=== PATIENT | female | born 1935 | race Caucasian/White ===

== ENCOUNTER 2016-09-30 12:51 | Inpatient (IN) | payer MEDICARE, MEDICAID ==
[2016-09-30] MEDS ORDERED: ASPIRIN (CHEWABLE) 81 MG TAB PO ONE (13:05)
[2016-09-30] MEDS ORDERED: IPRATROPIUM/ALBUTEROL 3 ML VIAL NEB ONE ×2 (13:05)
--- NOTE | 2016-09-30 13:19 | RAD ---
EXAM DESCRIPTION: XR CHEST 1 VIEW CLINICAL HISTORY: dyspnea COMPARISON: August 2015 TECHNIQUE: Single view chest FINDINGS: Cardiomegaly noted peer prior sternotomy. The lungs are clear. No pleural effusion or pneumothorax. IMPRESSION: Unchanged study when compared to 2014. No evidence of infiltrates at this time. Electronically signed by: Jasson Lozada MD 09/30/2016 13:18
--- NOTE | 2016-09-30 13:59 | ED.PDOC ---
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 Intermittent. Worse with activity , better with rest. Uses nebulizers at home. Her home health nurse told her to come to the ER. She denies any chest pain. Has chronic bipedal edema. No other complaints. Timing/Duration: other - 3 weeks Severity: mild Improving Factors: movement Worsening Factors: rest Associated Symptoms: denies symptoms Allergies/Adverse Reactions: Allergies Morphine Adverse Reaction (Severe, Verified 01/02/16 04:52) Other Makes her "crazy" Home Medications: Ambulatory Orders ALPRAZolam [Xanax] 0.5 mg PO TID PRN 04/12/15 Acetaminophen W/ Codeine [Tylenol W/ CODEINE #3] 1 ea PO TID PRN 04/12/15 Esomeprazole Magnesium [Nexium] 40 mg PO DAILY 04/12/15 Furosemide 80 mg PO DAILY 04/12/15 Linagliptin [Tradjenta] 5 mg PO DAILY 04/12/15 Nitroglycerin [Nitrostat] 0.4 mg SL PRN PRN 04/12/15 Prasugrel [Effient] 10 mg PO DAILY 04/12/15 Promethazine Tab [Phenergan Tablet] 25 mg PO QID PRN 04/12/15 Simvastatin 80 mg PO BEDTIME 04/12/15 diltiaZEM HCL CD [Cardizem Cd] 120 mg PO QD #30 cap 04/14/15 Aspirin [Aspirin Adult Low Dose] 81 mg PO DAILY 05/03/15 Insulin Detemir [Levemir Pen] 36 unit SUBCU DAILY 05/03/15 Metoclopramide HCl [Reglan] 10 mg PO TID PRN 05/03/15 Spironolactone [Aldactone] 50 mg PO DAILY 05/03/15 Lisinopril 5 mg PO DAILY 08/07/15 Mwnfahgeec-Hpypssnuazmaa-Vvcjn [Fioricet] 1 cap PO PRN PRN 09/30/16 Carbidopa-Levodopa [Carbidopa/Levodopa 25-100 mg] 1 tab PO BEDTIME 09/30/16 Insulin Regular (Human) [Novolin R U-100] 6 unit IJ TID 09/30/16 Metoprolol Succinate [Metoprolol Succinate ER] 25 mg PO DAILY 09/30/16 Review of Systems - Review of Systems Constitutional: States: no symptoms reported EENTM: States: no symptoms reported Respiratory: States: see HPI Cardiology: States: no symptoms reported Gastrointestinal/Abdominal: States: no symptoms reported Genitourinary: States: no symptoms reported Musculoskeletal: States: no symptoms reported Skin: States: no symptoms reported Neurological: States: no symptoms reported Endocrine: States: no symptoms reported Hematologic/Lymphatic: States: no symptoms reported Past Medical History (General) - Patient Medical History Hx Seizures: No Hx Stroke: No Hx Dementia: Yes - beginning Hx Asthma: No Hx of COPD: No Hx Cardiac Disorders: Yes - Stent Hx Congestive Heart Failure: Yes Hx Pacemaker: No Hx Hypertension: Yes Hx Thyroid Disease: No Hx Diabetes: Yes Hx Gastroesophageal Reflux: Yes Hx Renal Disease: Yes Hx Cancer: No Hx of HIV: No Hx Hepatitis C: No Hx MRSA: No Surgical History: appendectomy, cholecystectomy - Vaccination History Hx Tetanus, Diphtheria Vaccination: No Hx Influenza Vaccination: Yes Hx Pneumococcal Vaccination: Yes Immunizations Up to Date: Yes - Social History Hx Tobacco Use: No Hx Chewing Tobacco Use: No Hx Alcohol Use: No Hx Substance Use: No Hx Substance Use Treatment: No Hx Depression: No Feels Threatened In Home Enviroment: No Feels Threatened In a Relationship: No Hx Physical Abuse: No Hx Emotional Abuse: No Hx Suspected Abuse: No - Activities of Daily Living Hospice Agency (if applicable):: None - Female History Patient is a Female of Child Bearing Age (10 -59 yrs old): No Patient : No Family Medical History - Family History Mother Family History: Unknown Living Status: Age at (years of age): 89 Cause of : old age Hx Family Diabetes: Yes Father Hx Cardiac Disease: Yes Physical Exam - Physical Exam General Appearance: Alert Ears, Nose, Throat: normal ENT inspection Neck: non-tender, full range of motion, supple Respiratory: lungs clear Cardiovascular/Chest: regular rate, rhythm Gastrointestinal/Abdominal: normal bowel sounds, non tender, soft Extremity: normal range of motion, non-tender, normal inspection, no pedal edema Neurologic: no motor/sensory deficits Skin Exam: normal color Lymphatic: no adenopathy Progress - Progress Progress: 10/01/16 05:28 Duonebs x one. Patient remained asymptomatic in the E.D. Laboratory Tests 09/30/16 09/30/16 09/30/16 13:03 13:04 13:15 WBC 11.3 H RBC 3.84 L Hgb 12.2 Hct 36.6 MCV 95.4 MCH 31.7 H MCHC 33.2 RDW 13.1 Plt Count 260 MPV 7.9 Absolute Neuts (auto) 6.70 Absolute Lymphs (auto) 3.00 Absolute Monos (auto) 1.00 H Absolute Eos (auto) 0.60 H Absolute Basos (auto) 0.10 Neutrophils % 58.9 Lymphocytes % 26.2 Monocytes % 8.6 Eosinophils % 5.5 H Basophils % 0.8 PT 11.6 INR 1.030 PTT (SP) 31.7 Sodium 132 L Potassium 4.6 Chloride 96 L Carbon Dioxide 27 Anion Gap 13.6 BUN 43 H Creatinine 2.52 H BUN/Creatinine Ratio 17.1 POC Glucose Random Glucose 197 H Serum Osmolality 280.8 Calcium 8.8 Total Bilirubin 0.6 AST 20 ALT 9 L Alkaline Phosphatase 90 Creatine Kinase 63 CK-MB (CK-2) 1.9 CK-MB (CK-2) % Not Reportable Troponin I < 0.02 B-Natriuretic Peptide 76.9 Serum Total Protein 7.2 Albumin 3.5 Globulin 3.7 H Albumin/Globulin Ratio 0.9 L Urine Color Urine Appearance Urine pH Ur Specific Bern Urine Protein Urine Glucose (UA) Urine Ketones Urine Blood Urine Nitrite Urine Bilirubin Urine Urobilinogen Ur Leukocyte Esterase Urine RBC Urine WBC Ur Epithelial Cells Urine Bacteria 09/30/16 09/30/16 19:30 20:55 WBC RBC Hgb Hct MCV MCH MCHC RDW Plt Count MPV Absolute Neuts (auto) Absolute Lymphs (auto) Absolute Monos (auto) Absolute Eos (auto) Absolute Basos (auto) Neutrophils % Lymphocytes % Monocytes % Eosinophils % Basophils % PT INR PTT (SP) Sodium Potassium Chloride Carbon Dioxide Anion Gap BUN Creatinine BUN/Creatinine Ratio POC Glucose 184 H Random Glucose Serum Osmolality Calcium Total Bilirubin AST ALT Alkaline Phosphatase Creatine Kinase CK-MB (CK-2) CK-MB (CK-2) % Troponin I B-Natriuretic Peptide Serum Total Protein Albumin Globulin Albumin/Globulin Ratio Urine Color Yellow Urine Appearance Cloudy Urine pH 6.0 Ur Specific Bern 1.015 Urine Protein Negative Urine Glucose (UA) Negative Urine Ketones Negative Urine Blood Negative Urine Nitrite Positive H Urine Bilirubin Negative Urine Urobilinogen 0.2 Ur Leukocyte Esterase Small H Urine RBC 3-5 H Urine WBC 5-10 H Ur Epithelial Cells 3-5 Urine Bacteria 2+ H Discharged with orders to follow up with pcp. Departure - Departure Clinical Impression: Dyspnea Disposition: Discharge to Home or Self Care Condition: Good Diet: resume usual diet Activity: increase activity as tolerated Home Medications: Ambulatory Orders ALPRAZolam [Xanax] 0.5 mg PO TID PRN 04/12/15 Acetaminophen W/ Codeine [Tylenol W/ CODEINE #3] 1 ea PO TID PRN 04/12/15 Esomeprazole Magnesium [Nexium] 40 mg PO DAILY 04/12/15 Furosemide 80 mg PO DAILY 04/12/15 Linagliptin [Tradjenta] 5 mg PO DAILY 04/12/15 Nitroglycerin [Nitrostat] 0.4 mg SL PRN PRN 04/12/15 Prasugrel [Effient] 10 mg PO DAILY 04/12/15 Promethazine Tab [Phenergan Tablet] 25 mg PO QID PRN 04/12/15 Simvastatin 80 mg PO BEDTIME 04/12/15 diltiaZEM HCL CD [Cardizem Cd] 120 mg PO QD #30 cap 04/14/15 Aspirin [Aspirin Adult Low Dose] 81 mg PO DAILY 05/03/15 Insulin Detemir [Levemir Pen] 36 unit SUBCU DAILY 05/03/15 Metoclopramide HCl [Reglan] 10 mg PO TID PRN 05/03/15 Spironolactone [Aldactone] 50 mg PO DAILY 05/03/15 Lisinopril 5 mg PO DAILY 08/07/15 Nmgwmitnvc-Mvsejuqfvmmei-Guqir [Fioricet] 1 cap PO PRN PRN 09/30/16 Carbidopa-Levodopa [Carbidopa/Levodopa 25-100 mg] 1 tab PO BEDTIME 09/30/16 Insulin Regular (Human) [Novolin R U-100] 6 unit IJ TID 09/30/16 Metoprolol Succinate [Metoprolol Succinate ER] 25 mg PO DAILY 09/30/16 Comments: Follow up with your regular doctor this week. Return to the E.R. if symptoms return.
--- NOTE | 2016-09-30 17:21 | HP ---
SUPERVISING PHYSICIAN: Abhilash Siddiqi MD CHIEF COMPLAINT: Coughing and shortness of breath. HISTORY OF PRESENT ILLNESS: This is an 80-year-old female patient who presented to the Emergency Room today. She stated about two weeks ago, she had a lot of shortness of breath and coughing. Several times she even got sort of dizzy. She talked to her [facility] home health nurse several times and she seemed to get over it occasionally, but it just progressively got worse. She was so congested and had such a stuffy nose, it was very difficult to breathe on Wednesday and she often became dizzy and could not focus. She called her home health nurse today and they advised her to go the Emergency Room. In the Emergency Room, her oxygen saturation was 88% on room air and she was tachypneic and very short of breath. She was given nebulizers as well as oxygen and her O2 sats came up to 92%. She felt somewhat better. She has a history of congestive heart failure and her BNP was 76.9. Cardiac enzymes were negative. She had leukocytosis with WBC 11.3, low sodium at 132 as well as low chloride at 96. BUN was 43, creatinine 2.5. Her baseline creatinine is usually about 2 to 2.3. Blood sugars were high at 184. Chest x-ray was negative for any acute abnormalities, but she was very dyspneic with low oxygen saturation and I was called for admission. She was admitted and then I also did a urinalysis and she was positive for nitrites and leukocyte esterase. PAST MEDICAL HISTORY: 1. Carotid artery stenosis. 2. Coronary artery disease. 3. Hyperlipidemia. 4. Hypertension. 5. Gastroesophageal reflux disease. 6. Duodenal ulcers. 7. Chronic renal insufficiency. 8. Type 2 diabetes mellitus. 9. Gastroparesis. PAST SURGICAL HISTORY: 1. Biopsy of breast. 2. Cholecystectomy. 3. Coronary artery bypass graft in 1998. 4. Cardiac stent in February of 2012. OUTPATIENT MEDICATIONS: Per the electronic medical record and awaiting verification. ALLERGIES: LYRICA, MORPHINE. 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 She smoked many years ago, but quit about 20 years ago. She denies any ETOH or illicit drug use. REVIEW OF SYSTEMS: GENERAL: Denies fever, fatigue or chills. HEENT: Complains of nasal congestion and post nasal drip, but denies ear pain, or sore throat. Positive for difficulty focusing with shortness of breath. RESPIRATORY : As per history of present illness. CARDIAC: Denies chest pain, palpitations or tachycardia. GASTROINTESTINAL: Denies nausea, vomiting, diarrhea, constipation or abdominal pain. NEUROLOGIC: Complains of sporadic dizziness, although she has not had any dizziness since she came to the hospital. Denies headache or seizures. SKIN: Denies lesions or rashes. GENITOURINARY: Denies hematuria, nocturia, dysuria, or polyuria. PHYSICAL EXAMINATION: VITAL SIGNS: Afebrile. Heart rate 52. Blood pressure 122/75. Respiratory rate 22. Oxygen saturation 88% on room air. GENERAL: This is an 80-year-old, obese female who is laying in her hospital bed. She is in no acute distress. HEENT: Normocephalic, atraumatic. Pupils are equal and reactive. She does have some clear nasal drainage. Oropharynx clear. NECK: Supple without mass. No jugular venous distention. RESPIRATORY: Diminished breath sounds throughout. She does have a few expiratory wheezes and some rhonchi, especially in the apices. CARDIAC: Regular rate and rhythm. She does get bradycardic at times. ABDOMEN: Rounded, obese, nontender. Bowel sounds are positive. EXTREMITIES: No cyanosis or clubbing. +1 edema to bilateral lower extremities. Pedal pulses are +1 bilaterally. NEUROLOGIC: Awake, alert and oriented times three. LABORATORY: As per history of present illness. Her urine RBCs 3 to 5, urine WBCs 5 to 10, urine bacteria 2+. Cardiac enzymes are negative. All other labs and films have been reviewed via the EMR. ASSESSMENT: 1. Acute exacerbation of chronic obstructive pulmonary disease. 2. Hypoxia with dyspnea. 3. Urinary tract infection. 4. Mild leukocytosis. 5. Chronic renal insufficiency with baseline creatinine of 2 to 2.3 and now 2.5. 6. History of congestive heart failure with diastolic etiology. Ejection fraction 60% in August of 2015. 7. Hypertension. 8. Coronary artery disease. 9. Diabetes mellitus, type 2. 10. Gastroesophageal reflux disease. PLAN: We will admit the patient to the hospital. I have given her one dose of Solu-Medrol. I have also started her on IV Rocephin and azithromycin. She will also have breathing treatments. Encourage good pulmonary toilet. I have started Protonix for ulcer prophylaxis and Lovenox for DVT prophylaxis. Her breathing treatments will be DuoNeb. I have also given her some guaifenesin. I have done a urine culture as well as blood cultures and ordered a sputum culture. I will repeat her labs and x-ray in the morning. I also put her on telemetry. We will continue to monitor the patient closely and followup as needed. Dr. Siddiqi is the collaborating physician and available for consultation. #[id number] [facility]
[2016-09-30] MEDS ORDERED: ALBUTEROL SULFATE 2.5 MG/3 ML VIAL NEB PRN (17:38)
[2016-09-30] MEDS ORDERED: DEXTROSE 50% 25 GM/50 ML SYG IV PRN (17:46)
[2016-09-30] MEDS ORDERED: GLUCAGON INJ 1 MG VIAL SUBCU PRN (17:46)
[2016-09-30] MEDS: IV SET AND CAP CHANGE INJ INJ SCH (18:13)
[2016-09-30] MEDS ORDERED: cefTRIAXone SODIUM 1 GM VIAL ONE (20:54)
[2016-09-30] MEDS ORDERED: SODIUM CHL 0.9% 50ML MIN-BAG+ 50 ML IVPB ONE (20:54)
[2016-09-30] MEDS ORDERED: SODIUM CHLORIDE 0.9% 250ML 250 ML ONE (20:54)
[2016-09-30] MEDS ORDERED: AZITHROMYCIN IV 500 MG VIAL IVPB ONE (20:55)
[2016-09-30] MEDS: cefTRIAXone SODIUM 1 GM in SODIUM CHL 0.9% 50ML MIN-BAG+ 50 ML IVPB SCH (20:57)
[2016-09-30] MEDS: INSULIN LISPRO 100 UNITS/ML PEN SUBCU SCH (20:58)
[2016-09-30] MEDS: guaiFENesin ER TAB 600 MG TAB PO SCH (20:58)
[2016-09-30] MEDS: IPRATROPIUM/ALBUTEROL 3 ML VIAL INH SCH (21:00)
[2016-09-30] MEDS: SODIUM CHLORIDE 0.9% (FLUSH) 10 ML SYG IV PRN (21:36)
[2016-09-30] MEDS ORDERED: AZITHROMYCIN IV 500 MG in SODIUM CHLORIDE 0.9% 250ML 250 ML IVPB SCH (22:00)
[2016-09-30] MEDS ORDERED: methylPREDNISolone SODIUM SUC 125 MG/2 ML VIAL IV ONE (22:15)
[2016-10-01] MEDS: ACETAMINOPHEN W/COD #3 TAB 1 EA TAB PO PRN (01:27)
[2016-10-01] MEDS ORDERED: ENOXAPARIN SODIUM 40 MG/0.4 ML SYG SUBCU ONE (03:39)
[2016-10-01] MEDS: PANTOPRAZOLE SODIUM IV 40 MG VIAL IV SCH ×2 (03:47→22:40)
[2016-10-01] MEDS: ENOXAPARIN SODIUM 30 MG/0.3 ML SYG SUBCU SCH ×2 (04:16→22:40)
--- NOTE | 2016-10-01 07:26 | RAD ---
EXAM: Two view chest. INDICATION: Chest pain. COMPARISON: Chest x-ray: 09/30/2016. FINDINGS: There is a retrocardiac airspace opacity. The heart is normal in size. There is no pneumothorax or pleural effusion. Median sternotomy wires are noted. IMPRESSION: Retrocardiac airspace opacity concerning for pneumonia. Electronically signed by: Sundeep Neumann MD 10/01/2016 7:26 AM [employer]
[2016-10-01] MEDS: INSULIN LISPRO 100 UNITS/ML PEN SUBCU SCH ×4 (08:10→21:19)
[2016-10-01] MEDS: IPRATROPIUM/ALBUTEROL 3 ML VIAL INH SCH ×3 (08:35→16:40)
[2016-10-01] MEDS ORDERED: SODIUM CHL 0.9% 50ML MIN-BAG+ 50 ML IVPB ONE ×2 (08:58→20:16)
[2016-10-01] MEDS ORDERED: cefTRIAXone SODIUM 1 GM VIAL ONE ×2 (08:58→20:16)
[2016-10-01] MEDS: guaiFENesin ER TAB 600 MG TAB PO SCH ×2 (09:21→21:20)
[2016-10-01] MEDS: AZITHROMYCIN 250 MG TAB PO SCH (09:21)
[2016-10-01] MEDS: cefTRIAXone SODIUM 1 GM in SODIUM CHL 0.9% 50ML MIN-BAG+ 50 ML IVPB SCH ×2 (09:22→21:20)
[2016-10-01] MEDS: SODIUM CHLORIDE 0.9% (FLUSH) 10 ML SYG IV SCH ×2 (10:02→21:21)
[2016-10-01] MEDS ORDERED: METOCLOPRAMIDE HCL 5 MG TAB PO PRN (11:58)
[2016-10-01] MEDS ORDERED: LINAGLIPTIN 5 MG PO SCH (12:00)
[2016-10-01] MEDS ORDERED: FUROSEMIDE 80 MG PO SCH (12:00)
[2016-10-01] MEDS: PRASUGREL 10 MG TAB PO SCH (13:55)
[2016-10-01] MEDS: METOPROLOL SUCCINATE XL 25 MG TAB PO SCH (13:56)
[2016-10-01] MEDS: FUROSEMIDE 40 MG TAB PO SCH (13:56)
[2016-10-01] MEDS: LISINOPRIL 5 MG TAB PO SCH (13:56)
[2016-10-01] MEDS: NYSTATIN POWDER 15GM BTTL TOP SCH ×4 (14:03→23:04)
[2016-10-01] MEDS ORDERED: FORMOTEROL FUMARATE INH SCH ×2 (14:30→20:00)
[2016-10-01] MEDS: ACETAMINOPHEN 325 MG TAB PO PRN (15:00)
[2016-10-01] MEDS: INSULIN DETEMIR 100 UNITS/ML PEN SUBCU SCH (17:09)
[2016-10-01] MEDS: ALPRAZolam 0.5 MG TAB PO PRN (18:16)
[2016-10-01] MEDS: NON-FORMULARY RESPIRATORY MEDICATION INH SCH (20:45)
[2016-10-01] MEDS: CARBIDOPA/LEVODOPA 25/100 1 TAB PO SCH (21:21)
[2016-10-01] MEDS: methylPREDNISolone SODIUM SUC 40 MG/ML VIAL IV SCH (23:40)
[2016-10-02] MEDS: methylPREDNISolone SODIUM SUC 40 MG/ML VIAL IV SCH ×3 (05:09→17:11)
[2016-10-02] MEDS: INSULIN LISPRO 100 UNITS/ML PEN SUBCU SCH ×6 (07:34→21:19)
[2016-10-02] MEDS: INSULIN DETEMIR 100 UNITS/ML PEN SUBCU SCH ×2 (07:39→16:51)
[2016-10-02] MEDS: AZITHROMYCIN 250 MG TAB PO SCH (07:47)
[2016-10-02] MEDS ORDERED: SODIUM CHL 0.9% 50ML MIN-BAG+ 50 ML IVPB ONE ×2 (08:20→20:19)
[2016-10-02] MEDS ORDERED: cefTRIAXone SODIUM 1 GM VIAL ONE ×2 (08:21→20:19)
[2016-10-02] MEDS: cefTRIAXone SODIUM 1 GM in SODIUM CHL 0.9% 50ML MIN-BAG+ 50 ML IVPB SCH ×2 (09:11→20:47)
[2016-10-02] MEDS: LINAGLIPTIN 5 MG TAB PO SCH (09:15)
[2016-10-02] MEDS: FUROSEMIDE 40 MG TAB PO SCH (09:15)
[2016-10-02] MEDS: PRASUGREL 10 MG TAB PO SCH (09:15)
[2016-10-02] MEDS: LISINOPRIL 5 MG TAB PO SCH (09:15)
[2016-10-02] MEDS: SPIRONOLACTONE 25 MG TAB PO SCH (09:15)
[2016-10-02] MEDS: SODIUM CHLORIDE 0.9% (FLUSH) 10 ML SYG IV SCH ×2 (09:16→20:47)
[2016-10-02] MEDS: guaiFENesin ER TAB 600 MG TAB PO SCH ×2 (09:16→20:48)
[2016-10-02] MEDS: NYSTATIN POWDER 15GM BTTL TOP SCH ×4 (09:16→20:48)
[2016-10-02] MEDS: METOPROLOL SUCCINATE XL 25 MG TAB PO SCH (09:20)
--- NOTE | 2016-10-02 09:24 | PN ---
SUPERVISING PHYSICIAN: Abhilash Siddiqi MD DATE: 10/01/16 SUBJECTIVE: This is an 80-year-old female patient who is lying in her hospital bed. She is in mild respiratory distress. She continues complaints of coughing and shortness of breath with any exertion, but she does feel slightly better than she did yesterday. She also complains of some indigestion and she asked if she had Reglan ordered and I explained to her that she does have it as a p.r.n. I also discussed with her that Perforomist was listed as a home medication and she did admit that she was taking her 's Perforomist and that she was going to ask Dr. Alex about prescribing the formoterol for her breathing issues. OBJECTIVE: VITAL SIGNS: Afebrile. Heart rate 57. Blood pressure 132/75. Respiratory rate 18. O2 saturation 93%.LUNGS: Diminished breath sounds throughout. There is an occasional wheeze to the right upper lobe, but it somewhat clears with coughing. CARDIAC: Regular rate and rhythm. ABDOMEN: Obese, rounded, nondistended. Bowel sounds are positive. EXTREMITIES: Trace pedal edema. Pedal pulses are palpable at +1. NEUROLOGIC: Awake, alert and oriented times three. SKIN: She has a red yeasty rash under the bulge of her abdomen and in her groin. LABORATORY: WBC down from 11.3 to 10. Hemoglobin 11.8, hematocrit 35.8. Sodium 134, potassium 4.8, chloride 99, creatinine down from 2.52 to 2.41. Chest x-ray shows a retrocardiac airspace opacity concerning for pneumonia. Preliminary urine culture shows gram negative rods. Preliminary blood cultures show no growth. All other labs and films have been reviewed via the EMR. ASSESSMENT: 1. Acute exacerbation of chronic obstructive pulmonary disease. 2. Hypoxia with dyspnea. 3. Pneumonia. 4. Urinary tract infection with preliminary urine culture positive for gram negative rods. 5. Chronic renal insufficiency with baseline creatinine of 2 to 2.3. 6. Candidiasis infection. 7. History of congestive heart failure with diastolic etiology, ejection fraction of 60% in August of 2015. 8. Hypertension. 9. Coronary artery disease. 10. Diabetes mellitus, type 2. 11. Gastroesophageal reflux disease. PLAN: We will slowly taper the patient's steroids. I have also added Nystatin for her yeast infection. I will order routine labs and chest x-ray in the morning. We will continue on azithromycin and Rocephin until her cultures are finalized. She does not ambulate much at home except with a walker. I will order physical therapy. Hopefully she will be able to be discharged home in the next few days with [facility]. Dr. Siddiqi is the collaborating physician and available for consultation. #[id number] [facility]
[2016-10-02] MEDS: NON-FORMULARY RESPIRATORY MEDICATION INH SCH ×2 (09:37→20:47)
[2016-10-02] MEDS: ALPRAZolam 0.5 MG TAB PO PRN (18:47)
[2016-10-02] MEDS ORDERED: MAGNESIUM HYDROXIDE 30 ML UD ONE (20:28)
[2016-10-02] MEDS ORDERED: MAGNESIUM HYDROXIDE 30 ML UD PO PRN (20:30)
[2016-10-02] MEDS: CARBIDOPA/LEVODOPA 25/100 1 TAB PO SCH (20:48)
[2016-10-02] MEDS: PANTOPRAZOLE SODIUM IV 40 MG VIAL IV SCH (22:13)
[2016-10-02] MEDS: SODIUM CHLORIDE 0.9% (FLUSH) 10 ML SYG IV PRN (22:13)
[2016-10-02] MEDS: ENOXAPARIN SODIUM 30 MG/0.3 ML SYG SUBCU SCH (22:13)
--- NOTE | 2016-10-02 23:04 | PCM.CORE ---
Physician DVT/VTE - Nurse DVT Assessment & Total Each Risk Factor Represents 3 Points: Age over 75 years, Medical PT with Hx of DC, CHF, Severe infection/sepsis Each Risk Factor is 1 Point: Obesity (BMI >25) DVT Assessment Score: 7 - 5 or more Very High Risk Treatments: Early Ambulation *, Sequential Compression Device Pharmacological: Enoxaparin 40mg SQ Daily
[2016-10-03] MEDS: INSULIN LISPRO 100 UNITS/ML PEN SUBCU SCH ×7 (07:31→21:07)
[2016-10-03] MEDS: INSULIN DETEMIR 100 UNITS/ML PEN SUBCU SCH ×2 (07:32→16:38)
[2016-10-03] MEDS: AZITHROMYCIN 250 MG TAB PO SCH (07:32)
[2016-10-03] MEDS ORDERED: SODIUM CHL 0.9% 50ML MIN-BAG+ 50 ML IVPB ONE ×2 (08:40→19:22)
[2016-10-03] MEDS ORDERED: cefTRIAXone SODIUM 1 GM VIAL ONE ×2 (08:42→19:23)
[2016-10-03] MEDS: NON-FORMULARY RESPIRATORY MEDICATION INH SCH ×2 (08:50→20:35)
[2016-10-03] MEDS: METOPROLOL SUCCINATE XL 25 MG TAB PO SCH (09:47)
[2016-10-03] MEDS: guaiFENesin ER TAB 600 MG TAB PO SCH ×2 (09:47→20:33)
[2016-10-03] MEDS: LISINOPRIL 5 MG TAB PO SCH (09:47)
[2016-10-03] MEDS: SPIRONOLACTONE 25 MG TAB PO SCH (09:47)
[2016-10-03] MEDS: FUROSEMIDE 40 MG TAB PO SCH (09:47)
[2016-10-03] MEDS: cefTRIAXone SODIUM 1 GM in SODIUM CHL 0.9% 50ML MIN-BAG+ 50 ML IVPB SCH ×2 (09:48→20:33)
[2016-10-03] MEDS: predniSONE 20 MG TAB PO SCH (09:48)
[2016-10-03] MEDS: PRASUGREL 10 MG TAB PO SCH (09:48)
[2016-10-03] MEDS: SODIUM CHLORIDE 0.9% (FLUSH) 10 ML SYG IV SCH ×2 (09:49→20:33)
[2016-10-03] MEDS: LINAGLIPTIN 5 MG TAB PO SCH (09:49)
[2016-10-03] MEDS: NYSTATIN POWDER 15GM BTTL TOP SCH ×4 (09:59→20:34)
--- NOTE | 2016-10-03 10:55 | PN ---
SUPERVISING PHYSICIAN: Andrea Mccullough MD DATE: 10/02/16 SUBJECTIVE: The patient is resting in bed today. She appears to be in no acute disease. She says she is coughing but says her shortness of breath is much better. She remains afebrile. OBJECTIVE: VITAL SIGNS: T-max 98.0. Pulse 55. Blood pressure 129/66. Respiratory rate 20. O2 saturation 93% on room air. I&O: negative balance of 760 with 440 in and 2200 out. Weight 128.7 kg. CHEST: Lung sounds remain diminished towards the basis. No obvious wheezing today. CARDIAC: Regular rate and rhythm. ABDOMEN: Obese, soft, non-tender. Positive bowel sound. EXTREMITIES: No notable edema today. NEUROLOGIC: Awake, alert and oriented times three. SKIN: There continues to be a red rash under the bulge of her abdomen and in her groin which has been treated with Nystatin. LABORATORY: White count 13.9, hemoglobin 11.3, hematocrit 34.2. [place] 242,000, differential does show a left shift today. Chemistries show a slightly elevated potassium at 5.7, sodium 131, BUN 50, creatinine 2.3 with a glucose greater than 400 with a minimum of 285 with a corrected sodium calculated from 131 to 135. Liver functions show to be within normal limits. MICROBIOLOGY: Blood cultures do remain negative at 24 hours. Final culture result on the urine showed a Klebsiella pneumonia with a sensitivity pattern showing sensitive to all except ampicillin. RADIOLOGY: There is no chest repeated today. ASSESSMENT: 1. Acute exacerbation of chronic obstructive pulmonary disease with radiographic evidence of pneumonia in the left lower lobe with the patient showing some improvement clinically after being started on Rocephin and azithromycin parenterally. 2. Hypoxia with dyspnea secondary to #1. 3. Urinary tract infection with final culture results showing a Klebsiella pneumonia sensitive to all antibiotics except ampicillin.. 4. Chronic renal insufficiency with baseline creatinine of 2.3 showing some slight improvement today from admission of 2.52 to 2.1. 5. Candidiasis infection to abdomen panniculus secondary to hypoglycemia. 6. History of congestive heart failure with diastolic etiology, last ejection fraction noted to be 60% in August of 2015. 7. Hypertension. 8. Coronary artery disease. 9. Diabetes mellitus, type 2 showing poor control secondary to corticosteroid administration. 10. Electrolyte imbalance with a hyperkalemia secondary to elevated blood sugars and corticosteroid administration as well as diuretics to include Spironolactone. 11. Gastroesophageal reflux disease. PLAN: We will continue to taper patient off her IV Solu-Medrol to 40 mg every 12 hours. Will continue with Nystatin for treatment of yeast infection and add additional insulin coverage at a.c. to assist with better control of her blood sugars. Physical therapy has done an evaluation on her today. We will await their evaluation and recommendations. Will anticipate hopefully discharge in the next couple of days to continue with [facility]. Until the, we will continue to monitor patient closely and treat appropriately. #[id number] [facility]
[2016-10-03] MEDS: ACETAMINOPHEN 325 MG TAB PO PRN (15:07)
[2016-10-03] MEDS: IV SET AND CAP CHANGE INJ INJ SCH (17:57)
[2016-10-03] MEDS: ALPRAZolam 0.5 MG TAB PO PRN (18:40)
[2016-10-03] MEDS: CARBIDOPA/LEVODOPA 25/100 1 TAB PO SCH (20:33)
--- NOTE | 2016-10-03 20:59 | PN ---
DATE: 10/03/16 SUPERVISING PHYSICIAN: Andrea Mccullough M.D. SUBJECTIVE: The patient feels like she is doing better. She remains afebrile. She is not able to produce much sputum. OBJECTIVE: VITAL SIGNS: Temperature 97.4, pulse 69, blood pressure 138/77, respirations 20, O2 sat showing 94% on room air. I's and O's show a negative balance of 10 with 1190 in, 1200 out. She did have 1 bowel movement. CHEST: Lung sounds continue to be diminished towards the bases. There is no wheezing or rhonchi. HEART: Regular rate and rhythm. ABDOMEN: Obese but soft, non- tender. Positive bowel sounds. EXTREMITIES: Without any edema, clubbing or cyanosis. NEUROLOGIC: She is alert and oriented times three. INTEGUMENT: Continued rash underneath the panniculus of the abdomen/groin showing good improvement with the starting of Nystatin. LABORATORY: White count is normalizing, continues to show normalization now at 11.5, hemoglobin and hematocrit are stable at 11.1 and 34.0, platelet count 246, 000. Differential shows a continued left shift. Electrolytes continue to show an elevated potassium although improved from previous days to 5.6 with sodium 136, BUN and creatinine are elevated with BUN 63, creatinine 2.3, although improved from admission of 2.52 with the patient having a history of chronic renal insufficiency with her having an osmolality of 304 likely from some dehydration from diuretics and hyperglycemia. Glucoses still remain elevated in the 300s with 311 up to 356 requiring additional increase in insulin regimen. RADIOLOGY: Plan to repeat her chest x-ray in the morning. ASSESSMENT: 1. Acute exacerbation of chronic obstructive pulmonary disease with radiographic evidence of pneumonia in the left lower lobe with the patient being on Rocephin and Azithromycin parenterally and continues to show good clinical improvement. 2. Hypoxemia with dyspnea secondary to number 1 showing improvement after starting on treatment. 3. Urinary tract infection with final culture growth showing Klebsiella pneumoniae showing to be sensitive to all antibiotics except for Ampicillin with the patient being continued on Rocephin. 4. Chronic renal insufficiency with a baseline creatinine of 2.3 showing some continuation in elevation felt to be secondary to some mild prerenal azotemia secondary to diuresis and continued hyperglycemia. 5. Diabetes mellitus type 2 poorly controlled showing continued elevation secondary to continued corticosteroid administration requiring adjustment of insulin regimen. 6. Candidiasis infection of the abdomen panniculus secondary to hyperglycemia. 7. History of congestive heart failure with diastolic etiology with last ejection fraction noted to be 60% in August 2015. 8. Hypertension, stable. 9. Coronary artery disease. 10. Continued hyperkalemia secondary to elevated glucoses as well as corticosteroid administration and exacerbated by diuretics to include spironolactone. 11. Gastroesophageal reflux disease. PLAN: She will continue with Solu-Medrol today. Plan to transition to p.o. prednisone in the morning. I have adjusted her Levemir as well as her a.c. coverage increasing Levemir to 40 units b.i.d. and a.c. coverage to 10 units 3 times a day. Will need to continue to monitor her sugars and I feel like as we are able to better control her blood sugars, will see some improvement in her potassium again which is exacerbated to some degree from the Spironolactone. She is showing to be dry at this point. We may need to consider either encouraging increased p.o. fluids or some interim decrease in her diuresis as she does get 80 of potassium daily and 50 of Spironolactone. Anticipate possible discharge tomorrow after repeating an x-ray and laboratory studies with anticipation of transitioning to p.o. medications to include second, third or fourth generation cephalosporin and continue Azithromycin to completion. Until discharge, will continue to monitor the patient closely and treat appropriately. #[id number] [facility]
[2016-10-03] MEDS: SODIUM CHLORIDE 0.9% (FLUSH) 10 ML SYG IV PRN (22:22)
[2016-10-03] MEDS: PANTOPRAZOLE SODIUM IV 40 MG VIAL IV SCH (22:22)
[2016-10-03] MEDS: ENOXAPARIN SODIUM 30 MG/0.3 ML SYG SUBCU SCH (22:23)
--- NOTE | 2016-10-04 06:58 | RAD ---
EXAM: Two view chest. INDICATION: Chest pain. COMPARISON: Chest x-ray: 08/02/2017. FINDINGS: Cardiac silhouette: Unremarkable. Tracy: There is mild peribronchial thickening Lobar consolidation: None.Pleural effusion: None.Pneumothorax: None.Other: Median sternotomy wires are noted. Bones: Unremarkable. Other: None. IMPRESSION: Mild peribronchial thickening Electronically signed by: Sundeep Neumann MD 10/04/2016 6:58 AM GAMMA OPERATOR
[2016-10-04] MEDS: INSULIN LISPRO 100 UNITS/ML PEN SUBCU SCH ×7 (07:16→21:30)
[2016-10-04] MEDS: INSULIN DETEMIR 100 UNITS/ML PEN SUBCU SCH ×2 (07:18→16:00)
[2016-10-04] MEDS: AZITHROMYCIN 250 MG TAB PO SCH (07:27)
[2016-10-04] MEDS ORDERED: SODIUM CHL 0.9% 50ML MIN-BAG+ 50 ML IVPB ONE ×2 (08:21→19:50)
[2016-10-04] MEDS ORDERED: cefTRIAXone SODIUM 1 GM VIAL ONE ×2 (08:22→19:51)
[2016-10-04] MEDS: guaiFENesin ER TAB 600 MG TAB PO SCH ×2 (09:02→20:44)
[2016-10-04] MEDS: PRASUGREL 10 MG TAB PO SCH (09:02)
[2016-10-04] MEDS: predniSONE 20 MG TAB PO SCH (09:03)
[2016-10-04] MEDS: SODIUM CHLORIDE 0.9% (FLUSH) 10 ML SYG IV SCH ×2 (09:03→20:47)
[2016-10-04] MEDS: METOPROLOL SUCCINATE XL 25 MG TAB PO SCH (09:03)
[2016-10-04] MEDS: LINAGLIPTIN 5 MG TAB PO SCH (09:03)
[2016-10-04] MEDS: LISINOPRIL 5 MG TAB PO SCH (09:03)
[2016-10-04] MEDS: cefTRIAXone SODIUM 1 GM in SODIUM CHL 0.9% 50ML MIN-BAG+ 50 ML IVPB SCH ×2 (09:06→20:45)
[2016-10-04] MEDS: SODIUM CHLORIDE 0.45% 1000ML 1,000 ML IVS PRN (09:11)
[2016-10-04] MEDS: NYSTATIN POWDER 15GM BTTL TOP SCH ×4 (09:21→20:49)
[2016-10-04] MEDS: NON-FORMULARY RESPIRATORY MEDICATION INH SCH ×2 (09:34→19:33)
--- NOTE | 2016-10-04 15:46 | PN ---
DATE: 10/04/16 SUPERVISING PHYSICIAN: Abhilash Siddiqi M.D. SUBJECTIVE: The patient reports she feels like she is doing better. She is still not very active. I have encouraged her to get up to a chair and ambulate if possible. She does remain afebrile. OBJECTIVE: VITAL SIGNS: 97.4, pulse 70, blood pressure 130/62, respirations 18 , O2 sat showing 94% on room air. I's and O's continue to show significant deficit with a negative 1200 with 1800 in, 3000 out with weight being 128.7 kg. CHEST: Has equal breath sounds but diminished towards the bases. There is some mild expiratory wheezing heard in both apices. HEART: Regular rate and rhythm. ABDOMEN: Obese but soft, non-tender. Positive bowel sounds. EXTREMITIES: No clubbing, cyanosis or edema noted. NEUROLOGIC: She is alert and oriented times three. LABORATORY: White count today is 12.1, hemoglobin 11.5, hematocrit 35.3, platelet count 235,000. Differential shows to be normalized. Chemistries show continued potassium elevation of 5.3 and elevated blood sugars with sodium 131 with correction for hyperglycemia showing to be 134, BUN 77 which is elevating and creatinine is 2.51 which is fairly stable. Glucoses have been 239 to 333, calcium 9.0. MICROBIOLOGY: Blood cultures remain negative after 3 days. There were no additional new cultures. The final culture on the sputum did show normal murali at 24 hours. Urine culture again final showed Klebsiella pneumoniae. RADIOLOGY: Chest x-ray today per radiology interpretation two view shows no lobar consolidations. No pleural effusions. Just some mild peribronchial thickening. ASSESSMENT: 1. Acute exacerbation of chronic obstructive pulmonary disease with radiographic evidence on admission of pneumonia in the left lower lobe with the patient being on Rocephin and Azithromycin parenterally showing good clinical improvement and resolving on radiographic studies. 2. Hypoxemia with dyspnea secondary to number 1 showing to be stable and improved after starting initial treatment. 3. Urinary tract infection with final culture showing Klebsiella pneumoniae being sensitive to all antibiotics except Ampicillin with the patient being continued on Rocephin. 4. Chronic renal insufficiency with a baseline of 2.3 showing some elevation in her BUN felt to be secondary to prerenal azotemia from aggressive diuresis from Spironolactone and Lasix, and continued hyperglycemia. 5. Diabetes mellitus type 2 poorly controlled showing continued elevation secondary to continued corticosteroid administration requiring further adjustments in her insulin regimen. 6. Candidiasis infection of the abdominal panniculus secondary to hyperglycemia, improving with Nystatin. 7. History of congestive heart failure with a diastolic etiology with last ejection fraction noted to be 60% in August 2015 with the patient being on both Spironolactone and Lasix. 8. Hypertension, stable. 9. Coronary artery disease. 10. Continued hyperkalemia secondary to elevated glucoses as well as continued corticosteroid administration showing some exacerbation secondary to diuresis with Spironolactone and some mild dehydration. 11. Gastroesophageal reflux disease. PLAN: Today, will plan to hold her Spironolactone and Lasix, and start her on just some slow IV fluid with half normal saline at 60 an hour, and closely monitor. I did increase her a.c. coverage insulin to 12 units and increased her Levemir by an additional 2 units twice a day for a total of 84 units of Levemir. I feel like once her blood sugars are better controlled and she reestablishes a true volume status, her potassium will show some improvement as well as her BUN will return to baseline. Of course, we will closely monitor this. Anticipate possible discharge tomorrow after clinical reevaluation and repeat laboratory studies to include CBC and BNP. In regards to antibiotic therapy, the patient should be completed for a 5 day course of Azithromycin today. Will plan to stop this tomorrow and continue with Ceftriaxone as she is continuing to show good clinical improvement. She is encouraged to get up to a chair and ambulate if possible, and continue with aggressive pulmonary hygiene, including incentive spirometry and pulmonary exercises. Until discharge, will continue to monitor the patient closely and treat appropriately. #[id number] [facility]
[2016-10-04] MEDS: ACETAMINOPHEN W/COD #3 TAB 1 EA TAB PO PRN (18:18)
[2016-10-04] MEDS: CARBIDOPA/LEVODOPA 25/100 1 TAB PO SCH (20:44)
[2016-10-04] MEDS: ALPRAZolam 0.5 MG TAB PO PRN (20:44)
[2016-10-04] MEDS: ENOXAPARIN SODIUM 30 MG/0.3 ML SYG SUBCU SCH (22:00)
[2016-10-05] MEDS: SODIUM CHLORIDE 0.45% 1000ML 1,000 ML IVS PRN (02:40)
[2016-10-05] MEDS ORDERED: PANTOPRAZOLE SODIUM TAB 40 MG PO SCH (06:30)
[2016-10-05 06:34] VITALS: TEMP 96.7; O2SAT 97
[2016-10-05] MEDS: AZITHROMYCIN 250 MG TAB PO SCH (07:25)
[2016-10-05] MEDS: INSULIN LISPRO 100 UNITS/ML PEN SUBCU SCH ×4 (07:26→11:56)
[2016-10-05] MEDS: INSULIN DETEMIR 100 UNITS/ML PEN SUBCU SCH (07:29)
[2016-10-05] MEDS: NON-FORMULARY RESPIRATORY MEDICATION INH SCH (08:50)
[2016-10-05] MEDS ORDERED: SODIUM CHL 0.9% 50ML MIN-BAG+ 50 ML IVPB ONE (08:57)
[2016-10-05] MEDS ORDERED: cefTRIAXone SODIUM 1 GM VIAL ONE (08:59)
[2016-10-05] MEDS: cefTRIAXone SODIUM 1 GM in SODIUM CHL 0.9% 50ML MIN-BAG+ 50 ML IVPB SCH (10:12)
[2016-10-05] MEDS: METOPROLOL SUCCINATE XL 25 MG TAB PO SCH (10:23)
[2016-10-05] MEDS: PRASUGREL 10 MG TAB PO SCH (10:23)
[2016-10-05] MEDS: predniSONE 20 MG TAB PO SCH (10:24)
[2016-10-05] MEDS: LISINOPRIL 5 MG TAB PO SCH (10:24)
[2016-10-05] MEDS: LINAGLIPTIN 5 MG TAB PO SCH (10:24)
[2016-10-05] MEDS: guaiFENesin ER TAB 600 MG TAB PO SCH (10:24)
[2016-10-05] MEDS: NYSTATIN POWDER 15GM BTTL TOP SCH (10:25)
[2016-10-05] MEDS ORDERED: FUROSEMIDE 40 MG TAB ONE ×2 (10:45→10:48)
[2016-10-05] MEDS ORDERED: SPIRONOLACTONE 25 MG TAB ONE (10:49)
[2016-10-05] MEDS: SPIRONOLACTONE 25 MG TAB PO SCH (10:56)
[2016-10-05] MEDS: FUROSEMIDE 40 MG TAB PO SCH (10:56)
[2016-10-05] MEDS: SODIUM CHLORIDE 0.9% (FLUSH) 10 ML SYG IV SCH (10:57)
[2016-10-05 11:00] VITALS: BP 117/61
--- NOTE | 2016-10-06 10:03 | DS ---
SUPERVISING PHYSICIAN: Abhilash Siddiqi MD DISCHARGE DIAGNOSIS: 1. Acute exacerbation of chronic obstructive pulmonary disease with radiographic evidence on admission of left lower lobe pneumonia with the patient being on Rocephin and azithromycin parenterally through the entire hospitalization, showing good clinical improvement and resolving radiographic studies and discharged in stable condition to continue antibiotic therapy with second generation cephalosporin. 2. Hypoxia with dyspnea, secondary to #1, improved and remaining stable after initiation of treatment. 3. Urinary tract infection with final culture results showing Klebsiella pneumoniae being sensitive to all antibiotics except ampicillin with the patient being on continued Rocephin through admission and discharged on a second generation cephalosporin. 4. Chronic renal insufficiency with baseline creatinine of 2.3, initially showing elevation of BUN, but returning to normal, felt to be secondary to prerenal azotemia after management of fluids and holding some of diuresis initially. 6. Diabetes mellitus, type 2, poorly controlled secondary to corticosteroid administration, requiring further adjustment of insulin regimen, both long acting and short acting. 7. Candidiasis of the abdomen, secondary to hypoglycemia and extended antibiotic therapy, improving after starting Nystatin. 8. History of congestive heart failure with diastolic etiology with last ejection fraction documented to be 60% in August of 2015 with the patient being on both Spironolactone and Lasix as well as lisinopril. 9. Hypertension, stable. 10. Coronary artery disease. 11. Persistent hyperkalemia secondary to Spironolactone and continued hyperglycemia complicated by corticosteroids, stable. 12. Gastroesophageal reflux disease. HISTORY OF PRESENT ILLNESS: Ms. Lares is an 80-year-old female patient who presented to the Emergency Room on day of admission. She stated about two weeks prior to admission, she had a lot of shortness of breath and coughing. Several times she even got sort of dizzy. She talked to her [facility] home health nurse several times and she seemed to get over it occasionally, but it just progressively got worse. She was so congested and had such a stuffy nose, it was very difficult to breathe on Wednesday before admission and she often became dizzy and could not focus. She called her home health nurse on the day of admission and they advised her to go the Emergency Room. In the Emergency Room, her oxygen saturation was 88% on room air and she was tachypneic and very short of breath. She was given nebulizers as well as oxygen and her O2 sats came up to 92%. She felt somewhat better. She has a history of congestive heart failure and her BNP was 76.9. Cardiac enzymes were negative. She had leukocytosis with WBC 11.3, low sodium at 132 as well as low chloride at 96. BUN was 43, creatinine 2.5. Her baseline creatinine is usually about 2 to 2.3. Blood sugars were high at 184. Chest x-ray was negative for any acute abnormalities, but she was very dyspneic with low oxygen saturation. She was admitted and a urinalysis was done that was positive for nitrites and leukocyte esterase. LABORATORY: White count on admission was 11.3, discharge did show an increase to 13.2, however, she had been on corticosteroids for the entire hospitalization. Hemoglobin and hematocrit were stable at 11.6 and 34.7. Platelet count within normal limits at 208,000. Differential without any left shift. Coagulation studies showed normal PT, PT-T. Chemistries initially on admission showed low sodium of 132 with potassium 4.6, BUN 43, creatinine 2.5, glucose 197, calcium 8.6. All other liver functions were within normal limits as well as troponin less than 0.02. Her blood sugars after starting on corticosteroids did show elevation with a maximum up to 400 requiring extensive management of her insulin therapy. Sodium persistently was low, however, taking into consideration the hyperglycemia, actually corrected to be within normal limits. Her potassium did remain elevated to a maximum of 5.7. After aggressive insulin management and better control of glucoses, the patient had shown decrease and was 5.2 at time of discharge. She was discharged having found to be clinically stable to finish up with outpatient antibiotic therapy. HOSPITAL COURSE: Ms. Lares was admitted as noted in history of present illness for exacerbation of chronic obstructive pulmonary disease with left lower lobe pneumonia. She was started on Rocephin and azithromycin and steroids. She did clinically well. She did show elevation of her blood sugars. This was managed by additional Levemir and insulin coverage on a.c.. In regards to the underlying urinary tract infection, the patient was actually asymptomatic on admission and showed no complications secondary to treatment with antibiotics. She did show slight elevation in her creatinine and was felt to be secondary to fluid restriction that she had been on through admission as well as complicated by Spironolactone and Lasix. Her Lasix and Spironolactone were held 24 hours. She was started on slow IV therapy to rehydrate and she did show improvement. There were no complications from IV fluids. On date of discharge, again, she was felt to be clinically well enough to be followed up with primary care provider. PLAN: The patient was discharged on 10/05/16 to have close clinical followup with Dr. Alex scheduled on 10/12/16 at 2:15 in the afternoon. She was to have continued home health through [facility] and instructed to resume all her medications as directed with noted changes to her Levemir and Humalog insulin dosings. She was to take new prescriptions as directed. She was to continue to pulmonary exercises with incentive spirometry and increase activity to help improve her lung function. She was to use her breathing treatments as instructed and limit her daily fluids to less than 800 mL per 24 hour period. She was also instructed to monitor her weight daily and notify Dr. Alex of acute weight changes of 3 pounds or greater or any worsening of her shortness of breath in a single day. She was to return to the hospital should she have failure to improve symptoms. New prescriptions at time of discharge included: 1. Diflucan 150 mg, #1. 2. Insulin Lispro 12 units before each meal 1 pen administered. 3. Insulin Levemir Pen 42 units twice daily. 4. Nystatin topical powder, apply twice to area of concern as needed, #1. 5. Nystatin suspension swish and swallow 5 mL oral 5 times a day, #170. 6. Cefdinir 300 mg twice daily, #20. 7. Prednisone taper regimen 40 mg daily x4 days, 20 mg daily x3 days, and 10 mg daily x2 days. All other medications were to be resumed. She was instructed to return to a diabetic diet and to watch her calorie intake closely. She was discharged in stable condition on 10/05/16. #[id number] [facility]
--- NOTE | 2016-10-08 14:09 | RAD ---
EXAM: Two view chest. INDICATION: Chest pain. COMPARISON: Chest x-ray: 10/01/2016. FINDINGS: Cardiac silhouette: Unremarkable. Tracy: Unremarkable. Lobar consolidation: None.Pleural effusion: None.Pneumothorax: None.Other: Median sternotomy wires are noted Bones: Unremarkable. Other: None. IMPRESSION: 1. No acute cardiopulmonary process. Electronically signed by: Sundeep Neumann MD 10/02/2016 6:57 AM PRINT FINISHER
--- NOTE | 2016-11-01 23:46 | RAD ---
EXAM: Two view chest. INDICATION: Chest pain. COMPARISON: Chest x-ray: 10/01/2016. FINDINGS: Cardiac silhouette: Unremarkable. Tracy: Unremarkable. Lobar consolidation: None.Pleural effusion: None.Pneumothorax: None.Other: Median sternotomy wires are noted Bones: Unremarkable. Other: None. IMPRESSION: 1. No acute cardiopulmonary process. Electronically signed by: Sundeep Neumann MD 10/02/2016 6:57 AM BREAKFAST BAR ATTENDANT
--- NOTE | 2016-11-01 23:48 | RAD ---
EXAM: Two view chest. INDICATION: Chest pain. COMPARISON: Chest x-ray: 08/02/2017. FINDINGS: Cardiac silhouette: Unremarkable. Tracy: There is mild peribronchial thickening Lobar consolidation: None.Pleural effusion: None.Pneumothorax: None.Other: Median sternotomy wires are noted. Bones: Unremarkable. Other: None. IMPRESSION: Mild peribronchial thickening Electronically signed by: Sundeep Neumann MD 10/04/2016 6:58 AM ROLL COATING MACHINE OPERATOR
--- NOTE | 2016-11-02 00:05 | RAD ---
EXAM: Two view chest. INDICATION: Chest pain. COMPARISON: Chest x-ray: 10/01/2016. FINDINGS: Cardiac silhouette: Unremarkable. Tracy: Unremarkable. Lobar consolidation: None.Pleural effusion: None.Pneumothorax: None.Other: Median sternotomy wires are noted Bones: Unremarkable. Other: None. IMPRESSION: 1. No acute cardiopulmonary process. Electronically signed by: Sundeep Neumann MD 10/02/2016 6:57 AM INSIDE SALES TERRITORY MANAGER
--- NOTE | 2016-11-02 00:17 | RAD ---
EXAM: Two view chest. INDICATION: Chest pain. COMPARISON: Chest x-ray: 10/01/2016. FINDINGS: Cardiac silhouette: Unremarkable. Tracy: Unremarkable. Lobar consolidation: None.Pleural effusion: None.Pneumothorax: None.Other: Median sternotomy wires are noted Bones: Unremarkable. Other: None. IMPRESSION: 1. No acute cardiopulmonary process. Electronically signed by: Sundeep Neumann MD 10/02/2016 6:57 AM UNLEAVENED DOUGH MIXER
--- NOTE | 2016-11-02 00:34 | RAD ---
EXAM: Two view chest. INDICATION: Chest pain. COMPARISON: Chest x-ray: 10/01/2016. FINDINGS: Cardiac silhouette: Unremarkable. Tracy: Unremarkable. Lobar consolidation: None.Pleural effusion: None.Pneumothorax: None.Other: Median sternotomy wires are noted Bones: Unremarkable. Other: None. IMPRESSION: 1. No acute cardiopulmonary process. Electronically signed by: Sundeep Neumann MD 10/02/2016 6:57 AM SHADE CLOTH FINISHER
--- NOTE | 2016-11-02 02:13 | RAD ---
EXAM: Two view chest. INDICATION: Chest pain. COMPARISON: Chest x-ray: 08/02/2017. FINDINGS: Cardiac silhouette: Unremarkable. Tracy: There is mild peribronchial thickening Lobar consolidation: None.Pleural effusion: None.Pneumothorax: None.Other: Median sternotomy wires are noted. Bones: Unremarkable. Other: None. IMPRESSION: Mild peribronchial thickening Electronically signed by: Sundeep Neumann MD 10/04/2016 6:58 AM TURN OUT
--- NOTE | 2016-11-02 03:18 | RAD ---
EXAM: Two view chest. INDICATION: Chest pain. COMPARISON: Chest x-ray: 08/02/2017. FINDINGS: Cardiac silhouette: Unremarkable. Tracy: There is mild peribronchial thickening Lobar consolidation: None.Pleural effusion: None.Pneumothorax: None.Other: Median sternotomy wires are noted. Bones: Unremarkable. Other: None. IMPRESSION: Mild peribronchial thickening Electronically signed by: Sundeep Neumann MD 10/04/2016 6:58 AM NURSE ANESTHESIA PROGRAM DIRECTOR
--- NOTE | 2016-11-02 06:02 | RAD ---
EXAM: Two view chest. INDICATION: Chest pain. COMPARISON: Chest x-ray: 08/02/2017. FINDINGS: Cardiac silhouette: Unremarkable. Tracy: There is mild peribronchial thickening Lobar consolidation: None.Pleural effusion: None.Pneumothorax: None.Other: Median sternotomy wires are noted. Bones: Unremarkable. Other: None. IMPRESSION: Mild peribronchial thickening Electronically signed by: Sundeep Neumann MD 10/04/2016 6:58 AM PRODUCT SPECIALIST
--- NOTE | 2016-11-02 07:45 | RAD ---
EXAM: Two view chest. INDICATION: Chest pain. COMPARISON: Chest x-ray: 08/02/2017. FINDINGS: Cardiac silhouette: Unremarkable. Tracy: There is mild peribronchial thickening Lobar consolidation: None.Pleural effusion: None.Pneumothorax: None.Other: Median sternotomy wires are noted. Bones: Unremarkable. Other: None. IMPRESSION: Mild peribronchial thickening Electronically signed by: Sundeep Neumann MD 10/04/2016 6:58 AM [employer]PER[employer]
== END 2016-10-05 12:35 | disposition home health service (06) | DRG 190 ==
LOC: ER 12:51 → MS 17:20 → OBSVTOIN 17:20
PROVIDERS: ADMIT Nurse Practitioner Acute Care; ATTEND Nurse Practitioner Family
DX: J44.0 Chronic obstructive pulmonary disease with (acute) lower respiratory infection (principal); J18.9 Pneumonia, unspecified organism; N39.0 Urinary tract infection, site not specified; I50.32 Chronic diastolic (congestive) heart failure; I13.0 Hypertensive heart and chronic kidney disease with heart failure and stage 1 through stage 4 chronic kidney disease, or unspecified chronic kidney disease; J44.1 Chronic obstructive pulmonary disease with (acute) exacerbation; R09.02 Hypoxemia; B96.1 Klebsiella pneumoniae [K. pneumoniae] as the cause of diseases classified elsewhere; E11.65 Type 2 diabetes mellitus with hyperglycemia; N18.9 Chronic kidney disease, unspecified; B37.2 Candidiasis of skin and nail; I25.10 Atherosclerotic heart disease of native coronary artery without angina pectoris; E87.5 Hyperkalemia; T50.0X5A Adverse effect of mineralocorticoids and their antagonists, initial encounter; K21.9 Gastro-esophageal reflux disease without esophagitis; E11.22 Type 2 diabetes mellitus with diabetic chronic kidney disease; E11.43 Type 2 diabetes mellitus with diabetic autonomic (poly)neuropathy; K31.84 Gastroparesis; I25.2 Old myocardial infarction; E66.9 Obesity, unspecified; Z95.1 Presence of aortocoronary bypass graft; Y92.230 Patient room in hospital as the place of occurrence of the external cause; Z95.5 Presence of coronary angioplasty implant and graft; Z88.5 Allergy status to narcotic agent; Z88.8 Allergy status to other drugs, medicaments and biological substances; Z87.891 Personal history of nicotine dependence

== ENCOUNTER 2016-10-12 14:10 | Inpatient (IN) | payer MEDICARE, MEDICAID ==
[2016-10-12] MEDS ORDERED: IPRATROPIUM/ALBUTEROL 3 ML VIAL NEB ONE (15:41)
--- NOTE | 2016-10-12 16:47 | RAD ---
EXAM DESCRIPTION: XR CHEST 2 VIEWS CLINICAL HISTORY: shortness of breath COMPARISON: October 04, 2016 TECHNIQUE: PA/lateral FINDINGS: Prior sternotomy. Heart size is stable. Lungs are clear. No pleural effusion or pneumothorax. IMPRESSION: Stable findings when compared to October 04, 2016. Electronically signed by: Jasson Lozada MD 10/12/2016 16:45
[2016-10-12] MEDS ORDERED: methylPREDNISolone SODIUM SUC 125 MG/2 ML VIAL IV ONE (19:12)
--- NOTE | 2016-10-12 19:38 | ED.PDOC ---
History of Present Illness - General Chief Complaint: Respiratory Problem Stated Complaint: shortness of breath, cough Time Seen by Provider: 10/12/16 15:31 Source: patient, RN notes reviewed, Vital Signs reviewed Exam Limitations: no limitations - History of Present Illness Initial Comments: Patient is an 80 y/o female who was admitted for pneumonia and discharged on . She felt fine until early this morning when she started having shortness of breath. She reports a temperature of 99.0. Worried that the pneumonia had returned, she came into the ED. Timing/Duration: 4-6 hours, getting worse Severity: moderate Improving Factors: nothing Worsening Factors: nothing Associated Symptoms: fever/chills, shortness of breath Allergies/Adverse Reactions: Allergies Morphine Adverse Reaction (Severe, Verified 10/12/16 14:57) Other Makes her "crazy" Home Medications: Ambulatory Orders ALPRAZolam [Xanax] 0.5 mg PO TID PRN 04/12/15 Acetaminophen W/ Codeine [Tylenol W/ CODEINE #3] 1 ea PO TID PRN 04/12/15 Esomeprazole Magnesium [Nexium] 40 mg PO DAILY 04/12/15 Furosemide 80 mg PO DAILY 04/12/15 Linagliptin [Tradjenta] 5 mg PO DAILY 04/12/15 Nitroglycerin [Nitrostat] 0.4 mg SL PRN PRN 04/12/15 Prasugrel [Effient] 10 mg PO DAILY 04/12/15 Promethazine Tab [Phenergan Tablet] 25 mg PO QID PRN 04/12/15 Simvastatin 80 mg PO BEDTIME 04/12/15 diltiaZEM HCL CD [Cardizem Cd] 120 mg PO QD #30 cap 04/14/15 Aspirin [Aspirin Adult Low Dose] 81 mg PO DAILY 05/03/15 Metoclopramide HCl [Reglan] 10 mg PO TID PRN 05/03/15 Spironolactone [Aldactone] 50 mg PO DAILY 05/03/15 Lisinopril 5 mg PO DAILY 08/07/15 [id number]-Istojnuufhutn-Rqriw [Fioricet 50-300-40 mg] 1 cap PO PRN PRN Carbidopa-Levodopa [Carbidopa/Levodopa 25-100 mg] 1 tab PO BEDTIME 09/30/16 Insulin Regular (Human) [Novolin R] 6 unit IJ TID 09/30/16 Metoprolol Succinate [Metoprolol Succinate ER] 25 mg PO DAILY 09/30/16 Cefdinir [Omnicef] 300 mg PO BID #20 cap 10/05/16 Fluconazole [Diflucan Tab] 150 mg PO DAILY #1 tab 10/05/16 Insulin Detemir [Levemir Pen] 42 units SUBCU 0800,1600 #1 pen 10/05/16 Insulin Lispro [Humalog] 12 u SUBCU AC #1 pen 10/05/16 Nystatin (Topical) [Nystatin] 100,000 unit EX BID PRN #1 bottle 10/05/16 Nystatin Suspension 5 ml PO QID #170 ml 10/05/16 predniSONE [Prednisone] See Taper PO DAILY #14 tab 10/05/16 Review of Systems - Review of Systems Constitutional: States: fever EENTM: States: no symptoms reported Respiratory: States: short of breath Cardiology: States: no symptoms reported Gastrointestinal/Abdominal: States: no symptoms reported Genitourinary: States: no symptoms reported Musculoskeletal: States: back pain Skin: States: no symptoms reported Neurological: States: no symptoms reported Endocrine: States: no symptoms reported Hematologic/Lymphatic: States: no symptoms reported All other Systems: Reviewed and Negative Past Medical History (General) - Patient Medical History Hx Seizures: No Hx Stroke: No Hx Dementia: Yes - beginning Hx Asthma: No Hx of COPD: No Hx Cardiac Disorders: Yes - Stent Hx Congestive Heart Failure: Yes Hx Pacemaker: No Hx Hypertension: Yes Hx Thyroid Disease: No Hx Diabetes: Yes Hx Gastroesophageal Reflux: Yes Hx Renal Disease: Yes Hx Cancer: No Hx of HIV: No Hx Hepatitis C: No Hx MRSA: No - Vaccination History Hx Tetanus, Diphtheria Vaccination: No Hx Influenza Vaccination: Yes Hx Pneumococcal Vaccination: Yes - Social History Hx Tobacco Use: No Hx Chewing Tobacco Use: No Hx Alcohol Use: No Hx Substance Use: No Hx Substance Use Treatment: No Hx Depression: No Hx Physical Abuse: No Hx Emotional Abuse: No Hx Suspected Abuse: No - Activities of Daily Living Hospice Agency (if applicable):: None - Female History Patient is a Female of Child Bearing Age (10 -59 yrs old): No Patient : No Family Medical History - Family History Father Hx Cardiac Disease: Yes Mother Family History: Unknown Living Status: Age at (years of age): 99 Cause of : old age Hx Family Diabetes: Yes Physical Exam - Physical Exam General Appearance: Alert, No apparent distress, Obese Ears, Nose, Throat: hearing grossly normal Respiratory: no respiratory distress, no accessory muscle use, decreased breath sounds, rhonchi, wheezing Cardiovascular/Chest: regular rate, rhythm, no edema, no gallop, no murmur Gastrointestinal/Abdominal: normal bowel sounds, non tender, soft, no organomegaly Neurologic: alert, normal mood/affect, oriented x 3 Skin Exam: normal color, warm/dry Progress - Results/Orders Results/Orders: 10/12/16 10/12/16 10/12/16 14:20 14:58 16:13 Temperature 97.7 F Pulse Rate 54 L Pulse Rate [ 55 L pulse ox] Respiratory 20 20 20 Rate Blood Pressure 130/63 [Right Arm] O2 Sat by Pulse 95 97 Oximetry 10/12/16 10/12/16 19:47 19:50 Temperature 97.9 F Pulse Rate 55 L Pulse Rate [ 53 L pulse ox] Respiratory 20 20 Rate Blood Pressure 167/79 [Right Arm] O2 Sat by Pulse 95 98 Oximetry 10/12/16 15:00 EKG STAT 10/12/16 17:27 URINALYSIS Stat Laboratory Results WBC 17.1 K/mm3 (4.8-10.8) H 10/12/16 19:38 RBC 4.20 M/mm3 (4.20-5.40) 10/12/16 19:38 Hgb 13.1 gm/dL (12.0-16.0) 10/12/16 19:38 Hct 40.1 % (36.0-47.0) 10/12/16 19:38 MCV 95.5 fl (81.0-99.0) 10/12/16 19:38 MCH 31.2 pg (27.0-31.0) H 10/12/16 19:38 MCHC 32.7 g/dL (33.0-37.0) L 10/12/16 19:38 RDW 13.4 % (11.5-14.5) 10/12/16 19:38 Plt Count 227 K/mm3 (130-400) 10/12/16 19:38 MPV 8.4 fl (7.40-10.4) 10/12/16 19:38 Absolute Neuts (auto) 15.60 K/uL (1.8-6.8) H 10/12/16 19:38 Absolute Lymphs (auto) 0.90 K/uL (1.0-3.4) L 10/12/16 19:38 Absolute Monos (auto) 0.50 K/uL (0.2-0.8) 10/12/16 19:38 Absolute Eos (auto) 0.00 K/uL (0.0-0.4) 10/12/16 19:38 Absolute Basos (auto) 0.00 K/uL (0.0-0.1) 10/12/16 19:38 Neutrophils % 91.7 % (42.0-78.0) H 10/12/16 19:38 Lymphocytes % 5.1 % (20.0-50.0) L 10/12/16 19:38 Monocytes % 3.0 % (2.0-9.0) 10/12/16 19:38 Eosinophils % 0.0 % (1.0-5.0) L 10/12/16 19:38 Basophils % 0.2 % (0.0-2.0) 10/12/16 19:38 Differential Comment Cancelled 10/12/16 17:05 RBC Morphology Cancelled 10/12/16 17:05 Sodium 134 mmol/L (135-145) L 10/12/16 19:38 Potassium 6.3 mmol/L (3.6-5.0) H 10/12/16 19:38 Chloride 100 mmol/L (101-111) L 10/12/16 19:38 Carbon Dioxide 26 mmol/L (21-31) 10/12/16 19:38 Anion Gap 14.3 (12-18) 10/12/16 19:38 BUN 62 mg/dL (7-18) H 10/12/16 19:38 Creatinine 2.05 mg/dL (0.6-1.3) H 10/12/16 19:38 BUN/Creatinine Ratio 30.2 (10-20) H 10/12/16 19:38 Random Glucose 284 mg/dL (70-105) H 10/12/16 19:38 Serum Osmolality 296.2 mOsm/L (275-295) H 10/12/16 19:38 Calcium 8.7 mg/dL (8.4-10.2) 10/12/16 19:38 Phosphorus 3.4 mg/dL (2.5-4.6) 10/12/16 19:38 Magnesium 1.9 mg/dL (1.8-2.5) 10/12/16 19:38 Total Bilirubin 0.8 mg/dL (0.2-1.0) 10/12/16 19:38 AST 19 IU/L (10-42) 10/12/16 19:38 ALT 22 IU/L (10-60) 10/12/16 19:38 Alkaline Phosphatase 80 IU/L (42-121) 10/12/16 19:38 B-Natriuretic Peptide 58.4 pg/ml (0-100) 10/12/16 19:38 Serum Total Protein 7.2 gm/dL (6.4-8.2) 10/12/16 19:38 Albumin 3.7 g/dl (3.2-5.5) 10/12/16 19:38 Globulin 3.5 gm/dL (2.3-3.5) 10/12/16 19:38 Albumin/Globulin Ratio 1.1 (1.1-1.9) 10/12/16 19:38 - EKG/XRAY/CT EKG: [place] - 57 bpm, no ST T wave changes, Unchanged from - 08/08/2015 Comments: NML axis, NML intervals, sinus bradycardia XRAY: chest Xray Comments: No acute process Departure - Departure Clinical Impression: Hyperkalemia, Dehydration, COPD exacerbation Time of Disposition: 21:00 Disposition: Admit Patient Departure Forms: ED Discharge - Pt. Copy, Patient Portal Self Enrollment Home Medications: Ambulatory Orders ALPRAZolam [Xanax] 0.5 mg PO TID PRN 04/12/15 Acetaminophen W/ Codeine [Tylenol W/ CODEINE #3] 1 ea PO TID PRN 04/12/15 Esomeprazole Magnesium [Nexium] 40 mg PO DAILY 04/12/15 Furosemide 80 mg PO DAILY 04/12/15 Linagliptin [Tradjenta] 5 mg PO DAILY 04/12/15 Nitroglycerin [Nitrostat] 0.4 mg SL PRN PRN 04/12/15 Prasugrel [Effient] 10 mg PO DAILY 04/12/15 Promethazine Tab [Phenergan Tablet] 25 mg PO QID PRN 04/12/15 Simvastatin 80 mg PO BEDTIME 04/12/15 diltiaZEM HCL CD [Cardizem Cd] 120 mg PO QD #30 cap 04/14/15 Aspirin [Aspirin Adult Low Dose] 81 mg PO DAILY 05/03/15 Metoclopramide HCl [Reglan] 10 mg PO TID PRN 05/03/15 Spironolactone [Aldactone] 50 mg PO DAILY 05/03/15 Lisinopril 5 mg PO DAILY 08/07/15 Jmtyecdzng-Rojtvefaatfze-Jstsx [Fioricet 50-300-40 mg] 1 cap PO PRN PRN Carbidopa-Levodopa [Carbidopa/Levodopa 25-100 mg] 1 tab PO BEDTIME 09/30/16 Insulin Regular (Human) [Novolin R] 6 unit IJ TID 09/30/16 Metoprolol Succinate [Metoprolol Succinate ER] 25 mg PO DAILY 09/30/16 Cefdinir [Omnicef] 300 mg PO BID #20 cap 10/05/16 Fluconazole [Diflucan Tab] 150 mg PO DAILY #1 tab 10/05/16 Insulin Detemir [Levemir Pen] 42 units SUBCU 0800,1600 #1 pen 10/05/16 Insulin Lispro [Humalog] 12 u SUBCU AC #1 pen 10/05/16 Nystatin (Topical) [Nystatin] 100,000 unit EX BID PRN #1 bottle 10/05/16 Nystatin Suspension 5 ml PO QID #170 ml 10/05/16 predniSONE [Prednisone] See Taper PO DAILY #14 tab 10/05/16 Decision To Admit - Decistion To Admit Decision to Admit Reason: Admit from ER Decision to Admit Date: 10/12/16 Decision to Admit Time: 20:50
[2016-10-12] MEDS ORDERED: LEVALBUTEROL NEBS 1.25 MG/3 ML VIAL NEB ONE (19:41)
--- NOTE | 2016-10-12 21:31 | HP ---
SUPERVISING PHYSICIAN: Cara Mccullough MD CHIEF COMPLAINT: Weakness and shortness of breath. HISTORY OF PRESENT ILLNESS: Ms. Lares is an 80-year-old, female patient who presented to the Emergency Department complaining of some weakness and shortness of breath. She just recently had been in the hospital for exacerbation of chronic obstructive pulmonary disease and pneumonia and discharged on 10/05/16. She noted she had been doing great until this morning when she started having a little shortness of breath and noted she was getting quite weak. She also notes she felt like she might have been running a temperature. She was worried that her pneumonia may be returning and she came to the Emergency Room for further treatment and evaluation. Laboratory studies on admission to the Emergency Department showed white count 17.1, however, the patient has continued on steroid taping dose since discharge. She did have a left shift as well, but she was afebrile on admission to the Emergency Department with a temperature of 97.7. Chemistries showed she had a moderate hyperkalemia with potassium of 6.3. Sodium 134, BUN was elevated at 62 and creatinine was 2 which near the patient's baseline status. Glucose was elevated at 284 as well as she had an serum osmolality of 296. Liver functions all were within normal limits. Calcium 8.7, phosphorous 3.4, magnesium 1.9, BNP 58.4. Chest x-ray was obtained and per radiology interpretation showed lungs to be clear and stable compared to 10/04/16. The patient does have a history of taking Spironolactone as well as Lasix. Given her degree of hyperkalemia, an EKG was performed. No noted T-wave changes were apparent. The patient was still finishing up the last portion of her antibiotic therapy since discharge and was on the end of her tapering dose of prednisone. Given the fact that she had some weakness and presented with a moderate hyperkalemia and some obvious dehydration, the patient will be placed in observation for initiation of IV fluids to help in reestablishing her volume status and help to normalize blood sugar as well as help correct the hyperkalemia. She was admitted in stable condition. Prior to admission, she was given a dose of Solu- Medrol as it was felt the patient was having some wheezing upon presentation to the Emergency Department, however, vital signs showed her to be saturating 98% on room air. PAST MEDICAL HISTORY: 1. Recent exacerbation of chronic obstructive pulmonary disease with left lower lobe pneumonia having been discharged on 10/05/16 with continued treatment with antibiotics and tapering steroid dose with current radiographic studies indicating lungs to be clear without any evidence of infiltration or pneumonia. 2. Carotid artery stenosis. 3. Coronary artery disease. 4. Hyperlipidemia. 5. Hypertension. 6. Gastroesophageal reflux disease. 7. Duodenal ulcers. 9. Chronic renal insufficiency with baseline creatinine between 2 and 2.3. 10. Type 2 diabetes mellitus on insulin therapy. 11. Gastroparesis, complication of diabetes. 12. Morbid obesity. PAST SURGICAL HISTORY: 1. Biopsy of breast. 2. Cholecystectomy. 3. Coronary artery bypass graft in 1998. 4. Carotid artery stent in February of 2012. HOME MEDICATIONS: Please refer to electronic medical record for updated and verified list of home medications. ALLERGIES: LYRICA, MORPHINE. 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 She has a history of smoking for many years, but quit about 20 years previous to this admission. She denies any alcohol or illicit drug use. REVIEW OF SYSTEMS: CONSTITUTIONAL: She reports subjective fever, fatigue and generalized weakness. HEENT: Denies nasal congestion, ear pain or sore throat. RESPIRATORY: As noted in history of present illness, recent treatment for exacerbation of chronic obstructive pulmonary disease with continued shortness of breath at times. CARDIOVASCULAR: Denies chest pain or palpitations or tachycardia. GASTROINTESTINAL: Denies nausea or vomiting. Denies diarrhea, continue, or abdominal pain. NEUROLOGIC: She does have some complaints of sporadic dizziness and weakness, but denies headaches or seizures. GENITOURINARY: Denies dysuria, hematuria, polyuria or nocturia. PHYSICAL EXAMINATION: VITAL SIGNS: Temperature 98.3. Pulse 56. Blood pressure 136/68. Respirations 20. O2 saturation 98% on room air at rest. Admission weight 125.5 kg, which is decreased from previous admission 09/30/16 when she weighed 128.3 kg. GENERAL: The patient is seen in the Emergency Department and appears to be in no acute distress. She is alert. HEENT: Tympanic membranes clear bilaterally. Oropharynx is pink, moist without any lesions. NECK: No jugular venous distention noted. CHEST: Come faint expiratory wheezes heard, but no rhonchi or rales. Breath sounds bilateral and equal. CARDIOVASCULAR: Regular rate and rhythm without any appreciable murmurs, gallops, or rubs. ABDOMEN: Obese, but soft, nontender. Positive bowel sounds. EXTREMITIES: There is no cyanosis, clubbing or edema. NEUROLOGIC: The patient is alert and oriented times three. Cranial nerves II- XII are grossly intact. Facial features are symmetrical. Extraocular movements are within normal limits. There is no nystagmus. There are no notable localizing or focalizing neuromotor deficits. LABORATORY: White count 17.1 with the patient being on snf tapering dose steroids since previous admission on 09/30/16. Hemoglobin 13.1, hematocrit 40.1 with her baseline hemoglobin noted to be around 11.6 as well as hematocrit 34.7. Platelet count 227,000. Differential does show a left shift. Chemistries show sodium 134 corrected for glucose of 284 to 136. Potassium 6.3 , carbon dioxide 26, BUN 62, creatinine 2.0 with baseline BUN 40 to 43. Calcium 8.7, serum osmolality 296, phosphorous 3.4, magnesium 1.9. Liver functions within normal limits. BNP 58.4. Urinalysis pending. MICROBIOLOGY: No specimens pending. RADIOLOGY: Chest x-ray single view per radiology interpretation in the Emergency Department showed lungs clear, heart size stable, no pleural effusions or pneumothorax. Findings compared to 10/04/16 are stable. ASSESSMENT: 1. Electrolyte imbalance with moderate hyperkalemia, likely secondary to dehydration and side effect of medications that include Spironolactone with the patient showing no changes in cardiac rhythm no monitor, 12 lead, without any indication of T-wave changes. 2. Moderate dehydration, likely secondary to home medications to include Spironolactone and furosemide. 3. Leukocytosis with the patient being recently discharged for an exacerbation of chronic obstructive pulmonary disease with some left lower lobe pneumonia and on steroids at time of discharge with continuation to current admission with the patient being afebrile. 4. Recent exacerbation of chronic obstructive pulmonary disease hospitalization for left lower lobe pneumonia showing improvement with radiographic studies indicating no presence of an infiltrate and the patient showing 98% saturation on room air at rest. 5. Chronic renal insufficiency with baseline creatinine of 2, showing to be stable, however, BUN is elevated, likely secondary to dehydration. 6. History of congestive heart failure with diastolic etiology. Ejection fraction 60% in August of 2015 with the patient showing no overt signs of exacerbation with a normal BNP at time of admission. 7. Hypertension. 8. Coronary artery disease. 9. Diabetes mellitus, type 2 with unstable blood sugars secondary to corticosteroid administration. 10. Gastroesophageal reflux disease. PLAN: The patient will be placed in observation tonight and placed on telemetry for cardiac monitoring. She will be started on IV fluids to assist in reestablishing normal volume status. Initial fluids will be normal saline to run at 100 mL per hour. In regards to continued treatment to her post hospitalization for exacerbation of COPD and pneumonia, she will continue her cefdinir dosing as well as she will remain on prednisone 20 mg daily as she was showing some continued wheezing upon admission to the Emergency Department. We will continue with some aggressive pulmonary hygiene and incentive spirometry to prevent any atelectasis or complications from rehospitalization. At this point, no additional antibiotics will be added to her regimen as radiographic studies are clear and the patient is clinically showing improvement. Anticipated length of stay of 1 to 2 days with possible discharge tomorrow once potassium has stabilized and she has been adequately rehydrated. Until then, we will continue to monitor the patient closely and treat appropriately. #[id number] [facility]
[2016-10-12] MEDS ORDERED: GLUCAGON INJ 1 MG VIAL SUBCU PRN (21:34)
[2016-10-12] MEDS ORDERED: ACETAMINOPHEN 325 MG TAB PO PRN (21:34)
[2016-10-12] MEDS ORDERED: DEXTROSE 50% 25 GM/50 ML SYG IV PRN (21:34)
[2016-10-12] MEDS ORDERED: INSULIN DETEMIR 100 UNITS/ML PEN SUBCU ONE (21:51)
[2016-10-12] MEDS ORDERED: INSULIN LISPRO 100 UNITS/ML PEN SUBCU ONE (21:52)
[2016-10-12] MEDS ORDERED: CEFDINIR 300 MG CAP PO ONE (21:53)
[2016-10-12] MEDS ORDERED: ALPRAZolam 0.25 MG TAB PO ONE (21:56)
[2016-10-12] MEDS ORDERED: CARBIDOPA/LEVODOPA 25/100 1 TAB PO SCH (22:00)
[2016-10-12] MEDS: INSULIN LISPRO 100 UNITS/ML PEN SUBCU SCH (22:06)
[2016-10-12] MEDS: IPRATROPIUM/ALBUTEROL 3 ML VIAL INH SCH (22:10)
[2016-10-12] MEDS ORDERED: ACETAMINOPHEN W/COD #3 TAB (ER Disp) PO PRN (22:11)
[2016-10-12] MEDS ORDERED: NYSTATIN CREAM 15 GM TUBE TOP PRN (22:11)
[2016-10-12] MEDS ORDERED: ALPRAZolam 0.5 MG TAB PO PRN (22:11)
[2016-10-12] MEDS: SODIUM CHLORIDE 0.9% (FLUSH) 10 ML SYG IV PRN (22:11)
[2016-10-12] MEDS: IV SET AND CAP CHANGE INJ INJ SCH (22:12)
[2016-10-12] MEDS: SODIUM CHLORIDE 0.9% 1000ML 1,000 ML IVS PRN (22:12)
--- NOTE | 2016-10-12 23:42 | PCM.CORE ---
Physician DVT/VTE - Nurse DVT Assessment & Total Each Risk Factor Represents 3 Points: Age over 75 years, Medical PT with Hx of [place], CHF, Severe infection/sepsis Each Risk Factor is 1 Point: Obesity (BMI >25), Serious Lung disease (pnemonia < 1month, COPD, emphysema,etc) DVT Assessment Score: 8 - 5 or more Very High Risk Treatments: Early Ambulation *, Sequential Compression Device Pharmacological: Enoxaparin 40mg SQ Daily
[2016-10-13] MEDS: ENOXAPARIN SODIUM 30 MG/0.3 ML SYG SUBCU SCH ×2 (00:10→23:40)
[2016-10-13] MEDS: INSULIN DETEMIR 100 UNITS/ML PEN SUBCU SCH ×3 (06:40→17:36)
[2016-10-13] MEDS: INSULIN LISPRO 100 UNITS/ML PEN SUBCU SCH ×7 (06:41→20:51)
[2016-10-13] MEDS: SODIUM CHLORIDE 0.9% 1000ML 1,000 ML IVS PRN ×2 (08:42→19:18)
[2016-10-13] MEDS: METOPROLOL SUCCINATE XL 25 MG TAB PO SCH (08:43)
[2016-10-13] MEDS: LINAGLIPTIN 5 MG TAB PO SCH (08:43)
[2016-10-13] MEDS: LISINOPRIL 5 MG TAB PO SCH (08:43)
[2016-10-13] MEDS: NYSTATIN SUSPENSION 5 ML UD PO SCH ×4 (08:43→20:33)
[2016-10-13] MEDS: ASPIRIN EC 81 MG TAB PO SCH (08:43)
[2016-10-13] MEDS: PRASUGREL 10 MG TAB PO SCH (08:43)
[2016-10-13] MEDS: CARBIDOPA/LEVODOPA 25/100 1 TAB PO SCH ×4 (08:44→20:33)
[2016-10-13] MEDS ORDERED: predniSONE 20 MG TAB PO SCH (09:00)
[2016-10-13] MEDS: IPRATROPIUM/ALBUTEROL 3 ML VIAL INH SCH ×4 (09:12→21:05)
[2016-10-13] MEDS ORDERED: PANTOPRAZOLE SODIUM TAB 40 MG PO ONE (11:35)
--- NOTE | 2016-10-13 15:17 | PN ---
SUPERVISING PHYSICIAN: Cara Mccullough MD DATE: 10/13/16 SUBJECTIVE: The patient feels like she is doing better today. She is not having any significant wheezing. She did sleep through the night. She does remain afebrile. The patient was admitted last night and unfortunately was in the Emergency Room a lengthy time where she was without any of her insulin medications and this morning, her blood sugars are still elevated, but she is continuing to be on tapering dose of prednisone. OBJECTIVE: VITAL SIGNS: T-max 98.4. Pulse 53. Blood pressure 136/68. Respirations 20. O2 saturation 97% on room air. I&Os show positive balance of 521 with 1345 in, 825 out. Weight 127.3 kg. GENERAL: The patient is resting in bed, appears to be in no acute distress. She is very pleasant and alert. HEENT: Oropharynx is pink. Mucous membranes continue to be dry in appearance. NECK: No jugular venous distention. CHEST: Lungs are much more clear today. There is just faint expiratory wheezing heard from the upper apices. No rhonchi or rales. HEART: Regular rate and rhythm. ABDOMEN: Obese, but soft and nontender. Positive bowel sounds. EXTREMITIES: No cyanosis, clubbing or edema. NEUROLOGIC: Alert and oriented times three. LABORATORY: White count has decreased to 14.9, hemoglobin 12.4, hematocrit 39.1 , platelet count 218,000. Differential continues to show a left shift. Chemistries show sodium 131 corrected for glucose of 492 to 137. Potassium improved somewhat down to 5.7 from 6.3. Carbon dioxide 21, BUN 65, creatinine 2.2. Glucoses have been 284 to 492. Calcium 8.4. Liver functions within normal limits. Urine showed greater than 1,000 glucose and just a trace of lysed blood. Otherwise, no other significant findings. Microscopic was within normal limits. MICROBIOLOGY: No specimens to review. RADIOLOGY: No repeat chest x-ray today. We will repeat chest x-ray in the morning. ASSESSMENT: 1. Electrolyte imbalance with moderate hyperkalemia, exacerbated by dehydration and medications that include Spironolactone with the patient showing no significant changes in cardiac rhythm on monitor, 12-lead, and no T-wave changes noted, showing improvement today after holding Spironolactone and providing IV fluids. 2. Moderate dehydration, secondary to home medications to include Spironolactone and furosemide, showing slight improvement after IV therapy. 3. Leukocytosis in a patient with history of recent exacerbation of chronic obstructive pulmonary disease with left lower lobe pneumonia, having been discharged on corticosteroids to include prednisone, showing improvement, likely some exacerbation due to the underlying dehydration. 4. Recent exacerbation of chronic obstructive pulmonary disease with hospitalization for left lower lobe pneumonia with radiographic studies on current admission showing improvement with no presence of infiltrates and the patient showing 98% saturation on room air at rest. 5. Chronic renal insufficiency with baseline creatinine of 2, showing to be stable, with elevated BUN secondary to dehydration. 6. History of congestive heart failure with diastolic etiology. Ejection fraction 60% in August of 2015 with the patient showing no overt signs of exacerbation with a normal BNP at time of admission. 7. Hypertension. 8. Coronary artery disease. 9. Diabetes mellitus, type 2, with unstable blood sugars secondary to corticosteroid administration requiring extensive readjustment of insulin regimen. 10. Gastroesophageal reflux disease. PLAN: The patient will continue in observation today as she is showing some improvement. We will plan to hold her Spironolactone and continue with IV therapy. She is still dehydrated to some degree, but showing improvement. We ill continue with current plan of treatment with therapy and slowly taper the patient off final prednisone dosing as noted prior to admission from previous hospitalization and discharge. We will anticipate possible discharge tomorrow with the patient to have close clinical followup this coming Wednesday with Dr. Alex. Until then, we will continue to monitor the patient closely and treat appropriately. #[id number] [facility]
[2016-10-13] MEDS ORDERED: SIMVASTATIN 20 MG TAB ONE (19:42)
[2016-10-13] MEDS: ALPRAZolam 0.5 MG TAB PO PRN (20:01)
[2016-10-13] MEDS: SIMVASTATIN 20 MG TAB PO SCH (20:32)
[2016-10-13] MEDS ORDERED: NYSTATIN POWDER 15GM BTTL TOP PRN (22:36)
[2016-10-14] MEDS: SODIUM CHLORIDE 0.9% 1000ML 1,000 ML IVS PRN (05:00)
[2016-10-14] MEDS ORDERED: NYSTATIN POWDER 15GM BTTL TOP PRN (06:46)
[2016-10-14] MEDS: INSULIN LISPRO 100 UNITS/ML PEN SUBCU SCH ×7 (07:20→20:54)
[2016-10-14] MEDS: INSULIN DETEMIR 100 UNITS/ML PEN SUBCU SCH ×2 (07:22→16:31)
[2016-10-14] MEDS: IPRATROPIUM/ALBUTEROL 3 ML VIAL INH SCH ×4 (08:12→20:43)
[2016-10-14] MEDS ORDERED: SODIUM CHLORIDE 0.9% 250ML 250 ML ONE (08:33)
[2016-10-14] MEDS ORDERED: SODIUM CHL 0.9% 50ML MIN-BAG+ 50 ML IVPB ONE (08:33)
[2016-10-14] MEDS ORDERED: cefTRIAXone SODIUM 1 GM VIAL ONE (08:34)
[2016-10-14] MEDS ORDERED: AZITHROMYCIN IV 500 MG VIAL IVPB ONE (08:34)
[2016-10-14] MEDS: cefTRIAXone SODIUM 1 GM in SODIUM CHL 0.9% 50ML MIN-BAG+ 50 ML IVPB SCH (08:57)
[2016-10-14] MEDS: ASPIRIN EC 81 MG TAB PO SCH (08:59)
[2016-10-14] MEDS: PRASUGREL 10 MG TAB PO SCH (08:59)
[2016-10-14] MEDS: LISINOPRIL 5 MG TAB PO SCH (08:59)
[2016-10-14] MEDS: METOPROLOL SUCCINATE XL 25 MG TAB PO SCH (08:59)
[2016-10-14] MEDS: NYSTATIN SUSPENSION 5 ML UD PO SCH ×5 (08:59→20:56)
[2016-10-14] MEDS: CARBIDOPA/LEVODOPA 25/100 1 TAB PO SCH ×4 (09:00→20:48)
[2016-10-14] MEDS: LINAGLIPTIN 5 MG TAB PO SCH (09:01)
[2016-10-14] MEDS ORDERED: BIFIDOBACTERIUM INFANTIS 4 MG CAP ONE (09:35)
[2016-10-14] MEDS: BIFIDOBACTERIUM INFANTIS 4 MG CAP PO SCH (09:48)
[2016-10-14] MEDS: SODIUM CHLORIDE 0.9% 10 ML VIAL IV PRN (10:22)
[2016-10-14] MEDS: AZITHROMYCIN IV 500 MG in SODIUM CHLORIDE 0.9% 250ML 250 ML IVPB SCH (10:22)
--- NOTE | 2016-10-14 11:10 | RAD ---
EXAM DESCRIPTION: XR CHEST 2 VIEWS CLINICAL HISTORY: COPD with leukocytosis COMPARISON: October 12, 2016 FINDINGS: Again seen are postoperative changes in the mediastinum period the heart is at the upper limits of normal size, stable period subsegmental atelectasis or scarring is noted in the lung bases, but there is no airspace consolidation or pleural effusion period there is subtle bilateral interstitial prominence. There is no pneumothorax or acute fracture. IMPRESSION: Postoperative changes in the mediastinum with subtle bilateral interstitial prominence, stable period findings may be related to subsegmental atelectasis or scarring period mild chronic interstitial edema should also be considered. No pneumonia or other new abnormality to explain patient's symptoms. Electronically signed by: Mckay Austin DO 10/14/2016 11:07
[2016-10-14] MEDS: guaiFENesin W/CODEINE LIQ 10 ML UD PO PRN ×2 (14:04→21:32)
--- NOTE | 2016-10-14 14:27 | PN ---
SUPERVISING PHYSICIAN: Abhilash Siddiqi MD DATE: 10/14/16 SUBJECTIVE: The patient is resting in bed. She is now having a productive cough , but has no increase in shortness of breath, but remains weak. She remains afebrile. OBJECTIVE: VITAL SIGNS: T-max 98.4. Pulse 68. Blood pressure 134/60. Respirations 20. O2 saturation showing 98% on room air. I&Os show positive balance of 721 with 3471 in, 2750 out. Weight 129.4 kg. CHEST: Lungs are diminished towards the bases with no notable rhonchi or rales. There are some faint inspiratory and expiratory wheezes heard towards the upper apices bilaterally. HEART: Regular rate and rhythm. ABDOMEN: Obese, but soft and nontender. Positive bowel sounds. EXTREMITIES: No cyanosis, clubbing or edema. NEUROLOGIC: Alert and oriented times three. LABORATORY: White count has increased despite stopping steroids, now up to 21.7 with hemoglobin 11.3, hematocrit 35.7, platelet count 200,000. Differential shows a left shift. Chemistries show an improvement in potassium down to 5.8, sodium 133, BUN 59, which is improved from admission with creatinine 2.22. Glucoses still remain high, but are starting to come down below 300. Glucose today was 296. Glucose ranging from 298 to 397. MICROBIOLOGY: Blood cultures pending. Sputum cultures pending. RADIOLOGY: Chest x-ray today per radiology interpretation showed no obvious infiltrates or consolidations. Mediastinum shows postoperative changes with the heart upper limits of normal in size. ASSESSMENT: 1. Increase in leukocytosis, which is new, despite the patient having been tapered off corticosteroids, now with concerns for developing pneumonia, community acquired versus health care acquired with the patient being started on parenteral antibiotic to include Rocephin and azithromycin. 2. Electrolyte imbalance with continued hyperkalemia, secondary to hyperglycemia which is complicated by previous steroid regimen as well as home medications to include Spironolactone. The patient remains stable and is showing improvement after holding the Spironolactone and Lasix now for 24 hours. 3. Moderate dehydration, secondary to home medications as noted with Spironolactone and Lasix, showing improvement after IV therapy and a temporarily holding all Lasix and Spironolactone. 4. Recent exacerbation of chronic obstructive pulmonary disease with hospitalization for left lower lobe pneumonia with radiographic studies on current admission initially showing no presence of infiltrative process, but with the patient now showing a worsening leukocytosis. 5. Chronic renal insufficiency with baseline creatinine around 2.0, stable, with continued elevated BUN secondary to dehydration, although showing improvement after therapy. 6. History of congestive heart failure with diastolic etiology. Ejection fraction 60% in August of 2015 with the patient showing no overt signs of exacerbation with a normal BNP at time of admission. 7. Hypertension. 8. Coronary artery disease. 9. Diabetes mellitus, type 2, with unstable blood sugars secondary to corticosteroid administration requiring continued extensive readjustment of insulin regimen. 10. Gastroesophageal reflux disease. PLAN: The patient is now going to be changed from observation to inpatient as there is an increase in leukocytosis and concerns for possible developing pneumonia. She was started on antibiotics to include Rocephin and azithromycin after blood culture were completed. Sputum culture pending. We will continue with aggressive pulmonary hygiene and encourage ambulation. She will be on nebulizer treatments q.i.d. and as needed. She was given Robitussin AC for cough. Anticipate length of stay to be 2 to 3 days pending clinical reevaluation of laboratory studies in the morning. Until then, we will continue to monitor the patient closely and treat appropriately. #[id number] [facility]
[2016-10-14] MEDS: ALPRAZolam 0.5 MG TAB PO PRN (20:49)
[2016-10-14] MEDS: SIMVASTATIN 20 MG TAB PO SCH (20:49)
[2016-10-14] MEDS ORDERED: SODIUM CHLORIDE 0.9% (FLUSH) 10 ML SYG IV SCH (21:00)
[2016-10-14] MEDS: ENOXAPARIN SODIUM 30 MG/0.3 ML SYG SUBCU SCH (23:47)
[2016-10-15] MEDS: ALBUTEROL SULFATE 2.5 MG/3 ML VIAL NEB PRN (00:15)
[2016-10-15] MEDS: ONDANSETRON INJ 4 MG/2 ML VIAL IV PRN (02:04)
[2016-10-15] MEDS: SODIUM CHLORIDE 0.9% (FLUSH) 10 ML SYG IV PRN (02:05)
[2016-10-15] MEDS: guaiFENesin W/CODEINE LIQ 10 ML UD PO PRN ×3 (04:10→21:23)
[2016-10-15] MEDS: INSULIN LISPRO 100 UNITS/ML PEN SUBCU SCH ×4 (07:43→21:26)
[2016-10-15] MEDS ORDERED: SODIUM CHLORIDE 0.9% 250ML 250 ML ONE (08:13)
[2016-10-15] MEDS ORDERED: cefTRIAXone SODIUM 1 GM VIAL ONE (08:14)
[2016-10-15] MEDS ORDERED: SODIUM CHL 0.9% 50ML MIN-BAG+ 50 ML IVPB ONE (08:14)
[2016-10-15] MEDS ORDERED: AZITHROMYCIN IV 500 MG VIAL IVPB ONE (08:14)
[2016-10-15] MEDS: IPRATROPIUM/ALBUTEROL 3 ML VIAL INH SCH ×4 (08:25→21:59)
[2016-10-15] MEDS: INSULIN DETEMIR 100 UNITS/ML PEN SUBCU SCH ×2 (08:26→16:19)
[2016-10-15] MEDS: cefTRIAXone SODIUM 1 GM in SODIUM CHL 0.9% 50ML MIN-BAG+ 50 ML IVPB SCH (08:28)
[2016-10-15] MEDS: PRASUGREL 10 MG TAB PO SCH (08:33)
[2016-10-15] MEDS: BIFIDOBACTERIUM INFANTIS 4 MG CAP PO SCH (08:34)
[2016-10-15] MEDS: SPIRONOLACTONE 25 MG TAB PO SCH (08:34)
[2016-10-15] MEDS: ASPIRIN EC 81 MG TAB PO SCH (08:34)
[2016-10-15] MEDS: METOPROLOL SUCCINATE XL 25 MG TAB PO SCH (08:34)
[2016-10-15] MEDS: CARBIDOPA/LEVODOPA 25/100 1 TAB PO SCH ×4 (08:34→21:24)
[2016-10-15] MEDS: LISINOPRIL 5 MG TAB PO SCH (08:34)
[2016-10-15] MEDS: FUROSEMIDE 40 MG TAB PO SCH (08:34)
[2016-10-15] MEDS: LINAGLIPTIN 5 MG TAB PO SCH (08:38)
[2016-10-15] MEDS: SODIUM CHLORIDE 0.9% (FLUSH) 10 ML SYG IV SCH ×2 (08:38→21:24)
[2016-10-15] MEDS: NYSTATIN SUSPENSION 5 ML UD PO SCH ×6 (08:38→22:18)
[2016-10-15] MEDS: AZITHROMYCIN IV 500 MG in SODIUM CHLORIDE 0.9% 250ML 250 ML IVPB SCH (08:58)
[2016-10-15] MEDS: SODIUM CHLORIDE 0.9% 10 ML VIAL IV PRN (08:59)
[2016-10-15] MEDS ORDERED: PHENOL THROAT SPRAY 180 ML BTTL MT PRN (11:28)
--- NOTE | 2016-10-15 11:55 | PN ---
SUPERVISING PHYSICIAN: Abhilash Siddiqi MD DATE: 10/15/16 SUBJECTIVE: The patient is lying in her hospital bed. She complains of coughing all night long as well as some shortness of breath. She states she had been taking her 's Perforomist at home and she questioned if she could take it again as she did not think she had started it here in the hospital. She also complained of that her lips were chapped. She also does not want to take the Nystatin because it makes her sick to her stomach and she actually threw up due to taking the Nystatin. OBJECTIVE: VITAL SIGNS: Afebrile. Heart rate 61. Blood pressure 143/75. Respiratory rate 20. O2 saturation 95%. GENERAL: This is an 80-year-old, obese female who is lying in her hospital bed. She is in minimal respiratory distress. LUNGS: Bilateral rhonchi at the apices, somewhat diminished at the bases with an occasional scattered crackle throughout. CARDIAC: Regular rate and rhythm. ABDOMEN: Rounded, soft, nondistended. Bowel sounds are positive. EXTREMITIES: No cyanosis or clubbing with a trace of pedal edema. NEUROLOGIC: Awake, alert and oriented times three. LABORATORY: Sodium 130, potassium 5.5, BUN 50, creatinine 1.85. WBC 19.4, hemoglobin 12.2, hematocrit 38.6. Preliminary blood cultures show no growth after 24 hours and her preliminary sputum culture shows normal flow at 24 hours. All other labs and films have been reviewed via the EMR. ASSESSMENT: 1. Increase in leukocytosis, which is new, despite the patient having been tapered off corticosteroids, now with concerns for developing pneumonia, community acquired versus health care acquired with the patient being started on parenteral antibiotics to include Rocephin and azithromycin. 2. Electrolyte imbalance with continued hyperkalemia, secondary to hyperglycemia which is complicated by previous steroid regimen as well as home medications to include Spironolactone. Thus Spironolactone and Lasix have continued to be held. 3. Moderate dehydration. 4. Recent exacerbation of chronic obstructive pulmonary disease with hospitalization for left lower lobe pneumonia with radiographic studies on current admission initially showing no presence of infiltrative process, but with the patient now showing a worsening leukocytosis. 5. Chronic renal insufficiency with baseline creatinine of 2.0, now stable. 6. History of congestive heart failure with diastolic etiology. Ejection fraction 60% in August of 2015. 7. Hypertension. 8. Coronary artery disease. 9. Diabetes mellitus, type 2. 10. Gastroesophageal reflux disease. PLAN: We will continue the present antibiotic therapy. I will hold off on her steroids for now. She has no wheezing and we do not want to complicate her lab values at this point as long as she is progressing. We will continue to encourage good pulmonary hygiene. I have also started her on some Mucinex and discontinued the Nystatin. I will add Brodiaz and I have called Dr. Alex' office and they have initiated her prescription for Brovana through her Medicare part be through [facility] in [place]. I have also ordered routine lab and chest x-ray in the morning. Dr. Siddiqi is the collaborating physician and available for consultation. #[id number] [facility]ITAL[facility]ig[facility]
[2016-10-15] MEDS: SIMVASTATIN 20 MG TAB PO SCH (21:23)
[2016-10-15] MEDS: guaiFENesin ER TAB 600 MG TAB PO SCH (21:24)
[2016-10-15] MEDS: IV SET AND CAP CHANGE INJ INJ SCH (21:27)
[2016-10-15] MEDS: NON-FORMULARY RESPIRATORY MEDICATION INH SCH (22:00)
[2016-10-15] MEDS: ALPRAZolam 0.5 MG TAB PO PRN (22:16)
[2016-10-15] MEDS: ENOXAPARIN SODIUM 30 MG/0.3 ML SYG SUBCU SCH (23:33)
[2016-10-16] MEDS: INSULIN LISPRO 100 UNITS/ML PEN SUBCU SCH ×4 (07:31→21:22)
[2016-10-16] MEDS: INSULIN DETEMIR 100 UNITS/ML PEN SUBCU SCH ×2 (07:45→16:58)
[2016-10-16] MEDS ORDERED: SODIUM CHLORIDE 0.9% 250ML 250 ML ONE (08:06)
[2016-10-16] MEDS ORDERED: SODIUM CHL 0.9% 50ML MIN-BAG+ 50 ML IVPB ONE (08:07)
[2016-10-16] MEDS ORDERED: AZITHROMYCIN IV 500 MG VIAL IVPB ONE (08:08)
[2016-10-16] MEDS ORDERED: cefTRIAXone SODIUM 1 GM VIAL ONE (08:08)
[2016-10-16] MEDS: cefTRIAXone SODIUM 1 GM in SODIUM CHL 0.9% 50ML MIN-BAG+ 50 ML IVPB SCH (08:26)
[2016-10-16] MEDS: LISINOPRIL 5 MG TAB PO SCH (08:33)
[2016-10-16] MEDS: SPIRONOLACTONE 25 MG TAB PO SCH (08:33)
[2016-10-16] MEDS: PRASUGREL 10 MG TAB PO SCH (08:33)
[2016-10-16] MEDS: LINAGLIPTIN 5 MG TAB PO SCH (08:33)
[2016-10-16] MEDS: guaiFENesin ER TAB 600 MG TAB PO SCH ×2 (08:34→21:14)
[2016-10-16] MEDS: CARBIDOPA/LEVODOPA 25/100 1 TAB PO SCH ×4 (08:34→21:15)
[2016-10-16] MEDS: ASPIRIN EC 81 MG TAB PO SCH (08:34)
[2016-10-16] MEDS: METOPROLOL SUCCINATE XL 25 MG TAB PO SCH (08:34)
[2016-10-16] MEDS: FUROSEMIDE 40 MG TAB PO SCH (08:34)
[2016-10-16] MEDS: BIFIDOBACTERIUM INFANTIS 4 MG CAP PO SCH (08:34)
[2016-10-16] MEDS: NYSTATIN SUSPENSION 5 ML UD PO SCH ×2 (08:35→13:06)
--- NOTE | 2016-10-16 08:50 | RAD ---
EXAM DESCRIPTION: XR CHEST 2 VIEWS CLINICAL HISTORY: copd COMPARISON: 14 October 2016. TECHNIQUE: PA/lateral FINDINGS: The patient is post sternotomy. Diffuse interstitial lung disease is noted. No pleural fluid is seen. The heart is within the range of normal. When direct comparison is made to the prior exam I see no interval change. IMPRESSION: 1. The patient is post sternotomy. 2. Chronic interstitial lung disease is observed. I see no acute cardiopulmonary pathology. Electronically signed by: Mehrdad Casillas MD 10/16/2016 08:48
[2016-10-16] MEDS: IPRATROPIUM/ALBUTEROL 3 ML VIAL INH SCH ×4 (09:07→20:24)
[2016-10-16] MEDS: NON-FORMULARY RESPIRATORY MEDICATION INH SCH ×2 (09:08→20:25)
[2016-10-16] MEDS: SODIUM CHLORIDE 0.9% (FLUSH) 10 ML SYG IV SCH ×2 (09:40→21:14)
[2016-10-16] MEDS: AZITHROMYCIN IV 500 MG in SODIUM CHLORIDE 0.9% 250ML 250 ML IVPB SCH (09:46)
[2016-10-16] MEDS: ACETAMINOPHEN W/COD #3 TAB 1 EA TAB PO PRN (14:56)
[2016-10-16] MEDS: ONDANSETRON INJ 4 MG/2 ML VIAL IV PRN (14:56)
--- NOTE | 2016-10-16 18:14 | PN ---
DATE: 10/16/16 SUPERVISING PHYSICIAN: Abhilash Siddiqi M.D. SUBJECTIVE: The patient is lying in bed. She continues complaints of shortness of breath and coughing. She said she has coughed so hard that her "stomach hurts." I have encouraged her to utilize the cough suppressants and expectorants that I have ordered for her. She states she does forget to do that at times. She complains of weakness but she denies any chest pain, nausea , vomiting or dizziness. OBJECTIVE: VITAL SIGNS: She is afebrile, heart rate 93, blood pressure 125/70, respiratory rate 24, O2 sat is 91%. GENERAL: This is an 80 year-old obese female patient who is lying in her hospital bed. She is in minimal respiratory distress. LUNGS: Scattered rhonchi throughout. There are a few expiratory wheezes noted. She is diminished at the bases. CARDIAC: Regular rate and rhythm. ABDOMEN: Obese, rounded. Nondistended, non-tender. Bowel sounds are positive. NEUROLOGIC: She is awake, alert and oriented times three. LABORATORY: WBCs continue to trend down today, it is 13.4. Hemoglobin and hematocrit are stable at 12.2 and 37.5. Sodium 136, potassium 5.2, BUN 51, creatinine 1.93. Preliminary sputum shows gram-negative rods. Preliminary blood cultures are negative to date. Chest x-ray shows chronic interstitial lung disease with no acute cardiopulmonary pathology. All other labs and films have been reviewed via the EMR. ASSESSMENT: 1. Increase in leukocytosis which is new despite the patient having been tapered off of corticosteroids and now concerns for developing pneumonia community acquired versus healthcare acquired. The patient is being started on parenteral antibiotics to include Rocephin and Azithromycin. 2. Electrolyte imbalance with continued hyperkalemia. 3. Moderate dehydration. 4. Recent exacerbation of chronic obstructive pulmonary disease with hospitalization for left lower lobe pneumonia and radiographic studies on current admission initially showing no presence of infiltrative process but with the patient now showing a worsening leukocytosis. 5. Chronic renal insufficiency with a baseline creatinine of 2 that is now stable. 6. History of congestive heart failure with diastolic etiology, ejection fraction of 60% in August of 2015. 7. Hypertension. 8. Coronary artery disease. 9. Diabetes mellitus type 2. 10. Gastroesophageal reflux disease. PLAN: We will continue present antibiotic therapy. Encourage good pulmonary toilet. Her pulmonary problems are very slowly resolving. Physical Therapy evaluated her today and they thought she might benefit from Swing Bed admission after her discharge. Because of her recent re-hospitalization and her continued declining pulmonary status, we will try to change her to Swing Bed admission tomorrow or the next day. She will continue with her Performist instead of Golden as I did not obtain any samples of Brovana. Continue her breathing treatments. Again I have encouraged good pulmonary toilet. PT will evaluate her tomorrow and will see where we can go from there. Otherwise, Dr. Siddiqi is the collaborating physician and available for consultation. #[id number] [facility]ENTER[facility]ig[facility]
[2016-10-16] MEDS: guaiFENesin W/CODEINE LIQ 10 ML UD PO PRN (19:36)
[2016-10-16] MEDS: ALPRAZolam 0.5 MG TAB PO PRN (21:15)
[2016-10-16] MEDS: SIMVASTATIN 20 MG TAB PO SCH (21:15)
[2016-10-16] MEDS: ENOXAPARIN SODIUM 30 MG/0.3 ML SYG SUBCU SCH (23:51)
[2016-10-16] MEDS ORDERED: MAGNESIUM HYDROXIDE 30 ML UD PO PRN (23:57)
[2016-10-17] MEDS ORDERED: SODIUM CHL 0.9% 50ML MIN-BAG+ 50 ML IVPB ONE (07:35)
[2016-10-17] MEDS ORDERED: SODIUM CHLORIDE 0.9% 250ML 250 ML ONE (07:35)
[2016-10-17] MEDS ORDERED: cefTRIAXone SODIUM 1 GM VIAL ONE (07:37)
[2016-10-17] MEDS ORDERED: AZITHROMYCIN IV 500 MG VIAL IVPB ONE (07:37)
[2016-10-17] MEDS: INSULIN LISPRO 100 UNITS/ML PEN SUBCU SCH ×4 (08:07→21:18)
[2016-10-17] MEDS: cefTRIAXone SODIUM 1 GM in SODIUM CHL 0.9% 50ML MIN-BAG+ 50 ML IVPB SCH (08:08)
[2016-10-17] MEDS ORDERED: MAGNESIUM HYDROXIDE 30 ML UD PO ONE ×2 (08:15→16:00)
[2016-10-17] MEDS ORDERED: INSULIN DETEMIR 100 UNITS/ML PEN SUBCU ONE ×2 (08:23→17:08)
[2016-10-17] MEDS: INSULIN DETEMIR 100 UNITS/ML PEN SUBCU SCH ×2 (08:24→17:08)
[2016-10-17] MEDS ORDERED: PROMETHAZINE HCL INJ 12.5 MG in SODIUM CHLORIDE 0.9% 50ML 50 ML IVPB ONE (08:24)
[2016-10-17] MEDS ORDERED: PROMETHAZINE HCL INJ 25 MG/ML VIAL ONE (08:30)
[2016-10-17] MEDS ORDERED: SODIUM CHLORIDE 0.9% 50ML 50 ML ONE (08:30)
[2016-10-17] MEDS: SODIUM CHLORIDE 0.9% (FLUSH) 10 ML SYG IV SCH ×2 (09:30→21:20)
[2016-10-17] MEDS ORDERED: methylPREDNISolone SODIUM SUC 125 MG/2 ML VIAL IV ONE (09:30)
[2016-10-17] MEDS: AZITHROMYCIN IV 500 MG in SODIUM CHLORIDE 0.9% 250ML 250 ML IVPB SCH (09:45)
[2016-10-17] MEDS: IPRATROPIUM/ALBUTEROL 3 ML VIAL INH SCH ×4 (10:08→20:06)
[2016-10-17] MEDS: NON-FORMULARY RESPIRATORY MEDICATION INH SCH ×2 (10:08→20:06)
--- NOTE | 2016-10-17 10:49 | RAD ---
PROCEDURE: KUB Clinical History: abd pain Indication: Same as above Comparison: None Technique: 4.0 views of the abdomen and pelvis. Findings: There is no gross evidence of free air in the abdomen or the pelvis on this single supine view of the abdomen and pelvis. The study is limited by patient's body habitus. The small and large bowel gas pattern does not show any evidence of obstruction, ileus or bowel wall thickening. There is no visualization of radiopaque calculi in the outline of the urinary tract. There is no significant constipation. Impression: The study is limited by patient's body habitus. Given this limitation there are no acute findings in the abdomen or the pelvis. Location of Interpretation: [id number] Electronically signed by: Yazan Turner MD 10/17/2016 10:48 AM [facility]
[2016-10-17] MEDS ORDERED: methylPREDNISolone SODIUM SUC 125 MG/2 ML VIAL ONE (11:31)
[2016-10-17] MEDS: SPIRONOLACTONE 25 MG TAB PO SCH (14:50)
[2016-10-17] MEDS: CARBIDOPA/LEVODOPA 25/100 1 TAB PO SCH ×4 (14:51→21:20)
[2016-10-17] MEDS: ASPIRIN EC 81 MG TAB PO SCH (14:52)
[2016-10-17] MEDS: BIFIDOBACTERIUM INFANTIS 4 MG CAP PO SCH (14:52)
[2016-10-17] MEDS: PRASUGREL 10 MG TAB PO SCH (14:52)
[2016-10-17] MEDS: LISINOPRIL 5 MG TAB PO SCH (14:53)
[2016-10-17] MEDS: LINAGLIPTIN 5 MG TAB PO SCH (14:53)
[2016-10-17] MEDS: FUROSEMIDE 40 MG TAB PO SCH (14:53)
[2016-10-17] MEDS: guaiFENesin ER TAB 600 MG TAB PO SCH ×2 (14:53→21:19)
[2016-10-17] MEDS: METOPROLOL SUCCINATE XL 25 MG TAB PO SCH (14:55)
--- NOTE | 2016-10-17 15:38 | PN ---
DATE: 10/17/16 SUPERVISING PHYSICIAN: Andrea Mccullough M.D. SUBJECTIVE: The patient is lying in bed. She does look slightly improved from yesterday. Her 2 daughters are at the bedside. She complains of abdominal pain and that she just cannot eat. Earlier it was reported that she had thrown up about 300 mL of bile. Some Phenergan was given and she states she feels much better now. I reported her abdominal x-ray results to her and her daughters and she is extremely constipated. I explained to her that she will get an enema and some Milk of Magnesia to help with that. She also continues complaints of coughing and some shortness of breath in spite of her cough medications. I discussed the risks versus reward of giving her a dose of Solu- Medrol, especially given her poorly controlled blood sugars. She also stated she just was too weak to get up. OBJECTIVE: She is afebrile, heart rate 78, blood pressure 121/65, respiratory rate 18, O2 sat 81% on 2 liters nasal cannula. RESPIRATORY: Bilateral rhonchi throughout, diminished at the bases. There is some expiratory wheezing noted through her lung irleand but much improved since yesterday, although she still does have a very coarse cough. CARDIAC: Regular rate and rhythm. ABDOMEN: Rounded, diffusely tender. Bowel sounds are positive. EXTREMITIES: There is a trace of pedal edema. NEUROLOGIC: She is awake, alert and oriented times three. LABORATORY: White count has improved from 19.4 yesterday to 13.4 today. Hemoglobin and hematocrit are stable at 12.2 and 37.5. Sodium 136, potassium 5.2, BUN 51, creatinine 1.93. Sputum culture is positive for Klebsiella pneumoniae and it is sensitive to Rocephin and she is presently on Ceftriaxone. Her preliminary blood cultures show no growth after 3 days. KUB x-ray shows no acute findings in the abdomen but she does have some constipation. All other labs and films have been reviewed via the EMR. ASSESSMENT: 1. Increase in leukocytosis which has progressively improved in spite of being off corticosteroids. There was a question for developing community versus healthcare acquired pneumonia. She is presently on Rocephin and Azithromycin. 2. Electrolyte imbalance with continued hyperkalemia that is very slowly improving. 3. Moderate dehydration. 4. Recent exacerbation of chronic obstructive pulmonary disease with hospitalization for left lower lobe pneumonia and initially showed no presence of an infiltrative process, but the patient showed a worsening leukocytosis during her hospital stay. 5. Chronic renal insufficiency with a baseline creatinine of 2 that is now at her baseline. 6. History of congestive heart failure with diastolic etiology. Her ejection fraction is 60% from an evaluating in August 2015. 7. Hypertension. 8. Coronary artery disease. 9. Diabetes mellitus type 2. 10. Gastroesophageal reflux disease. 11. Constipation. PLAN: We will continue her present antibiotic therapy. She is very slightly improved today, although she still is having significant respiratory symptoms. We have tried not to give her any steroids, but I believe at this point because she is progressing so slowly that I will give her at least 1 dose of Solu- Medrol and reevaluate her tomorrow. I will give her several doses of Milk of Magnesia as well as a soap suds enema. Will repeat her labs in the morning. I have also given her a small dose of Ativan as she is quite anxious and she has a history of some anxiety. I had a lengthy discussion with her daughters and they realize that her prognosis is poor and that given the administration of the steroids, that her blood sugars will be elevated over the next few days, but they agreed that administering a dose of Solu-Medrol may be helpful with her breathing. We will continue to monitor the patient closely and followup as needed. Dr. Mccullough is the collaborating physician and available for consultation. #[id number] [facility]ITAL[facility]
[2016-10-17] MEDS: SIMVASTATIN 20 MG TAB PO SCH (21:19)
[2016-10-17] MEDS: ALPRAZolam 0.5 MG TAB PO PRN (21:32)
[2016-10-17] MEDS: ENOXAPARIN SODIUM 30 MG/0.3 ML SYG SUBCU SCH (23:47)
[2016-10-17] MEDS: ACETAMINOPHEN W/COD #3 TAB 1 EA TAB PO PRN (23:47)
[2016-10-18] MEDS ORDERED: ALUMINUM & MAGNESIUM HYDROXIDE 30 ML UD PO ONE ×2 (03:05→03:43)
[2016-10-18] MEDS ORDERED: HYOSCYAMINE SULFATE ER 0.375 MG TAB PO ONE ×2 (03:15→03:43)
[2016-10-18] MEDS: INSULIN LISPRO 100 UNITS/ML PEN SUBCU SCH ×4 (07:29→21:06)
[2016-10-18] MEDS: INSULIN DETEMIR 100 UNITS/ML PEN SUBCU SCH ×2 (07:30→16:28)
[2016-10-18] MEDS ORDERED: SODIUM CHL 0.9% 50ML MIN-BAG+ 50 ML IVPB ONE (07:41)
[2016-10-18] MEDS ORDERED: SODIUM CHLORIDE 0.9% 250ML 250 ML ONE (07:41)
[2016-10-18] MEDS ORDERED: AZITHROMYCIN IV 500 MG VIAL IVPB ONE (07:44)
[2016-10-18] MEDS ORDERED: cefTRIAXone SODIUM 1 GM VIAL ONE (07:44)
--- NOTE | 2016-10-18 07:58 | RAD ---
EXAM: Two view chest. INDICATION: Chest pain. COMPARISON: Chest x-ray: 10/16/2016. FINDINGS: Cardiac silhouette: Unremarkable. Tracy: Unremarkable. Lobar consolidation: None.Pleural effusion: None.Pneumothorax: None.Other: There are stable prominent interstitial opacities, which are likely chronic. Median sternotomy wires are noted. Bones: Unremarkable. Other: None. IMPRESSION: 1. No acute cardiopulmonary process. Electronically signed by: Sundeep Neumann MD 10/18/2016 7:57 AM [facility] [employer]
[2016-10-18] MEDS: NON-FORMULARY RESPIRATORY MEDICATION INH SCH ×2 (08:27→20:40)
[2016-10-18] MEDS: IPRATROPIUM/ALBUTEROL 3 ML VIAL INH SCH ×4 (08:27→20:40)
[2016-10-18] MEDS ORDERED: SODIUM CHLORIDE 0.9% 1000ML 1,000 ML IVS ONE (08:48)
[2016-10-18] MEDS: AZITHROMYCIN IV 500 MG in SODIUM CHLORIDE 0.9% 250ML 250 ML IVPB SCH (09:26)
[2016-10-18] MEDS: cefTRIAXone SODIUM 1 GM in SODIUM CHL 0.9% 50ML MIN-BAG+ 50 ML IVPB SCH (09:28)
[2016-10-18] MEDS: SPIRONOLACTONE 25 MG TAB PO SCH (09:35)
[2016-10-18] MEDS: LISINOPRIL 5 MG TAB PO SCH (09:35)
[2016-10-18] MEDS: FUROSEMIDE 40 MG TAB PO SCH (09:35)
[2016-10-18] MEDS: LINAGLIPTIN 5 MG TAB PO SCH (09:36)
[2016-10-18] MEDS: CARBIDOPA/LEVODOPA 25/100 1 TAB PO SCH ×4 (09:36→20:35)
[2016-10-18] MEDS: MAGNESIUM HYDROXIDE 30 ML UD PO SCH ×2 (09:36→14:03)
[2016-10-18] MEDS: BIFIDOBACTERIUM INFANTIS 4 MG CAP PO SCH (09:36)
[2016-10-18] MEDS: guaiFENesin ER TAB 600 MG TAB PO SCH ×2 (09:36→20:35)
[2016-10-18] MEDS: PRASUGREL 10 MG TAB PO SCH (09:36)
[2016-10-18] MEDS: ASPIRIN EC 81 MG TAB PO SCH (09:36)
[2016-10-18] MEDS: METOPROLOL SUCCINATE XL 25 MG TAB PO SCH (09:36)
[2016-10-18] MEDS: SODIUM CHLORIDE 0.9% (FLUSH) 10 ML SYG IV SCH ×2 (09:37→20:35)
[2016-10-18] MEDS ORDERED: SODIUM CHLORIDE 0.9% 1000ML 500 ML IVS PRN (12:58)
--- NOTE | 2016-10-18 13:23 | CT ---
EXAM DESCRIPTION: CT ABDOMEN PELVIS WITHOUT IV CONTRAST CLINICAL HISTORY: abd pain COMPARISON: None Available TECHNIQUE: CT of the abdomen and Pelvis was performed without IV contrast. FINDINGS: There is a 3 mm noncalcified nodule in the lingula. The lung bases are otherwise unremarkable period there is no pneumoperitoneum, ascites or adenopathy. There are mural calcifications in the abdominal aorta without aneurysm. The gallbladder is surgically absent. The liver, pancreas and adrenals are unremarkable. There is a calcified splenic granuloma period moderate bilateral renal atrophy is noted period no dilated small bowel loops. No bladder wall thickening period the uterus and ovaries are unremarkable for patient's age period there is a large amount of stool and gas scattered throughout the colon. Colonic diverticulosis is noted without diverticulitis. Degenerative changes are present in lumbar spine at multiple levels. IMPRESSION: Colonic diverticulosis without diverticulitis and a large amount of colonic stool and gas, but no acute abnormality in the abdomen or pelvis to explain patient's symptoms. 3 mm noncalcified lingular nodule As per Fleischner Society guidelines for follow-up and management of pulmonary nodules: For patient at low risk (minimal or absent history of smoking and of other known risk factors), no follow-up needed. For patient at high risk (history of smoking or of other known risk factors), recommend initial follow-up chest CT at 12 months; if unchanged, no further follow-up needed. . Electronically signed by: Mckay Austin DO 10/18/2016 13:22
--- NOTE | 2016-10-18 15:40 | PN ---
DATE: 10/18/16 SUPERVISING PHYSICIAN: Andrea Mccullough M.D. SUBJECTIVE: The patient is lying in bed. She does look slightly better than yesterday and her dyspnea is not as noticeable as yesterday. She continues complaints of abdominal pain but she said the enema did give her some relief yesterday. At this time, she is not short of breath but she says that she easily gets short of breath with exertion. She has had a very poor appetite. The nursing staff reported that she had 1 episode of emesis that was mostly bile. She ate a small amount of breakfast and she has kept her medications down at this point. OBJECTIVE: She is afebrile, heart rate 75, blood pressure 129/73, respiratory rate 18, O2 sat 91%. She is up 1.8 kg over the last 2 days in her weight. RESPIRATORY: Scattered rhonchi throughout and very diminished at the bases. CARDIAC: Regular rate and rhythm. ABDOMEN: Obese. Slightly tender although improved from yesterday. Bowel sounds are positive. Abdomen is soft. NEUROLOGIC: She is awake, alert and oriented times three. LABORATORY: WBCs have increased to 28.8. She did receive a dose of Solu- Medrol yesterday. Hemoglobin and hematocrit are stable at 12.5 and 38.1. She does have a left shift. Sodium 132, potassium 4.9, chloride 93, BUN 58, creatinine 2.31. Magnesium 4.9. Bilirubin 1.4. Chest x-ray shows no acute cardiopulmonary process. All other labs and films have been reviewed via the EMR. ASSESSMENT: 1. Increase in leukocytosis overnight although she did receive a dose of corticosteroids yesterday. There was also question for developing community versus healthcare acquired pneumonia. She is presently on Rocephin and Azithromycin. 2. Electrolyte imbalance that today include hypermagnesemia, but her potassium has stabilized. 3. Moderate dehydration. 4. Abdominal pain over the last 24 hours including vomiting. 5. Chronic renal insufficiency with a baseline creatinine of about 2. 6. History of congestive heart failure with diastolic etiology. Her ejection fraction is 60% from an echocardiogram in August 2015. 7. Hypertension. 8. Coronary artery disease. 9. Diabetes mellitus type 2. 10. Gastroesophageal reflux disease. 11. Constipation. PLAN: We will continue her present supportive care. I have also ordered a CAT scan of her abdomen. Discussed her case at length with Dr. Mccullough. She may need an abdominal sonogram tomorrow. I will do her routine labs tomorrow. I have also given her 1 liter of normal saline. We will watch for the CAT scan results and hopefully that can give us some insight into there abdominal pain. I had hoped that we could do a Physical Therapy evaluation for Swing Bed, but she is still quite acutely ill and we will have to monitor her closely. Hopefully she improves over the next day or two. Dr. Mccullough is the collaborating physician and available for consultation. #[id number] [facility]
[2016-10-18] MEDS: ACETAMINOPHEN W/COD #3 TAB 1 EA TAB PO PRN (16:24)
[2016-10-18] MEDS ORDERED: MAGNESIUM HYDROXIDE 30 ML UD PO ONE (17:27)
[2016-10-18] MEDS: SIMVASTATIN 20 MG TAB PO SCH (20:34)
[2016-10-18] MEDS: ALPRAZolam 0.5 MG TAB PO PRN (20:37)
[2016-10-18] MEDS: IV SET AND CAP CHANGE INJ INJ SCH (21:51)
[2016-10-19] MEDS: ENOXAPARIN SODIUM 30 MG/0.3 ML SYG SUBCU SCH ×2 (00:17→23:52)
[2016-10-19] MEDS ORDERED: SODIUM CHL 0.9% 50ML MIN-BAG+ 50 ML IVPB ONE (07:43)
[2016-10-19] MEDS ORDERED: SODIUM CHLORIDE 0.9% 250ML 250 ML ONE (07:43)
[2016-10-19] MEDS ORDERED: AZITHROMYCIN IV 500 MG VIAL IVPB ONE (07:45)
[2016-10-19] MEDS ORDERED: cefTRIAXone SODIUM 1 GM VIAL ONE (07:45)
[2016-10-19] MEDS: NON-FORMULARY RESPIRATORY MEDICATION INH SCH ×2 (08:00→20:32)
[2016-10-19] MEDS: guaiFENesin ER TAB 600 MG TAB PO SCH ×2 (08:31→21:00)
[2016-10-19] MEDS: ASPIRIN EC 81 MG TAB PO SCH (08:31)
[2016-10-19] MEDS: FUROSEMIDE 40 MG TAB PO SCH (08:31)
[2016-10-19] MEDS: CARBIDOPA/LEVODOPA 25/100 1 TAB PO SCH ×4 (08:31→21:00)
[2016-10-19] MEDS: SPIRONOLACTONE 25 MG TAB PO SCH (08:31)
[2016-10-19] MEDS: BIFIDOBACTERIUM INFANTIS 4 MG CAP PO SCH (08:31)
[2016-10-19] MEDS: LISINOPRIL 5 MG TAB PO SCH (08:31)
[2016-10-19] MEDS: METOPROLOL SUCCINATE XL 25 MG TAB PO SCH (08:32)
[2016-10-19] MEDS: LINAGLIPTIN 5 MG TAB PO SCH (08:32)
[2016-10-19] MEDS: PRASUGREL 10 MG TAB PO SCH (08:32)
[2016-10-19] MEDS: SODIUM CHLORIDE 0.9% (FLUSH) 10 ML SYG IV SCH ×2 (08:36→21:00)
[2016-10-19] MEDS: IPRATROPIUM/ALBUTEROL 3 ML VIAL INH SCH ×4 (08:50→20:32)
[2016-10-19] MEDS: cefTRIAXone SODIUM 1 GM in SODIUM CHL 0.9% 50ML MIN-BAG+ 50 ML IVPB SCH (09:00)
[2016-10-19] MEDS: INSULIN DETEMIR 100 UNITS/ML PEN SUBCU SCH ×2 (09:22→16:54)
[2016-10-19] MEDS: INSULIN LISPRO 100 UNITS/ML PEN SUBCU SCH ×4 (09:23→21:00)
[2016-10-19] MEDS: AZITHROMYCIN IV 500 MG in SODIUM CHLORIDE 0.9% 250ML 250 ML IVPB SCH (10:00)
[2016-10-19] MEDS: ONDANSETRON INJ 4 MG/2 ML VIAL IV PRN (10:17)
[2016-10-19] MEDS: ACETAMINOPHEN W/COD #3 TAB 1 EA TAB PO PRN ×2 (10:18→20:20)
--- NOTE | 2016-10-19 13:20 | PN ---
DATE: 10/19/16 SUBJECTIVE: This 80-year-old, white female has been in the hospital now for 7 days and has had significant problems with abdominal discomfort and loss of appetite. She does have diabetes mellitus, which makes it fairly important to adhere to a special dietary intake, but she has been unable to eat or take much by mouth for the last 3 or 4 days because of nausea and abdominal discomfort. When lying in the bed, she states her discomfort is primarily in the left lower quadrant of the abdomen, which comes and goes. On examination, she was more tender on the right side of her abdomen. She has had multiple enemas including soapsuds enemas with some retention of 500 or 800 mL, yet with no significant results. She has had at least 4 doses of Milk of Magnesia without any significant results as well. The patient is on some p.r.n. pain medicines, but she has not been taking that many of the Tylenol No. 3s. OBJECTIVE: VITAL SIGNS: Afebrile. Pulse has been down into the mid-40s and it is of note that she has been on both Toprol 25 mg a day as well as Cardizem 120 mg a day, usually taken in the morning. Her bradycardia was especially noted shortly after taking her morning doses and these will be adjusted as discussed under plan. Pulse oximetry 91% on room air. Weight 127.5 kg. Significant oral and IV intake noted, but will be addressed with nursing staff for accuracy. LUNGS: Clear. HEART: Regular. ABDOMEN: Bowel tone activity present which is active though slightly decreased. Somewhat tender, especially when palpating on the right side compared to the left. Significant tympany on percussion across the upper epigastrium in the region of the transverse colon. CT scan of the abdomen is reviewed from yesterday without contrast and does show fair amount of stool accumulation in the ascending and especially in the descending colon. Minimal stool volume in the rectum with a column of stool down towards the left lower quadrant. No evidence of thickened gallagher or transition points suggesting a bowel obstruction, but will need to get rid of some of the stool so we can more adequately visualize it. LABORATORY: White count 23,700 with 86% neutrophils 2 days after last dose of Solu-Medrol. Hemoglobin 11.3. White count was 28,800 yesterday after the second dose of Solu-Medrol 125 given first in the Emergency Room and then on 07/23. Cultures show Klebsiella pneumoniae on sputum and blood cultures are negative. Klebsiella species is sensitive to cephalosporins, fluoroquinolones, and sulfa. Chest x-ray performed yesterday did show no acute cardiopulmonary process evident. ASSESSMENT: 1. Acute abdominal pain with distention with gas filled transverse colon and fecal impaction, both ascending and descending colon. Continue treatment for significant fecal impaction contributing to her symptoms. Observe closely for underlying pathology with Dr. Gallagher's attention. 2. Significant leukocytosis, showing some slight improvement, probably secondary to the second of 2 doses of Solu-Medrol. 3. Elevated magnesium level. 4. History of moderate dehydration. 5. Abdominal pain with associated vomiting, probably related to the fecal impaction, yet must continue to evaluate for underlying pathology. 6. Chronic renal insufficiency. 7. History of congestive heart failure with diastolic etiology with last ejection fraction of 60% on echocardiogram in August of 2015. 8. History of hypertension, though currently with a low blood pressure. 9. Significant bradycardia with rate into the 40s, possibly related to the beta blockade plus calcium channel with associated first degree AV block with medication dosage to be adjusted. 10. Coronary artery disease by history. 11. Diabetes mellitus, type 2. 12. Gastroesophageal reflux disease. 13. Chronic constipation. PLAN: Consult Dr. Gallagher to evaluate from a surgical standpoint the patient's ongoing significant abdominal pain with nausea and vomiting, abdominal distention, and fecal impaction. We will continue with efforts to remove the fecal impaction as possible to see if it will relieve some of her appetite suppression and get her to the point where she will be able to get stronger with adequate Swing Bed rehabilitation. Check stool guaiacs. Discussed at length with the patient as well as family including her nurse/granddaughter. Close followup necessary. #[id number] [facility]ITAL[facility]
--- NOTE | 2016-10-19 15:48 | CONS ---
DATE OF CONSULTATION: 10/19/16 REFERRING PHYSICIAN: Jacob Grande M.D. HISTORY OF PRESENT ILLNESS: The patient is an 80 year-old female who was admitted on the , which was a re-admission for shortness of breath and weakness. She had previously been admitted for an exacerbation of her chronic obstructive pulmonary disease and pneumonia. She was treated with antibiotics and tapering dose of steroids. During this hospitalization, she has had a bowel movement 2 days after her admission and has not had one since, but she has continued to pass gas. She complains of abdominal distention and left sided abdominal pain. There is also generalized weakness. PAST MEDICAL HISTORY: 1. Coronary artery disease status post bypass grafting. 2. Hyperlipidemia. 3. Carotid artery stenosis. 4. Chronic obstructive pulmonary disease with recent exacerbation. 5. Hypertension. 6. Gastroesophageal reflux disease. 7. History of duodenal ulcers. 8. Renal insufficiency. 9. Type 2 diabetes on insulin. 10. Gastroparesis secondary to diabetes. 11. Morbid obesity. PAST SURGICAL HISTORY: 1. Breast biopsy. 2. Cholecystectomy. 3. Carotid artery stenting. 4. Coronary artery bypass grafting. CURRENT MEDICATIONS: Listed in her record. ALLERGIES: LYRICA AND MORPHINE. SOCIAL HISTORY: The patient quit smoking approximately 20 years ago after a long history. Denies alcohol or drug use. 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 REVIEW OF SYSTEMS: There has been no history of change in her bowel movements, blood per rectum, bloody vomitus or melenic stools. She does have ongoing issues with early satiety, nausea and constipation. PHYSICAL EXAMINATION: VITAL SIGNS: Currently afebrile and normotensive. GENERAL: The patient is awake, alert and cooperative, and in mild to moderate distress. HEENT: Reveals the sclera to be nonicteric. Mucous membranes are moist. NECK: Without adenopathy. BACK: Without CVA tenderness. CHEST: She has equal breath sounds bilaterally anteriorly. ABDOMEN: Soft, distended. It is tender on the left side without rebound, guarding or mass. Bowel sounds are active but decreased and there are some small rushes noted. PELVIC AND RECTAL: Examinations are deferred. LABORATORY: White blood cell count 23,000 which is down from 28,000, hemoglobin 11.3 down from 12, 174,000 platelets. Segmented neutrophils are 86 which is down from 94. Chemistries reveal potassium 5.3, sodium 129, creatinine 2.34. Liver functions are within normal limits. Magnesium is high at 5.3. TSH is 0.81. CT scan of the abdomen was reviewed and it reveals dilated transverse colon full of air with what appears to be liquid stool along with stool in the left and right colon. There is no transition point or area of bowel wall thickening or of an annular intraluminal lesion. ASSESSMENT: 1. Obstipation. 2. Leukocytosis likely secondary to her steroids. 3. Congestive heart failure. 4. Coronary artery disease. 5. Hypertension. 6. Diabetes. RECOMMENDATION: Continue gentle catharsis from below with hydration and correction of her electrolytes. I will follow this patient closely with you. #[id number] [facility]
[2016-10-19] MEDS ORDERED: BISACODYL SUPPOSITORY 10 MG PR ONE (16:00)
[2016-10-19] MEDS: SIMVASTATIN 20 MG TAB PO SCH (21:00)
[2016-10-19] MEDS: ALPRAZolam 0.5 MG TAB PO PRN (21:03)
[2016-10-20] MEDS ORDERED: SODIUM CHLORIDE 0.9% 1000ML 1,000 ML ONE (07:22)
[2016-10-20] MEDS ORDERED: ATROPINE 1 MG/10 ML SYG IV ONE (07:51)
[2016-10-20] MEDS: SODIUM CHLORIDE 0.9% 1000ML 1,000 ML IVS PRN (07:57)
[2016-10-20] MEDS: INSULIN LISPRO 100 UNITS/ML PEN SUBCU SCH ×4 (07:59→21:18)
[2016-10-20] MEDS ORDERED: SODIUM CHLORIDE 0.9% 1000ML 300 ML IVS ONE (08:07)
[2016-10-20] MEDS ORDERED: SODIUM CHL 0.9% 50ML MIN-BAG+ 50 ML IVPB ONE (08:20)
[2016-10-20] MEDS ORDERED: cefTRIAXone SODIUM 1 GM VIAL ONE (08:22)
[2016-10-20] MEDS: IPRATROPIUM/ALBUTEROL 3 ML VIAL INH SCH ×4 (08:57→21:38)
[2016-10-20] MEDS ORDERED: METOPROLOL SUCCINATE XL 25 MG TAB PO SCH (09:00)
[2016-10-20] MEDS ORDERED: SOD CHL 3% *HYPERTONIC* 500ML 300 ML IVS ONE (09:58)
--- NOTE | 2016-10-20 10:29 | RAD ---
EXAM DESCRIPTION: XR ABDOMEN 2 VIEWS SUPINE ERECT CLINICAL HISTORY: abd pain, fecal impaction COMPARISON: October 24, 2015 FINDINGS: AP supine and upright views of the abdomen show air-filled dilated loops of small bowel and colon throughout the abdomen. Moderate amount of formed fecal material in the right colon is noted. Moderate air-fluid level in the stomach is seen. Nonspecific scattered air-fluid levels are seen. No obvious free intraperitoneal air. Visualized lung bases show postsurgical changes from sternotomy. Moderate to severe disc degenerative changes of the spine are seen with moderate degenerative changes of the hips right greater than left. IMPRESSION: Nonspecific abdominal series. There are air-filled dilated loops of small bowel and proximal colon suggesting ileus versus partial small bowel obstruction. Consider followup imaging. Moderate amount of formed stool in the right to transverse colon is seen. The descending to sigmoid colon is not well identified. Electronically signed by: Kwaku Andre MD 10/20/2016 10:27
--- NOTE | 2016-10-20 11:17 | PN ---
DATE: 10/20/16 SUBJECTIVE: This 80-year-old, white lady is lying in the bed, head slightly elevated. Abdomen is still distended. She states she has less abdominal pain today than yesterday. What pain she did have seemed to over towards the left abdomen, towards the lower quadrant. No shortness of breath. She seems to be a little drowsy today compared to yesterday. She is noted to have a significantly slow pulse today with intervention in progress. OBJECTIVE: VITAL SIGNS: Significant fluid intake was evident on the intake and output summation, yet that is being evaluated for its accuracy regarding the patients condition today. Pulse was down into the mid-30s with 0.5 mg of Atropine increasing it up into the 50s. Blood pressure was low as well. LUNGS: Clear. HEART: Regular, yet slow. ABDOMEN: Bowel tones diminished, yet present in all quadrants. Still with some tenderness, both right and left side, but less noticeable compared to yesterday. Still distended with some tympany with recheck of two view abdomen today. LABORATORY: White count down from 23,700 with 86% neutrophils to 15,000 with 81 % neutrophils, now 2-1/2 days after her last dose of corticosteroids. Hemoglobin 10.4. Chemistries show sodium down to 127, potassium 5, BUN up to 68 , creatinine 2.76, glucose 61 with insulin being held at this time until the patient is able to more adequately consume diet. Magnesium 5.9, it was 5.3 yesterday. Awaiting cardiac enzymes, beta natriuretic peptide. TSH yesterday 0.81. The patients metoprolol and Cardizem have been held since yesterday morning and the patient is still having fairly significant bradycardia as well as hypotension. Cultures showed sputum revealing Klebsiella pneumoniae with the patient currently on ceftriaxone and azithromycin, sensitivity positive. Radiologist is discussed regarding the abdominal CT scan of two days ago. Large amounts of stacked stool noted in both ascending and descending colon with distended, air-filled transverse colon noted. No evidence of mucosal thickening or blockage otherwise evident with close followup necessary. Dr. Gallagher is assisting with close followup. ASSESSMENT: 1. Acute abdominal pain with distention, gas-filled transverse colon and fecal impaction in both ascending and descending colon with repeat radiographic evaluation on plain films at this time. We are holding off on soapsuds enema previously ordered because of the significant bradycardic state with concern that increased vagal tone may aggravate the bradycardia and the hypotensive state. No significant response to oil retention or Dulcolax suppositories last evening. 2. Significant leukocytosis, showing some steady normalization, probably secondary to two separate doses of Solu-Medrol given in the Emergency Room and in the hospital with subsequent leukocytosis following the next day, but also must rule out underlying infectious condition contributing to the leukocytosis. 3. Elevated magnesium level. 4. Hyponatremia with a trial of continued normal saline being supplemented with 300 mL bolus slowly of hypertonic 3% saline with reevaluation. 5. Chronic renal insufficiency, showing some worsening. 6. History of congestive heart failure with a diastolic etiology with last ejection fraction of 60% on echocardiogram in August of 2015, currently being followed by Dr. Hugo. 7. History of hypertension, though currently with hypotension. 8. Significant bradycardia with rate in the 30s, possibly related to the beta blockade plus calcium channel, now stopped since yesterday morning and may eventually require further evaluation for sick sinus syndrome and further cardiological support. 9. Coronary artery disease by history. 10. Diabetes mellitus, type 2. 11. History of gastroesophageal reflux disease. 12. Chronic constipation. PLAN: We will continue with close observation today with Dr. Gallagher. Support hyponatremia with hypertonic saline slow bolus. Continue to hold beta blockade and calcium channel. Continue to hold insulin as required until the patient is able to eat. Await two view abdomen. Dr. Hugo requested to continue cardiac evaluation s to whether the patient eventually may require pacemaker pulse support with the patient being unable to fully contribute to her rehab potential with pulses in the low 40s and mid 30s. Await stool guaiacs. Reevaluate and close followup necessary. #[id number] [facility]
[2016-10-20] MEDS: cefTRIAXone SODIUM 1 GM in SODIUM CHL 0.9% 50ML MIN-BAG+ 50 ML IVPB SCH (12:47)
[2016-10-20] MEDS: INSULIN DETEMIR 100 UNITS/ML PEN SUBCU SCH ×2 (12:47→17:32)
[2016-10-20] MEDS: AZITHROMYCIN IV 500 MG in SODIUM CHLORIDE 0.9% 250ML 250 ML IVPB SCH (12:48)
[2016-10-20] MEDS: BIFIDOBACTERIUM INFANTIS 4 MG CAP PO SCH (12:48)
[2016-10-20] MEDS: ASPIRIN EC 81 MG TAB PO SCH (12:48)
[2016-10-20] MEDS: SPIRONOLACTONE 25 MG TAB PO SCH (12:48)
[2016-10-20] MEDS: CARBIDOPA/LEVODOPA 25/100 1 TAB PO SCH ×4 (12:49→21:18)
[2016-10-20] MEDS: PRASUGREL 10 MG TAB PO SCH (12:49)
[2016-10-20] MEDS: LISINOPRIL 5 MG TAB PO SCH (12:49)
[2016-10-20] MEDS: guaiFENesin ER TAB 600 MG TAB PO SCH ×2 (12:49→21:18)
[2016-10-20] MEDS: FUROSEMIDE 40 MG TAB PO SCH (12:49)
[2016-10-20] MEDS: LINAGLIPTIN 5 MG TAB PO SCH (12:50)
[2016-10-20] MEDS ORDERED: MAGNESIUM HYDROXIDE 30 ML UD PO ONE (15:00)
[2016-10-20] MEDS: SIMVASTATIN 20 MG TAB PO SCH (21:18)
[2016-10-20] MEDS: NON-FORMULARY RESPIRATORY MEDICATION INH SCH (21:38)
[2016-10-20] MEDS: ENOXAPARIN SODIUM 30 MG/0.3 ML SYG SUBCU SCH (23:20)
[2016-10-21] MEDS: SODIUM CHLORIDE 0.9% 1000ML 1,000 ML IVS PRN (02:20)
[2016-10-21] MEDS ORDERED: SODIUM CHLORIDE 0.9% 250ML 250 ML ONE (07:22)
[2016-10-21] MEDS ORDERED: AZITHROMYCIN IV 500 MG VIAL IVPB ONE (07:23)
[2016-10-21] MEDS ORDERED: SODIUM CHL 0.9% 50ML MIN-BAG+ 50 ML IVPB ONE (07:23)
[2016-10-21] MEDS ORDERED: cefTRIAXone SODIUM 1 GM VIAL ONE (07:23)
[2016-10-21] MEDS: INSULIN LISPRO 100 UNITS/ML PEN SUBCU SCH ×3 (07:30→17:41)
--- NOTE | 2016-10-21 07:37 | RAD ---
EXAM DESCRIPTION: XR CHEST PA and lateral CLINICAL HISTORY: 80 y/o ,F, hypoxia COMPARISON: October 18 IMPRESSION: Status post median sternotomy. No cardiomegaly. Vascular congestion appears stable. Interstitial fibrosis verses edema relatively stable given technical differences. Peribronchial cuffing stable. No large effusion or pneumothorax. No major interval change. Electronically signed by: Nikita Mackey MD 10/21/2016 07:35
--- NOTE | 2016-10-21 07:50 | RAD ---
EXAM DESCRIPTION: XR ABDOMEN 2 VIEWS CLINICAL HISTORY: 80 y/o F, abd pain. obstruction COMPARISON: 20 October 2016 FINDINGS: Two supine views of the abdomen show an abnormal bowel gas pattern with multiple moderately dilated loops of small bowel in the mid abdomen and left lower quadrant. There is also a large volume of colon gas observed. This may represent an ileus. No definitive obstruction is observed. The findings are very similar to yesterday's study IMPRESSION: 1. Findings most consistent with ileus unimproved since yesterday. Electronically signed by: Ant Patton MD 10/21/2016 07:49
[2016-10-21] MEDS: cefTRIAXone SODIUM 1 GM in SODIUM CHL 0.9% 50ML MIN-BAG+ 50 ML IVPB SCH (08:02)
[2016-10-21] MEDS: IPRATROPIUM/ALBUTEROL 3 ML VIAL INH SCH ×4 (08:45→20:27)
[2016-10-21] MEDS: guaiFENesin ER TAB 600 MG TAB PO SCH ×2 (08:52→20:53)
[2016-10-21] MEDS: FUROSEMIDE 40 MG TAB PO SCH (08:52)
[2016-10-21] MEDS: PRASUGREL 10 MG TAB PO SCH (08:52)
[2016-10-21] MEDS: LINAGLIPTIN 5 MG TAB PO SCH (08:52)
[2016-10-21] MEDS: CARBIDOPA/LEVODOPA 25/100 1 TAB PO SCH ×4 (08:53→20:53)
[2016-10-21] MEDS: SPIRONOLACTONE 25 MG TAB PO SCH (08:53)
[2016-10-21] MEDS: ASPIRIN EC 81 MG TAB PO SCH (08:53)
[2016-10-21] MEDS: BIFIDOBACTERIUM INFANTIS 4 MG CAP PO SCH (08:53)
[2016-10-21] MEDS: LISINOPRIL 5 MG TAB PO SCH (09:08)
[2016-10-21] MEDS: INSULIN DETEMIR 100 UNITS/ML PEN SUBCU SCH ×2 (09:21→17:41)
[2016-10-21] MEDS: SODIUM CHLORIDE 0.9% 10 ML VIAL IV PRN (10:06)
[2016-10-21] MEDS: AZITHROMYCIN IV 500 MG in SODIUM CHLORIDE 0.9% 250ML 250 ML IVPB SCH (10:08)
[2016-10-21] MEDS: NON-FORMULARY RESPIRATORY MEDICATION INH SCH (11:49)
[2016-10-21] MEDS: DEX 5% W/NACL 0.9% 1000ML 1,000 ML IVS PRN (14:11)
--- NOTE | 2016-10-21 18:17 | PN ---
DATE: 10/21/16 SUPERVISING PHYSICIAN: Andrea Mccullough M.D. SUBJECTIVE: The patient is lying in bed. She just received a breathing treatment. Says her abdominal pain is much less than previous days. She did have 2 large bowel movements yesterday. She does appear to be somewhat drowsy but in no acute distress. OBJECTIVE: VITAL SIGNS: Temperature 96.8, pulse 61, blood pressure 94/58, respirations 18, O2 sat showing 95% on nasal cannula at 2 liters at rest. I's and O's show a positive balance but she does have several voids that have not been measured. She has had 2 bowel movements. Weight currently is 128.4 kg which is down from admission of 129.4 kg. CHEST: Lungs are clear to auscultation, diminished towards the bases. HEART: Regular rate and rhythm. ABDOMEN: Soft. Some tenderness noted to the left upper quadrant. Bowel sounds are present. EXTREMITIES: No clubbing, cyanosis or edema. Deep tendon reflexes are somewhat diminished but difficult to assess fully secondary to body habitus. NEUROLOGIC: She is alert and oriented times three. Deep tendon reflexes appear slightly diminished but unable to fully assess accurately due to the patient's body habitus. LABORATORY: White count now is normalized to 8.4, hemoglobin 10.3, hematocrit 31.7, platelet count 130,000. Differential shows no left shift. Chemistries show potassium 5.0, sodium is low at 131, BUN 65, creatinine 2.92, glucose 78. Serum osmolality 280, calcium 6.9 corrected to 7.9 for an albumin of 2.6. Phosphorus 4.3, magnesium elevated at 6.2. Liver functions showed to be within normal limits. Glucoses have been 72 to 109. Blood cultures remain negative after 5 days. RADIOLOGY: Abdominal x-ray per radiology interpretation show findings consistent with an ileum unimproved since the previous x-rays, but only a single view was done. Chest x-ray today per radiology interpretation shows vascular congestion appears stable with peribronchial cuffing stable. There are no large effusions. No major interval changes noted. ASSESSMENT: 1. Acute abdominal pain with distention and gas-filled transverse colon and fecal impaction about the descending and ascending colon showing some improvement after soap suds enema. 2. Leukocytosis, normalized probably secondary to Solu-Medrol previously administered in the Emergency Room and on subsequent admission. 3. Hypermagnesemia likely secondary to ischemia and excessive administration of Milk of Magnesia. 4. Hyponatremia showing improvement after hypertonic 3% saline. 5. Chronic renal insufficiency continues to show increasing creatinine. 6. History of congestive heart failure with a diastolic etiology with last ejection fraction of 60% on echocardiogram in August [address] Hugo. 7. History of hypertension although currently hypotensive possibly secondary to excessive magnesium levels. 8. Significant bradycardia in the 30s possibly related to beta blockers plus calcium channel blockers as well as elevated magnesium levels. 9. Coronary artery disease by history. 10. Diabetes mellitus type 2 requiring adjustment of Levemir as the patient is NPO. 11. History gastroesophageal reflux disease. 12. Chronic constipation. PLAN: Will continue to follow the patient along with Dr. Gallagher. I did contact Dr. Sepulveda in regards to excessive magnesium level and he was of the opinion that it was probably related to her constipation, administration of Milk of Magnesia and excessive absorption due to the increased time within the colon secondary to the constipation. He recommended we stop all magnesium-containing medications and observe closely. She continues to have her beta reyna and calcium channel reyna held awaiting normalization of the magnesium level. In regards to the low glucose as currently NPO, will add D5 normal saline at 50 an hour and monitor closely. Will plan to repeat a two view abdominal series in the morning to further evaluate her abdomen, although she has had 2 bowel movements and is reporting some improvement. Will continue to follow closely and treat appropriately until discharge. #[id number] [facility]
[2016-10-21] MEDS: SIMVASTATIN 20 MG TAB PO SCH (20:53)
[2016-10-21] MEDS: ALPRAZolam 0.5 MG TAB PO PRN (21:22)
[2016-10-21] MEDS ORDERED: BISACODYL SUPPOSITORY 10 MG PR ONE (22:00)
[2016-10-21] MEDS: IV SET AND CAP CHANGE INJ INJ SCH (22:04)
[2016-10-21] MEDS: ENOXAPARIN SODIUM 30 MG/0.3 ML SYG SUBCU SCH (23:32)
[2016-10-22] MEDS: INSULIN LISPRO 100 UNITS/ML PEN SUBCU SCH ×3 (07:12→13:00)
[2016-10-22] MEDS ORDERED: SODIUM CHL 0.9% 50ML MIN-BAG+ 50 ML IVPB ONE (07:36)
[2016-10-22] MEDS ORDERED: cefTRIAXone SODIUM 1 GM VIAL ONE (07:37)
--- NOTE | 2016-10-22 07:48 | RAD ---
EXAM DESCRIPTION: XR ABDOMEN 2 VIEWS SUPINE ERECT CLINICAL HISTORY: possible SBP vs illeus COMPARISON: None. FINDINGS: AP supine and upright views of the abdomen show a nonspecific, nonobstructive bowel gas pattern with no evidence for free intraperitoneal air. Surgical clips from cholecystectomy are seen. Mildly dilated air-filled loops of small bowel in the central abdomen are seen with air extending in the colon to the splenic flexure region. No abnormal calcifications are seen in the expected location of the renal collecting systems. Visualized lung bases show mild enlargement of the cardiac silhouette. IMPRESSION: Nonspecific abdominal series. Findings suggest possible ileus. This is mildly improved from previous. Electronically signed by: Kwaku Andre MD 10/22/2016 07:47
[2016-10-22] MEDS: cefTRIAXone SODIUM 1 GM in SODIUM CHL 0.9% 50ML MIN-BAG+ 50 ML IVPB SCH (08:09)
[2016-10-22] MEDS: IPRATROPIUM/ALBUTEROL 3 ML VIAL INH SCH ×4 (08:24→20:15)
[2016-10-22] MEDS: LISINOPRIL 5 MG TAB PO SCH (08:35)
[2016-10-22] MEDS: guaiFENesin ER TAB 600 MG TAB PO SCH (08:35)
[2016-10-22] MEDS: CARBIDOPA/LEVODOPA 25/100 1 TAB PO SCH ×2 (08:35→13:00)
[2016-10-22] MEDS: BIFIDOBACTERIUM INFANTIS 4 MG CAP PO SCH (08:35)
[2016-10-22] MEDS: ASPIRIN EC 81 MG TAB PO SCH (08:36)
[2016-10-22] MEDS: PRASUGREL 10 MG TAB PO SCH (08:36)
[2016-10-22] MEDS: LINAGLIPTIN 5 MG TAB PO SCH (08:36)
[2016-10-22] MEDS: FUROSEMIDE 40 MG TAB PO SCH (08:36)
[2016-10-22] MEDS ORDERED: BISACODYL SUPPOSITORY 10 MG PR ONE ×3 (08:49→20:00)
[2016-10-22] MEDS: DEX 5% W/NACL 0.9% 1000ML 1,000 ML IVS PRN (09:06)
[2016-10-22] MEDS: NON-FORMULARY RESPIRATORY MEDICATION INH SCH (09:47)
[2016-10-22] MEDS: INSULIN DETEMIR 100 UNITS/ML PEN SUBCU SCH (10:05)
[2016-10-22] MEDS ORDERED: DOCUSATE SODIUM 100 MG CAP ONE (14:07)
[2016-10-23] MEDS ORDERED: SODIUM CHL 0.9% 50ML MIN-BAG+ 50 ML IVPB ONE (07:42)
[2016-10-23] MEDS ORDERED: cefTRIAXone SODIUM 1 GM VIAL ONE (07:44)
--- NOTE | 2016-10-23 07:58 | RAD ---
EXAM DESCRIPTION: XR ABDOMEN 2 VIEWS SUPINE ERECT CLINICAL HISTORY: 80 y/o F, f/u dilated bowel COMPARISON: October 22, 2016 FINDINGS: AP supine and upright views of the abdomen again demonstrated air-filled dilated loops of small bowel and colon throughout the abdomen. The air-filled loops of small bowel may be slightly more prominent. There is air in the colon to the sigmoid region. Mild scattered air-fluid levels are seen. No obvious bowel wall thickening. No free intraperitoneal air. Cholecystectomy changes. Visualized lung bases are unremarkable. IMPRESSION: Persistent air-filled dilated loops of small bowel and colon throughout the abdomen are again seen similar to slightly more dilated than previous exam most consistent with some degree of ileus. Electronically signed by: Kwaku Andre MD 10/23/2016 07:57
[2016-10-23] MEDS: IPRATROPIUM/ALBUTEROL 3 ML VIAL INH SCH ×3 (08:30→21:47)
[2016-10-23] MEDS: INSULIN LISPRO 100 UNITS/ML PEN SUBCU SCH ×5 (09:08→18:26)
[2016-10-23] MEDS: CARBIDOPA/LEVODOPA 25/100 1 TAB PO SCH ×6 (09:08→20:46)
[2016-10-23] MEDS: guaiFENesin ER TAB 600 MG TAB PO SCH ×3 (09:09→20:45)
[2016-10-23] MEDS: ENOXAPARIN SODIUM 30 MG/0.3 ML SYG SUBCU SCH ×2 (09:09→23:27)
[2016-10-23] MEDS: SIMVASTATIN 20 MG TAB PO SCH ×2 (09:09→20:46)
--- NOTE | 2016-10-23 09:10 | PN ---
SUPERVISING PHYSICIAN: Cara Mccullough MD DATE: 10/22/16 SUBJECTIVE: The patient is resting in bed. She appears to be in no distress. She notes that she is having less pain. She has had a couple of bowel movements and is feeling somewhat better, but still remains weak. OBJECTIVE: VITAL SIGNS: Temperature 96.6. Pulse 69. Blood pressure 98/62. Respirations 18. O2 saturation 90% on nasal cannula at 2 liters at rest. I&Os are difficult to fully assess as she is apparently incontinent of both stool and urine. Weight 130.4 kg. CHEST: Lungs clear to auscultation, but diminished. HEART: Regular rate and rhythm. ABDOMEN: Obese, but soft. Positive bowel sounds. Continue tenderness noted in the left upper quadrant. EXTREMITIES: No cyanosis, clubbing or edema. NEUROLOGIC: Alert and oriented times three. LABORATORY: White count 6.5, hemoglobin 9.5, hematocrit 29.4, platelet count 136,000. Differential within normal limits. Chemistries show sodium 130, potassium 4.9, BUN 65, creatinine 2.69. Glucoses were 74 to 149. Calcium 6.6 corrected for albumin 2.6 to 7.9. Magnesium decreased to 5.6. Liver functions within normal limits. MICROBIOLOGY: Blood cultures have no growth at 5 days. Sputum culture showed Klebsiella pneumoniae sensitive to everything but ampicillin. The patient is finishing a full course of ceftriaxone and azithromycin. RADIOLOGY: Abdominal x-ray showed nonspecific abdominal series suggestive of possible ileus, showing mild improvement from previous per radiology interpretation. ASSESSMENT: 1. Acute abdominal pain with distention and gas-filled transverse colon and fecal impaction, showing some improvement after laxatives and enemas, although with persistent ileus as per radiographic studies. 2. Leukocytosis, resolved after discontinuing Solu-Medrol and continuation of full course of antibiotic treatment. 3. Hypermagnesemia, likely secondary to slow bowel movements with administration of Milk of Magnesia and excessive absorption due to slow transit through the colon, showing improvement. 4. Hyponatremia, persistent. 5. Chronic renal insufficiency, improving daily. 6. History of congestive heart failure with a diastolic etiology with last ejection fraction of 60% on echocardiogram in August 2015, followed by Dr. Hugo. 7. History of hypertension, although currently hypotensive, but showing improvement, likely secondary to ongoing illness and previous high magnesium levels. 8. Severe bradycardia, possibly related to beta blockers plus calcium channel blockers as well as elevated magnesium levels. 9. Coronary artery disease by history. 10. Diabetes mellitus, type 2, requiring adjustment of Levemir as the patient is NPO and on D5 infusion with glucoses being stable. 11. History of gastroesophageal reflux disease. 12. Chronic constipation contributing to #1, showing improvement. PLAN: We will continue to follow the patient along with Dr. Gallagher in regards to obstipation and possible ileus. She was given another soapsuds enema as well as Dulcolax suppository resulting in two bowel movements. We will plan to give per Dr. Dan request additional Dulcolax suppositories and monitor closely. Magnesium levels are slowing returning to normal. She remains on D5 normal saline at 50 an hour with glucoses well controlled. Until she is able to take oral nutrition, we will continue with IV fluids. We will continue to follow the patient closely and treat appropriately until discharge. #[id number] [facility]
[2016-10-23] MEDS: cefTRIAXone SODIUM 1 GM in SODIUM CHL 0.9% 50ML MIN-BAG+ 50 ML IVPB SCH (09:15)
[2016-10-23] MEDS: BIFIDOBACTERIUM INFANTIS 4 MG CAP PO SCH (09:17)
[2016-10-23] MEDS: LINAGLIPTIN 5 MG TAB PO SCH (09:17)
[2016-10-23] MEDS: PRASUGREL 10 MG TAB PO SCH (09:17)
[2016-10-23] MEDS: LISINOPRIL 5 MG TAB PO SCH (09:17)
[2016-10-23] MEDS: ASPIRIN EC 81 MG TAB PO SCH (09:17)
[2016-10-23] MEDS: FUROSEMIDE 40 MG TAB PO SCH (09:19)
[2016-10-23] MEDS ORDERED: MAGNESIUM HYDROXIDE 30 ML UD PO ONE (09:40)
[2016-10-23] MEDS ORDERED: BISACODYL SUPPOSITORY 10 MG PR ONE ×2 (16:00→18:25)
[2016-10-23] MEDS: ACETAMINOPHEN W/COD #3 TAB 1 EA TAB PO PRN (20:18)
[2016-10-23] MEDS: ALPRAZolam 0.5 MG TAB PO PRN (22:14)
[2016-10-24] MEDS: INSULIN LISPRO 100 UNITS/ML PEN SUBCU SCH ×6 (00:24→21:00)
[2016-10-24] MEDS: ALBUTEROL SULFATE 2.5 MG/3 ML VIAL NEB PRN (04:10)
[2016-10-24] MEDS: DEX 5% W/NACL 0.9% 1000ML 1,000 ML IVS PRN (04:59)
[2016-10-24] MEDS: IPRATROPIUM/ALBUTEROL 3 ML VIAL INH SCH ×4 (08:15→22:05)
[2016-10-24] MEDS ORDERED: SODIUM CHL 0.9% 50ML MIN-BAG+ 50 ML IVPB ONE ×2 (08:20→15:18)
[2016-10-24] MEDS ORDERED: cefTRIAXone SODIUM 1 GM VIAL ONE ×2 (08:21→15:18)
[2016-10-24] MEDS: cefTRIAXone SODIUM 1 GM in SODIUM CHL 0.9% 50ML MIN-BAG+ 50 ML IVPB SCH ×2 (09:14→14:50)
[2016-10-24] MEDS: ASPIRIN EC 81 MG TAB PO SCH (09:15)
[2016-10-24] MEDS: CARBIDOPA/LEVODOPA 25/100 1 TAB PO SCH ×4 (09:15→20:46)
[2016-10-24] MEDS: guaiFENesin ER TAB 600 MG TAB PO SCH ×2 (09:15→20:46)
[2016-10-24] MEDS: LINAGLIPTIN 5 MG TAB PO SCH (09:15)
[2016-10-24] MEDS: FUROSEMIDE 40 MG TAB PO SCH (09:15)
[2016-10-24] MEDS: PRASUGREL 10 MG TAB PO SCH (09:15)
[2016-10-24] MEDS: BIFIDOBACTERIUM INFANTIS 4 MG CAP PO SCH (09:15)
[2016-10-24] MEDS: LISINOPRIL 5 MG TAB PO SCH (09:16)
--- NOTE | 2016-10-24 09:25 | RAD ---
PROCEDURE: Abdomen Flat Upright Clinical History: fu dilated bowel Indication: Same as above Comparison: October 23, 2016 Technique: Two views of the abdomen and pelvis were done. Findings: There is no gross evidence of free air in the abdomen or the pelvis . There is no interval change in the caliber of the gas distended loops of small and large bowel, since the prior study done on 10/23/2016 and remains suspicious for generalized ileus Impression: There is no interval change in the caliber of the gas distended loops of small and large bowel, since the prior study done on 10/23/2016 and remains suspicious for generalized ileus Location of Interpretation: [id number] Electronically signed by: Yazan Turner MD 10/24/2016 9:25 AM VENDING SERVICE TECHNICIAN
--- NOTE | 2016-10-24 10:20 | PN ---
SUPERVISING PHYSICIAN: Abhilash Siddiqi MD DATE: 10/23/16 SUBJECTIVE: The patient is still laying in bed. She says she feels a little better today but tired. Says her abdomen is not hurting, she has been passing some gas and some bowel movement. She remains afebrile.. OBJECTIVE: VITAL SIGNS: Temperature 97.2. Pulse 85. Blood pressure 92/56. Respirations 18. O2 saturation 98% on nasal cannula at rest. I&O not available. She did have a bowel movement today. Weight is not available. CHEST: Lungs clear to auscultation but diminished towards the bases. HEART: Regular rate and rhythm. ABDOMEN: Obese, but soft. She has no tenderness today. Bowel sounds are present. EXTREMITIES: No cyanosis, clubbing or edema. NEUROLOGIC: Alert and oriented times three. LABORATORY: White count stabilized at 7.3, hemoglobin 10.1, hematocrit 31.0, platelet count 147,000. Differential shows to be within normal limits. Chemistries show a persistent low sodium at 131, potassium 4.5, BUN 54, creatinine 2.34 which is improved from previous days. Glucoses remain stable between 124 to 136. Magnesium decreased to 4.5. with calcium 6.6 which is 7.9 corrected for 2.7 albumin. MICROBIOLOGY: Cultures remain negative for 5 days. RADIOLOGY: Repeat abdominal x-ray this morning per radiology interpretation shows persistent air filled dilated loops of small bowel and colon throughout the abdomen, again slightly or more dilated than previous exams most consistent with some degree of ileus. ASSESSMENT: 1. Acute abdominal pain with persistent distention and gas-filled transverse colon with some improvement after multiple laxatives and enemas but with persistent ileus as per radiographic studies currently followed closely by Dr. Gallagher. 2. Leukocytosis, resolved and showing to be stable after discontinuing Solu- Medrol and continuation of full antibiotic treatment. 3. Hypermagnesemia showing improvement, was felt likely to secondary to slow bowel movements with administration of Milk of Magnesia with excessive absorption due to slow transit through the colon, showing improvement daily. 4. Hyponatremia, persistent but stable. 5. Chronic renal insufficiency, improving daily. 6. History of congestive heart failure with a diastolic etiology with last ejection fraction of 60% on echocardiogram in August 2015, followed by Dr. Hugo. 7. History of hypertension, although currently hypotensive,showing improvement , likely secondary to ongoing illness and previous high magnesium levels. 8. Severe bradycardia, unknown etiology, possibly related to beta blockers plus calcium channel blockers as well as elevated magnesium levels with no more episodes noted of bradycardia. 9. Coronary artery disease by history. 10. Diabetes mellitus, type 2, requiring adjustment of Levemir as the patient is n.p.o. and on D5 infusion with glucoses being stable. 11. History of gastroesophageal reflux disease. 12. Chronic constipation contributing to #1, showing improvement after multiple laxatives and suppositories for catharsis and being closely followed by Dr. Gallagher. PLAN: We will continue to follow the patient along with Dr. Gallagher assisting with catharsis to resolve obstipation and possible ileus. She continues to show some improvement clinically, although x-ray is persistently showing and ileus. She does remain n.p.o.. Magnesium is slowly returning to normal. Continue to monitor this closely. She will remain on D5 normal saline until she is able to take adequate p.o. nutrition. Until the, we will continue to monitor the patient closely and treat appropriately. #[id number] [facility]
[2016-10-24] MEDS ORDERED: BISACODYL SUPPOSITORY 10 MG PR ONE (10:59)
[2016-10-24] MEDS ORDERED: BISACODYL TAB 5 MG TAB PO ONE (11:01)
[2016-10-24] MEDS ORDERED: cefTRIAXone SODIUM 1 GM in SODIUM CHL 0.9% 50ML MIN-BAG+ 50 ML IVPB SCH (15:00)
[2016-10-24] MEDS: ALPRAZolam 0.5 MG TAB PO PRN (20:16)
[2016-10-24] MEDS: SIMVASTATIN 20 MG TAB PO SCH (20:45)
--- NOTE | 2016-10-24 21:15 | PN ---
DATE: 10/24/16 SUPERVISING PHYSICIAN: Abhilash Siddiqi M.D. SUBJECTIVE: The patient appears to be doing better this morning. She said she is not having any abdominal pain. She is actually sitting up in bed much more alert than in previous days. She does remain afebrile. OBJECTIVE: VITAL SIGNS: T max 97.4, pulse 76, blood pressure 103/66, respirations 18, O2 sat showing 96% on nasal cannula at rest on 1 liter. I's and O's show a negative balance of 105 with 1545 in, 1650 out. She has had a couple more bowel movements today. GENERAL: The patient is much more alert today. Appears to be feeling better. LUNGS: Remain clear to auscultation but diminished towards the bases. HEART: Regular rate and rhythm. ABDOMEN: Obese, soft, non-tender today with positive bowel sounds. EXTREMITIES: No clubbing, cyanosis or edema. NEUROLOGIC: She is alert and oriented times three. LABORATORY: Chemistry today shows persistent low sodium of 130 with potassium 3.9. BUN has improved down to 45 as well as creatinine has come down to 2.26 from a maximum within the last 4 days of 2.92. Magnesium is improving. It is now down to 4.3 from a maximum of 6.2. MICROBIOLOGY: Blood cultures remain negative after 5 days. RADIOLOGY: Abdominal x-ray today per radiology interpretation there is no interval change in the caliber of the gas-extended loops of small and large bowel since the prior study done on 10/23/16 and remains suspicious for generalized ileus. ASSESSMENT: 1. Abdominal pain secondary to an ileus being followed closely by Dr. Gallagher showing improvement with the patient continuing to have multiple bowel movements, although radiographic studies continue to show no change. 2. Leukocytosis, resolved secondary to previous Solu-Medrol administration after continuing of full antibiotic treatments for underlying pneumonia with final culture results showing Klebsiella pneumoniae. 3. Hypermagnesemia continuing to improve felt to be secondary to slow bowel movement with administration of Milk of Magnesia with excessive absorption due to slow transit through the colon. 4. Hyponatremia, persistent but stable. 5. Chronic renal insufficiency, improving. 6. History of congestive heart failure with diastolic etiology with last ejection fraction of 60% on echocardiogram in August [address] Hugo. 7. History of hypertension. Continues to be showing improvement and stable. 8. Previous episodes of bradycardia, resolved now felt to be possibly related to a combination of beta blockers and calcium channel blockers as well as magnesium levels and gas distended bowel. 9. Coronary artery disease by history. 10. Type 2 diabetes mellitus still requiring adjustment of Levemir as the patient is NPO and she is on D5 infusion with glucose continuing to be stable. 11. History of gastroesophageal reflux disease. 12. History of chronic constipation contributing to number 1, continues to show improvement daily with laxatives and suppositories for catharsis, continues to be followed by Dr. Gallagher. PLAN: Will continue to monitor the patient closely along with Dr. Gallagher. She has been given some clear liquids today. Will see how she tolerates that in the morning and will continue to monitor the patient closely. Until she is able to take full p.o. meals, will continue with D5 normal saline as she continues to be stable on her blood sugars. Until discharge, will continue to monitor the patient closely and treat appropriately. #[id number] [facility]
[2016-10-24] MEDS: IV SET AND CAP CHANGE INJ INJ SCH (22:06)
[2016-10-25] MEDS: ENOXAPARIN SODIUM 30 MG/0.3 ML SYG SUBCU SCH
--- NOTE | 2016-10-25 08:42 | RAD ---
PROCEDURE: Abdomen Flat Upright Clinical History: fu ileus Indication: Follow-up of ileus Comparison: October 24, 2016 Technique: Two views of the abdomen and pelvis were done. Findings: There is no gross evidence of free air in the abdomen or the pelvis . There is interval improving caliber of the dilated small and large bowel loops suggestive of improving ileus. Impression: There is interval improving caliber of the dilated small and large bowel loops suggestive of improving ileus. Location of Interpretation: [id number] Electronically signed by: Yazan Turner MD 10/25/2016 8:42 AM AGRICULTURAL RESEARCH ENGINEER
[2016-10-25] MEDS: INSULIN LISPRO 100 UNITS/ML PEN SUBCU SCH ×4 (09:07→21:31)
[2016-10-25] MEDS: PRASUGREL 10 MG TAB PO SCH (09:08)
[2016-10-25] MEDS: LINAGLIPTIN 5 MG TAB PO SCH (09:08)
[2016-10-25] MEDS: BIFIDOBACTERIUM INFANTIS 4 MG CAP PO SCH (09:08)
[2016-10-25] MEDS: guaiFENesin ER TAB 600 MG TAB PO SCH ×2 (09:08→21:30)
[2016-10-25] MEDS: LISINOPRIL 5 MG TAB PO SCH (09:08)
[2016-10-25] MEDS: CARBIDOPA/LEVODOPA 25/100 1 TAB PO SCH ×4 (09:08→21:30)
[2016-10-25] MEDS: ASPIRIN EC 81 MG TAB PO SCH (09:08)
[2016-10-25] MEDS: FUROSEMIDE 40 MG TAB PO SCH (09:08)
[2016-10-25] MEDS: DEX 5% W/NACL 0.9% 1000ML 1,000 ML IVS PRN (09:11)
[2016-10-25] MEDS: IPRATROPIUM/ALBUTEROL 3 ML VIAL INH SCH ×3 (09:50→17:00)
[2016-10-25] MEDS: POLYETHYLENE GLYCOL 3350 17 GM PCKT PO SCH (10:51)
[2016-10-25] MEDS: BISACODYL TAB 5 MG TAB PO SCH (10:51)
[2016-10-25] MEDS: SIMVASTATIN 20 MG TAB PO SCH (21:31)
[2016-10-26] MEDS: ENOXAPARIN SODIUM 30 MG/0.3 ML SYG SUBCU SCH (00:38)
[2016-10-26] MEDS: IPRATROPIUM/ALBUTEROL 3 ML VIAL INH SCH ×5 (01:26→21:13)
[2016-10-26] MEDS: DEX 5% W/NACL 0.9% 1000ML 1,000 ML IVS PRN ×2 (04:31→23:04)
[2016-10-26] MEDS: INSULIN LISPRO 100 UNITS/ML PEN SUBCU SCH ×4 (07:53→21:06)
--- NOTE | 2016-10-26 08:34 | PN ---
SUPERVISING PHYSICIAN: Abhilash Siddiqi MD DATE: 10/25/16 SUBJECTIVE: The patient is doing well today. She is actually sitting in a bedside chair. She says her abdomen does not hurt, is more soft, and is less distended. She has had no nausea or vomiting and is much more alert than previous days. She remains afebrile. OBJECTIVE: VITAL SIGNS: Temperature 97.4. Pulse 88. Blood pressure 104/65. Respirations 18. O2 saturation 95% on room air. I&Os show positive balance of 1644 with one single bowel movement recorded. Weight 129.7. CHEST: Lungs clear to auscultation bilaterally. There is no obvious wheezing. Breath sounds are quite distant secondary to body habitus and are diminished towards the bases. HEART: Regular rate and rhythm. ABDOMEN: Obese, but soft and nontender. Positive bowel sounds. Compared to previous days, less distention and is much more soft. EXTREMITIES: No cyanosis, clubbing or edema. NEUROLOGIC: Alert and oriented times three. LABORATORY: CBC stable with white count 6.0, hemoglobin 10.2, hematocrit 30.6, platelet count 149,000. Differential within normal limits. Chemistries show just a low sodium of 132 which is chronic with potassium 3.7, BUN 36, which is improved from admission of 62 as well as creatinine has shown improvement down to 2.14 today compared to maximum of 2.92. Magnesium is greatly decreased at 3.6 today compared to previous days of 6.2. All other function s are within normal limits. Glucoses have been stable from 114 up to 155. MICROBIOLOGY: Blood culture s remains negative after 5 days. RADIOLOGY: Repeat abdominal x-ray today per radiology interpretation shows interval improvement in caliber of the dilated small and large bowel loops suggesting improving ileus. ASSESSMENT: 1. Abdominal pain on admission secondary to an ileus, being followed closely by Dr. Gallagher and continues to show improvement with radiograph evidence showing improvement and with the patient having multiple bowel movements and able to be advanced on diet today from clear liquids, which she did tolerate, up to full liquids. 2. Leukocytosis, resolved, secondary to Solu-Medrol administration and having received full antibiotic treatment for underlying pneumonia with final culture results showing Klebsiella pneumoniae. 3. Hypermagnesemia, showing improvement back to near normal levels, felt to have been secondary to slow bowel movements with administration of multiple Milk of Magnesia with excessive absorption due to slow transit through the colon. 4. Hyponatremia, persistent but stable. 5. Chronic renal insufficiency, improving daily. 6. History of congestive heart failure with diastolic etiology with last ejection fraction of 60% on echocardiogram in August 2015, currently followed by Dr. Hugo. 7. History of hypertension. Continues to be showing improvement and stable. 8. Previous episodes of bradycardia, resolved now felt to a combination of beta blockers and calcium channel blockers as well as magnesium levels as well as gas distended bowel. She has no further episodes of bradycardia. 9. Coronary artery disease, by history. 10. Type 2 diabetes mellitus, stable on D5 infusion now, requiring adjustment after the patient has been transitioned to clear liquids, but continued to be stable. 11. History of gastroesophageal reflux disease, stable. 12. History of chronic constipation contributing to E1, continues to show improvement daily with laxatives and suppositories for catharsis,followed closely by Dr. Gallagher. PLAN: We will continue to monitor the patient closely with Dr. Gallagher. Dr. Gallagher noted the patient is doing well and he wants to advance her diet and start her on oral stool softeners as well as daily MiraLAX. Her meals have been advanced to full liquid. We will continue to monitor this closely and once she is adequately taking p.o. nutrition, we will stop her IV and D5. Until discharge, we will continue to monitor the patient closely and treat appropriately. #[id number] [facility]
[2016-10-26] MEDS: BIFIDOBACTERIUM INFANTIS 4 MG CAP PO SCH (09:39)
[2016-10-26] MEDS: LISINOPRIL 5 MG TAB PO SCH (09:39)
[2016-10-26] MEDS: FUROSEMIDE 40 MG TAB PO SCH (09:39)
[2016-10-26] MEDS: guaiFENesin ER TAB 600 MG TAB PO SCH ×2 (09:39→20:45)
[2016-10-26] MEDS: PRASUGREL 10 MG TAB PO SCH (09:39)
[2016-10-26] MEDS: ASPIRIN EC 81 MG TAB PO SCH (09:40)
[2016-10-26] MEDS: CARBIDOPA/LEVODOPA 25/100 1 TAB PO SCH ×4 (09:40→20:44)
[2016-10-26] MEDS: BISACODYL TAB 5 MG TAB PO SCH (09:48)
[2016-10-26] MEDS: POLYETHYLENE GLYCOL 3350 17 GM PCKT PO SCH (09:48)
[2016-10-26] MEDS: LINAGLIPTIN 5 MG TAB PO SCH (09:48)
[2016-10-26] MEDS: SPIRONOLACTONE 25 MG TAB PO SCH (11:10)
[2016-10-26] MEDS ORDERED: FLUCONAZOLE 150 MG TAB PO ONE (15:56)
[2016-10-26] MEDS: NYSTATIN POWDER 15GM BTTL TOP SCH ×2 (17:16→20:45)
[2016-10-26] MEDS: ALPRAZolam 0.5 MG TAB PO PRN (20:44)
[2016-10-26] MEDS: SIMVASTATIN 20 MG TAB PO SCH (20:45)
--- NOTE | 2016-10-26 21:33 | PN ---
DATE: 10/26/16 SUPERVISING PHYSICIAN: Andrea Mccullough M.D. SUBJECTIVE: The patient continues to do well with advancing her diet. She continues to have stools although loose at this point. She remains afebrile. OBJECTIVE: VITAL SIGNS: Temperature 97.9, pulse 90, blood pressure 120/75, respirations 18, O2 sat 96% on room air. I's and O's show a positive balance of 149 with 1749 in, 1600 out. CHEST: Remains clear to auscultation bilaterally. HEART: Regular rate and rhythm. ABDOMEN: Obese but soft, non- tender. Positive bowel sounds. EXTREMITIES: No clubbing, cyanosis or edema. NEUROLOGIC: She is alert and oriented times three. LABORATORY AND RADIOLOGY: There are no laboratory or radiographic studies today to review. Her blood cultures remain negative after 6 days. ASSESSMENT: 1. Small and large bowel ileus slow to resolve but improving now with the patient able to advance to a full diet. 2. Leukocytosis secondary to her Solu-Medrol prior to admission showing improvement after finishing antibiotic therapy and finishing up with Solu- Medrol dosing. 3. Hypermagnesemia now near baseline status secondary to Milk of Magnesia and excessive absorption due to slow transit through the colon. 4. Persistent hyponatremia, stable. 5. Chronic renal insufficiency, improving daily. 6. History of congestive heart failure with diastolic etiology with last ejection fraction of 60% on echocardiogram in 2014 and being followed by Dr. Hugo. 7. History of hypertension, stable. 8. Previous episodes of bradycardia felt to be resultant from beta blockers and calcium channel blockers exacerbated by high level of magnesium as well as gas-distended bowel having no further episodes of bradycardia after magnesium is normalizing and ileus is resolving. 9. Coronary artery disease by history. 10. Type 2 diabetes mellitus, stable having been on D5 infusion while NPO continuing to be stable. Will need to be taken off D5 as she advances her diet. 11. History of gastroesophageal reflux disease, stable. 12. History of chronic constipation contributing to number 1 showing improvement daily with MiraLAX and Dulcolax closely followed by Dr. Gallagher. PLAN: The patient is medically stable at this point. As soon as Dr. Gallagher feels the patient is able to be discharged, she will need to be discharged to Swing Bed as she has had a lengthy hospitalization and has not had physical activity, and therefore is very deconditioned and at risk for falls if discharged home. Will continue to monitor closely. Anticipate possible discharge within the next 1 to 2 days to Swing Bed. Until then, continue to monitor and follow the patient along with Dr. Gallagher. #[id number] [facility]
[2016-10-27] MEDS: ENOXAPARIN SODIUM 30 MG/0.3 ML SYG SUBCU SCH
[2016-10-27 06:45] VITALS: O2SAT 97
[2016-10-27] MEDS: INSULIN LISPRO 100 UNITS/ML PEN SUBCU SCH ×3 (08:12→16:36)
[2016-10-27] MEDS: IPRATROPIUM/ALBUTEROL 3 ML VIAL INH SCH ×2 (08:32→13:55)
[2016-10-27] MEDS: LISINOPRIL 5 MG TAB PO SCH (09:14)
[2016-10-27] MEDS: BISACODYL TAB 5 MG TAB PO SCH (09:14)
[2016-10-27] MEDS: CARBIDOPA/LEVODOPA 25/100 1 TAB PO SCH ×3 (09:15→16:36)
[2016-10-27] MEDS: BIFIDOBACTERIUM INFANTIS 4 MG CAP PO SCH (09:15)
[2016-10-27] MEDS: guaiFENesin ER TAB 600 MG TAB PO SCH (09:15)
[2016-10-27] MEDS: PRASUGREL 10 MG TAB PO SCH (09:15)
[2016-10-27] MEDS: POLYETHYLENE GLYCOL 3350 17 GM PCKT PO SCH (09:15)
[2016-10-27] MEDS: LINAGLIPTIN 5 MG TAB PO SCH (09:15)
[2016-10-27] MEDS: FUROSEMIDE 40 MG TAB PO SCH (09:15)
[2016-10-27] MEDS: ASPIRIN EC 81 MG TAB PO SCH (09:15)
[2016-10-27] MEDS: NYSTATIN POWDER 15GM BTTL TOP SCH ×3 (09:15→16:36)
[2016-10-27] MEDS: SPIRONOLACTONE 25 MG TAB PO SCH (09:18)
[2016-10-27 15:54] VITALS: BP 127/71; TEMP 97.1
--- NOTE | 2016-11-02 | RAD ---
PROCEDURE: KUB Clinical History: abd pain Indication: Same as above Comparison: None Technique: 4.0 views of the abdomen and pelvis. Findings: There is no gross evidence of free air in the abdomen or the pelvis on this single supine view of the abdomen and pelvis. The study is limited by patient's body habitus. The small and large bowel gas pattern does not show any evidence of obstruction, ileus or bowel wall thickening. There is no visualization of radiopaque calculi in the outline of the urinary tract. There is no significant constipation. Impression: The study is limited by patient's body habitus. Given this limitation there are no acute findings in the abdomen or the pelvis. Location of Interpretation: [id number] Electronically signed by: Yazan Turner MD 10/17/2016 10:48 AM BOULEVARD GLASSWARE REPLACER
--- NOTE | 2016-11-02 00:06 | RAD ---
EXAM: Two view chest. INDICATION: Chest pain. COMPARISON: Chest x-ray: 10/16/2016. FINDINGS: Cardiac silhouette: Unremarkable. Tracy: Unremarkable. Lobar consolidation: None.Pleural effusion: None.Pneumothorax: None.Other: There are stable prominent interstitial opacities, which are likely chronic. Median sternotomy wires are noted. Bones: Unremarkable. Other: None. IMPRESSION: 1. No acute cardiopulmonary process. Electronically signed by: Sundeep Neumann MD 10/18/2016 7:57 AM LEATHER PRODUCTION MACHINE OPERATOR
--- NOTE | 2016-11-02 00:18 | RAD ---
PROCEDURE: Abdomen Flat Upright Clinical History: fu dilated bowel Indication: Same as above Comparison: October 23, 2016 Technique: Two views of the abdomen and pelvis were done. Findings: There is no gross evidence of free air in the abdomen or the pelvis . There is no interval change in the caliber of the gas distended loops of small and large bowel, since the prior study done on 10/23/2016 and remains suspicious for generalized ileus Impression: There is no interval change in the caliber of the gas distended loops of small and large bowel, since the prior study done on 10/23/2016 and remains suspicious for generalized ileus Location of Interpretation: [id number] Electronically signed by: Yazan Turner MD 10/24/2016 9:25 AM HOG SCRAPER
--- NOTE | 2016-11-02 00:24 | RAD ---
PROCEDURE: Abdomen Flat Upright Clinical History: fu ileus Indication: Follow-up of ileus Comparison: October 24, 2016 Technique: Two views of the abdomen and pelvis were done. Findings: There is no gross evidence of free air in the abdomen or the pelvis . There is interval improving caliber of the dilated small and large bowel loops suggestive of improving ileus. Impression: There is interval improving caliber of the dilated small and large bowel loops suggestive of improving ileus. Location of Interpretation: [id number] Electronically signed by: Yazan Turner MD 10/25/2016 8:42 AM DISTRIBUTION ESTIMATOR
--- NOTE | 2016-11-02 14:30 | DS ---
SUPERVISING PHYSICIAN: Cara Mccullough MD DISCHARGE DIAGNOSIS: 1. Multiple recent admissions for chronic obstructive pulmonary disease in September of 2016 as well as this admission, now resolved. 2. Small and large bowel ileus that was slow to resolve, now improved with the patient advancing to a regular diet and being followed by Dr. Gallagher. 3. Deconditioning due to extensive and lengthy hospitalization. 4. Chronic renal insufficiency. 5. History of congestive heart failure with a diastolic etiology and her last ejection fraction is 60% on echocardiogram in 2014, being followed by Dr. Hugo. 6. Hypertension. 7. Coronary artery disease. 8. Type 2 diabetes mellitus. 9. Gastroesophageal reflux disease. 10. History of chronic constipation on daily MiraLAX and Dulcolax. 11. Leukocytosis on her Acute Care admission that is now resolved. HISTORY OF PRESENT ILLNESS: Ms. Lares is an 80-year-old female patient who was originally admitted to the hospital for an exacerbation of chronic obstructive pulmonary disease and left lower lobe pneumonia. She also had an electrolyte imbalance with moderate hyperkalemia, leukocytosis and dehydration. Her chronic obstructive pulmonary resolved very slowly although she had several exacerbations where she required steroids as well as antibiotics for that. She was very weak during that time and then developed an ileus. She does have a history of chronic constipation. Dr. Gallagher was consulted and over the next few days, she was given Milk of Magnesia as well as enemas and Dulcolax by mouth. Her magnesium did elevate as high as 6.2, but that resolved and that was most likely due to poor absorption of Milk of Magnesia with having no results. She continued to get MiraLAX as well as gentle hydration. Her electrolytes corrected and over the last several days. Her ileus has resolved and her diet was advanced. Today, Dr. Gallagher and I discussed that she could be discharged from Acute Care and that she would need Swing Bed admission due to her length hospitalization with minimal physical activities. She is very deconditioned and at risk for falls if discharged home. DISCHARGE PLAN: We will discharge the patient from the hospital and re-admit her to Swing Bed. She will receive close medical followup, especially given she had an ileus, but her Swing Bed admission will be mostly for strengthening and conditioning for physical therapy. We will continue to monitor her blood glucoses closely as well as her breathing due to her chronic obstructive pulmonary disease. DISCHARGE MEDICATIONS: 1. Simvastatin. 2. Effient. 3. Nexium. 4. Tradjenta. 5. Furosemide. 6. Phenergan. 7. Xanax. 8. Acetaminophen with codeine. 9. Nitroglycerin. 10. Diltiazem. 11. Spironolactone. 12. Reglan. 13. Aspirin. 14. Lisinopril. 15. Regular insulin. 16. Metoprolol. 17. Carbidopa/levodopa. 18. Fioricet. 19. Nystatin. 20. Cefdinir. 21. Levemir insulin. 22. Prednisone. Dr. Mccullough is the supervising physician and available for consultation. #[id number] [facility]ITAL[facility]ig[facility]
== END 2016-10-27 17:49 | disposition swing bed (61) | DRG 190 ==
LOC: ER 14:10 → MS 21:30 → OBSVTOIN 10-14 08:20 → INTOOBSV 10-14 08:28 → MS 10-17 16:28
PROVIDERS: ADMIT Nurse Practitioner Family; ATTEND Nurse Practitioner Family
DX: J44.0 Chronic obstructive pulmonary disease with (acute) lower respiratory infection (principal); J18.9 Pneumonia, unspecified organism; K56.7 Ileus, unspecified; E87.0 Hyperosmolality and hypernatremia; I13.0 Hypertensive heart and chronic kidney disease with heart failure and stage 1 through stage 4 chronic kidney disease, or unspecified chronic kidney disease; I50.32 Chronic diastolic (congestive) heart failure; E86.0 Dehydration; T50.0X5A Adverse effect of mineralocorticoids and their antagonists, initial encounter; T50.1X5A Adverse effect of loop [high-ceiling] diuretics, initial encounter; R00.1 Bradycardia, unspecified; E87.5 Hyperkalemia; E11.22 Type 2 diabetes mellitus with diabetic chronic kidney disease; T38.0X5A Adverse effect of glucocorticoids and synthetic analogues, initial encounter; E83.41 Hypermagnesemia; K59.00 Constipation, unspecified; E11.65 Type 2 diabetes mellitus with hyperglycemia; I25.10 Atherosclerotic heart disease of native coronary artery without angina pectoris; E78.5 Hyperlipidemia, unspecified; I65.29 Occlusion and stenosis of unspecified carotid artery; K21.9 Gastro-esophageal reflux disease without esophagitis; N18.9 Chronic kidney disease, unspecified; E11.43 Type 2 diabetes mellitus with diabetic autonomic (poly)neuropathy; K31.84 Gastroparesis; E66.01 Morbid (severe) obesity due to excess calories; Z95.1 Presence of aortocoronary bypass graft; Z95.828 Presence of other vascular implants and grafts; Z88.5 Allergy status to narcotic agent; Z88.8 Allergy status to other drugs, medicaments and biological substances; Z87.891 Personal history of nicotine dependence; Y92.009 Unspecified place in unspecified non-institutional (private) residence as the place of occurrence of the external cause; Z87.01 Personal history of pneumonia (recurrent)

== ENCOUNTER 2016-10-27 17:50 | Inpatient (IN) | payer MEDICARE, MEDICAID ==
[2016-10-27] MEDS ORDERED: SODIUM CHLORIDE 0.9% (FLUSH) 10 ML SYG IV PRN (20:11)
[2016-10-27] MEDS ORDERED: ALBUTEROL SULFATE 2.5 MG/3 ML VIAL NEB PRN (20:11)
[2016-10-27] MEDS: IV SET AND CAP CHANGE INJ INJ SCH (20:39)
[2016-10-27] MEDS ORDERED: SIMVASTATIN 20 MG TAB ONE (20:53)
[2016-10-27] MEDS ORDERED: NON-FORMULARY MEDICATION 1 EA MIS (Simvastatin [Simvastatin] 80 MG) PO SCH (21:00)
[2016-10-27] MEDS ORDERED: GLUCAGON INJ 1 MG VIAL SUBCU PRN (21:06)
[2016-10-27] MEDS: INSULIN LISPRO 100 UNITS/ML PEN SUBCU SCH (21:12)
[2016-10-27] MEDS: guaiFENesin ER TAB 600 MG TAB PO SCH (21:13)
[2016-10-27] MEDS: CARBIDOPA/LEVODOPA 25/100 1 TAB PO SCH (21:13)
--- NOTE | 2016-10-27 21:23 | PCM.CORE ---
Physician DVT/VTE - Prophylaxis Currently: Patient already on anticoagulation therapy - Nurse DVT Assessment & Total Each Risk Factor Represents 3 Points: Age over 75 years, Medical PT with Hx of [place], CHF, Severe infection/sepsis Each Risk Factor Represents 1 Point: Medical PT at Bed Rest Each Risk Factor is 1 Point: Varicose Veins/Edema Legs, Obesity (BMI >25) DVT Assessment Score: 9 - 5 or more Very High Risk Treatments: Early Ambulation *, Sequential Compression Device
[2016-10-27] MEDS: ENOXAPARIN SODIUM 30 MG/0.3 ML SYG SUBCU SCH (22:35)
[2016-10-27] MEDS: ALPRAZolam 0.5 MG TAB PO PRN (23:48)
[2016-10-28] MEDS: ALPRAZolam 0.5 MG TAB PO PRN ×2 (06:24→20:44)
[2016-10-28] MEDS ORDERED: SODIUM CHLORIDE 0.9% 10 ML VIAL IV PRN (07:15)
[2016-10-28] MEDS: INSULIN LISPRO 100 UNITS/ML PEN SUBCU SCH ×4 (07:21→21:15)
--- NOTE | 2016-10-28 08:03 | HP ---
SUPERVISING PHYSICIAN: Cara Mccullough MD CHIEF COMPLAINT: Weakness due to extended hospital stay. HISTORY OF PRESENT ILLNESS: This is an 80-year-old female patient who was originally admitted to the hospital on 10/12/16 for an exacerbation of chronic obstructive pulmonary disease and left lower lobe pneumonia. She also had an electrolyte imbalance with moderate hyperkalemia, leukocytosis, and dehydration. Her chronic obstructive pulmonary disease very slowly resolved although she had several exacerbations where she required some steroids as well as antibiotics for that. She was very weak and during that time, she developed an ileus. Dr. Gallagher was consulted and over the next few days, she was given Milk of Magnesia as well as enemas. Her magnesium went as high as 6.2, most likely due to reabsorption of Milk of Magnesia after she has no results. Dr. Gallagher was consulted. Over the next few days, she was given MiraLAX and hydration. Her electrolytes were corrected. Over the last several days, her ileus resolved and her diet was advanced. Yesterday, she was given a regular diet. Today, Dr. Gallagher and I discussed that she could be discharged from Acute Care and that she would need Swing Bed admission due to her lengthy hospitalization with minimal physical activity. She is very deconditioned and at risks for falls if discharged home. Today, she is being admitted for Swing Bed for strengthening and conditioning. PAST MEDICAL HISTORY: 1. Recent exacerbation of chronic obstructive pulmonary disease with an admission in late September 2016 as well as on 10/12/16. 2. Carotid artery stenosis. 3. Coronary artery disease. 4. Hyperlipidemia. 5. Hypertension. 6. Gastroesophageal reflux disease. 7. Duodenal ulcers. 9. Chronic renal insufficiency with baseline creatinine between 2 and 2.3. 10. Type 2 diabetes mellitus. 11. Gastroparesis, complication of diabetes. 12. Morbid obesity. PAST SURGICAL HISTORY: 1. Biopsy of breast. 2. Cholecystectomy. 3. Coronary artery bypass graft in 1998. 4. Carotid artery stent in February of 2012. HOME MEDICATIONS: As per the EMR and awaiting verification. ALLERGIES: LYRICA, MORPHINE. SOCIAL HISTORY: She lives at home. She has a history of smoking for many years , but quit about 20 years ago. She denies any alcohol or illicit drug use. REVIEW OF SYSTEMS: GENERAL: Denies fever, fatigue, but complains of generalized weakness. HEENT: Denies sinus symptoms, ear pain, vision changes, or sore throat. RESPIRATORY: Continues to have complaints of occasional shortness of breath and coughing, but denies any wheezing. CARDIAC: Denies chest pain, palpitations or tachycardia. GASTROINTESTINAL: Denies nausea or vomiting over the last few days. She also has no complaints of abdominal pain or diarrhea. NEUROLOGIC: Denies headache, dizziness, or seizures. GENITOURINARY: Denies dysuria, hematuria, or polyuria. PHYSICAL EXAMINATION: VITAL SIGNS: Afebrile. Heart rate 89. Blood pressure 96/52. Respiratory rate 18. O2 saturation 97% on room air. GENERAL: This is an 80-year-old, obese female who is lying in her hospital bed. She is in no acute distress. HEENT: Normocephalic, atraumatic. Pupils are equal and reactive. Oropharynx is clear. Oral mucous membranes are moist. NECK: Supple without mass. No jugular venous distention. RESPIRATORY: Essentially clear to auscultation although she does have occasional rhonchi noted to the apices and somewhat diminished at the bases. CARDIAC: Regular rate and rhythm. ABDOMEN: Obese and rounded. Bowel sounds are positive. She is nontender. EXTREMITIES: No cyanosis, clubbing or edema. NEUROLOGIC: Awake, alert and oriented times three. ASSESSMENT: 1. Multiple recent admissions for chronic obstructive pulmonary disease in September of 2016 and 10/12/16, now resolved. 2. Small and large bowel ileus that was very slow to resolve, now improved with the patient advancing to a regular diet. 3. Deconditioning due to extensive and lengthy hospitalization. 4. Chronic renal insufficiency. 5. History of congestive heart failure with diastolic etiology and her last ejection fraction 60% on echocardiogram in 2014, being followed by Dr. Hugo. 6. History of hypertension. 7. Coronary artery disease. 8. Type 2 diabetes mellitus. 9. Gastroesophageal reflux disease. 10. History of chronic constipation and being followed closely by Dr. Gallagher and on daily MiraLAX and Dulcolax. 11. Leukocytosis on her Acute Care admission, now resolved. PLAN: We will admit the patient to the hospital for Swing Bed admission. I will consult physical therapy for strengthening and conditioning. We will continue to monitor her closely, especially her bowel movements and GI issues. I will put her on Lovenox for DVT prophylaxis as well as Protonix for ulcer prophylaxis. She also has her sliding scale insulin. At some point, we will need to restart her Levemir although she has not needed her Levemir due to her inability to eat due to her ileus and her constipation, so we will need to monitor her blood sugars so we can re-start that. Her antihypertensives have also been put on hold and we will need to monitor to see if those need to be renewed. Hopefully, she can be discharged in a week or so when she is deemed safe to go home. Dr. Mccullough is the collaborating physician and available for consultation. #[id number] [facility]
[2016-10-28] MEDS: IPRATROPIUM/ALBUTEROL 3 ML VIAL INH SCH ×4 (08:51→21:15)
[2016-10-28] MEDS: ASPIRIN EC 81 MG TAB PO SCH (09:55)
[2016-10-28] MEDS: PRASUGREL 10 MG TAB PO SCH (09:55)
[2016-10-28] MEDS: SPIRONOLACTONE 25 MG TAB PO SCH (09:56)
[2016-10-28] MEDS: LISINOPRIL 5 MG TAB PO SCH (09:56)
[2016-10-28] MEDS: CARBIDOPA/LEVODOPA 25/100 1 TAB PO SCH ×4 (09:57→20:44)
[2016-10-28] MEDS: PANTOPRAZOLE SODIUM TAB 40 MG PO SCH (09:57)
[2016-10-28] MEDS: LINAGLIPTIN 5 MG TAB PO SCH (09:57)
[2016-10-28] MEDS: guaiFENesin ER TAB 600 MG TAB PO SCH ×2 (09:57→20:44)
[2016-10-28] MEDS: FUROSEMIDE 40 MG TAB PO SCH (09:59)
[2016-10-28] MEDS: SODIUM CHLORIDE 0.9% (FLUSH) 10 ML SYG IV SCH ×2 (10:04→20:44)
[2016-10-28] MEDS: NYSTATIN CREAM 15 GM TUBE TOP SCH ×3 (12:01→20:44)
[2016-10-28] MEDS: ONDANSETRON 4 MG TAB PO PRN (17:14)
[2016-10-28] MEDS ORDERED: SIMVASTATIN 20 MG TAB ONE (19:45)
[2016-10-28] MEDS: SIMVASTATIN 20 MG TAB PO SCH (20:44)
[2016-10-28] MEDS: ENOXAPARIN SODIUM 30 MG/0.3 ML SYG SUBCU SCH (21:15)
[2016-10-29] MEDS: PANTOPRAZOLE SODIUM TAB 40 MG PO SCH (06:05)
[2016-10-29] MEDS: INSULIN LISPRO 100 UNITS/ML PEN SUBCU SCH ×4 (07:31→21:00)
[2016-10-29] MEDS: PRASUGREL 10 MG TAB PO SCH (08:44)
[2016-10-29] MEDS: LISINOPRIL 5 MG TAB PO SCH (08:44)
[2016-10-29] MEDS: SPIRONOLACTONE 25 MG TAB PO SCH (08:44)
[2016-10-29] MEDS: ASPIRIN EC 81 MG TAB PO SCH (08:44)
[2016-10-29] MEDS: CARBIDOPA/LEVODOPA 25/100 1 TAB PO SCH ×4 (08:44→20:59)
[2016-10-29] MEDS: NYSTATIN CREAM 15 GM TUBE TOP SCH ×2 (08:45→21:08)
[2016-10-29] MEDS: LINAGLIPTIN 5 MG TAB PO SCH (08:45)
[2016-10-29] MEDS: guaiFENesin ER TAB 600 MG TAB PO SCH ×2 (08:45→20:59)
[2016-10-29] MEDS: FUROSEMIDE 40 MG TAB PO SCH (08:45)
[2016-10-29] MEDS: SODIUM CHLORIDE 0.9% (FLUSH) 10 ML SYG IV SCH ×2 (08:48→21:02)
[2016-10-29] MEDS: IPRATROPIUM/ALBUTEROL 3 ML VIAL INH SCH ×4 (09:13→21:10)
[2016-10-29] MEDS: ALPRAZolam 0.5 MG TAB PO PRN (20:11)
--- NOTE | 2016-10-29 20:34 | PN ---
DATE: 10/29/16 SUPERVISING PHYSICIAN: Abhilash Siddiqi M.D. SUBJECTIVE: The patient is walking in her room with Physical Therapy assistance. She states she continues to feel better daily. Denies any chest pain, shortness of breath, nausea or vomiting. She did have a bowel movement today. OBJECTIVE: VITAL SIGNS: She is afebrile, heart rate 75, blood pressure 91/51, respiratory rate 18, O2 sat 94% on room air. GENERAL: This is an 80 year-old obese female who is in no acute distress. RESPIRATORY: Essentially clear to auscultation bilaterally. She is diminished at the bases. CARDIAC: Regular rate and rhythm. ABDOMEN: Soft, nondistended, non-tender. Bowel sounds are positive. NEUROLOGIC: She is awake, alert and oriented times three. LABORATORY: There are no labs or films to report today. ASSESSMENT: 1. Multiple recent admissions for chronic obstructive pulmonary disease in September 2016 and October 2016 that have now resolved. 2. Small and large bowel ileus that was very slow to resolve, now improved with the patient advancing to a regular diet and on Swing Bed admission. 3. Deconditioning due to extensive and lengthy hospitalization. 4. Chronic renal insufficiency. 5. History of congestive heart failure with a diastolic etiology and last ejection fraction of 60% on echocardiogram in [address] Hugo. 6. History of hypertension. 7. Coronary artery disease. 8. Diabetes mellitus type 2. 9. Gastroesophageal reflux disease. 10. History of chronic constipation being followed closely by Dr. Gallagher and on daily MiraLAX and Dulcolax. 11. Leukocytosis on her Acute Care admission now resolved. PLAN: We will continue to follow the patient closely and treat as medically necessary. She will continue her strengthening and conditioning per Physical Therapy. She has slowly improved with her strengthening. Hopefully she can be discharged home in a few days. In the meantime we will continue to monitor and treat as needed. Dr. Siddiqi is the collaborating physician available for consultation. #[id number] [facility]
[2016-10-29] MEDS: SIMVASTATIN 20 MG TAB PO SCH (20:59)
[2016-10-29] MEDS: ENOXAPARIN SODIUM 30 MG/0.3 ML SYG SUBCU SCH (21:01)
[2016-10-30] MEDS: PANTOPRAZOLE SODIUM TAB 40 MG PO SCH (06:04)
[2016-10-30] MEDS: INSULIN LISPRO 100 UNITS/ML PEN SUBCU SCH ×4 (08:02→21:14)
[2016-10-30] MEDS: IPRATROPIUM/ALBUTEROL 3 ML VIAL INH SCH ×4 (08:10→20:31)
[2016-10-30] MEDS: FUROSEMIDE 40 MG TAB PO SCH (09:08)
[2016-10-30] MEDS: LISINOPRIL 5 MG TAB PO SCH (09:09)
[2016-10-30] MEDS: ASPIRIN EC 81 MG TAB PO SCH (09:09)
[2016-10-30] MEDS: PRASUGREL 10 MG TAB PO SCH (09:09)
[2016-10-30] MEDS: guaiFENesin ER TAB 600 MG TAB PO SCH ×2 (09:09→21:14)
[2016-10-30] MEDS: CARBIDOPA/LEVODOPA 25/100 1 TAB PO SCH ×4 (09:09→21:13)
[2016-10-30] MEDS: LINAGLIPTIN 5 MG TAB PO SCH (09:09)
[2016-10-30] MEDS: NYSTATIN CREAM 15 GM TUBE TOP SCH ×2 (09:11→21:25)
[2016-10-30] MEDS: SODIUM CHLORIDE 0.9% (FLUSH) 10 ML SYG IV SCH ×2 (09:13→21:15)
[2016-10-30] MEDS: SPIRONOLACTONE 25 MG TAB PO SCH (09:40)
[2016-10-30] MEDS: ALPRAZolam 0.5 MG TAB PO PRN ×2 (10:37→21:13)
[2016-10-30] MEDS: INSULIN DETEMIR 100 UNITS/ML PEN SUBCU SCH (21:12)
[2016-10-30] MEDS: ENOXAPARIN SODIUM 30 MG/0.3 ML SYG SUBCU SCH (21:13)
[2016-10-30] MEDS: SIMVASTATIN 20 MG TAB PO SCH (21:13)
[2016-10-30] MEDS: IV SET AND CAP CHANGE INJ INJ SCH (21:14)
[2016-10-31] MEDS: PANTOPRAZOLE SODIUM TAB 40 MG PO SCH (06:05)
[2016-10-31] MEDS: INSULIN LISPRO 100 UNITS/ML PEN SUBCU SCH ×4 (07:46→21:30)
[2016-10-31] MEDS: IPRATROPIUM/ALBUTEROL 3 ML VIAL INH SCH ×4 (08:55→20:16)
[2016-10-31] MEDS: LISINOPRIL 5 MG TAB PO SCH (08:56)
[2016-10-31] MEDS: SPIRONOLACTONE 25 MG TAB PO SCH (08:56)
[2016-10-31] MEDS: LINAGLIPTIN 5 MG TAB PO SCH (08:56)
[2016-10-31] MEDS: PRASUGREL 10 MG TAB PO SCH (08:57)
[2016-10-31] MEDS: CARBIDOPA/LEVODOPA 25/100 1 TAB PO SCH ×4 (08:57→21:04)
[2016-10-31] MEDS: guaiFENesin ER TAB 600 MG TAB PO SCH ×2 (08:57→21:06)
[2016-10-31] MEDS: ASPIRIN EC 81 MG TAB PO SCH (08:57)
[2016-10-31] MEDS: FUROSEMIDE 40 MG TAB PO SCH (08:57)
[2016-10-31] MEDS: SODIUM CHLORIDE 0.9% (FLUSH) 10 ML SYG IV SCH (08:59)
[2016-10-31] MEDS: NYSTATIN CREAM 15 GM TUBE TOP SCH ×2 (09:08→21:04)
[2016-10-31] MEDS: ENOXAPARIN SODIUM 30 MG/0.3 ML SYG SUBCU SCH (21:04)
[2016-10-31] MEDS: SIMVASTATIN 20 MG TAB PO SCH (21:04)
[2016-10-31] MEDS: INSULIN DETEMIR 100 UNITS/ML PEN SUBCU SCH (21:30)
[2016-10-31] MEDS: ALPRAZolam 0.5 MG TAB PO PRN (21:58)
[2016-11-01] MEDS: PANTOPRAZOLE SODIUM TAB 40 MG PO SCH (06:04)
[2016-11-01] MEDS: IPRATROPIUM/ALBUTEROL 3 ML VIAL INH SCH ×4 (08:35→20:31)
[2016-11-01] MEDS: INSULIN LISPRO 100 UNITS/ML PEN SUBCU SCH ×4 (09:21→21:18)
[2016-11-01] MEDS: CARBIDOPA/LEVODOPA 25/100 1 TAB PO SCH ×4 (09:22→20:57)
[2016-11-01] MEDS: LISINOPRIL 5 MG TAB PO SCH (09:22)
[2016-11-01] MEDS: PRASUGREL 10 MG TAB PO SCH (09:22)
[2016-11-01] MEDS: LINAGLIPTIN 5 MG TAB PO SCH (09:22)
[2016-11-01] MEDS: FUROSEMIDE 40 MG TAB PO SCH (09:22)
[2016-11-01] MEDS: NYSTATIN CREAM 15 GM TUBE TOP SCH ×2 (09:22→20:56)
[2016-11-01] MEDS: SPIRONOLACTONE 25 MG TAB PO SCH (09:22)
[2016-11-01] MEDS: ASPIRIN EC 81 MG TAB PO SCH (09:22)
[2016-11-01] MEDS: guaiFENesin ER TAB 600 MG TAB PO SCH ×2 (09:22→20:57)
[2016-11-01] MEDS ORDERED: BISACODYL SUPPOSITORY 10 MG PR ONE ×2 (11:43→13:55)
--- NOTE | 2016-11-01 13:11 | PN ---
DATE: 11/01/16 SUBJECTIVE: The patient is sitting up in a Gerichair which her feet elevated. She has restless leg symptoms which she has had for a number of years. Her appetite is showing improvement and she is currently on a 1800 calorie diabetic diet. She is showing tolerance to increasing activity. Her last bowel movement was a couple of days ago. Less abdominal pain though the abdomen is still quite prominent in girth, a lot of which is obesity. She is willing to have another Dulcolax suppository to see if it will help eliminate some additional stool present. OBJECTIVE: Afebrile, pulse 78, blood pressure 127/69, pulse oximetry 97% on room air. The patient is awake and alert, and states that she feels stronger. She uses [facility] at home for home health care. LUNGS: Have some diminished breath sounds. HEART: Tones regular. ABDOMEN: Does have bowel tones present a little more active than it was 10 days ago. ASSESSMENT: 1. Recent acute small and large bowel ileus resulting in significant abdominal pain with the patient slowly responding to conservative treatment and now on a diabetic diet and Swing Bed rehabilitation. 2. Chronic obstructive pulmonary disease with multiple exacerbations. 3. Significant weakness and deconditioning due to the extensive and lengthy hospitalization required because of the abdominal pathology. 4. Chronic renal insufficiency. 5. History of congestive heart failure with a diastolic etiology with the last ejection fraction of 60% on echocardiogram in 2014 and being followed by Dr[address] Hugo. 6. History of hypertension. 7. Coronary artery disease. 8. Diabetes mellitus type 2. 9. Gastroesophageal reflux disease. 10. Chronic obesity. 11. History of chronic constipation being followed closely by Dr. Gallagher currently on MiraLAX and Dulcolax as needed. 12. Leukocytosis on her Acute Care admission, now resolved towards normal. PLAN: Will continue with physical therapy and rehabilitation until safe to be able to return home for continued care and Home Health care. She will be followed by Dr. Alex in the clinic after her discharge. Try Dulcolax suppository today and observe. Discuss with Physical Therapy regarding the patient's goals and then to make plans on eventual discharge home when stable and safe to return home. #[id number] [facility]
[2016-11-01] MEDS ORDERED: ACETAMINOPHEN 500 MG TAB ONE (16:33)
[2016-11-01] MEDS: ACETAMINOPHEN 500 MG TAB PO PRN (16:44)
[2016-11-01] MEDS: ENOXAPARIN SODIUM 30 MG/0.3 ML SYG SUBCU SCH (20:56)
[2016-11-01] MEDS: SIMVASTATIN 20 MG TAB PO SCH (20:57)
[2016-11-01] MEDS: ALPRAZolam 0.5 MG TAB PO PRN (20:57)
[2016-11-01] MEDS: INSULIN DETEMIR 100 UNITS/ML PEN SUBCU SCH (21:18)
[2016-11-02] MEDS: PANTOPRAZOLE SODIUM TAB 40 MG PO SCH (06:06)
[2016-11-02] MEDS: IPRATROPIUM/ALBUTEROL 3 ML VIAL INH SCH ×4 (07:20→20:50)
[2016-11-02] MEDS: INSULIN LISPRO 100 UNITS/ML PEN SUBCU SCH ×4 (07:48→21:24)
[2016-11-02] MEDS: NYSTATIN CREAM 15 GM TUBE TOP SCH ×2 (10:36→20:35)
[2016-11-02] MEDS: guaiFENesin ER TAB 600 MG TAB PO SCH ×2 (10:36→20:35)
[2016-11-02] MEDS: ASPIRIN EC 81 MG TAB PO SCH (10:37)
[2016-11-02] MEDS: SPIRONOLACTONE 25 MG TAB PO SCH (10:37)
[2016-11-02] MEDS: FUROSEMIDE 40 MG TAB PO SCH (10:37)
[2016-11-02] MEDS: LISINOPRIL 5 MG TAB PO SCH (10:37)
[2016-11-02] MEDS: PRASUGREL 10 MG TAB PO SCH (10:37)
[2016-11-02] MEDS: LINAGLIPTIN 5 MG TAB PO SCH (10:40)
[2016-11-02] MEDS: CARBIDOPA/LEVODOPA 25/100 1 TAB PO SCH ×4 (10:40→20:35)
--- NOTE | 2016-11-02 19:19 | PN ---
DATE: 11/02/16 SUBJECTIVE: The patient is sitting up. She is able to eat quite well, but feels that her stomach is a little full today. She had some good bowel movements yesterday and is passing gas today. Less discomfort and tenderness when the abdomen is palpated today, but there is some tympani when percussed. OBJECTIVE: Pulse 88, blood pressure 121/67, afebrile, pulse oximetry 97% on room air. Weight has not been checked for a while. LABORATORY: Glucose this morning was 138 fasting. Recheck lab in the morning. No cultures recently. She did fall missing a chair when in x-ray and landed on her bottom. The nurses are especially caring for a small area on her right buttock which will require ongoing wound care and intervention as needed with nurses following closely. ASSESSMENT: 1. Recent acute small and large bowel ileus resulting in significant abdominal pain with the patient requiring conservative treatment with progression of diet now being on a diabetic diet and Swing Bed rehabilitation. 2. Chronic obstructive pulmonary disease with several recent exacerbations currently stable. 3. Significant weakness and deconditioning due to the extensive and lengthy hospitalization required because of the abdominal illness. 4. Chronic renal insufficiency. 5. History of congestive heart failure with a diastolic etiology with the last ejection fraction of 60% on echocardiogram in [address] Hugo. 6. History of hypertension. 7. History of coronary artery disease. 8. Diabetes mellitus type 2. 9. Gastroesophageal reflux disease. 10. Chronic obesity. 11. History of chronic constipation being followed closely by Dr. Gallagher currently on MiraLAX and Dulcolax as required. 12. Leukocytosis on her Acute Care admission returning towards normal. PLAN: Continue with physical therapy and rehabilitation. Reevaluate in the morning. When safe to be able to return home with her , she will then be able to have further followup in the clinic with Dr. Alex. Close followup necessary until the patient is safe to return home. [id number] [facility]
[2016-11-02] MEDS: IV SET AND CAP CHANGE INJ INJ SCH (20:30)
[2016-11-02] MEDS: ALPRAZolam 0.5 MG TAB PO PRN (20:35)
[2016-11-02] MEDS: SIMVASTATIN 20 MG TAB PO SCH (20:35)
[2016-11-02] MEDS: INSULIN DETEMIR 100 UNITS/ML PEN SUBCU SCH (21:23)
[2016-11-02] MEDS: ENOXAPARIN SODIUM 30 MG/0.3 ML SYG SUBCU SCH (21:27)
[2016-11-03] MEDS: ACETAMINOPHEN 500 MG TAB PO PRN ×2 (01:04→13:37)
[2016-11-03] MEDS: PANTOPRAZOLE SODIUM TAB 40 MG PO SCH (06:08)
[2016-11-03] MEDS: INSULIN LISPRO 100 UNITS/ML PEN SUBCU SCH ×4 (07:52→21:15)
[2016-11-03] MEDS: LISINOPRIL 5 MG TAB PO SCH (09:17)
[2016-11-03] MEDS: PRASUGREL 10 MG TAB PO SCH (09:17)
[2016-11-03] MEDS: LINAGLIPTIN 5 MG TAB PO SCH (09:17)
[2016-11-03] MEDS: ASPIRIN EC 81 MG TAB PO SCH (09:18)
[2016-11-03] MEDS: FUROSEMIDE 40 MG TAB PO SCH (09:18)
[2016-11-03] MEDS: CARBIDOPA/LEVODOPA 25/100 1 TAB PO SCH ×4 (09:18→21:16)
[2016-11-03] MEDS: SPIRONOLACTONE 25 MG TAB PO SCH (09:18)
[2016-11-03] MEDS: NYSTATIN CREAM 15 GM TUBE TOP SCH ×2 (09:18→21:18)
[2016-11-03] MEDS: guaiFENesin ER TAB 600 MG TAB PO SCH ×2 (09:18→21:16)
[2016-11-03] MEDS: IPRATROPIUM/ALBUTEROL 3 ML VIAL INH SCH ×5 (09:55→20:00)
--- NOTE | 2016-11-03 19:19 | PN ---
DATE: 11/03/16 The patient is continuing on her Swing Bed rehabilitation. Physical Therapy feels that the patient requires at least 2 more days of rehabilitation and then if showing continued improvement hopefully will be able to go home by . Special followup with [facility] can also be continued and to be arranged with Radio Intelligence Operator' attention. Exam is unchanged. #[id number] MTDD
[2016-11-03] MEDS: ONDANSETRON 4 MG TAB PO PRN (19:47)
[2016-11-03] MEDS: PROMETHAZINE HCL 25 MG TAB PO PRN (20:40)
[2016-11-03] MEDS: INSULIN DETEMIR 100 UNITS/ML PEN SUBCU SCH (21:15)
[2016-11-03] MEDS: ALPRAZolam 0.5 MG TAB PO PRN (21:16)
[2016-11-03] MEDS: SIMVASTATIN 20 MG TAB PO SCH (21:16)
[2016-11-03] MEDS: ENOXAPARIN SODIUM 30 MG/0.3 ML SYG SUBCU SCH (21:17)
[2016-11-04] MEDS: PROMETHAZINE HCL 25 MG TAB PO PRN ×2 (04:39→18:38)
[2016-11-04] MEDS: PANTOPRAZOLE SODIUM TAB 40 MG PO SCH (06:14)
[2016-11-04] MEDS: INSULIN LISPRO 100 UNITS/ML PEN SUBCU SCH ×4 (07:23→21:11)
[2016-11-04] MEDS: ALPRAZolam 0.5 MG TAB PO PRN ×2 (07:24→21:11)
[2016-11-04] MEDS: IPRATROPIUM/ALBUTEROL 3 ML VIAL INH SCH ×4 (08:45→19:50)
[2016-11-04] MEDS: SPIRONOLACTONE 25 MG TAB PO SCH (09:24)
[2016-11-04] MEDS: LISINOPRIL 5 MG TAB PO SCH (09:24)
[2016-11-04] MEDS: FUROSEMIDE 40 MG TAB PO SCH (09:24)
[2016-11-04] MEDS: LINAGLIPTIN 5 MG TAB PO SCH (09:25)
[2016-11-04] MEDS: NYSTATIN CREAM 15 GM TUBE TOP SCH ×2 (09:25→21:11)
[2016-11-04] MEDS: ASPIRIN EC 81 MG TAB PO SCH (09:25)
[2016-11-04] MEDS: guaiFENesin ER TAB 600 MG TAB PO SCH ×2 (09:25→21:11)
[2016-11-04] MEDS: CARBIDOPA/LEVODOPA 25/100 1 TAB PO SCH ×4 (09:25→21:11)
[2016-11-04] MEDS: PRASUGREL 10 MG TAB PO SCH (09:25)
[2016-11-04] MEDS: INSULIN DETEMIR 100 UNITS/ML PEN SUBCU SCH (21:11)
[2016-11-04] MEDS: ENOXAPARIN SODIUM 30 MG/0.3 ML SYG SUBCU SCH (21:11)
[2016-11-04] MEDS: SIMVASTATIN 20 MG TAB PO SCH (21:11)
[2016-11-05] MEDS: PANTOPRAZOLE SODIUM TAB 40 MG PO SCH (06:33)
[2016-11-05 06:51] VITALS: BP 117/69; TEMP 97.4
[2016-11-05] MEDS: INSULIN LISPRO 100 UNITS/ML PEN SUBCU SCH ×2 (08:02→11:37)
[2016-11-05] MEDS: IPRATROPIUM/ALBUTEROL 3 ML VIAL INH SCH ×2 (08:17→13:07)
[2016-11-05] MEDS: FUROSEMIDE 40 MG TAB PO SCH (08:47)
[2016-11-05] MEDS: CARBIDOPA/LEVODOPA 25/100 1 TAB PO SCH ×2 (08:47→13:58)
[2016-11-05] MEDS: SPIRONOLACTONE 25 MG TAB PO SCH (08:47)
[2016-11-05] MEDS: guaiFENesin ER TAB 600 MG TAB PO SCH (08:47)
[2016-11-05] MEDS: PRASUGREL 10 MG TAB PO SCH (08:48)
[2016-11-05] MEDS: ASPIRIN EC 81 MG TAB PO SCH (08:48)
[2016-11-05] MEDS: LINAGLIPTIN 5 MG TAB PO SCH (08:48)
[2016-11-05] MEDS: LISINOPRIL 5 MG TAB PO SCH (08:48)
[2016-11-05] MEDS: NYSTATIN CREAM 15 GM TUBE TOP SCH (08:48)
[2016-11-05 11:31] VITALS: O2SAT 97
--- NOTE | 2016-11-10 15:46 | DS ---
SUPERVISING PHYSICIAN: Cara Mccullough MD DISCHARGE DIAGNOSIS: 1. Multiple recent admissions for chronic obstructive pulmonary disease in September of 2016 and 10/12/16 that have now resolved. 2. Small and large bowel ileus that was very slow to resolve during her Acute Care admission, resolved and the patient is presently on a diabetic diet. 3. Deconditioning due to extensive and lengthy hospitalization. 4. Chronic renal insufficiency. 5. History of congestive heart failure with diastolic etiology and her last ejection fraction was 60% on an echocardiogram in 2014, being followed by Dr. Hugo. 6. Hypertension. 7. Coronary artery disease. 8. Type 2 diabetes mellitus. 9. Gastroesophageal reflux disease. 10. History of chronic constipation, being followed closely by Dr. Gallagher and on daily MiraLAX and Dulcolax. 11. Leukocytosis on Acute Care admission, now resolved. HISTORY OF PRESENT ILLNESS: This is an 80-year-old female patient who was originally admitted to the hospital on 10/12/16 for an exacerbation of chronic obstructive pulmonary disease and left lower lobe pneumonia. She also had an electrolyte imbalance with moderate hyperkalemia, leukocytosis, and dehydration. Her chronic obstructive pulmonary disease symptoms very slowly resolved although she had several exacerbations where she required some steroids as well as antibiotics. She was very weak during that time and she developed an ileus. Dr. Gallagher was consulted and over the next few days during her admission, she was given Milk of Magnesia as well as enemas. She had an elevated magnesium which was most likely due to the malabsorption of the Milk of Magnesia and having no results. Over the next few days of her admission, she was given MiraLAX as well as hydration and Dulcolax suppositories. Her electrolytes were corrected and the ileus resolved and her diet was advanced and she tolerated it well. It was also found that she was very weak due to this lengthy hospitalization and it was decided she would benefit from Swing Bed admission for strengthening and conditioning. HOSPITAL COURSE: The patient initially was very weak and had a difficult time moving about, but as physical therapy increased her activity, she became stronger and able to ambulate safely. At this point, physical therapy has deemed she is safe to go home and she will be discharged home today. DISCHARGE PLAN: The patient will be discharged home in good condition. She is to resume her diabetic diet. She will have home health as well as physical therapy from her home health. She is to followup with Dr. Alex on 11/11/16 at 1:45 PM. It can be noted that she had several medications that were discontinued or reduced from her previous admission to discharge today. Her diltiazem was discontinued. Her Reglan was discontinued. Her Novolin R was discontinued as she got 12 units daily at 8, 12 and 1600. Her metoprolol was discontinued. Her Levemir was decreased to 10 units at bedtime. She is to return to the hospital or call Dr. Alex' office if she has any further problems. DISCHARGE MEDICATIONS: 1. Simvastatin. 2. Effient. 3. Nexium. 4. Tradjenta. 5. Furosemide. 6. Promethazine. 7. Xanax. 8. Nitroglycerin. 9. Spironolactone. 10. Aspirin. 11. Lisinopril. 12. Nystatin topical. 13. Carbidopa/levodopa. 14. Levemir insulin 10 units subcutaneously at bedtime. Dr. Mccullough is the collaborating physician and available for consultation. #[id number] [facility]
== END 2016-11-05 15:43 | disposition home health service (06) | DRG 948 ==
LOC: MS 17:50
PROVIDERS: ADMIT Nurse Practitioner Acute Care; ATTEND Nurse Practitioner Acute Care
DX: R53.1 Weakness (principal); I13.0 Hypertensive heart and chronic kidney disease with heart failure and stage 1 through stage 4 chronic kidney disease, or unspecified chronic kidney disease; I50.32 Chronic diastolic (congestive) heart failure; Z68.43 Body mass index [BMI] 50.0-59.9, adult; J44.9 Chronic obstructive pulmonary disease, unspecified; N18.9 Chronic kidney disease, unspecified; I25.10 Atherosclerotic heart disease of native coronary artery without angina pectoris; E11.22 Type 2 diabetes mellitus with diabetic chronic kidney disease; E11.43 Type 2 diabetes mellitus with diabetic autonomic (poly)neuropathy; K31.84 Gastroparesis; G25.81 Restless legs syndrome; K26.9 Duodenal ulcer, unspecified as acute or chronic, without hemorrhage or perforation; K21.9 Gastro-esophageal reflux disease without esophagitis; E78.5 Hyperlipidemia, unspecified; K59.00 Constipation, unspecified; E66.9 Obesity, unspecified; Z88.5 Allergy status to narcotic agent; Z88.8 Allergy status to other drugs, medicaments and biological substances; Z87.891 Personal history of nicotine dependence; Z95.1 Presence of aortocoronary bypass graft; Z87.01 Personal history of pneumonia (recurrent); Z66 Do not resuscitate; Z79.4 Long term (current) use of insulin; Z79.899 Other long term (current) drug therapy

== ENCOUNTER 2017-01-25 12:07 | Emergency (ER) | payer MEDICARE, MEDICAID ==
--- NOTE | 2017-01-25 12:55 | RAD ---
EXAM DESCRIPTION: Chest,2 Views CLINICAL HISTORY: 81 years, Female, chest congestion COMPARISON: October 21, 2016 FINDINGS: Adequate inspiration no consolidation. Mildly increased interstitial pattern may be slight volume overload. Cardiomegaly and sternotomy. IMPRESSION: There may be mild volume overload with cardiomegaly. No consolidation Electronically signed by: Amarjit Peña MD 01/25/2017 12:54 PM CDT
--- NOTE | 2017-01-25 13:08 | ED.PDOC ---
History of Present Illness - General Chief Complaint: Respiratory Problem Stated Complaint: cough and congestion Time Seen by Provider: 01/25/17 12:17 Source: patient Exam Limitations: no limitations - History of Present Illness Initial Comments: 81 you F with COPD, CHF presents with increasing congestion for several days. Over the past two days she has had some dyspnea. She has a chronic intermittent non-productive cough but over the last two days, it has become worse and she is getting some production that she swallows. Denies chest pain. Has chronic bipedal edema for which she uses furosemide. Timing/Duration: 1 week Severity: moderate Improving Factors: nothing Worsening Factors: nothing Associated Symptoms: denies symptoms Allergies/Adverse Reactions: Allergies Morphine Adverse Reaction (Severe, Verified 01/25/17 12:26) Other Makes her "crazy" Home Medications: Ambulatory Orders ALPRAZolam [Xanax] 0.5 mg PO TID PRN 04/12/15 Esomeprazole Magnesium [Nexium] 40 mg PO DAILY 04/12/15 Furosemide 80 mg PO DAILY 04/12/15 Linagliptin [Tradjenta] 5 mg PO DAILY 04/12/15 Nitroglycerin [Nitrostat] 0.4 mg SL PRN PRN 04/12/15 Prasugrel [Effient] 10 mg PO DAILY 04/12/15 Promethazine Tab [Phenergan Tablet] 25 mg PO QID PRN 04/12/15 Simvastatin 80 mg PO BEDTIME 04/12/15 Aspirin [Aspirin Adult Low Dose] 81 mg PO DAILY 05/03/15 Spironolactone [Aldactone] 50 mg PO DAILY 05/03/15 Lisinopril 5 mg PO DAILY 08/07/15 Nystatin (Topical) [Nystatin] 100,000 unit EX BID PRN #1 bottle 10/05/16 Carbidopa/Levodopa 25/100 [Sinemet 25/100] 1 ea PO QID #120 tab 11/05/16 Insulin Detemir [Levemir] 10 unit SUBCU BEDTIME #1 pen 11/05/16 Doxycycline (Monohydrate) [Doxycycline Monohydrate] 100 mg PO BID #10 cap Prednisone [Deltasone] 20 mg PO DAILY #5 tab 01/25/17 Review of Systems - Review of Systems Constitutional: States: no symptoms reported EENTM: States: no symptoms reported Respiratory: States: see HPI Cardiology: States: see HPI Gastrointestinal/Abdominal: States: no symptoms reported Genitourinary: States: no symptoms reported Musculoskeletal: States: no symptoms reported Skin: States: no symptoms reported Neurological: States: no symptoms reported Endocrine: States: no symptoms reported Hematologic/Lymphatic: States: no symptoms reported Past Medical History (General) - Patient Medical History Hx Seizures: No Hx Stroke: No Hx Dementia: Yes - beginning Hx Asthma: No Hx of COPD: Yes Hx Cardiac Disorders: Yes - Stent Hx Congestive Heart Failure: Yes Hx Pacemaker: No Hx Hypertension: Yes Hx Thyroid Disease: No Hx Diabetes: Yes Hx Gastroesophageal Reflux: Yes Hx Renal Disease: Yes Hx Cancer: No Hx of HIV: No Hx Hepatitis C: No Hx MRSA: No Surgical History: cholecystectomy - Vaccination History Hx Tetanus, Diphtheria Vaccination: No Hx Influenza Vaccination: Yes Hx Pneumococcal Vaccination: Yes - Social History Hx Tobacco Use: No Hx Chewing Tobacco Use: No Hx Alcohol Use: No Hx Substance Use: No Hx Substance Use Treatment: No Hx Depression: No Hx Physical Abuse: No Hx Emotional Abuse: No Hx Suspected Abuse: No - Activities of Daily Living Hospice Agency (if applicable):: None - Female History Patient is a Female of Child Bearing Age (10 -59 yrs old): No Patient : No Family Medical History - Family History Father Living Status: Hx Cardiac Disease: Yes Mother Family History: Unknown Living Status: Age at (years of age): 99 Cause of : old age Hx Family Diabetes: Yes Physical Exam - Physical Exam General Appearance: Alert Ears, Nose, Throat: normal ENT inspection Neck: non-tender, full range of motion, supple Respiratory: other - inspiratory and expiratory rhonchi Cardiovascular/Chest: normal peripheral pulses, regular rate, rhythm Gastrointestinal/Abdominal: normal bowel sounds, non tender, soft Extremity: other - 3+ pitting bipedal edema to mid-tibia Skin Exam: normal color Progress - Progress Progress: 01/25/17 14:07 CXR showed some possible fluid overload but BNP was 40. Patient's sx more consistent with COPD exacerbation. She has been on steroids before and has a sliding scale for her insulin at home and verifies that she knows how to use it. She was discharged with doxycycline 100 mg po bid x 5 days and prednisone 20 mg po qd x 5 days. EKG read by me showed NSR with no ST changes, T wave inversions, nor LBBB. Laboratory Tests 01/25/17 01/25/17 01/25/17 12:30 12:30 12:30 WBC 11.8 H RBC 3.94 L Hgb 12.1 Hct 36.7 MCV 93.2 MCH 30.7 MCHC 32.8 L RDW 13.7 Plt Count 244 MPV 8.0 Absolute Neuts (auto) 6.90 H Absolute Lymphs (auto) 3.30 Absolute Monos (auto) 0.80 Absolute Eos (auto) 0.60 H Absolute Basos (auto) 0.10 Neutrophils % 59.0 Lymphocytes % 27.9 Monocytes % 6.9 Eosinophils % 5.4 H Basophils % 0.8 Sodium 131 L Potassium 4.3 Chloride 98 L Carbon Dioxide 23 Anion Gap 14.3 BUN 50 H Creatinine 2.42 H BUN/Creatinine Ratio 20.7 H Random Glucose 210 H Serum Osmolality 282.2 Calcium 8.7 Total Bilirubin 0.4 AST 19 ALT 10 Alkaline Phosphatase 86 Creatine Kinase 67 Troponin I 0.05 B-Natriuretic Peptide 40.0 Serum Total Protein 7.3 Albumin 3.8 Globulin 3.5 Albumin/Globulin Ratio 1.1 Departure - Departure Clinical Impression: COPD exacerbation Disposition: Discharge to Home or Self Care Condition: Good Departure Forms: ED Discharge - Pt. Copy, Patient Portal Self Enrollment Diet: diabetic diet Activity: increase activity as tolerated Referrals: Mehrdad Alex III, MD [Primary Care Provider] - 1-2 Weeks Prescriptions: Doxycycline (Monohydrate) [Doxycycline Monohydrate] 100 mg PO BID #10 cap Prednisone [Deltasone] 20 mg PO DAILY #5 tab Home Medications: Ambulatory Orders ALPRAZolam [Xanax] 0.5 mg PO TID PRN 04/12/15 Esomeprazole Magnesium [Nexium] 40 mg PO DAILY 04/12/15 Furosemide 80 mg PO DAILY 04/12/15 Linagliptin [Tradjenta] 5 mg PO DAILY 04/12/15 Nitroglycerin [Nitrostat] 0.4 mg SL PRN PRN 04/12/15 Prasugrel [Effient] 10 mg PO DAILY 04/12/15 Promethazine Tab [Phenergan Tablet] 25 mg PO QID PRN 04/12/15 Simvastatin 80 mg PO BEDTIME 04/12/15 Aspirin [Aspirin Adult Low Dose] 81 mg PO DAILY 05/03/15 Spironolactone [Aldactone] 50 mg PO DAILY 05/03/15 Lisinopril 5 mg PO DAILY 08/07/15 Nystatin (Topical) [Nystatin] 100,000 unit EX BID PRN #1 bottle 10/05/16 Carbidopa/Levodopa 25/100 [Sinemet 25/100] 1 ea PO QID #120 tab 11/05/16 Insulin Detemir [Levemir] 10 unit SUBCU BEDTIME #1 pen 11/05/16 Doxycycline (Monohydrate) [Doxycycline Monohydrate] 100 mg PO BID #10 cap Prednisone [Deltasone] 20 mg PO DAILY #5 tab 01/25/17 Additional Instructions: Take medications as prescribed. Follow your sliding-scale insulin instructions. Return to the E.R. for worsening of symptoms. Follow up with your regular doctor in the next 4 days.
[2017-01-25 14:29] VITALS: BP 118/72; TEMP 98; O2SAT 96
== END 2017-01-25 14:29 | disposition home or self-care (01) ==
LOC: ER 12:07
DX: J44.1 Chronic obstructive pulmonary disease with (acute) exacerbation (principal); I11.0 Hypertensive heart disease with heart failure; I50.9 Heart failure, unspecified; E11.9 Type 2 diabetes mellitus without complications; F03.90 Unspecified dementia, unspecified severity, without behavioral disturbance, psychotic disturbance, mood disturbance, and anxiety; K21.9 Gastro-esophageal reflux disease without esophagitis; N28.9 Disorder of kidney and ureter, unspecified; Z88.6 Allergy status to analgesic agent; Z79.899 Other long term (current) drug therapy; Z79.82 Long term (current) use of aspirin; Z79.4 Long term (current) use of insulin

== ENCOUNTER → 2017-02-09 | Outpatient (CLI) | payer MEDICARE, MEDICAID | END | disposition home or self-care (01) | LOC: BFHH 09:12 | PROVIDERS: ATTEND Family Medicine | DX: E11.22 Type 2 diabetes mellitus with diabetic chronic kidney disease (principal); J44.1 Chronic obstructive pulmonary disease with (acute) exacerbation; I13.0 Hypertensive heart and chronic kidney disease with heart failure and stage 1 through stage 4 chronic kidney disease, or unspecified chronic kidney disease; I50.30 Unspecified diastolic (congestive) heart failure ==

== ENCOUNTER → 2017-02-15 | Outpatient (CLI) | payer MEDICARE, MEDICAID | END | disposition home or self-care (01) | LOC: BFHH 11:39 | PROVIDERS: ATTEND Family Medicine | DX: E11.22 Type 2 diabetes mellitus with diabetic chronic kidney disease (principal); J44.1 Chronic obstructive pulmonary disease with (acute) exacerbation; I30.0 Acute nonspecific idiopathic pericarditis; I50.30 Unspecified diastolic (congestive) heart failure ==

== ENCOUNTER 2017-02-24 11:08 | Emergency (ER) | payer MEDICARE, MEDICAID ==
[2017-02-24] MEDS ORDERED: IPRATROPIUM/ALBUTEROL 3 ML VIAL NEB ONE (11:29)
[2017-02-24 11:32] VITALS: TEMP 97.1
--- NOTE | 2017-02-24 11:32 | ED.PDOC ---
History of Present Illness - General Chief Complaint: Respiratory Problem Stated Complaint: SOB, CHEST TIGHTNESS Time Seen by Provider: 02/24/17 11:15 Source: patient, RN notes reviewed, Vital Signs reviewed, old records Exam Limitations: no limitations - History of Present Illness Initial Comments: Patient presents with SOB that started yesterday afternoon. Intermittent episodes with the worst one occurring about 05:00 today. Denies chest pain or discomfort but does report some abdominal pressure that resolved with going to the bathroom. No fever or chills. Chronic cough from COPD which she reports is unchanged. No nausea or vomiting. SOB is worse with movement and improved with rest. She has history of COPD, CHF and CAD. Reports it feels similar to CHF exacerbations in the past. Timing/Duration: 24 hours Severity: moderate Activities at Onset: none Possible Cause: chronic episodes - due to COPD and CHF Improving Factors: rest Worsening Factors: movement Associated Symptoms: cough - chronic, edema - chronic but seems worse since yesterday Allergies/Adverse Reactions: Allergies Morphine Adverse Reaction (Severe, Verified 02/24/17 11:32) Other Makes her "crazy" Home Medications: Ambulatory Orders ALPRAZolam [Xanax] 0.5 mg PO TID PRN 04/12/15 Esomeprazole Magnesium [Nexium] 40 mg PO DAILY 04/12/15 Furosemide 60 mg PO DAILY 04/12/15 Linagliptin [Tradjenta] 5 mg PO DAILY 04/12/15 Nitroglycerin [Nitrostat] 0.4 mg SL PRN PRN 04/12/15 Prasugrel [Effient] 10 mg PO DAILY 04/12/15 Promethazine Tab [Phenergan Tablet] 25 mg PO QID PRN 04/12/15 Simvastatin 80 mg PO BEDTIME 04/12/15 Aspirin [Aspirin Adult Low Dose] 81 mg PO DAILY 05/03/15 Spironolactone [Aldactone] 50 mg PO DAILY 05/03/15 Lisinopril 5 mg PO DAILY 08/07/15 Nystatin (Topical) [Nystatin] 100,000 unit EX BID PRN #1 bottle 10/05/16 Carbidopa/Levodopa 25/100 [Sinemet 25/100] 1 ea PO QID #120 tab 11/05/16 Iapofezprwmjh-Jwab-Nopnmdnhpe [Fioricet] 1 tab PO Q4H PRN 02/24/17 Cyclobenzaprine HCl [Flexeril] 10 mg PO TID PRN 02/24/17 Insulin Aspart [Novolog] 1,000 unit SC AC PRN 02/24/17 Insulin Detemir [Levemir] 14 unit SUBCU BEDTIME 02/24/17 Magnesium Hydroxide [Milk Of Magnesia] 1 arelis PO PRN PRN 02/24/17 Magnesium Oxide 400 mg PO DAILY 02/24/17 Metoclopramide Tab [Reglan Tab] 10 mg PO TID PRN 02/24/17 Metoprolol Succinate [Metoprolol Succinate ER] 25 mg PO BEDTIME 02/24/17 Nitroglycerin 0.4 mg Tab [Nitrostat] 0 ea SL .Q5M 02/24/17 Nitroglycerin Patch 0.4 mg/Hr [Nitro-Dur PATCH 0.4 mg/hour] 0.4 mg TOP QD Review of Systems - Review of Systems Constitutional: States: malaise. Denies: chills, diaphoresis, fever EENTM: States: no symptoms reported Respiratory: States: see HPI, cough, short of breath. Denies: stridor, wheezing Cardiology: States: see HPI, edema. Denies: chest pain, palpitations, syncope Gastrointestinal/Abdominal: States: see HPI. Denies: constipation, diarrhea, nausea, vomiting Genitourinary: States: no symptoms reported Musculoskeletal: States: no symptoms reported Skin: States: no symptoms reported Neurological: States: no symptoms reported Endocrine: States: no symptoms reported Hematologic/Lymphatic: States: no symptoms reported Past Medical History (General) - Patient Medical History Hx Seizures: No Hx Stroke: No Hx Dementia: Yes - beginning Hx Asthma: No Hx of COPD: Yes Hx Cardiac Disorders: Yes - Stent Hx Congestive Heart Failure: Yes Hx Pacemaker: No Hx Hypertension: Yes Hx Thyroid Disease: No Hx Diabetes: Yes Hx Gastroesophageal Reflux: Yes Hx Renal Disease: Yes Hx Cancer: No Hx of HIV: No Hx Hepatitis C: No Hx MRSA: No - Vaccination History Hx Tetanus, Diphtheria Vaccination: No Hx Influenza Vaccination: Yes Hx Pneumococcal Vaccination: Yes - Social History Hx Tobacco Use: No Hx Chewing Tobacco Use: No Hx Alcohol Use: No Hx Substance Use: No Hx Substance Use Treatment: No Hx Depression: No Hx Physical Abuse: No Hx Emotional Abuse: No Hx Suspected Abuse: No - Female History Patient : No Family Medical History - Family History Father Living Status: Hx Cardiac Disease: Yes Mother Family History: Unknown Living Status: Age at (years of age): 99 Cause of : old age Hx Family Diabetes: Yes Physical Exam - Physical Exam General Appearance: Alert, Comfortable, No apparent distress, Obese, Well Groomed, Well Hydrated, Well Nourished Neck: non-tender, full range of motion, supple, normal inspection Respiratory: no respiratory distress, no accessory muscle use, decreased breath sounds - bilateral bases, wheezing - bilateral apexes, expiration, inspiration Cardiovascular/Chest: regular rate, rhythm, no gallop, no murmur Gastrointestinal/Abdominal: normal bowel sounds, non tender, soft Extremity: pedal edema - 3+, swelling Neurologic: alert, normal mood/affect, oriented x 3 Skin Exam: normal color, warm/dry Progress - Progress Progress: 02/24/17 12:04 Patient reports breathing is a little better after the neb treatment but she how has audible wheezing and a congested sounding cough. Will plan for another breathing treatment. So far labs are not significantly changed from margret, still awaiting cardiac enzymes and BNP 02/24/17 12:23 02/24/17 13:05 Redrawn labs, due to hemolysis is unchanged from previous labs today and from labs drawn in January and November. 02/24/17 13:08 Patient has been given a Duoneb, Xopenex Neb and Solumedrol 125mg IV. O22 saturations have stayed @ 95% 02/24/17 13:13 Patient is feeling better and breathing easier. Recommended increasing her home nebulizer treatments to 3-4X/day for next few days. Keep scheduled follow up with Dr. Alex, sooner if not improving or if worsening. - Results/Orders Results/Orders: Laboratory Tests 02/24/17 02/24/17 02/24/17 11:35 11:35 12:15 WBC Cancelled RBC Cancelled Hgb Cancelled Hct Cancelled MCV Cancelled MCH Cancelled MCHC Cancelled RDW Cancelled Plt Count Cancelled MPV Cancelled Absolute Neuts (auto) Cancelled Absolute Lymphs (auto) Cancelled Absolute Monos (auto) Cancelled Absolute Eos (auto) Cancelled Absolute Basos (auto) Cancelled Neutrophils % Cancelled Lymphocytes % Cancelled Monocytes % Cancelled Eosinophils % Cancelled Basophils % Cancelled Differential Comment Cancelled RBC Morphology Cancelled Sodium Cancelled 132 L Potassium Cancelled 4.5 Chloride Cancelled 97 L Carbon Dioxide Cancelled 24 Anion Gap Cancelled 15.5 BUN Cancelled 53 H Creatinine Cancelled 2.72 H BUN/Creatinine Ratio Cancelled 19.5 Random Glucose Cancelled 232 H Serum Osmolality Cancelled 286.3 Calcium Cancelled 8.9 Total Bilirubin Cancelled 0.7 AST Cancelled 15 ALT Cancelled < 8 L Alkaline Phosphatase Cancelled 85 Creatine Kinase Cancelled 65 CK-MB (CK-2) Cancelled 1.4 CK-MB (CK-2) % Cancelled Not Reportable Troponin I Cancelled < 0.02 B-Natriuretic Peptide Cancelled 36.3 Serum Total Protein Cancelled 7.0 Albumin Cancelled 3.5 Globulin Cancelled 3.5 Albumin/Globulin Ratio Cancelled 1.0 L 02/24/17 12:15 WBC 11.6 H RBC 3.87 L Hgb 11.7 L Hct 35.2 L MCV 91.1 MCH 30.2 MCHC 33.2 RDW 14.0 Plt Count 239 MPV 8.2 Absolute Neuts (auto) 6.30 Absolute Lymphs (auto) 3.80 H Absolute Monos (auto) 0.90 H Absolute Eos (auto) 0.40 Absolute Basos (auto) 0.10 Neutrophils % 54.6 Lymphocytes % 33.0 Monocytes % 8.1 Eosinophils % 3.6 Basophils % 0.7 Differential Comment RBC Morphology Sodium Potassium Chloride Carbon Dioxide Anion Gap BUN Creatinine BUN/Creatinine Ratio Random Glucose Serum Osmolality Calcium Total Bilirubin AST ALT Alkaline Phosphatase Creatine Kinase CK-MB (CK-2) CK-MB (CK-2) % Troponin I B-Natriuretic Peptide Serum Total Protein Albumin Globulin Albumin/Globulin Ratio - EKG/XRAY/CT EKG: Sinus, no ST T wave changes, Unchanged from - 01/25/17 XRAY: chest - No acute process Departure - Departure Clinical Impression: COPD exacerbation Time of Disposition: 13:15 Disposition: Discharge to Home or Self Care Condition: Fair Departure Forms: ED Discharge - Pt. Copy, Patient Portal Self Enrollment Instructions: DI for Chronic Obstructive Pulmonary Disease Diet: resume usual diet Activity: increase activity as tolerated Referrals: Mehrdad Alex III, MD [Primary Care Provider] - 1-2 Weeks Home Medications: Ambulatory Orders ALPRAZolam [Xanax] 0.5 mg PO TID PRN 04/12/15 Esomeprazole Magnesium [Nexium] 40 mg PO DAILY 04/12/15 Furosemide 60 mg PO DAILY 04/12/15 Linagliptin [Tradjenta] 5 mg PO DAILY 04/12/15 Nitroglycerin [Nitrostat] 0.4 mg SL PRN PRN 04/12/15 Prasugrel [Effient] 10 mg PO DAILY 04/12/15 Promethazine Tab [Phenergan Tablet] 25 mg PO QID PRN 04/12/15 Simvastatin 80 mg PO BEDTIME 04/12/15 Aspirin [Aspirin Adult Low Dose] 81 mg PO DAILY 05/03/15 Spironolactone [Aldactone] 50 mg PO DAILY 05/03/15 Lisinopril 5 mg PO DAILY 08/07/15 Nystatin (Topical) [Nystatin] 100,000 unit EX BID PRN #1 bottle 10/05/16 Carbidopa/Levodopa 25/100 [Sinemet 25/100] 1 ea PO QID #120 tab 11/05/16 Fikwqlkysgrur-Xsbf-Efmoazdojd [Fioricet] 1 tab PO Q4H PRN 02/24/17 Cyclobenzaprine HCl [Flexeril] 10 mg PO TID PRN 02/24/17 Insulin Aspart [Novolog] 1,000 unit SC AC PRN 02/24/17 Insulin Detemir [Levemir] 14 unit SUBCU BEDTIME 02/24/17 Magnesium Hydroxide [Milk Of Magnesia] 1 arelis PO PRN PRN 02/24/17 Magnesium Oxide 400 mg PO DAILY 02/24/17 Metoclopramide Tab [Reglan Tab] 10 mg PO TID PRN 02/24/17 Metoprolol Succinate [Metoprolol Succinate ER] 25 mg PO BEDTIME 02/24/17 Nitroglycerin 0.4 mg Tab [Nitrostat] 0 ea SL .Q5M 02/24/17 Nitroglycerin Patch 0.4 mg/Hr [Nitro-Dur PATCH 0.4 mg/hour] 0.4 mg TOP QD Additional Instructions: Recommended increasing her home nebulizer treatments to 3-4X/day for next few days. Keep scheduled follow up with Dr. Alex, sooner if not improving or if worsening.
--- NOTE | 2017-02-24 11:44 | RAD ---
EXAM DESCRIPTION: Chest,1 View CLINICAL HISTORY: 81 years Female, SOB COMPARISON: None. TECHNIQUE: AP portable chest. FINDINGS: Fair expansion of the lungs is evident without consolidation, layering effusion, or large mass. Right size is upper normal with prior sternotomy and tortuous aorta and upper normal vascularity. No gross bony, hilar, or mediastinal abnormalities are noted. IMPRESSION: Upper normal heart size and vascularity otherwise negative chest Electronically signed by: Andrea Palmer MD 02/24/2017 11:43 AM CDT
[2017-02-24] MEDS ORDERED: LEVALBUTEROL NEBS 1.25 MG/3 ML VIAL NEB ONE (12:06)
[2017-02-24] MEDS ORDERED: methylPREDNISolone SODIUM SUC 125 MG/2 ML VIAL IV ONE (12:40)
[2017-02-24 14:05] VITALS: BP 124/74; O2SAT 98
== END 2017-02-24 13:45 | disposition home or self-care (01) ==
LOC: ER 11:08
DX: J44.1 Chronic obstructive pulmonary disease with (acute) exacerbation (principal); F03.90 Unspecified dementia, unspecified severity, without behavioral disturbance, psychotic disturbance, mood disturbance, and anxiety; I11.0 Hypertensive heart disease with heart failure; I50.9 Heart failure, unspecified; E11.9 Type 2 diabetes mellitus without complications; K21.9 Gastro-esophageal reflux disease without esophagitis; N28.9 Disorder of kidney and ureter, unspecified; Z88.6 Allergy status to analgesic agent; Z79.899 Other long term (current) drug therapy; Z79.82 Long term (current) use of aspirin; Z79.4 Long term (current) use of insulin
CPT/HCPCS: 36415; 71010; 80053; 82550; 82553; 83880; 84484; 85025; 93005; 94640; J2930; J7614; J7620

== ENCOUNTER → 2017-03-02 | Outpatient (CLI) | payer MEDICARE, MEDICAID | END | disposition home or self-care (01) | LOC: BFHH 11:25 | PROVIDERS: ATTEND Family Medicine | DX: I13.0 Hypertensive heart and chronic kidney disease with heart failure and stage 1 through stage 4 chronic kidney disease, or unspecified chronic kidney disease (principal); I50.30 Unspecified diastolic (congestive) heart failure; E11.22 Type 2 diabetes mellitus with diabetic chronic kidney disease ==

== ENCOUNTER → 2017-03-23 | Outpatient (CLI) | payer MEDICARE, MEDICAID | LOC: BFHH 10:38 | PROVIDERS: ATTEND Family Medicine | DX: I50.30 Unspecified diastolic (congestive) heart failure (principal); I13.0 Hypertensive heart and chronic kidney disease with heart failure and stage 1 through stage 4 chronic kidney disease, or unspecified chronic kidney disease; J44.1 Chronic obstructive pulmonary disease with (acute) exacerbation; E11.22 Type 2 diabetes mellitus with diabetic chronic kidney disease ==

== ENCOUNTER → 2017-06-16 | Outpatient (CLI) | payer MEDICARE, MEDICAID | END | disposition home or self-care (01) | LOC: GMAJ 09:24 | PROVIDERS: ATTEND Family Medicine | DX: I13.0 Hypertensive heart and chronic kidney disease with heart failure and stage 1 through stage 4 chronic kidney disease, or unspecified chronic kidney disease (principal); I50.9 Heart failure, unspecified; I65.23 Occlusion and stenosis of bilateral carotid arteries; E11.22 Type 2 diabetes mellitus with diabetic chronic kidney disease ==

== ENCOUNTER 2017-06-18 01:45 | Emergency (ER) | payer MEDICARE, MEDICAID ==
--- NOTE | 2017-06-18 02:50 | RAD ---
Procedure: XR CHEST 1 VIEW Exam Date: 06/18/2017 Ordering Provider: Tr Mccullough Clinical Indication: palpitation Comparison: 02/24/2017 Findings: Residuals of thoracic surgery. Cardiomediastinal silhouette is within normal limits. Focal lung consolidation: None Pleural effusion: None Pneumothorax: None Acute bony or soft tissue abnormality: None Impression: 1. No acute abnormalities in the chest. Electronically signed by: Jesus Alicea MD 06/18/2017 2:49 AM CDT
[2017-06-18] MEDS ORDERED: SODIUM CHLORIDE 0.9% 1000ML 1,000 ML IVS ONE (03:09)
[2017-06-18] MEDS ORDERED: SODIUM CHLORIDE 0.9% 1000ML 1,000 ML ONE (03:09)
[2017-06-18] MEDS ORDERED: MAGNESIUM SULFATE PREMIX 2GM 2 GM in PREMIX BAG 1 BAG IVPB ONE (03:28)
[2017-06-18] MEDS ORDERED: MAGNESIUM SULFATE PREMIX 2GM 50 ML IVPB ONE (03:34)
--- NOTE | 2017-06-18 03:35 | ED.PDOC ---
History of Present Illness - General Chief Complaint: Respiratory Problem Stated Complaint: short of breath Time Seen by Provider: 06/18/17 02:07 Source: patient, family Exam Limitations: no limitations - History of Present Illness Initial Comments: the patient is an 81-year-old female presenting to the emergency room secondary to an episode of palpitations along with some generalized weakness and diaphoresis that lastedapproximately half an hour in time. The patient got up from her chair at approximately 1 AM and had started to go to the bathroom when she developed the symptoms above. She felt like her heart was racing. She did get very anxious. She reports that her blood pressures have been running a little bit low over the last couple of weeks. She does take several water pills. She also takes several other medications that can cause some hypotension. She did not pass out. The feeling of her heart racing lasted until just before she arrived here at the hospital. She has had these episodes in the past. No real chest pain however. Timing/Duration: 1/2 hour Severity: moderate Improving Factors: rest Worsening Factors: movement Associated Symptoms: diaphoresis, malaise, shortness of breath, weakness Allergies/Adverse Reactions: Allergies Morphine Adverse Reaction (Severe, Verified 06/18/17 02:18) Other Makes her "crazy" Home Medications: Ambulatory Orders ALPRAZolam [Xanax] 0.5 mg PO TID PRN 04/12/15 Esomeprazole Magnesium [Nexium] 40 mg PO DAILY 04/12/15 Furosemide 60 mg PO DAILY 04/12/15 Linagliptin [Tradjenta] 5 mg PO DAILY 04/12/15 Nitroglycerin [Nitrostat] 0.4 mg SL PRN PRN 04/12/15 Prasugrel [Effient] 10 mg PO DAILY 04/12/15 Promethazine Tab [Phenergan Tablet] 25 mg PO QID PRN 04/12/15 Simvastatin 80 mg PO BEDTIME 04/12/15 Aspirin [Aspirin Adult Low Dose] 81 mg PO DAILY 05/03/15 Spironolactone [Aldactone] 50 mg PO DAILY 05/03/15 Lisinopril 5 mg PO DAILY 08/07/15 Nystatin (Topical) [Nystatin] 100,000 unit EX BID PRN #1 bottle 10/05/16 Carbidopa/Levodopa 25/100 [Sinemet 25/100] 1 ea PO QID #120 tab 11/05/16 Insulin Aspart [Novolog] 1,000 unit SC AC PRN 02/24/17 Insulin Detemir [Levemir] 14 unit SUBCU BEDTIME 02/24/17 Magnesium Hydroxide [Milk Of Magnesia] 1 arelis PO PRN PRN 02/24/17 Magnesium Oxide 400 mg PO DAILY 02/24/17 Metoclopramide Tab [Reglan Tab] 10 mg PO TID PRN 02/24/17 Review of Systems - Review of Systems Constitutional: States: diaphoresis, malaise, weakness EENTM: States: no symptoms reported Respiratory: States: short of breath - momentarily Cardiology: States: palpitations Gastrointestinal/Abdominal: States: no symptoms reported Genitourinary: States: no symptoms reported Musculoskeletal: States: no symptoms reported Skin: States: no symptoms reported Neurological: States: anxiety, weakness Endocrine: States: no symptoms reported All other Systems: No Change from Baseline Past Medical History (General) - Patient Medical History Hx Seizures: No Hx Stroke: No Hx Dementia: Yes - beginning Hx Asthma: No Hx of COPD: Yes Hx Cardiac Disorders: Yes - Stent, quad, bypass Hx Congestive Heart Failure: No Hx Pacemaker: No Hx Hypertension: Yes Hx Thyroid Disease: No Hx Diabetes: Yes Hx Gastroesophageal Reflux: Yes Hx Renal Disease: Yes Hx Cancer: No Hx of HIV: No Hx Hepatitis C: No Hx MRSA: No Surgical History: coronary bypass surgery, other - Vaccination History Hx Tetanus, Diphtheria Vaccination: No Hx Influenza Vaccination: No Hx Pneumococcal Vaccination: Yes - 2015 - Social History Hx Tobacco Use: No Hx Chewing Tobacco Use: No Hx Alcohol Use: No Hx Substance Use: No Hx Substance Use Treatment: No Hx Depression: No Hx Physical Abuse: No Hx Emotional Abuse: No Hx Suspected Abuse: No - Female History Patient : No Family Medical History - Family History Father Living Status: Hx Cardiac Disease: Yes Mother Family History: Unknown Living Status: Age at (years of age): 99 Cause of : old age Hx Family Diabetes: Yes Physical Exam - Physical Exam General Appearance: Alert, Anxious Eye Exam: bilateral normal Ears, Nose, Throat: hearing grossly normal, normal ENT inspection, normal pharynx Neck: non-tender, full range of motion, supple Respiratory: chest non-tender, lungs clear, normal breath sounds, no respiratory distress, no accessory muscle use Cardiovascular/Chest: normal peripheral pulses, regular rate, rhythm, no edema Peripheral Pulses: radial,right: 2+, radial,left: 2+, dorsalis pedis,right: 2+, dorsalis pedis,left: 2+ Gastrointestinal/Abdominal: non tender, soft Rectal Exam: deferred Back Exam: normal inspection, no CVA tenderness, no vertebral tenderness Extremity: normal range of motion, non-tender, no calf tenderness, normal capillary refill Neurologic: needle maker II-XII nml as tested, alert, normal mood/affect, oriented x 3 Skin Exam: normal color Comments: Vital Signs - 24 hr 06/18/17 06/18/17 06/18/17 01:58 02:46 03:00 Temperature 98.3 F Pulse Rate [ 62 63 60 left] Respiratory 18 18 20 Rate Blood Pressure 115/48 130/58 120/47 [left] O2 Sat by Pulse 97 97 96 Oximetry there is a 60 point drop in her systolic blood pressure with standing Progress - Progress Progress: 06/18/17 03:38 the patient is a 81-year-old female presenting to the emergency room secondary to near syncope with a feeling of palpitations. The patient is markedly orthostatic. Telemetry monitoring has shown normal sinus rhythm since her arrival here. The patient has received a liter of IV fluids. Additionally she does have some hypomagnesemia and has received 2 g of IV magnesium. She needs to increase her magnesium oxide 400 mg twice daily. She will need to have this rechecked in a couple of weeks. Additionally she needs to change her Lasix dose to 60 mg every Wednesday down from a daily dose. Additionally she should decrease her spironolactone to 25 mg daily from 50 mg daily. For the next week she should also discontinue her lisinopril. She needs to follow-up with her primary care doctor early next week. She should also stand up and hold onto something for a full 30 seconds before she takes often starts walking to prevent falls. ER warnings were given. - Results/Orders Results/Orders: 06/18/17 02:17 Telemetry .CONTINUOUS impression normal sinus rhythm since her arrival Laboratory Results - last 24 hr 06/18/17 06/18/17 06/18/17 02:35 02:35 02:35 WBC 11.6 H RBC 3.84 L Hgb 11.8 L Hct 35.5 L MCV 92.4 MCH 30.7 MCHC 33.2 RDW 14.0 Plt Count 232 MPV 7.9 Absolute Neuts (auto) 7.70 H Absolute Lymphs (auto) 2.50 Absolute Monos (auto) 1.00 H Absolute Eos (auto) 0.40 Absolute Basos (auto) 0.10 Neutrophils % 65.9 Lymphocytes % 21.6 Monocytes % 8.3 Eosinophils % 3.4 Basophils % 0.8 Sodium 130 L Potassium 4.6 Chloride 97 L Carbon Dioxide 24 Anion Gap 13.6 BUN 50 H Creatinine 2.50 H BUN/Creatinine Ratio 20.0 Random Glucose 146 H Serum Osmolality 276.8 Calcium 8.8 Magnesium 1.3 L Total Bilirubin 0.6 AST 15 ALT < 8 L Alkaline Phosphatase 79 Creatine Kinase 59 CK-MB (CK-2) 1.3 CK-MB (CK-2) % Not Reportable Troponin I < 0.02 B-Natriuretic Peptide 19.9 Serum Total Protein 7.5 Albumin 3.8 Globulin 3.7 H Albumin/Globulin Ratio 1.0 L Urine Color Urine Appearance Urine pH Ur Specific Gabriels Urine Protein Urine Glucose (UA) Urine Ketones Urine Blood Urine Nitrite Urine Bilirubin Urine Urobilinogen Ur Leukocyte Esterase Urine RBC Urine WBC Ur Epithelial Cells Urine Bacteria 06/18/17 02:49 WBC RBC Hgb Hct MCV MCH MCHC RDW Plt Count MPV Absolute Neuts (auto) Absolute Lymphs (auto) Absolute Monos (auto) Absolute Eos (auto) Absolute Basos (auto) Neutrophils % Lymphocytes % Monocytes % Eosinophils % Basophils % Sodium Potassium Chloride Carbon Dioxide Anion Gap BUN Creatinine BUN/Creatinine Ratio Random Glucose Serum Osmolality Calcium Magnesium Total Bilirubin AST ALT Alkaline Phosphatase Creatine Kinase CK-MB (CK-2) CK-MB (CK-2) % Troponin I B-Natriuretic Peptide Serum Total Protein Albumin Globulin Albumin/Globulin Ratio Urine Color Yellow Urine Appearance Clear Urine pH 5.5 Ur Specific Gabriels 1.015 Urine Protein Negative Urine Glucose (UA) Negative Urine Ketones Negative Urine Blood Negative Urine Nitrite Negative Urine Bilirubin Negative Urine Urobilinogen 0.2 Ur Leukocyte Esterase Negative Urine RBC 0 Urine WBC 1-3 Ur Epithelial Cells 1-3 Urine Bacteria 1+ Departure - Departure Clinical Impression: Orthostatic hypotension, Hypomagnesemia, Syncope, near Disposition: Discharge to Home or Self Care Condition: Fair Departure Forms: ED Discharge - Pt. Copy, Patient Portal Self Enrollment Instructions: DI for Orthostatic Hypotension, Magnesium Oxide Diet: diabetic diet Activity: walking as tolerated Referrals: Mehrdad Alex III, MD [Primary Care Provider] - 1-5 Days Home Medications: Ambulatory Orders ALPRAZolam [Xanax] 0.5 mg PO TID PRN 04/12/15 Esomeprazole Magnesium [Nexium] 40 mg PO DAILY 04/12/15 Furosemide 60 mg PO DAILY 04/12/15 Linagliptin [Tradjenta] 5 mg PO DAILY 04/12/15 Nitroglycerin [Nitrostat] 0.4 mg SL PRN PRN 04/12/15 Prasugrel [Effient] 10 mg PO DAILY 04/12/15 Promethazine Tab [Phenergan Tablet] 25 mg PO QID PRN 04/12/15 Simvastatin 80 mg PO BEDTIME 04/12/15 Aspirin [Aspirin Adult Low Dose] 81 mg PO DAILY 05/03/15 Spironolactone [Aldactone] 50 mg PO DAILY 05/03/15 Lisinopril 5 mg PO DAILY 08/07/15 Nystatin (Topical) [Nystatin] 100,000 unit EX BID PRN #1 bottle 10/05/16 Carbidopa/Levodopa 25/100 [Sinemet 25/100] 1 ea PO QID #120 tab 11/05/16 Insulin Aspart [Novolog] 1,000 unit SC AC PRN 02/24/17 Insulin Detemir [Levemir] 14 unit SUBCU BEDTIME 02/24/17 Magnesium Hydroxide [Milk Of Magnesia] 1 arelis PO PRN PRN 02/24/17 Magnesium Oxide 400 mg PO DAILY 02/24/17 Metoclopramide Tab [Reglan Tab] 10 mg PO TID PRN 02/24/17 Additional Instructions: the patient is a 81-year-old female presenting to the emergency room secondary to near syncope with a feeling of palpitations. The patient is markedly orthostatic. Telemetry monitoring has shown normal sinus rhythm since her arrival here. The patient has received a liter of IV fluids. Additionally she does have some hypomagnesemia and has received 2 g of IV magnesium. She needs to increase her magnesium oxide 400 mg twice daily. She will need to have this rechecked in a couple of weeks. Additionally she needs to change her Lasix dose to 60 mg every Wednesday down from a daily dose. Additionally she should decrease her spironolactone to 25 mg daily from 50 mg daily. For the next week she should also discontinue her lisinopril. She needs to follow-up with her primary care doctor early next week. She should also stand up and hold onto something for a full 30 seconds before she takes often starts walking to prevent falls. ER warnings were given. A mildly elevated TSH should also be followed up with her primary care doctor.
[2017-06-18 06:14] VITALS: O2SAT 96
[2017-06-18 06:45] VITALS: BP 123/64; TEMP 97
== END 2017-06-18 06:44 | disposition home or self-care (01) ==
LOC: ER 01:45
DX: I95.1 Orthostatic hypotension (principal); E83.42 Hypomagnesemia; R55 Syncope and collapse; I10 Essential (primary) hypertension; E11.9 Type 2 diabetes mellitus without complications; K21.9 Gastro-esophageal reflux disease without esophagitis; Z95.1 Presence of aortocoronary bypass graft; J44.9 Chronic obstructive pulmonary disease, unspecified; F03.90 Unspecified dementia, unspecified severity, without behavioral disturbance, psychotic disturbance, mood disturbance, and anxiety; Z79.4 Long term (current) use of insulin; Z79.899 Other long term (current) drug therapy
CPT/HCPCS: 36415; 71010; 80053; 81001; 82550; 82553; 83735; 83880; 84443; 84484; 85025; J3475; J7030

== ENCOUNTER 2017-06-23 11:05 | Emergency (ER) | payer MEDICARE, MEDICAID ==
--- NOTE | 2017-06-23 13:39 | RAD ---
Study: Single Frontal View of the Chest. Indication:SOB Comparison: June 18, 2017. Impression: Median sternotomy wires. Cardiomegaly without failure. Lung volumes low. No consolidation, pleural effusion, or pneumothorax identified. No acute osseous abnormality. Electronically signed by: Jayce Granado MD 06/23/2017 1:38 PM CDT
[2017-06-23] MEDS ORDERED: ACETAMINOPHEN 500 MG TAB PO ONE (14:08)
[2017-06-23] MEDS ORDERED: IPRATROPIUM/ALBUTEROL 3 ML VIAL NEB ONE (14:53)
--- NOTE | 2017-06-23 15:25 | ED.PDOC ---
History of Present Illness - General Chief Complaint: Respiratory Problem Stated Complaint: SOB Time Seen by Provider: 06/23/17 12:09 Source: patient, RN notes reviewed, Vital Signs reviewed Exam Limitations: no limitations - History of Present Illness Initial Comments: Patient comes in with c/o SOB that started last night. She was not able to sleep due to the SOB. She was seen here 5 days ago with SOB and dehydration. She was given some fluids and her diuretics were decreased. No chest pain. Timing/Duration: 7-24 hours Severity: moderate Activities at Onset: rest Possible Cause: occasional episodes Improving Factors: nothing Worsening Factors: nothing Associated Symptoms: cough Allergies/Adverse Reactions: Allergies Morphine Adverse Reaction (Severe, Verified 06/23/17 11:18) Other Makes her "crazy" Home Medications: Ambulatory Orders ALPRAZolam [Xanax] 0.5 mg PO TID PRN 04/12/15 Esomeprazole Magnesium [Nexium] 40 mg PO DAILY 04/12/15 Furosemide 60 mg PO DAILY 04/12/15 Linagliptin [Tradjenta] 5 mg PO DAILY 04/12/15 Nitroglycerin [Nitrostat] 0.4 mg SL PRN PRN 04/12/15 Prasugrel [Effient] 10 mg PO DAILY 04/12/15 Promethazine Tab [Phenergan Tablet] 25 mg PO QID PRN 04/12/15 Simvastatin 80 mg PO BEDTIME 04/12/15 Aspirin [Aspirin Adult Low Dose] 81 mg PO DAILY 05/03/15 Spironolactone [Aldactone] 50 mg PO DAILY 05/03/15 Lisinopril 5 mg PO DAILY 08/07/15 Nystatin (Topical) [Nystatin] 100,000 unit EX BID PRN #1 bottle 10/05/16 Carbidopa/Levodopa 25/100 [Sinemet 25/100] 1 ea PO QID #120 tab 11/05/16 Insulin Aspart [Novolog] 1,000 unit SC AC PRN 02/24/17 Insulin Detemir [Levemir] 14 unit SUBCU BEDTIME 02/24/17 Magnesium Hydroxide [Milk Of Magnesia] 1 arelis PO PRN PRN 02/24/17 Magnesium Oxide 400 mg PO DAILY 02/24/17 Metoclopramide Tab [Reglan Tab] 10 mg PO TID PRN 02/24/17 Azithromycin [Zithromax Z-Efrain] 1 ea PO DAILY #1 pack 06/23/17 Methylprednisolone [Medrol Dose Efrain] 4 mg PO DAILY #1 pack 06/23/17 Review of Systems - Review of Systems Constitutional: States: no symptoms reported Respiratory: States: cough, short of breath Cardiology: States: no symptoms reported. Denies: chest pain Gastrointestinal/Abdominal: States: no symptoms reported Musculoskeletal: States: no symptoms reported Skin: States: no symptoms reported Neurological: States: no symptoms reported All other Systems: No Change from Baseline Past Medical History (General) - Patient Medical History Hx Seizures: No Hx Stroke: No Hx Dementia: Yes - beginning stages Hx Asthma: No Hx of COPD: Yes Hx Cardiac Disorders: Yes - Stent, quad bypass Hx Congestive Heart Failure: No Hx Pacemaker: No Hx Hypertension: Yes Hx Thyroid Disease: No Hx Diabetes: Yes Hx Gastroesophageal Reflux: Yes Hx Renal Disease: Yes Hx Cancer: No Hx of HIV: No Hx Hepatitis C: No Hx MRSA: No - Vaccination History Hx Tetanus, Diphtheria Vaccination: No Hx Influenza Vaccination: No Hx Pneumococcal Vaccination: Yes - 2015 - Social History Hx Tobacco Use: Yes - Quit 1998 Hx Chewing Tobacco Use: No Hx Alcohol Use: No Hx Substance Use: No Hx Substance Use Treatment: No Hx Depression: No Hx Physical Abuse: No Hx Emotional Abuse: No Hx Suspected Abuse: No - Female History Patient : No Family Medical History - Family History Father Living Status: Hx Cardiac Disease: Yes Mother Family History: Unknown Living Status: Age at (years of age): 99 Cause of : old age Hx Family Diabetes: Yes Physical Exam - Physical Exam General Appearance: Alert, Comfortable, No apparent distress, Well Developed, Well Groomed, Well Hydrated, Well Nourished Neck: supple, normal inspection Respiratory: chest non-tender, lungs clear, normal breath sounds, no respiratory distress, no accessory muscle use Cardiovascular/Chest: normal peripheral pulses, regular rate, rhythm, no gallop , no murmur Peripheral Pulses: dorsalis pedis,right: 2+, dorsalis pedis,left: 2+ Gastrointestinal/Abdominal: normal bowel sounds, non tender, soft, no organomegaly Extremity: normal range of motion, non-tender, pedal edema - 1+ Neurologic: alert, normal mood/affect, oriented x 3 Skin Exam: normal color, warm/dry Comments: Vital Signs 06/23/17 06/23/17 11:16 13:06 Temperature 99.3 F 97.6 F Pulse Rate [ 95 H 72 Left Radial] Respiratory 30 H 28 H Rate Blood Pressure 177/86 136/81 [Left Arm] O2 Sat by Pulse 96 98 Oximetry Progress - Progress Progress: 06/23/17 15:23 She is breathing easier and feeling better after duoneb treatment. Unable to get chest CTA due to kidney function. 06/23/17 15:44 Patient reports she is feeling much better. ? if bronchitis or mild COPD exac. Will send Rx for Z-pack and steroids to pharmacy. Advised to use steroids only if really needs them due to being diabetic. - Results/Orders Results/Orders: Laboratory Tests 06/23/17 06/23/17 06/23/17 13:15 13:15 13:21 WBC 12.6 H RBC 3.90 L Hgb 11.9 L Hct 35.8 L MCV 91.8 MCH 30.5 MCHC 33.1 RDW 13.8 Plt Count 237 MPV 8.2 Absolute Neuts (auto) 8.70 H Absolute Lymphs (auto) 2.60 Absolute Monos (auto) 0.90 H Absolute Eos (auto) 0.40 Absolute Basos (auto) 0.10 Neutrophils % 69.0 Lymphocytes % 20.5 Monocytes % 7.1 Eosinophils % 2.8 Basophils % 0.6 D-Dimer, Quantitative Sodium 128 L Potassium 4.1 Chloride 98 L Carbon Dioxide 21 Anion Gap 13.1 BUN 36 H Creatinine 1.84 H BUN/Creatinine Ratio 19.6 Random Glucose 173 H Serum Osmolality 269.5 L Calcium 8.7 Total Bilirubin 0.9 AST 17 ALT 10 Alkaline Phosphatase 85 B-Natriuretic Peptide 37.1 Serum Total Protein 7.3 Albumin 3.7 Globulin 3.6 H Albumin/Globulin Ratio 1.0 L Urine Color Yellow Urine Appearance Clear Urine pH 6.0 Ur Specific Meta 1.015 Urine Protein Negative Urine Glucose (UA) Negative Urine Ketones Negative Urine Blood Trace-lysed H Urine Nitrite Negative Urine Bilirubin Negative Urine Urobilinogen 0.2 Ur Leukocyte Esterase Negative Urine RBC 3-5 H Urine WBC 1-3 Ur Epithelial Cells 5-10 Amorphous Sediment 1+ Urine Bacteria Rare 06/23/17 13:45 WBC RBC Hgb Hct MCV MCH MCHC RDW Plt Count MPV Absolute Neuts (auto) Absolute Lymphs (auto) Absolute Monos (auto) Absolute Eos (auto) Absolute Basos (auto) Neutrophils % Lymphocytes % Monocytes % Eosinophils % Basophils % D-Dimer, Quantitative 332 H* Sodium Potassium Chloride Carbon Dioxide Anion Gap BUN Creatinine BUN/Creatinine Ratio Random Glucose Serum Osmolality Calcium Total Bilirubin AST ALT Alkaline Phosphatase B-Natriuretic Peptide Serum Total Protein Albumin Globulin Albumin/Globulin Ratio Urine Color Urine Appearance Urine pH Ur Specific Meta Urine Protein Urine Glucose (UA) Urine Ketones Urine Blood Urine Nitrite Urine Bilirubin Urine Urobilinogen Ur Leukocyte Esterase Urine RBC Urine WBC Ur Epithelial Cells Amorphous Sediment Urine Bacteria - EKG/XRAY/CT XRAY: chest - Negative for acute findings Departure - Departure Clinical Impression: Acute bronchitis Qualifiers: Bronchitis organism: unspecified organism Qualified Code(s): J20.9 - Acute bronchitis, unspecified Time of Disposition: 15:46 Disposition: Discharge to Home or Self Care Condition: Good Departure Forms: ED Discharge - Pt. Copy, Patient Portal Self Enrollment Instructions: DI for Acute Bronchitis Diet: resume usual diet Activity: increase activity as tolerated Referrals: Mehrdad Alex III, MD [Primary Care Provider] - 1-2 Weeks Prescriptions: Azithromycin [Zithromax Z-Efrain] 1 ea PO DAILY #1 pack Methylprednisolone [Medrol Dose Efrain] 4 mg PO DAILY #1 pack Home Medications: Ambulatory Orders ALPRAZolam [Xanax] 0.5 mg PO TID PRN 04/12/15 Esomeprazole Magnesium [Nexium] 40 mg PO DAILY 04/12/15 Furosemide 60 mg PO DAILY 04/12/15 Linagliptin [Tradjenta] 5 mg PO DAILY 04/12/15 Nitroglycerin [Nitrostat] 0.4 mg SL PRN PRN 04/12/15 Prasugrel [Effient] 10 mg PO DAILY 04/12/15 Promethazine Tab [Phenergan Tablet] 25 mg PO QID PRN 04/12/15 Simvastatin 80 mg PO BEDTIME 04/12/15 Aspirin [Aspirin Adult Low Dose] 81 mg PO DAILY 05/03/15 Spironolactone [Aldactone] 50 mg PO DAILY 05/03/15 Lisinopril 5 mg PO DAILY 08/07/15 Nystatin (Topical) [Nystatin] 100,000 unit EX BID PRN #1 bottle 10/05/16 Carbidopa/Levodopa 25/100 [Sinemet 25/100] 1 ea PO QID #120 tab 11/05/16 Insulin Aspart [Novolog] 1,000 unit SC AC PRN 02/24/17 Insulin Detemir [Levemir] 14 unit SUBCU BEDTIME 02/24/17 Magnesium Hydroxide [Milk Of Magnesia] 1 arelis PO PRN PRN 02/24/17 Magnesium Oxide 400 mg PO DAILY 02/24/17 Metoclopramide Tab [Reglan Tab] 10 mg PO TID PRN 02/24/17 Azithromycin [Zithromax Z-Efrain] 1 ea PO DAILY #1 pack 06/23/17 Methylprednisolone [Medrol Dose Efrain] 4 mg PO DAILY #1 pack 06/23/17
[2017-06-23 16:11] VITALS: BP 128/68; TEMP 97.2; O2SAT 96
== END 2017-06-23 16:00 | disposition home or self-care (01) ==
LOC: ER 11:05
DX: J20.9 Acute bronchitis, unspecified (principal); F03.90 Unspecified dementia, unspecified severity, without behavioral disturbance, psychotic disturbance, mood disturbance, and anxiety; Z95.1 Presence of aortocoronary bypass graft; Z98.61 Coronary angioplasty status; I10 Essential (primary) hypertension; E11.9 Type 2 diabetes mellitus without complications; N28.9 Disorder of kidney and ureter, unspecified; Z79.82 Long term (current) use of aspirin; Z79.4 Long term (current) use of insulin; Z79.899 Other long term (current) drug therapy; Z88.6 Allergy status to analgesic agent
CPT/HCPCS: 36415; 71010; 80053; 81001; 83880; 85025; 85379; J7620

== ENCOUNTER → 2017-06-29 | Outpatient (CLI) | payer MEDICARE, MEDICAID | LOC: BFHH 11:24 | PROVIDERS: ATTEND Family Medicine | DX: E87.1 Hypo-osmolality and hyponatremia (principal); N18.9 Chronic kidney disease, unspecified ==

== ENCOUNTER 2017-07-11 01:37 | Emergency (ER) | payer MEDICARE, MEDICAID ==
[2017-07-11 01:49] VITALS: TEMP 99.3
--- NOTE | 2017-07-11 01:52 | ED.PDOC ---
History of Present Illness - General Chief Complaint: GI Problem Stated Complaint: Abdominal cramping Time Seen by Provider: 07/11/17 01:51 CDT Information Source: patient Exam Limitations: no limitations - History of Present Illness Initial Comments: Shima Lares 81 y/o female stated that she had intermittent abdominal cramps for the last one week then the last 4 days had been constipated with small amounts of bowel movement then the last 2 days took miralax and her MOM today started throwing up at 1800h till 2200 intermittently and abdominal cramps started more intense called up ems.On her arrival no vomiting but still w/ abdominal cramps.Denies dysuria,hematemesis,or melena. Abdominal Pain Onset Location: generalized abdomen Pain Radiation: no radiation Quality: moderate, cramping Timing/Duration: 4-6 hours Improving Factors: nothing Worsening Factors: nothing Associated Symptoms: other - see hpi Review of Systems - Review of Systems Constitutional: States: no symptoms reported EENTM: States: no symptoms reported Respiratory: States: no symptoms reported Cardiology: States: no symptoms reported Gastrointestinal/Abdominal: States: see HPI Genitourinary: States: no symptoms reported Musculoskeletal: States: no symptoms reported Past Medical History (General) - Patient Medical History Hx Seizures: No Hx Stroke: No Hx Dementia: Yes - beginning stages Hx Asthma: No Hx of COPD: Yes Hx Cardiac Disorders: Yes - Stent, quad bypass Hx Congestive Heart Failure: No Hx Pacemaker: No Hx Hypertension: Yes Hx Thyroid Disease: No Hx Diabetes: Yes Hx Gastroesophageal Reflux: Yes Hx Renal Disease: Yes Hx Cancer: No Hx of HIV: No Hx Hepatitis C: No Hx MRSA: No Surgical History: appendectomy, cholecystectomy, coronary bypass surgery, other - cardiac stents - Vaccination History Hx Tetanus, Diphtheria Vaccination: No Hx Influenza Vaccination: No Hx Pneumococcal Vaccination: Yes - 2016 - Social History Hx Tobacco Use: Yes - Quit 1998 Hx Chewing Tobacco Use: No Hx Alcohol Use: No Hx Substance Use: No Hx Substance Use Treatment: No Hx Depression: No Hx Physical Abuse: No Hx Emotional Abuse: No Hx Suspected Abuse: No - Activities of Daily Living Grooming Ability: Independent Eating (Feeding) Ability: Independent Toileting Ability: Independent - Female History Patient : No Family Medical History - Family History Father Living Status: Hx Cardiac Disease: Yes - multiple family members Hx Family Diabetes: Yes - multiple family members Mother Family History: Unknown Living Status: Age at (years of age): 99 Cause of : old age Hx Family Diabetes: Yes Physical Exam - Physical Exam General Appearance: Alert, Comfortable, No apparent distress Eyes, Ears, Nose, Throat Exam: PERRL/EOMI, normal ENT inspection, pharynx normal Neck: non-tender, supple Respiratory: chest non-tender, lungs clear, normal breath sounds Cardiovascular/Chest: normal peripheral pulses, regular rate, rhythm, no murmur Peripheral Pulses: No deficit Gastrointestinal/Abdominal: normal bowel sounds, soft, no organomegaly, no pulsatile mass, tenderness - mid to lower abdomen no peritoneal signs Back Exam: no vertebral tenderness Extremity: non-tender, no calf tenderness, pedal edema - +1 Neurologic: alert, normal mood/affect, oriented x 3 Lymphatic: no adenopathy Progress - Progress Progress: 07/11/17 01:05 TRIMMER SAWYER Vital Signs - 8 hr 07/11/17 01:48 CDT Temperature 99.3 F Pulse Rate [ 86 Left Radial] Respiratory 20 Rate Blood Pressure 104/59 [Left Arm] O2 Sat by Pulse 95 Oximetry 07/11/17 03:11 Laboratory Tests 07/11/17 07/11/17 07/11/17 01:05 TRIMMER SAWYER 01:05 TRIMMER SAWYER 01:05 TRIMMER SAWYER WBC 16.0 H RBC 3.98 L Hgb 12.0 Hct 36.5 MCV 91.8 MCH 30.1 MCHC 32.9 L Plt Count 289 Absolute Neuts (auto) 14.10 H Absolute Lymphs (auto) 0.90 L Absolute Monos (auto) 0.70 Absolute Eos (auto) 0.30 Neutrophils % 88.2 H Lymphocytes % 5.8 L Monocytes % 4.2 Eosinophils % 1.7 Basophils % 0.1 Sodium 130 L Potassium 5.0 Chloride 98 L Carbon Dioxide 25 Anion Gap 12.0 BUN 30 H Creatinine 1.92 H Random Glucose 199 H Serum Osmolality 272.6 L Calcium 8.4 Total Bilirubin 0.7 AST 20 ALT < 8 L Alkaline Phosphatase 101 Troponin I 0.02 Serum Total Protein 6.9 Albumin 3.3 Globulin 3.6 H Albumin/Globulin Ratio 0.9 L Lipase 23 - EKG/XRAY/CT EKG: Sinus, nonspecific ST T wave Chg Comments: Heart rate-86 CT Ordered: Yes - abd/p-no acute process noted Departure - Departure Clinical Impression: Abdominal cramping, generalized, Constipation by delayed colonic transit, Renal insufficiency Diabetes Qualifiers: Diabetes mellitus type: type 2 Diabetes mellitus complication status: with unspecified complications 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 Copy, Patient Portal Self Enrollment Instructions: DI for Constipation Referrals: Mehrdad Alex III, MD [Primary Care Provider] - 1-2 Weeks Home Medications: Ambulatory Orders ALPRAZolam [Xanax] 0.5 mg PO TID PRN 04/12/15 Esomeprazole Magnesium [Nexium] 40 mg PO DAILY 04/12/15 Furosemide 60 mg PO DAILY 04/12/15 Linagliptin [Tradjenta] 5 mg PO DAILY 04/12/15 Nitroglycerin [Nitrostat] 0.4 mg SL PRN PRN 04/12/15 Prasugrel [Effient] 10 mg PO DAILY 04/12/15 Simvastatin 80 mg PO BEDTIME 04/12/15 Aspirin [Aspirin Adult Low Dose] 81 mg PO DAILY 05/03/15 Spironolactone [Aldactone] 50 mg PO DAILY 05/03/15 Lisinopril 5 mg PO DAILY 08/07/15 Carbidopa/Levodopa 25/100 [Sinemet 25/100] 1 ea PO QID #120 tab 11/05/16 Insulin Aspart [Novolog] 0 unit SC ACHS PRN 02/24/17 Insulin Detemir [Levemir] 14 unit SUBCU BEDTIME 02/24/17 Magnesium Hydroxide [Milk Of Magnesia] 1 arelis PO PRN PRN 02/24/17 Magnesium Oxide 400 mg PO DAILY 02/24/17 Metoclopramide Tab [Reglan Tab] 10 mg PO TID PRN 02/24/17 Additional Instructions: Continue with all home medications;Return to emergency room as needed
[2017-07-11] MEDS ORDERED: SODIUM CHLORIDE 0.9% 250ML 250 ML IVS ONE (01:53)
[2017-07-11] MEDS ORDERED: ONDANSETRON INJ 4 MG/2 ML VIAL IV ONE (01:54)
--- NOTE | 2017-07-11 02:40 | CT ---
EXAM DESCRIPTION: CT ABDOMEN AND PELVIS WITHOUT CONTRAST CLINICAL HISTORY: Right and left upper quadrant pain. COMPARISON: 10/18/2016 TECHNIQUE: CT of the abdomen and pelvis without IV contrast. FINDINGS: Abdomen: The liver has normal size and density. Prior cholecystectomy. Calcified splenic granulomas. No abnormalities of the pancreas or adrenal glands. Bilateral renal atrophy without evidence of obstruction or hydronephrosis. Aortoiliac atherosclerosis. No free intraperitoneal air. The stomach and duodenum have normal course. Pelvis: Uterus is not enlarged. Urinary bladder is unremarkable. No free pelvic fluid or lymphadenopathy. Scattered diverticula of the colon. No pericolic fat stranding. No right lower quadrant inflammatory change. The visualized lung bases demonstrate scarring or dependent atelectasis. Prior median sternotomy. No destructive bone lesions identified. Degenerative change of the spine. DLP: 778.87 mGy-cm IMPRESSION: 1. No acute inflammatory or obstructive abnormality identified. 2. Diverticulosis without evidence of diverticulitis. This exam was performed according to our departmental dose-optimization program, which includes automated exposure control, adjustment of the mA and/or kV according to patient size and/or use of iterative reconstruction technique. Electronically signed by: Rishabh Cantrell 07/11/2017 2:39 AM ENGINEERING SPECIALIST TECHNICIAN
[2017-07-11 03:29] VITALS: BP 111/62; O2SAT 97
== END 2017-07-11 03:28 | disposition home or self-care (01) ==
LOC: ER 01:37
DX: K59.01 Slow transit constipation (principal); N28.9 Disorder of kidney and ureter, unspecified; R10.84 Generalized abdominal pain; F03.90 Unspecified dementia, unspecified severity, without behavioral disturbance, psychotic disturbance, mood disturbance, and anxiety; J44.9 Chronic obstructive pulmonary disease, unspecified; I10 Essential (primary) hypertension; E11.8 Type 2 diabetes mellitus with unspecified complications; K21.9 Gastro-esophageal reflux disease without esophagitis; Z95.1 Presence of aortocoronary bypass graft; Z98.61 Coronary angioplasty status; Z87.891 Personal history of nicotine dependence
CPT/HCPCS: 36415; 74176; 80053; 83690; 84484; 85025; 93005; J2060; J2405; J7050

== ENCOUNTER 2017-07-23 12:10 | Emergency (ER) | payer MEDICARE, MEDICAID ==
[2017-07-23 12:22] VITALS: TEMP 99.4
[2017-07-23] MEDS ORDERED: KETOROLAC TROMETHAMINE INJ 30 MG/ML VIAL IM ONE (12:36)
[2017-07-23] MEDS ORDERED: CYCLOBENZAPRINE HCL 5 MG TAB PO ONE (12:36)
--- NOTE | 2017-07-23 12:39 | ED.PDOC ---
History of Present Illness - General Chief Complaint: General Stated Complaint: Right shoulder discomfort Time Seen by Provider: 07/23/17 12:26 Source: patient, RN notes reviewed, Vital Signs reviewed Exam Limitations: no limitations - History of Present Illness Initial Comments: Patient comes to ER with c/o pain over her right shoulder blade that started @ 06:30 this morning. Pain eases with rest and worsens with movement. No numbness , tingling or weakness. No chest pain or SOB worse than her baseline. Mild cough. Timing/Duration: 4-6 hours Severity: mild Improving Factors: rest Worsening Factors: movement Associated Symptoms: cough Allergies/Adverse Reactions: Allergies Morphine Adverse Reaction (Severe, Verified 07/23/17 12:13) Other Makes her "crazy" Home Medications: Ambulatory Orders ALPRAZolam [Xanax] 0.5 mg PO TID PRN 04/12/15 Esomeprazole Magnesium [Nexium] 40 mg PO DAILY 04/12/15 Furosemide 60 mg PO DAILY 04/12/15 Linagliptin [Tradjenta] 5 mg PO DAILY 04/12/15 Nitroglycerin [Nitrostat] 0.4 mg SL PRN PRN 04/12/15 Prasugrel [Effient] 10 mg PO DAILY 04/12/15 Simvastatin 80 mg PO BEDTIME 04/12/15 Aspirin [Aspirin Adult Low Dose] 81 mg PO DAILY 05/03/15 Spironolactone [Aldactone] 50 mg PO DAILY 05/03/15 Lisinopril 5 mg PO DAILY 08/07/15 Carbidopa/Levodopa 25/100 [Sinemet 25/100] 1 ea PO QID #120 tab 11/05/16 Insulin Aspart [Novolog] 0 unit SC ACHS PRN 02/24/17 Insulin Detemir [Levemir] 14 unit SUBCU BEDTIME 02/24/17 Magnesium Hydroxide [Milk Of Magnesia] 1 arelis PO PRN PRN 02/24/17 Magnesium Oxide 400 mg PO DAILY 02/24/17 Metoclopramide Tab [Reglan Tab] 10 mg PO TID PRN 02/24/17 Cyclobenzaprine HCl [Flexeril] 5 mg PO Q8HR PRN #15 tab 07/23/17 Review of Systems - Review of Systems Constitutional: States: no symptoms reported Respiratory: States: cough, short of breath - No change from baseline Cardiology: States: no symptoms reported. Denies: chest pain Gastrointestinal/Abdominal: States: no symptoms reported Musculoskeletal: States: see HPI Skin: States: no symptoms reported Neurological: States: no symptoms reported All other Systems: No Change from Baseline Past Medical History (General) - Patient Medical History Hx Seizures: No Hx Stroke: No Hx Dementia: Yes - beginning stages Hx Asthma: No Hx of COPD: Yes Hx Cardiac Disorders: Yes - Stent, quad bypass Hx Congestive Heart Failure: No Hx Pacemaker: No Hx Hypertension: Yes Hx Thyroid Disease: No Hx Diabetes: Yes Hx Gastroesophageal Reflux: Yes Hx Renal Disease: Yes Hx Cancer: No Hx of HIV: No Hx Hepatitis C: No Hx MRSA: No - Vaccination History Hx Tetanus, Diphtheria Vaccination: No Hx Influenza Vaccination: No Hx Pneumococcal Vaccination: Yes - 2015 - Social History Hx Tobacco Use: Yes - Quit 1998 Hx Chewing Tobacco Use: No Hx Alcohol Use: No Hx Substance Use: No Hx Substance Use Treatment: No Hx Depression: No Hx Physical Abuse: No Hx Emotional Abuse: No Hx Suspected Abuse: No - Female History Patient : No Family Medical History - Family History Father Living Status: Hx Cardiac Disease: Yes - multiple family members Hx Family Diabetes: Yes - multiple family members Mother Family History: Unknown Living Status: Age at (years of age): 99 Cause of : old age Hx Family Diabetes: Yes Physical Exam - Physical Exam General Appearance: Alert, Comfortable, No apparent distress, Obese, Well Developed, Well Groomed, Well Hydrated, Well Nourished Neck: supple, normal inspection Respiratory: chest non-tender, lungs clear, normal breath sounds, no respiratory distress, no accessory muscle use Cardiovascular/Chest: regular rate, rhythm, no gallop, no murmur Extremity: normal range of motion, other - R upper shoulder: + spasm and tenderness of supraspinatous muscles. Neurologic: no motor/sensory deficits, alert, normal mood/affect, oriented x 3 Skin Exam: normal color, warm/dry Comments: Vital Signs 07/23/17 12:14 Temperature 99.4 F Pulse Rate [ 89 Right Radial] Respiratory 20 Rate Blood Pressure 139/79 [Left Arm] O2 Sat by Pulse 95 Oximetry Progress - Progress Progress: 07/23/17 12:40 Will give Toradol 30mg IM and Flexeril 5mg PO 07/23/17 13:06 Patient reports she is feeling better and can move her arm now w/o discomfort. Departure - Departure Clinical Impression: Muscle spasm of right shoulder Time of Disposition: 13:07 Disposition: Discharge to Home or Self Care Condition: Good Departure Forms: ED Discharge - Pt. Copy, Patient Portal Self Enrollment Instructions: DI for Muscle Strain Diet: resume usual diet Activity: increase activity as tolerated Referrals: Mehrdad Alex III, MD [Primary Care Provider] - 1-2 Weeks Prescriptions: Cyclobenzaprine HCl [Flexeril] 5 mg PO Q8HR PRN #15 tab PRN Reason: Muscle Spasms Home Medications: Ambulatory Orders ALPRAZolam [Xanax] 0.5 mg PO TID PRN 04/12/15 Esomeprazole Magnesium [Nexium] 40 mg PO DAILY 04/12/15 Furosemide 60 mg PO DAILY 04/12/15 Linagliptin [Tradjenta] 5 mg PO DAILY 04/12/15 Nitroglycerin [Nitrostat] 0.4 mg SL PRN PRN 04/12/15 Prasugrel [Effient] 10 mg PO DAILY 04/12/15 Simvastatin 80 mg PO BEDTIME 04/12/15 Aspirin [Aspirin Adult Low Dose] 81 mg PO DAILY 05/03/15 Spironolactone [Aldactone] 50 mg PO DAILY 05/03/15 Lisinopril 5 mg PO DAILY 08/07/15 Carbidopa/Levodopa 25/100 [Sinemet 25/100] 1 ea PO QID #120 tab 11/05/16 Insulin Aspart [Novolog] 0 unit SC ACHS PRN 02/24/17 Insulin Detemir [Levemir] 14 unit SUBCU BEDTIME 02/24/17 Magnesium Hydroxide [Milk Of Magnesia] 1 arelis PO PRN PRN 02/24/17 Magnesium Oxide 400 mg PO DAILY 02/24/17 Metoclopramide Tab [Reglan Tab] 10 mg PO TID PRN 02/24/17 Cyclobenzaprine HCl [Flexeril] 5 mg PO Q8HR PRN #15 tab 07/23/17
[2017-07-23 13:24] VITALS: BP 102/64; O2SAT 96
== END 2017-07-23 13:24 | disposition home or self-care (01) ==
LOC: ER 12:10
DX: M62.838 Other muscle spasm (principal); Z87.891 Personal history of nicotine dependence; Z79.4 Long term (current) use of insulin; Z79.899 Other long term (current) drug therapy; J44.9 Chronic obstructive pulmonary disease, unspecified; E11.9 Type 2 diabetes mellitus without complications; K21.9 Gastro-esophageal reflux disease without esophagitis; Z95.1 Presence of aortocoronary bypass graft; Z98.61 Coronary angioplasty status; Z79.82 Long term (current) use of aspirin; Z88.6 Allergy status to analgesic agent

== ENCOUNTER → 2017-10-05 | Outpatient (CLI) | payer MEDICARE, MEDICAID | LOC: BFHH 10:54 | PROVIDERS: ATTEND Family Medicine | DX: J44.9 Chronic obstructive pulmonary disease, unspecified (principal); E11.22 Type 2 diabetes mellitus with diabetic chronic kidney disease; I13.0 Hypertensive heart and chronic kidney disease with heart failure and stage 1 through stage 4 chronic kidney disease, or unspecified chronic kidney disease; N18.3 Chronic kidney disease, stage 3 (moderate) ==

== ENCOUNTER → 2018-02-03 | Outpatient (CLI) | payer MEDICARE, MEDICAID | LOC: GMAL 12:37 | PROVIDERS: ATTEND Family Medicine | DX: D51.3 Other dietary vitamin B12 deficiency anemia (principal); E55.9 Vitamin D deficiency, unspecified ==

== ENCOUNTER 2018-05-24 15:52 | Emergency (ER) | payer MEDICARE, MEDICAID ==
--- NOTE | 2018-05-24 16:14 | ED.PDOC ---
History of Present Illness - General Chief Complaint: General Stated Complaint: Left lower extremity swelling/discomfort Time Seen by Provider: 05/24/18 16:00 Source: patient Exam Limitations: no limitations - History of Present Illness Initial Comments: patient comes in today for severe pain of the left knee and lower extremity. Patient was seen by her PCP in the clinic and was told to come to the emergency room to rule out DVT. Patient states she has known osteoarthritis but is nonsurgical candidate because of her other medical problems. She normally takes Tylenol No. 3 today it's not helping with the pain. Patient has had swelling on that side that is chronic and usually intermittent although it seems to have been worse last couple of days. Patient denies any fever, chills , cough or cold symptoms. Timing/Duration: getting worse, other - 3-4 days Severity: severe Improving Factors: immobilization Worsening Factors: movement Associated Symptoms: denies symptoms Allergies/Adverse Reactions: Allergies Morphine Adverse Reaction (Severe, Verified 05/24/18 16:21) Other Makes her "crazy" Home Medications: Ambulatory Orders ALPRAZolam [Xanax] 0.5 mg PO TID PRN 04/12/15 Esomeprazole Magnesium [Nexium] 40 mg PO DAILY 04/12/15 Furosemide 60 mg PO DAILY 04/12/15 Linagliptin [Tradjenta] 5 mg PO DAILY 04/12/15 Nitroglycerin [Nitrostat] 0.4 mg SL PRN PRN 04/12/15 Prasugrel [Effient] 10 mg PO DAILY 04/12/15 Simvastatin 80 mg PO BEDTIME 04/12/15 Aspirin [Aspirin Adult Low Dose] 81 mg PO DAILY 05/03/15 Spironolactone [Aldactone] 50 mg PO DAILY 05/03/15 Lisinopril 5 mg PO DAILY 08/07/15 Carbidopa/Levodopa 25/100 [Sinemet 25/100] 1 ea PO QID #120 tab 11/05/16 Insulin Aspart [Novolog] 0 unit SC ACHS PRN 02/24/17 Insulin Detemir [Levemir] 14 unit SUBCU BEDTIME 02/24/17 Magnesium Hydroxide [Milk Of Magnesia] 1 arelis PO PRN PRN 02/24/17 Magnesium Oxide 400 mg PO DAILY 02/24/17 Metoclopramide Tab [Reglan Tab] 10 mg PO TID PRN 02/24/17 Cyclobenzaprine HCl [Flexeril] 5 mg PO Q8HR PRN #15 tab 07/23/17 Review of Systems - Review of Systems Constitutional: States: no symptoms reported. Denies: chills, fever, weakness EENTM: States: no symptoms reported. Denies: eye pain, ear pain, throat pain Respiratory: States: no symptoms reported. Denies: cough, short of breath, wheezing Cardiology: States: no symptoms reported. Denies: chest pain, edema, palpitations Gastrointestinal/Abdominal: States: no symptoms reported Genitourinary: States: no symptoms reported Musculoskeletal: States: no symptoms reported Skin: States: no symptoms reported Past Medical History (General) - Patient Medical History Hx Seizures: No Hx Stroke: No Hx Dementia: Yes - beginning stages Hx Asthma: No Hx of COPD: Yes Hx Cardiac Disorders: Yes - Stent, quad bypass Hx Congestive Heart Failure: No Hx Pacemaker: No Hx Hypertension: Yes Hx Thyroid Disease: No Hx Diabetes: Yes Hx Gastroesophageal Reflux: Yes Hx Renal Disease: Yes Hx Cancer: No Hx of HIV: No Hx Hepatitis C: No Hx MRSA: No - Vaccination History Hx Tetanus, Diphtheria Vaccination: No Hx Influenza Vaccination: No Hx Pneumococcal Vaccination: Yes - 2016 - Social History Hx Tobacco Use: Yes - Quit 1998 Hx Chewing Tobacco Use: No Hx Alcohol Use: No Hx Substance Use: No Hx Substance Use Treatment: No Hx Depression: No Hx Physical Abuse: No Hx Emotional Abuse: No Hx Suspected Abuse: No - Female History Patient : No Family Medical History - Family History Father Living Status: Hx Cardiac Disease: Yes - multiple family members Hx Family Diabetes: Yes - multiple family members Mother Family History: Unknown Living Status: Age at (years of age): 99 Cause of : old age Hx Family Diabetes: Yes Physical Exam - Physical Exam General Appearance: Alert, No apparent distress Respiratory: chest non-tender, lungs clear, normal breath sounds, no respiratory distress Cardiovascular/Chest: normal peripheral pulses, regular rate, rhythm, no edema, no gallop Peripheral Pulses: radial,right: 2+ Gastrointestinal/Abdominal: normal bowel sounds, non tender, soft Extremity: other - patient has fears to palpation of the left knee without gross deformity and trace pedal edema but non-pitting on bilateral lower extremities. Patient does have full flexion and extension of the knee with some crepitus but no signs of instability, no erythema of either lower extremity and good distal pulse. Neurologic: alert, oriented x 3 Progress - Progress Progress: 05/24/18 17:36 Discussed results with patient. Still hurting and pain medication at home was not helping. Demerol was well tolerated per patient in the past. Shot ordered and follow up in clinic - Results/Orders Results/Orders: Laboratory Results D-Dimer, Quantitative 5.37 mg/L FEU (0-0.49) H* 05/24/18 16:13 u/s is negative for DVT Departure - Departure Clinical Impression: Osteoarthritis Qualifiers: Osteoarthritis location: knee Osteoarthritis type: unspecified Laterality: left Qualified Code(s): M17.12 - Unilateral primary osteoarthritis, left knee Disposition: Discharge to Home or Self Care Condition: Good Departure Forms: ED Discharge - Pt. Copy, Patient Portal Self Enrollment Referrals: Mehrdad Alex III, MD [Primary Care Provider] - 1-2 Weeks Home Medications: Ambulatory Orders ALPRAZolam [Xanax] 0.5 mg PO TID PRN 04/12/15 Esomeprazole Magnesium [Nexium] 40 mg PO DAILY 04/12/15 Furosemide 60 mg PO DAILY 04/12/15 Linagliptin [Tradjenta] 5 mg PO DAILY 04/12/15 Nitroglycerin [Nitrostat] 0.4 mg SL PRN PRN 04/12/15 Prasugrel [Effient] 10 mg PO DAILY 04/12/15 Simvastatin 80 mg PO BEDTIME 04/12/15 Aspirin [Aspirin Adult Low Dose] 81 mg PO DAILY 05/03/15 Spironolactone [Aldactone] 50 mg PO DAILY 05/03/15 Lisinopril 5 mg PO DAILY 08/07/15 Carbidopa/Levodopa 25/100 [Sinemet 25/100] 1 ea PO QID #120 tab 11/05/16 Insulin Aspart [Novolog] 0 unit SC ACHS PRN 02/24/17 Insulin Detemir [Levemir] 14 unit SUBCU BEDTIME 02/24/17 Magnesium Hydroxide [Milk Of Magnesia] 1 arelis PO PRN PRN 02/24/17 Magnesium Oxide 400 mg PO DAILY 02/24/17 Metoclopramide Tab [Reglan Tab] 10 mg PO TID PRN 02/24/17 Cyclobenzaprine HCl [Flexeril] 5 mg PO Q8HR PRN #15 tab 07/23/17 Additional Instructions: follow up with PCP in clinic in 2-3 days ultrasound was negative for DVT
--- NOTE | 2018-05-24 17:21 | US ---
EXAM DESCRIPTION: Venous, lower Extremity LT CLINICAL HISTORY: 82 years Female unilateral swelling r/o dvt COMPARISON: None. TECHNIQUE: Duplex imaging performed to evaluate the left lower extremity venous structures. Compression imaging and augmentation imaging performed. The common femoral, superficial femoral, popliteal, greater saphenous and posterior tibial veins were examined. FINDINGS: No thrombus is identified in the left lower extremity venous structures. IMPRESSION: No DVT is identified in the left lower extremity. Electronically signed by: Josy Bowen MD 05/24/2018 5:19 PM CDT
[2018-05-24] MEDS ORDERED: MEPERIDINE HCL 50 MG/ML VIAL IM ONE (17:34)
[2018-05-24] MEDS ORDERED: MEPERIDINE HCL 50 MG/ML VIAL IV ONE (17:49)
[2018-05-24 18:04] VITALS: BP 112/66; O2SAT 94
== END 2018-05-24 17:55 | disposition home or self-care (01) ==
LOC: ER 15:52
DX: M17.12 Unilateral primary osteoarthritis, left knee (principal); R60.0 Localized edema; F03.90 Unspecified dementia, unspecified severity, without behavioral disturbance, psychotic disturbance, mood disturbance, and anxiety; I25.10 Atherosclerotic heart disease of native coronary artery without angina pectoris; J44.9 Chronic obstructive pulmonary disease, unspecified; E11.22 Type 2 diabetes mellitus with diabetic chronic kidney disease; I12.9 Hypertensive chronic kidney disease with stage 1 through stage 4 chronic kidney disease, or unspecified chronic kidney disease; N18.9 Chronic kidney disease, unspecified; K21.9 Gastro-esophageal reflux disease without esophagitis; Z95.1 Presence of aortocoronary bypass graft; Z79.899 Other long term (current) drug therapy; Z79.82 Long term (current) use of aspirin; Z88.5 Allergy status to narcotic agent
CPT/HCPCS: 36415; 85379; 93971; J2175

== ENCOUNTER 2018-06-23 18:01 | Emergency (ER) | payer MEDICARE, MEDICAID ==
--- NOTE | 2018-06-23 18:56 | ED.PDOC ---
History of Present Illness - General Chief Complaint: Trauma Time Seen by Provider: 06/23/18 18:16 Source: patient Exam Limitations: no limitations - History of Present Illness Initial Comments: THIS PATIENT VOICES THAT SHE HAS HAD A PAINFUL WOUND ON THE RIGHT PRE-SACRAL REGION FOR APPROX. ONE MONTH. TENDER WHEN SHE SITS AND LIES DOWN. DENIES ANY FEVER. SHE HAS A HX OF CAD, DIABETES MELLITUS, HTN, HAS HAD A CABG AND A STENT , ON EFFIENT. Timing/Duration: constant Severity: moderate Improving Factors: nothing Worsening Factors: nothing Associated Symptoms: denies symptoms Allergies/Adverse Reactions: Allergies Morphine Adverse Reaction (Severe, Verified 05/24/18 16:21) Other Makes her "crazy" Home Medications: Ambulatory Orders ALPRAZolam [Xanax] 0.5 mg PO TID PRN 04/12/15 Esomeprazole Magnesium [Nexium] 40 mg PO DAILY 04/12/15 Furosemide 60 mg PO DAILY 04/12/15 Linagliptin [Tradjenta] 5 mg PO DAILY 04/12/15 Nitroglycerin [Nitrostat] 0.4 mg SL PRN PRN 04/12/15 Prasugrel [Effient] 10 mg PO DAILY 04/12/15 Simvastatin 80 mg PO BEDTIME 04/12/15 Aspirin [Aspirin Adult Low Dose] 81 mg PO DAILY 05/03/15 Spironolactone [Aldactone] 50 mg PO DAILY 05/03/15 Lisinopril 5 mg PO DAILY 08/07/15 Carbidopa/Levodopa 25/100 [Sinemet 25/100] 1 ea PO QID #120 tab 11/05/16 Insulin Aspart [Novolog] 0 unit SC ACHS PRN 02/24/17 Insulin Detemir [Levemir] 14 unit SUBCU BEDTIME 02/24/17 Magnesium Hydroxide [Milk Of Magnesia] 1 arelis PO PRN PRN 02/24/17 Magnesium Oxide 400 mg PO DAILY 02/24/17 Metoclopramide Tab [Reglan Tab] 10 mg PO TID PRN 02/24/17 Cyclobenzaprine HCl [Flexeril] 5 mg PO Q8HR PRN #15 tab 07/23/17 Mupirocin 2 % Oint [Bactroban Oint] 22 gm TOP BID #1 tube 06/23/18 Sulfa/Trimeth 800/160 (Ds) Tab [Bactrim DS] 1 tablet PO BID #20 tablet 06/23/18 Review of Systems - Review of Systems Constitutional: States: no symptoms reported EENTM: States: no symptoms reported Respiratory: States: no symptoms reported Cardiology: States: no symptoms reported Gastrointestinal/Abdominal: States: no symptoms reported Genitourinary: States: frequency Musculoskeletal: States: no symptoms reported Neurological: States: other - PAINFUL RIGHT PRESACRAL AREA Endocrine: States: no symptoms reported Hematologic/Lymphatic: States: no symptoms reported Past Medical History (General) - Patient Medical History Hx Seizures: No Hx Stroke: No Hx Dementia: Yes - beginning stages Hx Asthma: No Hx of COPD: Yes Hx Cardiac Disorders: Yes - Stent, quad bypass Hx Congestive Heart Failure: No Hx Pacemaker: No Hx Hypertension: Yes Hx Thyroid Disease: No Hx Diabetes: Yes Hx Gastroesophageal Reflux: Yes Hx Renal Disease: Yes Hx Cancer: No Hx of HIV: No Hx Hepatitis C: No Hx MRSA: No - Vaccination History Hx Tetanus, Diphtheria Vaccination: No Hx Influenza Vaccination: No Hx Pneumococcal Vaccination: Yes - 2016 - Social History Hx Tobacco Use: Yes - Quit 1998 Hx Chewing Tobacco Use: No Hx Alcohol Use: No Hx Substance Use: No Hx Substance Use Treatment: No Hx Depression: No Hx Physical Abuse: No Hx Emotional Abuse: No Hx Suspected Abuse: No - Female History Patient : No Family Medical History - Family History Father Living Status: Hx Cardiac Disease: Yes - multiple family members Hx Family Diabetes: Yes - multiple family members Mother Family History: Unknown Living Status: Age at (years of age): 99 Cause of : old age Hx Family Diabetes: Yes Physical Exam - Physical Exam General Appearance: Alert, Anxious, No apparent distress Eye Exam: bilateral normal, bilateral abnormal EOM Ears, Nose, Throat: hearing grossly normal, normal ENT inspection Neck: non-tender, full range of motion, supple Respiratory: chest non-tender, lungs clear, normal breath sounds, no respiratory distress, no accessory muscle use Cardiovascular/Chest: normal peripheral pulses, regular rate, rhythm, no edema, no gallop Peripheral Pulses: radial,right: 2+, radial,left: 2+ Gastrointestinal/Abdominal: normal bowel sounds, non tender, soft, no organomegaly, no pulsatile mass Rectal Exam: deferred Extremity: other - ON THE RIGHT PRE SACRAL REGION THERE IS A SMALL ULCERATION THAT IS TENDER TO TOUCH. MILD ERYTHEMA IS NOTED BUT NO DISCHARGE. WHEN I APPLY PRESSURE THERE SEEMS TO BE A SMALL INDURATION UNDER THE SKIN. THE WOUND MEASURES ABOUT 1.2 CM IN DIAMETER. Departure - Departure Clinical Impression: Pressure ulcer Qualifiers: Pressure injury location: sacral region Pressure injury stage: stage 1 Qualified Code(s): L89.151 - Pressure ulcer of sacral region, stage 1 Time of Disposition: 19:04 Disposition: Discharge to Home or Self Care Condition: Good Departure Forms: ED Discharge - Pt. Copy, Patient Portal Self Enrollment Instructions: DI for Trauma, Pressure Sores (DC) Referrals: Mehrdad Alex III, MD [Primary Care Provider] - 1-2 Weeks Prescriptions: Mupirocin 2 % Oint [Bactroban Oint] 22 gm TOP BID #1 tube Sulfa/Trimeth 800/160 (Ds) Tab [Bactrim DS] 1 tablet PO BID #20 tablet Home Medications: Ambulatory Orders ALPRAZolam [Xanax] 0.5 mg PO TID PRN 04/12/15 Esomeprazole Magnesium [Nexium] 40 mg PO DAILY 04/12/15 Furosemide 60 mg PO DAILY 04/12/15 Linagliptin [Tradjenta] 5 mg PO DAILY 04/12/15 Nitroglycerin [Nitrostat] 0.4 mg SL PRN PRN 04/12/15 Prasugrel [Effient] 10 mg PO DAILY 04/12/15 Simvastatin 80 mg PO BEDTIME 04/12/15 Aspirin [Aspirin Adult Low Dose] 81 mg PO DAILY 05/03/15 Spironolactone [Aldactone] 50 mg PO DAILY 05/03/15 Lisinopril 5 mg PO DAILY 08/07/15 Carbidopa/Levodopa 25/100 [Sinemet 25/100] 1 ea PO QID #120 tab 11/05/16 Insulin Aspart [Novolog] 0 unit SC ACHS PRN 02/24/17 Insulin Detemir [Levemir] 14 unit SUBCU BEDTIME 02/24/17 Magnesium Hydroxide [Milk Of Magnesia] 1 arelis PO PRN PRN 02/24/17 Magnesium Oxide 400 mg PO DAILY 02/24/17 Metoclopramide Tab [Reglan Tab] 10 mg PO TID PRN 02/24/17 Cyclobenzaprine HCl [Flexeril] 5 mg PO Q8HR PRN #15 tab 07/23/17 Mupirocin 2 % Oint [Bactroban Oint] 22 gm TOP BID #1 tube 06/23/18 Sulfa/Trimeth 800/160 (Ds) Tab [Bactrim DS] 1 tablet PO BID #20 tablet 06/23/18
[2018-06-23 19:30] VITALS: BP 113/67; TEMP 98.6; O2SAT 97
== END 2018-06-23 19:24 | disposition home or self-care (01) ==
LOC: ER 18:01
DX: L89.151 Pressure ulcer of sacral region, stage 1 (principal); F03.90 Unspecified dementia, unspecified severity, without behavioral disturbance, psychotic disturbance, mood disturbance, and anxiety; J44.9 Chronic obstructive pulmonary disease, unspecified; K21.9 Gastro-esophageal reflux disease without esophagitis; E11.22 Type 2 diabetes mellitus with diabetic chronic kidney disease; I12.9 Hypertensive chronic kidney disease with stage 1 through stage 4 chronic kidney disease, or unspecified chronic kidney disease; N18.9 Chronic kidney disease, unspecified; Z79.4 Long term (current) use of insulin; Z79.899 Other long term (current) drug therapy; Z88.5 Allergy status to narcotic agent; Z87.891 Personal history of nicotine dependence; Z79.82 Long term (current) use of aspirin

== ENCOUNTER → 2018-06-30 | Outpatient (CLI) | payer MEDICARE, MEDICAID | LOC: GMAL 17:07 | PROVIDERS: ATTEND Family Medicine | DX: L89.152 Pressure ulcer of sacral region, stage 2 (principal) ==

== ENCOUNTER → 2018-08-08 | Outpatient (CLI) | payer MEDICARE, MEDICAID | LOC: GMAL 10:53 | PROVIDERS: ATTEND Family Medicine | DX: E55.9 Vitamin D deficiency, unspecified (principal) ==

== ENCOUNTER 2018-08-19 12:27 | Inpatient (IN) | payer MEDICARE, MEDICAID ==
[2018-08-19] MEDS ORDERED: IPRATROPIUM/ALBUTEROL 3 ML VIAL NEB ONE ×2 (12:40→17:35)
--- NOTE | 2018-08-19 12:44 | ED.PDOC ---
History of Present Illness - General Chief Complaint: ENT Problem Stated Complaint: sore throat,cough Time Seen by Provider: 08/19/18 12:40 Source: patient, family, EMS Exam Limitations: no limitations - History of Present Illness Initial Comments: patient comes in today with 2 day history of bad sore throat. Patient states yesterday she called her doctor and was started on amoxicillin. However, as the day has progressed she significantly worse and is now having cough, wheezing, and shortness of breath. Patient has known COPD but does not require oxygen and did not take a breathing treatment this morning. Patient also has coronary artery disease, diabetes mellitus, hypertension, and hyperlipidemia. She had a coronary artery bypass graft greater than 20 years ago. Patient was a smoker with a greater than [id number] history but quit 20 years ago after her heart surgery. She has not drink or take illicit drugs and lives at home with her . ed that she will get pneumonia Timing/Duration: 24 hours Severity: moderate Improving Factors: nothing Worsening Factors: nothing Associated Symptoms: cough, shortness of breath Allergies/Adverse Reactions: Allergies Morphine Adverse Reaction (Severe, Verified 06/23/18 19:25) Other Makes her "crazy" Home Medications: Ambulatory Orders ALPRAZolam [Xanax] 0.5 mg PO TID PRN 04/12/15 Esomeprazole Magnesium [Nexium] 40 mg PO DAILY 04/12/15 Furosemide 60 mg PO DAILY 04/12/15 Linagliptin [Tradjenta] 5 mg PO DAILY 04/12/15 Nitroglycerin [Nitrostat] 0.4 mg SL PRN PRN 04/12/15 Prasugrel [Effient] 10 mg PO DAILY 04/12/15 Simvastatin 40 mg PO BEDTIME 04/12/15 Aspirin [Aspirin Adult Low Dose] 81 mg PO DAILY 05/03/15 Spironolactone [Aldactone] 50 mg PO DAILY 05/03/15 Lisinopril 10 mg PO DAILY 08/07/15 Insulin Aspart [Novolog] 0 unit SC ACHS PRN 02/24/17 Insulin Detemir [Levemir] 14 unit SUBCU BEDTIME 02/24/17 Magnesium Hydroxide [Milk Of Magnesia] 1 arelis PO PRN PRN 02/24/17 Metoclopramide Tab [Reglan Tab] 10 mg PO TID PRN 02/24/17 Acetamin W/Cod #3 Tab [Tylenol w/CODEINE #3] 1 ea PO Q4H PRN 08/19/18 Amoxicillin 875 mg PO BID 08/19/18 Promethazine Tab [Phenergan Tablet] 25 mg PO TID 08/19/18 Review of Systems - Review of Systems Constitutional: States: malaise. Denies: chills, fever EENTM: States: nose congestion, throat pain. Denies: eye pain, ear pain, nose pain Respiratory: States: cough, short of breath, wheezing Cardiology: States: no symptoms reported. Denies: chest pain, edema, palpitations Gastrointestinal/Abdominal: States: no symptoms reported. Denies: abdominal pain, diarrhea, nausea, vomiting Genitourinary: States: no symptoms reported Musculoskeletal: States: no symptoms reported Past Medical History (General) - Patient Medical History Hx Seizures: No Hx Stroke: No Hx Dementia: Yes - beginning stages Hx Asthma: No Hx of COPD: Yes Hx Cardiac Disorders: Yes - Stent, quad bypass Hx Congestive Heart Failure: Yes Hx Pacemaker: No Hx Hypertension: Yes Hx Thyroid Disease: No Hx Diabetes: Yes Hx Gastroesophageal Reflux: Yes Hx Renal Disease: Yes Hx Cancer: No Hx of HIV: No Hx Hepatitis C: No Hx MRSA: No Surgical History: appendectomy, cholecystectomy, coronary bypass surgery - Vaccination History Hx Tetanus, Diphtheria Vaccination: No Hx Influenza Vaccination: Yes Hx Pneumococcal Vaccination: Yes - Social History Hx Tobacco Use: Yes Hx Chewing Tobacco Use: No Hx Alcohol Use: No Hx Substance Use: No Hx Substance Use Treatment: No Hx Depression: No Hx Physical Abuse: No Hx Emotional Abuse: No Hx Suspected Abuse: No - Female History Patient : No Family Medical History - Family History Father Living Status: Hx Cardiac Disease: Yes - multiple family members Hx Family Diabetes: Yes - multiple family members Mother Family History: Unknown Living Status: Age at (years of age): 99 Cause of : old age Hx Family Diabetes: Yes Physical Exam - Physical Exam General Appearance: Alert, Comfortable, No apparent distress Eye Exam: bilateral normal Ears, Nose, Throat: hearing grossly normal, normal ENT inspection, normal pharynx Neck: non-tender, full range of motion, supple Respiratory: wheezing - in all lung [place] with diffuse rhonchi no crackles Cardiovascular/Chest: normal peripheral pulses, regular rate, rhythm, no edema, no gallop, no JVD, no murmur Peripheral Pulses: radial,right: 2+, radial,left: 2+ Gastrointestinal/Abdominal: normal bowel sounds, non tender, soft Back Exam: normal inspection, no CVA tenderness Neurologic: alert, oriented x 3 Progress - Progress Progress: 08/19/18 14:16 after albuterol/atrovent/pulmicort/rocephin/and xopenex patient continues with wheezing. O2 sats are good but patient is 82 and lives at home with her elderly and has failed to clear despite 4 treatments. 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 - Results/Orders Results/Orders: Laboratory Results WBC 10.3 K/mm3 (4.8-10.8) 08/19/18 12:50 RBC 3.68 M/mm3 (4.20-5.40) L 08/19/18 12:50 Hgb 11.5 gm/dL (12.0-16.0) L 08/19/18 12:50 Hct 34.3 % (36.0-47.0) L 08/19/18 12:50 MCV 93.1 fl (81.0-99.0) 08/19/18 12:50 MCH 31.2 pg (27.0-31.0) H 08/19/18 12:50 MCHC 33.6 g/dL (33.0-37.0) 08/19/18 12:50 RDW 14.1 % (11.5-14.5) 08/19/18 12:50 Plt Count 231 K/mm3 (130-400) 08/19/18 12:50 MPV 7.7 fl (7.40-10.4) 08/19/18 12:50 Absolute Neuts (auto) 7.50 K/uL (1.8-6.8) H 08/19/18 12:50 Absolute Lymphs (auto) 1.20 K/uL (1.0-3.4) 08/19/18 12:50 Absolute Monos (auto) 1.20 K/uL (0.2-0.8) H 08/19/18 12:50 Absolute Eos (auto) 0.30 K/uL (0.0-0.4) 08/19/18 12:50 Absolute Basos (auto) 0.10 K/uL (0.0-0.1) 08/19/18 12:50 Neutrophils % 72.5 % (42.0-78.0) 08/19/18 12:50 Lymphocytes % 12.0 % (20.0-50.0) L 08/19/18 12:50 Monocytes % 11.5 % (2.0-9.0) H 08/19/18 12:50 Eosinophils % 3.3 % (1.0-5.0) 08/19/18 12:50 Basophils % 0.7 % (0.0-2.0) 08/19/18 12:50 Sodium 128 mmol/L (135-145) L 08/19/18 12:50 Potassium 4.7 mmol/L (3.6-5.0) 08/19/18 12:50 Chloride 95 mmol/L (101-111) L 08/19/18 12:50 Carbon Dioxide 23 mmol/L (21-31) 08/19/18 12:50 Anion Gap 14.7 (12-18) 08/19/18 12:50 BUN 35 mg/dL (7-18) H 08/19/18 12:50 Creatinine 2.17 mg/dL (0.6-1.3) H 08/19/18 12:50 BUN/Creatinine Ratio 16.1 (10-20) 08/19/18 12:50 Random Glucose 115 mg/dL (70-105) H 08/19/18 12:50 Serum Osmolality 266.0 mOsm/L (275-295) L 08/19/18 12:50 Lactic Acid 1.0 mmol/L (0.5-2.2) 08/19/18 12:50 Calcium 9.0 mg/dL (8.4-10.2) 08/19/18 12:50 Total Bilirubin 0.4 mg/dL (0.2-1.0) 08/19/18 12:50 AST 18 IU/L (10-42) 08/19/18 12:50 ALT 9 IU/L (10-60) L 08/19/18 12:50 Alkaline Phosphatase 70 IU/L (42-121) 08/19/18 12:50 Serum Total Protein 7.3 gm/dL (6.4-8.2) 08/19/18 12:50 Albumin 3.5 g/dl (3.2-5.5) 08/19/18 12:50 Globulin 3.8 gm/dL (2.3-3.5) H 08/19/18 12:50 Albumin/Globulin Ratio 0.9 (1.1-1.9) L 08/19/18 12:50 Patient Name: ANGIE BRITO Gender: Female Date of : 1935 Referring Physician: ANTONELLA AMAYA Organization: [facility] Accession Number: [id number] Requested Date: August 19, 2018 12:40 Report Status: Final Requested Procedure: 1 Procedure Description: Chest,2 Views Modality: CR Findings Reporting MD: Philip Zhou Fellow MD: Not available Dictation Time: General Ii Farmworker: Not available Headhunter Date: EXAM DESCRIPTION: Chest,2 Views CLINICAL HISTORY: SOB/COPD exacerbation COMPARISON: Previous study June 23, 2017 TECHNIQUE: PA/lateral FINDINGS: Previous study showed large heart with increased vessels. Heart size is prominent but somewhat smaller than on previous study with lesser prominence of the pulmonary vascularity. No pleural effusion or pneumothorax. Interstitial markings are increased in the left perihilar and left lower lobe region which may be interstitial infiltrate or fibrotic changes. Findings are similar to previous study in this area. Minimal patchy partial volume loss in the medial right lung base. Lungs are otherwise clear with no consolidating infiltrate. Lateral view shows intact sternum and T-spine. IMPRESSION: Prominent heart with increased vascularity. Interstitial infiltrate or fibrotic changes in the left lower lung. Departure - Departure Clinical Impression: COPD exacerbation Disposition: Admit Patient Departure Forms: ED Discharge - Pt. Copy, Patient Portal Self Enrollment Instructions: DI for Ear Pain-Adult Referrals: Mehrdad Alex III, MD [Primary Care Provider] - 1-2 Weeks Home Medications: Ambulatory Orders ALPRAZolam [Xanax] 0.5 mg PO TID PRN 04/12/15 Esomeprazole Magnesium [Nexium] 40 mg PO DAILY 04/12/15 Furosemide 60 mg PO DAILY 04/12/15 Linagliptin [Tradjenta] 5 mg PO DAILY 04/12/15 Nitroglycerin [Nitrostat] 0.4 mg SL PRN PRN 04/12/15 Prasugrel [Effient] 10 mg PO DAILY 04/12/15 Simvastatin 40 mg PO BEDTIME 04/12/15 Aspirin [Aspirin Adult Low Dose] 81 mg PO DAILY 05/03/15 Spironolactone [Aldactone] 50 mg PO DAILY 05/03/15 Lisinopril 10 mg PO DAILY 08/07/15 Insulin Aspart [Novolog] 0 unit SC ACHS PRN 02/24/17 Insulin Detemir [Levemir] 14 unit SUBCU BEDTIME 02/24/17 Magnesium Hydroxide [Milk Of Magnesia] 1 arelis PO PRN PRN 02/24/17 Metoclopramide Tab [Reglan Tab] 10 mg PO TID PRN 02/24/17 Acetamin W/Cod #3 Tab [Tylenol w/CODEINE #3] 1 ea PO Q4H PRN 08/19/18 Amoxicillin 875 mg PO BID 08/19/18 Promethazine Tab [Phenergan Tablet] 25 mg PO TID 08/19/18 Decision To Admit - Decistion To Admit Decision to Admit Reason: Admit from ER Decision to Admit Date: 08/19/18 Decision to Admit Time: 14:18
--- NOTE | 2018-08-19 13:16 | RAD ---
EXAM DESCRIPTION: Chest,2 Views CLINICAL HISTORY: SOB/COPD exacerbation COMPARISON: Previous study June 23, 2017 TECHNIQUE: PA/lateral FINDINGS: Previous study showed large heart with increased vessels. Heart size is prominent but somewhat smaller than on previous study with lesser prominence of the pulmonary vascularity. No pleural effusion or pneumothorax. Interstitial markings are increased in the left perihilar and left lower lobe region which may be interstitial infiltrate or fibrotic changes. Findings are similar to previous study in this area. Minimal patchy partial volume loss in the medial right lung base. Lungs are otherwise clear with no consolidating infiltrate. Lateral view shows intact sternum and T-spine. IMPRESSION: Prominent heart with increased vascularity. Interstitial infiltrate or fibrotic changes in the left lower lung. Electronically signed by: Philip Zhou MD 08/19/2018 1:15 PM [id number]
[2018-08-19] MEDS ORDERED: ACETAMINOPHEN 500 MG TAB PO ONE (13:18)
[2018-08-19] MEDS ORDERED: BUDESONIDE NEBS 0.5 MG/2 ML VIAL NEB ONE (13:22)
[2018-08-19] MEDS ORDERED: LEVALBUTEROL NEBS 1.25 MG/3 ML VIAL NEB ONE (13:22)
[2018-08-19] MEDS ORDERED: cefTRIAXone SODIUM 1 GM in SODIUM CHL 0.9% 50ML MIN-BAG+ 50 ML IVPB ONE (13:23)
[2018-08-19] MEDS ORDERED: ASPIRIN TABLET 325 MG TAB PO ONE (13:24)
[2018-08-19] MEDS ORDERED: cefTRIAXone SODIUM 1 GM VIAL ONE (13:29)
[2018-08-19] MEDS ORDERED: SODIUM CHL 0.9% 50ML MIN-BAG+ 50 ML IVPB ONE (13:29)
[2018-08-19] MEDS ORDERED: SODIUM CHLORIDE 0.9% 100ML 100 ML IVPB ONE (14:58)
[2018-08-19] MEDS ORDERED: diltiaZEM DRIP 125 MG/25 ML VIAL IVPB ONE (14:58)
[2018-08-19] MEDS ORDERED: diltiaZEM DRIP 125 MG in SODIUM CHLORIDE 0.9% 100ML 100 ML IVPB SCH (15:00)
--- NOTE | 2018-08-19 17:58 | HP ---
SUPERVISING PHYSICIAN: Rishabh Elena MD CHIEF COMPLAINT: Sore throat, cough, shortness of breath. HISTORY OF PRESENT ILLNESS: This is an 82 year-old female patient who presented to the Emergency Room with a 2-day history of sore throat and difficulty breathing. She spoke with her primary care physician yesterday and she was started on amoxicillin. As the day progressed, she significantly worsened and was having coughing, wheezing and worsening shortness of breath. She has a history of chronic obstructive pulmonary disease. She does not wear oxygen at home and she has not taken any breathing treatments. She smoked previously but quit about 20 years ago. She had been given three breathing treatments and continued to wheeze with complaints of shortness of breath. Her initial laboratory showed a normal white count of 10,300 with hemoglobin of 11.5 and hematocrit of 34.3. Her sodium was low at 128 with potassium of 4.7, chloride 95. BUN 35, creatinine elevated from her normal at 2.7. Her baseline creatinine is about 1.9. Glucose 115, lactic acid 1. Liver enzymes were unremarkable. While she was in the Emergency Room and prior to coming to the floor, she went into atrial fibrillation with rapid ventricular response. She was placed on a Cardizem drip initially. Cardiac enzymes were drawn and they were within normal limits. Her EKG showed atrial fibrillation with rapid ventricular response. She does have a history of SVT as well as atrial fibrillation but she has not been treated for it in some time. The patient does say that she occasionally has rapid heart beat but she does not know if she takes any medication for it or if she has been treated for it lately. According to her medication list she is on an Rashid inhibitor but no other antihypertensive or antiarrhythmic drugs. Repeat troponin was done and it was 0.03. Her heart rate went down into the 80s and the Cardizem drip was discontinued and she was admitted to the Floor. PAST MEDICAL HISTORY: 1. Chronic obstructive pulmonary disease with multiple hospitalizations. 2. Carotid artery stenosis. 3. Coronary artery disease. 4. Hyperlipidemia. 5. Hypertension. 6. Gastroesophageal reflux disease. 7. Duodenal ulcer. 8. Chronic renal insufficiency with baseline creatinine between 1.9 and 2. 9. Diabetes mellitus type 2. 10. Gastroparesis, complication of diabetes. 11. Morbid obesity. 12. History of atrial fibrillation. PAST SURGICAL HISTORY: 1. Biopsy of the breast. 2. Cholecystectomy. 3. Coronary artery bypass graft in 1998. 4. Carotid artery stint in February 2012. HOME MEDICATIONS: Per the EMR and awaiting verification. ALLERGIES: LYRICA AND MORPHINE. SOCIAL HISTORY: She lives at home. She has a history of smoking but quit over 20 years ago. She denies any alcohol or illicit drug use. REVIEW OF SYSTEMS: GENERAL: Negative for fever or fatigue or weight changes. HEENT: Positive for sore throat, negative for sinus symptoms, ear pain or vision changes. RESPIRATORY: Positive for coughing, wheezing and shortness of breath. CARDIAC: Negative for chest pain, palpitations or tachycardia, although she did have palpitations in the Emergency Room. They have ceased at this time. ABDOMEN: Negative for nausea, vomiting, diarrhea, constipation or abdominal pains. GENITOURINARY: Negative for hematuria, dysuria or polyuria. NEUROLOGICAL: Positive for headaches. negative for dizziness or seizures. SKIN: Negative for lesions or rashes. PHYSICAL EXAMINATION: VITAL SIGNS: She is afebrile. Heart rate 89, blood pressure 136/84, respiratory rate 20, 02 saturation 93% on 2 liters nasal cannula. GENERAL: This is an 82 year-old obese female who is lying in her hospital bed. She is in no acute distress. HEENT: Normocephalic and atraumatic. Pupils are equal and reactive. Oropharynx is clear. Her posterior pharynx is slightly erythematous. NECK: Supple without mass. RESPIRATORY: Expiratory wheezes throughout all lung [place]. She is somewhat diminished at the bases and she is slightly tachypneic at times with her respiratory rate going up to 22. She does speak in short phrases due to her dyspnea. CHEST: There is equal rise and fall of the chest with inspiration and expiration. CARDIOVASCULAR: Regular rate and rhythm. Sinus rhythm on the hospital monitor. ABDOMEN: Soft, nondistended, non-tender. Bowel sounds are positive. EXTREMITIES: No cyanosis, clubbing, or edema. NEUROLOGIC: She is awake, alert, and oriented x3. Cranial nerves II through XII are grossly intact. SKIN: Warm and dry. LABORATORY: Per the history of present illness. RADIOLOGY: Chest x-ray shows prominent heart with increased vascularity with interstitial infiltrate or fibrotic changes in the left lower lung. All other labs and films have been reviewed via the EMR. ASSESSMENT: 1. Chronic obstructive pulmonary disease with acute exacerbation with concerns for community acquired pneumonia. 2. Atrial fibrillation with rapid ventricular response. She was on a Cardizem drip but is now in normal sinus rhythm. 3. Hyponatremia. 4. Acute on chronic renal failure, baseline creatinine is 1.9 to 2. 5. Diabetes mellitus type 2. 6. Gastroesophageal reflux disease. PLAN: We will admit the patient to the hospital. She will have aggressive pulmonary hygiene including breathing treatments. She received Rocephin in the Emergency Room. I have continued that and added Zithromycin. She has Lovenox for DVT prophylaxis, a PPI for ulcer prophylaxis. I have continued her home medications, given her Zofran as an antiemetic. She will have labs and chest x- ray in the morning. Her Cardizem drip has been discontinued and she will continue on Cardizem 30 mg every 6 hours. She has an appointment with her yard spotter, Dr. Hugo, on September 13. We will continue to monitor closely and follow as needed. Dr. Elena is the collaborating physician available for consultation. #[id number] [facility]
[2018-08-19] MEDS ORDERED: LEVALBUTEROL NEBS 1.25 MG/3 ML VIAL INH PRN (20:55)
[2018-08-19] MEDS ORDERED: GLUCAGON INJ 1 MG VIAL SUBCU PRN (20:59)
[2018-08-19] MEDS ORDERED: DEXTROSE 50% 25 GM/50 ML SYG IV PRN (20:59)
[2018-08-19] MEDS ORDERED: ONDANSETRON INJ 4 MG/2 ML VIAL IV PRN (21:13)
[2018-08-19] MEDS ORDERED: ENOXAPARIN SODIUM 40 MG/0.4 ML SYG SUBCU SCH (21:30)
[2018-08-19] MEDS: ACETAMINOPHEN 325 MG TAB PO PRN (21:42)
[2018-08-19] MEDS ORDERED: SODIUM CHLORIDE 0.9% 250ML 250 ML ONE (21:45)
[2018-08-19] MEDS ORDERED: AZITHROMYCIN IV 500 MG VIAL IVPB ONE (21:46)
[2018-08-19] MEDS: INSULIN LISPRO 100 UNITS/ML PEN SUBCU SCH (21:48)
[2018-08-19] MEDS: AZITHROMYCIN IV 500 MG in SODIUM CHLORIDE 0.9% 250ML 250 ML IVPB SCH (21:49)
[2018-08-19] MEDS: diltiaZEM HCL TAB 30 MG TAB PO SCH (21:51)
[2018-08-19] MEDS: IV SET AND CAP CHANGE INJ INJ SCH (21:52)
[2018-08-20] MEDS: ALPRAZolam 0.5 MG TAB PO PRN ×2 (00:46→20:56)
[2018-08-20] MEDS: ACETAMINOPHEN 325 MG TAB PO PRN ×2 (03:16→10:04)
[2018-08-20] MEDS: diltiaZEM HCL TAB 30 MG TAB PO SCH ×4 (03:17→20:42)
[2018-08-20] MEDS: PANTOPRAZOLE SODIUM IV 40 MG VIAL IV SCH (05:56)
[2018-08-20] MEDS: SODIUM CHLORIDE 0.9% (FLUSH) 10 ML SYG IV PRN (05:57)
--- NOTE | 2018-08-20 06:41 | RAD ---
EXAM DESCRIPTION: Chest,2 Views CLINICAL HISTORY:82 years Female, Pneumonia Comparison: August 19, 2018 FINDINGS: Minimal subsegmental atelectasis or scarring at the lung bases. No focal consolidation. Sternotomy wires noted. No pleural effusion. No pneumothorax. Cardiac and mediastinal silhouette is unremarkable. No acute osseous abnormality. Soft tissues are unremarkable. IMPRESSION: Minimal subsegmental atelectasis or scarring at the lung bases. No focal lung consolidation. Electronically signed by: Virgilio Diamond MD 08/20/2018 6:40 AM [facility]
[2018-08-20] MEDS ORDERED: LEVALBUTEROL NEBS 1.25 MG/3 ML VIAL NEB PRN (08:00)
[2018-08-20] MEDS ORDERED: MAGNESIUM SULFATE PREMIX 2GM 2 GM in PREMIX BAG 1 BAG IVPB ONE (08:47)
[2018-08-20] MEDS: LEVALBUTEROL NEBS 1.25 MG/3 ML VIAL NEB SCH ×4 (08:55→20:25)
[2018-08-20] MEDS: PRASUGREL 10 MG TAB PO SCH (09:21)
[2018-08-20] MEDS: FUROSEMIDE 40 MG TAB PO SCH (09:21)
[2018-08-20] MEDS: SPIRONOLACTONE 25 MG TAB PO SCH (09:22)
[2018-08-20] MEDS: INSULIN LISPRO 100 UNITS/ML PEN SUBCU SCH ×4 (09:23→21:48)
[2018-08-20] MEDS: LISINOPRIL 5 MG TAB PO SCH (09:23)
[2018-08-20] MEDS: ASPIRIN (ENTERIC COATED) 81 MG TAB PO SCH (09:23)
[2018-08-20] MEDS: SODIUM CHLORIDE 0.9% (FLUSH) 10 ML SYG IV SCH ×2 (09:24→20:42)
[2018-08-20] MEDS ORDERED: MAGNESIUM SULFATE PREMIX 2GM 50 ML IVPB ONE (09:57)
--- NOTE | 2018-08-20 13:36 | PN ---
DATE: 08/20/18 SUPERVISING PHYSICIAN: Rishabh Elena M.D. SUBJECTIVE: The patient is sitting up in bed. She complains of shortness of breath and coughing, but it has improved since yesterday. She said she had a big bowel movement overnight so no complaints of chest pain, nausea, vomiting, diarrhea or constipation. OBJECTIVE: VITAL SIGNS: Temperature 98.1, heart rate runs between 59 and 95. It is irregular. Blood pressure is 94/58, respiratory rate 24, O2 sat is 92% on 2 liters nasal cannula. RESPIRATORY: Very coarse breath sounds throughout with a few scattered wheezes in the upper lung [place]. She is slightly tachypneic and has to speak in short phrases. CARDIAC: Regular to slightly tachycardic rate, irregular rhythm. GASTROINTESTINAL: Abdomen is soft. She is obese. It is rounded. It is non-tender. Bowel sounds are positive. NEUROLOGIC: She is awake, alert and oriented times three. LABORATORY: WBCs are 11,600 with hemoglobin 10.4, hematocrit 31.7. Sodium is low at 130, potassium 4.3, chloride 95, carbon dioxide 25, creatinine 2.23. Her baseline creatinine is around 2. Blood sugars have run between 114 and 219. Magnesium is low at 1.4. Urine culture is pending. There were no blood cultures done in the E. R. Chest x-ray shows minimal subsegmental atelectasis or scarring at the lung bases. No focal lung consolidation. All other labs and films have been reviewed via the EMR. ASSESSMENT: 1. Chronic obstructive pulmonary disease with acute exacerbation with concerns for community acquired pneumonia. 2. Atrial fibrillation with rapid ventricular response. She was on a Cardizem drip but is now in normal sinus rhythm. 3. Hyponatremia. 4. Acute on chronic renal failure, baseline creatinine is 1.9 to 2. 5. Diabetes mellitus type 2. 6. Gastroesophageal reflux disease. PLAN: We will continue present supportive care, including good pulmonary hygiene. Will continue with her Rocephin and azithromycin. Her heart rate on the spring assembler supervisor has run between sinus rhythm and atrial fibrillation, but her rate is controlled on Cardizem. I will have nursing staff watch for her going into atrial fibrillation and to try to get at least a read out on the monitor, and if possible an EKG so that can be shown to Dr. Hugo when she has a followup with him. I am holding off on steroids at this point because in the past she has had extremely high blood sugars after getting even small doses of prednisone, so we will try to continue with the aggressive pulmonary hygiene and monitor her labs as well as her clinical improvement. She does meet requirements for sleep apnea test per Respiratory, so that can be done as an outpatient after discharge. I have given her a dose of magnesium and I will recheck her magnesium level at 2:00 in case she needs more. I have also added Mucinex and I have repeated her labs for in the morning. Will continue to watch her closely and monitor as needed. #[id number] [facility]
[2018-08-20] MEDS: LINAGLIPTIN 5 MG PO SCH (14:18)
[2018-08-20] MEDS ORDERED: SODIUM CHL 0.9% 50ML MIN-BAG+ 50 ML IVPB ONE (15:38)
[2018-08-20] MEDS ORDERED: cefTRIAXone SODIUM 1 GM VIAL ONE (15:39)
[2018-08-20] MEDS: cefTRIAXone SODIUM 1 GM in SODIUM CHL 0.9% 50ML MIN-BAG+ 50 ML IVPB SCH (15:47)
[2018-08-20] MEDS: ACETAMINOPHEN W/COD #3 TAB 1 EA TAB PO PRN (17:58)
[2018-08-20] MEDS ORDERED: SODIUM CHLORIDE 0.9% 250ML 250 ML ONE (19:47)
[2018-08-20] MEDS ORDERED: AZITHROMYCIN IV 500 MG VIAL IVPB ONE (19:48)
[2018-08-20] MEDS: ENOXAPARIN SODIUM 40 MG/0.4 ML SYG SUBCU SCH (20:41)
[2018-08-20] MEDS: AZITHROMYCIN IV 500 MG in SODIUM CHLORIDE 0.9% 250ML 250 ML IVPB SCH (20:42)
[2018-08-20] MEDS: SIMVASTATIN 20 MG TAB PO SCH (20:43)
[2018-08-20] MEDS: INSULIN DETEMIR 100 UNITS/ML PEN SUBCU SCH (21:48)
[2018-08-21] MEDS: diltiaZEM HCL TAB 30 MG TAB PO SCH ×4 (03:33→21:25)
[2018-08-21] MEDS: ACETAMINOPHEN 325 MG TAB PO PRN (05:11)
[2018-08-21] MEDS: PANTOPRAZOLE SODIUM IV 40 MG VIAL IV SCH (06:15)
[2018-08-21] MEDS: LEVALBUTEROL NEBS 1.25 MG/3 ML VIAL NEB SCH ×4 (08:25→20:32)
[2018-08-21] MEDS: INSULIN LISPRO 100 UNITS/ML PEN SUBCU SCH ×4 (08:53→21:35)
[2018-08-21] MEDS: SPIRONOLACTONE 25 MG TAB PO SCH (09:38)
[2018-08-21] MEDS: FUROSEMIDE 40 MG TAB PO SCH (09:39)
[2018-08-21] MEDS: PRASUGREL 10 MG TAB PO SCH (09:39)
[2018-08-21] MEDS: LISINOPRIL 5 MG TAB PO SCH (09:40)
[2018-08-21] MEDS: ASPIRIN (ENTERIC COATED) 81 MG TAB PO SCH (09:40)
[2018-08-21] MEDS: LINAGLIPTIN 5 MG PO SCH (12:06)
[2018-08-21] MEDS: SODIUM CHLORIDE 0.9% (FLUSH) 10 ML SYG IV SCH ×2 (12:06→21:25)
[2018-08-21] MEDS: ACETAMINOPHEN W/COD #3 TAB 1 EA TAB PO PRN ×2 (14:47→18:26)
[2018-08-21] MEDS ORDERED: cefTRIAXone SODIUM 1 GM VIAL ONE (15:13)
[2018-08-21] MEDS ORDERED: SODIUM CHL 0.9% 50ML MIN-BAG+ 50 ML IVPB ONE (15:13)
[2018-08-21] MEDS: cefTRIAXone SODIUM 1 GM in SODIUM CHL 0.9% 50ML MIN-BAG+ 50 ML IVPB SCH (15:20)
[2018-08-21] MEDS ORDERED: SODIUM CHLORIDE 0.9% 250ML 250 ML ONE (19:54)
[2018-08-21] MEDS ORDERED: AZITHROMYCIN IV 500 MG VIAL IVPB ONE (19:55)
--- NOTE | 2018-08-21 20:29 | PN ---
DATE: 08/21/18 SUPERVISING PHYSICIAN: Rishabh Elena M.D. SUBJECTIVE: The patient is up on the bedside commode. She has had several bowel movements. States she is feeling much better, but nursing reports that every time her oxygen is taken off she desaturates into the low 80s. She does wear oxygen at home. She realizes that she needs it here. She does have some shortness of breath with exertion but denies chest pain, nausea, vomiting, diarrhea or constipation. OBJECTIVE: VITAL SIGNS: She is afebrile, heart rate 70, blood pressure 129/63, respiratory rate 24, O2 sat is 94% on 1 liter nasal cannula, but if her oxygen is taken off she drops into the low 80s. RESPIRATORY: A few scattered rhonchi throughout but there is no wheezing. CARDIAC: Regular rate and rhythm. GASTROINTESTINAL: Abdomen is soft, nondistended, non-tender. Bowel sounds are positive. NEUROLOGIC: She is awake, alert and oriented times three. LABORATORY: WBCs have normalized to 10,00 with hemoglobin 11.4, hematocrit 33.9. Blood sugars have run between 131 and 191. Sodium has improved from yesterday. It is at 132. Potassium 4.7, chloride 98, carbon dioxide 25. BUN 37, creatinine has slightly improved to 2.19, magnesium 1.9, calcium 9.2. Urine culture is pending. All other labs and films have been reviewed via the EMR. ASSESSMENT: 1. Chronic obstructive pulmonary disease with acute exacerbation with concerns for community acquired pneumonia. 2. Atrial fibrillation with rapid ventricular response. She was on a Cardizem drip but is now in normal sinus rhythm. 3. Hyponatremia. 4. Acute on chronic renal failure, baseline creatinine is 1.9 to 2. 5. Diabetes mellitus type 2. 6. Gastroesophageal reflux disease. PLAN: We will continue present supportive care. The patient is slowly improving. I have held off on any steroids as her blood sugars can be very much out of control when she does have any oral or IV steroids, so will monitor her very closely over the next few days as she has multiple admissions for COPD exacerbation. Will order labs and chest x-ray for in the morning. Physical Therapy has been consulted and will evaluate her for safety in going home tomorrow. She is to be encouraged to continue to wear her oxygen, although she does not like to wear it. Because of her low saturations she is strongly recommended that she wear her oxygen. Otherwise will continue to monitor closely and follow as needed. Dr. Elena is the collaborating physician available for consultation. [id number] [facility]
[2018-08-21] MEDS: ALPRAZolam 0.5 MG TAB PO PRN (21:25)
[2018-08-21] MEDS: SIMVASTATIN 20 MG TAB PO SCH (21:25)
[2018-08-21] MEDS: AZITHROMYCIN IV 500 MG in SODIUM CHLORIDE 0.9% 250ML 250 ML IVPB SCH (21:25)
[2018-08-21] MEDS: ENOXAPARIN SODIUM 40 MG/0.4 ML SYG SUBCU SCH (21:35)
[2018-08-21] MEDS: INSULIN DETEMIR 100 UNITS/ML PEN SUBCU SCH (21:36)
[2018-08-22] MEDS: diltiaZEM HCL TAB 30 MG TAB PO SCH ×3 (03:35→16:23)
[2018-08-22] MEDS: SODIUM CHLORIDE 0.9% (FLUSH) 10 ML SYG IV PRN (06:05)
[2018-08-22] MEDS: PANTOPRAZOLE SODIUM IV 40 MG VIAL IV SCH (06:06)
--- NOTE | 2018-08-22 07:02 | RAD ---
EXAM DESCRIPTION: Chest,2 Views CLINICAL HISTORY: 82 years Female copd COMPARISON: Two-view chest 08/20/2018 TECHNIQUE: PA and lateral views of the chest are obtained. FINDINGS: Heart: The heart is normal in size and configuration. Postoperative changes of previous coronary artery bypass surgery noted with intact sternotomy wires present from previous sternotomy. Vasculature: There is mild tortuosity and moderate atherosclerosis of the aorta.. The pulmonary vascularity is normal. Mediastinum: Unremarkable []. No evidence of mass or adenopathy. Lungs: There is diffuse interstitial prominence. Increasing left retrocardiac density is concerning for atelectasis and/or pneumonia when compared to the previous study. Pleural spaces: No evidence of pleural fluid or pneumothorax. Osseous structures: There is no evidence of acute fracture, osseous destruction or osteoblastic lesions. Degenerative changes are present in the spine and shoulders. Tubes and catheters: None. Upper abdomen: No acute findings. IMPRESSION: Nonspecific interstitial prominence may be acute or chronic as from interstitial edema or an acute lower respiratory tract viral illness versus fibrosis. Focal atelectasis and or pneumonia is present in the left lower lung. Remainder of findings as described above. Electronically signed by: Kristy Thomas MD 08/22/2018 7:00 AM [employer]
[2018-08-22] MEDS: LEVALBUTEROL NEBS 1.25 MG/3 ML VIAL NEB SCH ×4 (07:40→20:09)
[2018-08-22] MEDS: INSULIN LISPRO 100 UNITS/ML PEN SUBCU SCH ×4 (07:59→20:51)
[2018-08-22] MEDS: ASPIRIN (ENTERIC COATED) 81 MG TAB PO SCH (08:40)
[2018-08-22] MEDS: PRASUGREL 10 MG TAB PO SCH (08:40)
[2018-08-22] MEDS: FUROSEMIDE 40 MG TAB PO SCH (08:41)
[2018-08-22] MEDS: LISINOPRIL 5 MG TAB PO SCH (08:41)
[2018-08-22] MEDS: LINAGLIPTIN 5 MG PO SCH (08:48)
[2018-08-22] MEDS: SODIUM CHLORIDE 0.9% (FLUSH) 10 ML SYG IV SCH ×2 (08:49→20:50)
[2018-08-22] MEDS: SPIRONOLACTONE 25 MG TAB PO SCH (08:49)
[2018-08-22] MEDS: ACETAMINOPHEN 325 MG TAB PO PRN ×2 (09:52→15:37)
[2018-08-22] MEDS ORDERED: MAGNESIUM SULFATE PREMIX 2GM 2 GM in PREMIX BAG 1 BAG IVPB ONE (13:04)
--- NOTE | 2018-08-22 14:34 | PN ---
SUPERVISING PHYSICIAN: Abhilash Siddiqi MD DATE: 08/22/18 SUBJECTIVE: The patient states she feels a little bit better than she did yesterday. She is able to walk around a little bit in the hallway, but she does not feel like she is back at her baseline at this point. She states she has a cough, but it is nonproductive at this time. OBJECTIVE: VITAL SIGNS: Blood pressure 96/52. Heart rate 52. Respiratory rate 18. Temperature 97.9. Oxygen saturation 98%. GENERAL: Ms. Lares is a 82-year-old female who does not appear to be in any active distress at this time. NEUROLOGIC: Alert and oriented. LUNGS: Still with bilateral rhonchi and scattered wheezing. CARDIOVASCULAR: Regular rate and rhythm. Normal S1, S2. ABDOMEN: Soft, obese Positive bowel sounds. EXTREMITIES: Lower extremities with 1+ edema. Capillary refill is less than 2 seconds. LABORATORY: White count 11.2, hemoglobin 9.9, hematocrit 30.1, platelet count 203. Sodium 130, potassium 4.5, chloride 96, CO2 24, BUN 40, creatinine 2.04, glucose 107, calcium 8.8, magnesium 1.6. Chest x-ray shows left lower lung pneumonia versus atelectasis and possible fibrosis as well. ASSESSMENT: 1. Chronic obstructive pulmonary disease with concern for left lower lobe pneumonia. 2. Atrial fibrillation with rapid ventricular response, now resolved to a normal sinus rhythm. 3. Hyponatremia. 4. Hypomagnesemia. 5. Acute on chronic renal failure. 6. Diabetes mellitus, type 2. 7. Gastroesophageal reflux disease. PLAN: She seems to be step-cantor improving on current therapy. She is intolerant of steroids at it causes severe hyperglycemia. We will continue her current therapy as is for now. We will replace her magnesium as well because it was low. [facility][id number] [facility]
[2018-08-22] MEDS ORDERED: MAGNESIUM SULFATE PREMIX 2GM 50 ML IVPB ONE (15:33)
[2018-08-22] MEDS ORDERED: cefTRIAXone SODIUM 1 GM VIAL ONE (15:38)
[2018-08-22] MEDS ORDERED: SODIUM CHL 0.9% 50ML MIN-BAG+ 50 ML IVPB ONE (15:38)
[2018-08-22] MEDS: guaiFENesin ER TAB 600 MG TAB PO SCH ×2 (15:40→20:50)
[2018-08-22] MEDS: cefTRIAXone SODIUM 1 GM in SODIUM CHL 0.9% 50ML MIN-BAG+ 50 ML IVPB SCH (15:40)
[2018-08-22] MEDS ORDERED: SODIUM CHLORIDE 0.9% 250ML 250 ML ONE (19:21)
[2018-08-22] MEDS ORDERED: AZITHROMYCIN IV 500 MG VIAL IVPB ONE (19:22)
[2018-08-22] MEDS: AZITHROMYCIN IV 500 MG in SODIUM CHLORIDE 0.9% 250ML 250 ML IVPB SCH (20:50)
[2018-08-22] MEDS: ALPRAZolam 0.5 MG TAB PO PRN (20:50)
[2018-08-22] MEDS: SIMVASTATIN 20 MG TAB PO SCH (20:50)
[2018-08-22] MEDS: INSULIN DETEMIR 100 UNITS/ML PEN SUBCU SCH (20:51)
[2018-08-22] MEDS: IV SET AND CAP CHANGE INJ INJ SCH (20:54)
[2018-08-22] MEDS: ENOXAPARIN SODIUM 40 MG/0.4 ML SYG SUBCU SCH (20:54)
[2018-08-23] MEDS: ACETAMINOPHEN 325 MG TAB PO PRN ×2 (04:10→12:54)
[2018-08-23] MEDS: INSULIN LISPRO 100 UNITS/ML PEN SUBCU SCH ×4 (07:57→21:11)
[2018-08-23] MEDS: FUROSEMIDE 40 MG TAB PO SCH (08:29)
[2018-08-23] MEDS: LISINOPRIL 5 MG TAB PO SCH (08:29)
[2018-08-23] MEDS: PANTOPRAZOLE SODIUM IV 40 MG VIAL IV SCH (08:29)
[2018-08-23] MEDS: PRASUGREL 10 MG TAB PO SCH (08:29)
[2018-08-23] MEDS: guaiFENesin ER TAB 600 MG TAB PO SCH ×2 (08:29→20:32)
[2018-08-23] MEDS: ASPIRIN (ENTERIC COATED) 81 MG TAB PO SCH (08:29)
[2018-08-23] MEDS: SPIRONOLACTONE 25 MG TAB PO SCH (08:30)
[2018-08-23] MEDS: LEVALBUTEROL NEBS 1.25 MG/3 ML VIAL NEB SCH ×4 (08:45→21:04)
[2018-08-23] MEDS: LINAGLIPTIN 5 MG PO SCH (13:15)
[2018-08-23] MEDS: SODIUM CHLORIDE 0.9% (FLUSH) 10 ML SYG IV SCH ×2 (13:16→20:34)
--- NOTE | 2018-08-23 13:28 | PN ---
DATE: 08/23/18 SUPERVISING PHYSICIAN: Abhilash Siddiqi M.D. SUBJECTIVE: Ms. Lares is feeling a lot better today. She states she is breathing better and she is about to get up and walk. OBJECTIVE: Blood pressure 105/63, heart rate 65, respiratory rate 16, temperature 98.2, oxygen saturation 96%. GENERAL: Ms. Lares is an 82 year- old female in no active distress. NEUROLOGIC: The patient is alert and oriented. LUNGS: Much less wheezy then yesterday but she still has scattered rhonchi which appears to be improved as well. CARDIOVASCULAR: Regular rate and rhythm. Normal S1 and S2. ABDOMEN: Soft. Positive bowel sounds. EXTREMITIES: Lower extremities with 1+ edema. Capillary refill less than 2 seconds. LABORATORY: White count 9.5, hemoglobin 10.2, hematocrit 31.1, platelet count 204. Chemistry shows sodium 130, potassium 4.9, chloride 97, CO2 is 24, BUN 44, creatinine 2.24, glucose 105, calcium 9.0. ASSESSMENT: 1. Chronic obstructive pulmonary disease exacerbation. 2. Left lower lobe pneumonia. 3. Atrial fibrillation with rapid ventricular response, resolved. 4. Hyponatremia. 5. Hypomagnesemia. 6. Acute on chronic renal failure. 7. Diabetes mellitus type 2. 8. Gastroesophageal reflux disease. PLAN: She is continuing to stepwise improve. Lungs sound quite a bit better. Her heart rate did drop in the 40s yesterday. I discontinued her Diltiazem. She is not taking that at home and was transitioned back from the Cardizem drop once she was in atrial fibrillation with RVR. Will continue to keep her off of this and monitor. She likely went into atrial fibrillation with her acute illness and the breathing treatments that were given consecutively, but I will watch her today and ensure that she does not need to be placed on anything chronically. Likely discharge tomorrow on antibiotics. #[id number] [facility]
[2018-08-23] MEDS ORDERED: SODIUM CHL 0.9% 50ML MIN-BAG+ 50 ML IVPB ONE (17:01)
[2018-08-23] MEDS ORDERED: cefTRIAXone SODIUM 1 GM VIAL ONE (17:02)
[2018-08-23] MEDS: cefTRIAXone SODIUM 1 GM in SODIUM CHL 0.9% 50ML MIN-BAG+ 50 ML IVPB SCH (17:03)
[2018-08-23] MEDS ORDERED: SODIUM CHLORIDE 0.9% 250ML 250 ML ONE (19:35)
[2018-08-23] MEDS ORDERED: AZITHROMYCIN IV 500 MG VIAL IVPB ONE (19:37)
[2018-08-23] MEDS: ALPRAZolam 0.5 MG TAB PO PRN (20:32)
[2018-08-23] MEDS: SIMVASTATIN 20 MG TAB PO SCH (20:32)
[2018-08-23] MEDS: ENOXAPARIN SODIUM 40 MG/0.4 ML SYG SUBCU SCH (20:33)
[2018-08-23] MEDS: AZITHROMYCIN IV 500 MG in SODIUM CHLORIDE 0.9% 250ML 250 ML IVPB SCH (20:35)
[2018-08-23] MEDS: INSULIN DETEMIR 100 UNITS/ML PEN SUBCU SCH (21:11)
[2018-08-24] MEDS: ACETAMINOPHEN W/COD #3 TAB 1 EA TAB PO PRN (01:28)
[2018-08-24] MEDS: SODIUM CHLORIDE 0.9% (FLUSH) 10 ML SYG IV PRN (06:30)
[2018-08-24] MEDS: PANTOPRAZOLE SODIUM IV 40 MG VIAL IV SCH (06:30)
--- NOTE | 2018-08-24 07:00 | RAD ---
Procedure: XR CHEST 1 VIEW Exam Date: 08/24/2018 Ordering Provider: Prashanth Zhou Clinical Indication: pneumonia follow up Comparison: 08/22/2018 Findings: Residuals of thoracic surgery. Cardiomediastinal silhouette is stable. Aortic calcification. Persistent left retrocardiac subsegmental atelectasis and/or infiltrate. Peribronchial thickening bilaterally. No large pleural effusion. No pneumothorax. No acute osseous abnormality. Impression: 1. Persistent left retrocardiac subsegmental atelectasis and/or infiltrate. Electronically signed by: Jesus Alicea MD 08/24/2018 6:58 AM [employer]
[2018-08-24] MEDS: INSULIN LISPRO 100 UNITS/ML PEN SUBCU SCH ×2 (07:18→11:44)
[2018-08-24] MEDS: LEVALBUTEROL NEBS 1.25 MG/3 ML VIAL NEB SCH (08:45)
[2018-08-24] MEDS: guaiFENesin ER TAB 600 MG TAB PO SCH (09:54)
[2018-08-24] MEDS: FUROSEMIDE 40 MG TAB PO SCH (09:54)
[2018-08-24] MEDS: LISINOPRIL 5 MG TAB PO SCH (09:55)
[2018-08-24] MEDS: ASPIRIN (ENTERIC COATED) 81 MG TAB PO SCH (09:55)
[2018-08-24] MEDS: SPIRONOLACTONE 25 MG TAB PO SCH (09:55)
[2018-08-24] MEDS: SODIUM CHLORIDE 0.9% (FLUSH) 10 ML SYG IV SCH (09:56)
[2018-08-24] MEDS: LINAGLIPTIN 5 MG PO SCH (09:56)
[2018-08-24] MEDS: PRASUGREL 10 MG TAB PO SCH (09:56)
[2018-08-24 10:33] VITALS: BP 107/67; TEMP 98.4; O2SAT 97
--- NOTE | 2018-08-25 08:13 | DS ---
SUPERVISING PHYSICIAN: Abhilash Siddiqi MD ADMISSION DIAGNOSIS: 1. Chronic obstructive pulmonary disease with acute exacerbation with concerns for community acquired pneumonia. 2. Atrial fibrillation with rapid ventricular response. She was on a Cardizem drip but is now in normal sinus rhythm. 3. Hyponatremia. 4. Acute on chronic renal failure, baseline creatinine is 1.9 to 2. 5. Diabetes mellitus, type 2. 6. Gastroesophageal reflux disease. DISCHARGE DIAGNOSIS: 1. Chronic obstructive pulmonary disease with exacerbation secondary to left lower lobe pneumonia, community acquired, showing improvement with aggressive bronchial hygiene and parenteral antibiotics, now able to transition to outpatient management. 2. Atrial fibrillation with initial rapid ventricular response, back to baseline rhythm after being on Cardizem drip, showing to be normal sinus rhythm at discharge. 3. Hyponatremia, showing improvement with fluids. 4. Acute on chronic renal failure, back to baseline levels. 5. Diabetes mellitus, type 2, controlled. 6. Chronic gastroesophageal reflux disease. REASON FOR HOSPITALIZATION: This is an 82 year-old female patient who presented to the Emergency Room with a 2-day history of sore throat and difficulty breathing. She spoke with her primary care physician yesterday and she was started on amoxicillin. As the day progressed, she significantly worsened and was having coughing, wheezing and worsening shortness of breath. She has a history of chronic obstructive pulmonary disease. She does not wear oxygen at home and she has not taken any breathing treatments. She smoked previously but quit about 20 years ago. She had been given three breathing treatments and continued to wheeze with complaints of shortness of breath. Her initial laboratory showed a normal white count of 10,300 with hemoglobin of 11.5 and hematocrit of 34.3. Her sodium was low at 128 with potassium of 4.7, chloride 95. BUN 35, creatinine elevated from her normal at 2.7. Her baseline creatinine is about 1.9. Glucose 115, lactic acid 1. Liver enzymes were unremarkable. While she was in the Emergency Room and prior to coming to the floor, she went into atrial fibrillation with rapid ventricular response. She was placed on a Cardizem drip initially. Cardiac enzymes were drawn and they were within normal limits. Her EKG showed atrial fibrillation with rapid ventricular response. She does have a history of SVT as well as atrial fibrillation but she has not been treated for it in some time. The patient does say that she occasionally has rapid heart beat but she does not know if she takes any medication for it or if she has been treated for it lately. According to her medication list she is on an LAZ inhibitor but no other antihypertensive or antiarrhythmic drugs. Repeat troponin was done and it was 0.03. Her heart rate went down into the 80s and the Cardizem drip was discontinued and she was admitted to the Floor. LABORATORY: White count on admission was 10,300, discharge was 9,700. Hemoglobin and hematocrit were stable and at discharge were 10.5 and 31.9, respectively, with platelet count 230,000. Differential showed a left shift which resolved prior to discharge. Chemistries showed a moderate hyponatremia initially at 128. At discharge, it had improved to 132. Potassium was 4.7 on admission and at discharge was 4.7. Initial creatinine was 2.17 and at discharge was returning to baseline and was down to 1.98. Blood sugars were well controlled between 126 and 219. Calcium at discharge was 9.3. Magnesium was low on admission, but improved with replacement and was at 1.9 after replacement. Urinalysis showed a trace of intact blood, moderate leukocyte esterase, greater than 100 WBCs, 10 to 20 epithelials, rare bacteria, rare yeast. MICROBIOLOGY: Sputum culture pending. Urine culture pending. RADIOLOGY: Initial chest x-ray on admission showed prominent heart with increased vascularity with interstitial infiltrate and fibrotic changes in the left lower lung. Multiple x-rays were done in followup. Final x-ray on the morning of discharge per radiologic interpretation showed persistent retrocardiac subsegmental atelectasis and/or infiltrate. EKG showed atrial fibrillation with a rapid ventricular response shortly after admission requiring initiation of Cardizem drip, but prior to discharge was back to normal sinus rhythm. Maximum pulse rate noted was 130. HOSPITAL COURSE: Ms. Lares was admitted for community acquired pneumonia and started on treatment with antibiotics to include azithromycin and Rocephin. She completed a course of vancomycin. She was showing good clinical response. She did have an episode of atrial fibrillation with rapid ventricular response requiring Cardizem drip to convert back to normal sinus rhythm without any complications. She was showing good response to treatment and it was felt she had clinically improved enough to discharge to continue with outpatient management. PLAN: Ms. Lares was discharged on 08/24/18 with instructions to followup with Dr. Alex on 08/31/18 at 15:00 in the afternoon. She was told to return to hospital should she have any concerning symptoms. She was to resume her diabetic diet as tolerate, increase activity as tolerated. MEDICATIONS PRESCRIBED AT DISCHARGE: 1. Cefdinir 300 mg daily, renally dose for creatinine clearance of 17, #10, no refills. 2. Guaifenesin 600 mg twice daily. All other home medications were continued other than the amoxicillin, which was stopped. DISPOSITION: The patient was discharged to the care of her . CONDITION ON DISCHARGE: Stable and improving. [facility][id number] [facility]
[2018-08-25] MEDS ORDERED: LINAGLIPTIN 5 MG TAB PO SCH (09:00)
== END 2018-08-24 11:55 | disposition home or self-care (01) | DRG 190 ==
LOC: ER 12:27 → MS 17:58
PROVIDERS: ADMIT Nurse Practitioner Acute Care; ATTEND Nurse Practitioner Acute Care
DX: J44.1 Chronic obstructive pulmonary disease with (acute) exacerbation (principal); J18.9 Pneumonia, unspecified organism; E87.1 Hypo-osmolality and hyponatremia; N17.9 Acute kidney failure, unspecified; Z68.41 Body mass index [BMI] 40.0-44.9, adult; J44.0 Chronic obstructive pulmonary disease with (acute) lower respiratory infection; I48.91 Unspecified atrial fibrillation; I25.10 Atherosclerotic heart disease of native coronary artery without angina pectoris; I12.9 Hypertensive chronic kidney disease with stage 1 through stage 4 chronic kidney disease, or unspecified chronic kidney disease; K21.9 Gastro-esophageal reflux disease without esophagitis; E78.5 Hyperlipidemia, unspecified; N18.9 Chronic kidney disease, unspecified; E11.22 Type 2 diabetes mellitus with diabetic chronic kidney disease; E66.01 Morbid (severe) obesity due to excess calories; E83.42 Hypomagnesemia; Z87.891 Personal history of nicotine dependence; Z95.1 Presence of aortocoronary bypass graft; Z88.5 Allergy status to narcotic agent; Z79.82 Long term (current) use of aspirin; Z79.4 Long term (current) use of insulin; Z66 Do not resuscitate

== ENCOUNTER → 2018-11-02 | Outpatient (CLI) | payer MEDICARE, MEDICAID | LOC: BFHH 10:03 | PROVIDERS: ATTEND Family Medicine | DX: J44.9 Chronic obstructive pulmonary disease, unspecified (principal); E11.43 Type 2 diabetes mellitus with diabetic autonomic (poly)neuropathy ==

== ENCOUNTER → 2018-11-29 | Outpatient (CLI) | payer MEDICARE, MEDICAID | LOC: BFHH 10:26 | PROVIDERS: ATTEND Family Medicine | DX: D50.8 Other iron deficiency anemias (principal); D51.3 Other dietary vitamin B12 deficiency anemia ==

== ENCOUNTER 2019-05-08 06:14 | Emergency (ER) | payer MEDICARE, MEDICAID ==
[2019-05-08 06:31] VITALS: TEMP 98.2
[2019-05-08] MEDS ORDERED: HYDROcodone 7.5MG/APAP 325MG 1 EA TAB PO ONE (06:52)
--- NOTE | 2019-05-08 07:28 | RAD ---
EXAM: XR Right Humerus, 2 Views CLINICAL HISTORY: The patient is 83 years old and is Female; fall, arm pain TECHNIQUE: Frontal and lateral views of the right humerus. COMPARISON: No relevant prior studies available. FINDINGS: BONES/JOINTS: No acute fracture. No dislocation. SOFT TISSUES: No significant soft tissue swelling visualized. IMPRESSION: No acute findings visualized. Electronically signed by: Lizzette Clinton MD 05/08/2019 7:27 AM CDT
--- NOTE | 2019-05-08 07:52 | ED.PDOC ---
History of Present Illness - General Chief Complaint: Back Pain or Injury Stated Complaint: low back pain Time Seen by Provider: 05/08/19 06:51 Additional Information: Pt w cc of low back pain since this morning. Pt went to sit on the toilet and slid forward landing on her butt. No injury other than to her low back. Pt w chronic LBP, exacerbated by her fall. No LOC. Did not hit her head. Only other c/o pt has is right upper arm pain. Pt has severe arthritis and walks with a walker. In general pt has very poor mobility of legs with only limited ROM. Takes T3s at home for pain. Pain is 5/10, "ache", in low back. No other c/o. - History of Present Illness Allergies/Adverse Reactions: Allergies Morphine Adverse Reaction (Severe, Verified 06/23/18 19:25) Other Makes her "crazy" Home Medications: Ambulatory Orders ALPRAZolam [Xanax] 0.5 mg PO TID PRN 04/12/15 Esomeprazole Magnesium [Nexium] 40 mg PO DAILY 04/12/15 Furosemide 60 mg PO DAILY 04/12/15 Linagliptin [Tradjenta] 5 mg PO DAILY 04/12/15 Nitroglycerin [Nitrostat] 0.4 mg SL PRN PRN 04/12/15 Simvastatin 40 mg PO BEDTIME 04/12/15 Aspirin [Aspirin Adult Low Dose] 81 mg PO DAILY 05/03/15 Spironolactone [Aldactone] 50 mg PO DAILY 05/03/15 Lisinopril 10 mg PO DAILY 08/07/15 Insulin Aspart [Novolog] 0 unit SC ACHS PRN 02/24/17 Insulin Detemir [Levemir Pen] 14 unit SUBCU BEDTIME 02/24/17 Magnesium Hydroxide [Milk Of Magnesia] 1 arelis PO PRN PRN 02/24/17 Metoclopramide Tab [Reglan Tab] 10 mg PO TID PRN 02/24/17 Acetamin W/Cod #3 Tab [Tylenol w/CODEINE #3] 1 ea PO Q4H PRN 08/19/18 Promethazine Tab [Phenergan Tablet] 25 mg PO TID 08/19/18 Cyclobenzaprine HCl [Flexeril] 5 mg PO Q8HR PRN 05/08/19 Review of Systems - Review of Systems Constitutional: States: no symptoms reported. Denies: fever EENTM: States: no symptoms reported Respiratory: States: no symptoms reported. Denies: short of breath Gastrointestinal/Abdominal: States: no symptoms reported. Denies: vomiting Genitourinary: States: no symptoms reported. Denies: dysuria Musculoskeletal: States: see HPI, joint pain - chronic diffuse arthritis Skin: States: no symptoms reported Neurological: States: no symptoms reported. Denies: headache, numbness Endocrine: States: no symptoms reported Hematologic/Lymphatic: States: no symptoms reported Past Medical History (General) - Patient Medical History Hx Seizures: No Hx Stroke: No Hx Dementia: Yes - beginning stages Hx Asthma: No Hx of COPD: Yes Hx Cardiac Disorders: Yes Hx Congestive Heart Failure: Yes Hx Pacemaker: No Hx Hypertension: Yes Hx Thyroid Disease: No Hx Diabetes: Yes Hx Gastroesophageal Reflux: Yes Hx Renal Disease: Yes Hx Cancer: No Hx of HIV: No Hx Hepatitis C: No Hx MRSA: No Surgical History: appendectomy, cholecystectomy, coronary bypass surgery - Vaccination History Hx Tetanus, Diphtheria Vaccination: No Hx Influenza Vaccination: Yes Hx Pneumococcal Vaccination: Yes Immunizations Up to Date: Yes - Social History Hx Tobacco Use: Yes Hx Chewing Tobacco Use: No Hx Alcohol Use: No Hx Substance Use: No Hx Substance Use Treatment: No Hx Depression: No Hx Physical Abuse: No Hx Emotional Abuse: No Hx Suspected Abuse: No - Female History Patient : No - Triage Comment ED Triage Comment: Chronic low back pain, but more so after falling onto kitchen floor Family Medical History - Family History Father Living Status: Hx Cardiac Disease: Yes - multiple family members Hx Family Diabetes: Yes - multiple family members Mother Family History: Unknown Living Status: Age at (years of age): 99 Cause of : old age Hx Family Diabetes: Yes Physical Exam - Physical Exam General Appearance: Alert, Well Developed, Well Nourished, Other - Decreased mobililty, laying flat in bed Eyes, Ears, Nose, Throat Exam: PERRL/EOMI, normal ENT inspection Neck Exam: non-tender, full range of motion Cardiovascular/Respiratory: regular rate, rhythm, no M/R/G, normal breath sounds, no respiratory distress Gastrointestinal/Abdominal: tenderness Back Exam: no vertebral tenderness, decreased range of motion, muscle spasm Extremity Exam: pain with movement - of bilateral hips and knees (baseline per pt), other - Mild ttp right humerus, FROM Neurologic: pattern and chain maker II-XII nml as tested, no motor/sensory deficits Skin Exam: normal color, warm/dry Progress - Progress Progress: 05/08/19 07:57 DDx: chronic LBP, fx, strain, contusion 05/08/19 09:04 Pt's Xrays are negative w no acute findings. Pt reports that she is feeling much better and is ready to go home. She says that with her family's help she has the resources to get around at home. Pt to take her T3s for pain and f/u w her PCP this week for reevaluation. VSS, pt NAD and appears clinically well, she is safe for dc w outpt fu. RTED and f/u instructions d/w pt who voices understanding and willingness to comply. Departure - Departure Clinical Impression: Lumbar strain, Strain of upper arm, right Disposition: Discharge to Home or Self Care Condition: Fair Departure Forms: Patient Portal Self Enrollment Instructions: DI for Low Back Pain, DI for Back Strain or Sprain Diet: resume usual diet Activity: ambulate only with walker Referrals: Mehrdad Alex III, MD [Primary Care Provider] - 1-5 Days Home Medications: Ambulatory Orders ALPRAZolam [Xanax] 0.5 mg PO TID PRN 04/12/15 Esomeprazole Magnesium [Nexium] 40 mg PO DAILY 04/12/15 Furosemide 60 mg PO DAILY 04/12/15 Linagliptin [Tradjenta] 5 mg PO DAILY 04/12/15 Nitroglycerin [Nitrostat] 0.4 mg SL PRN PRN 04/12/15 Simvastatin 40 mg PO BEDTIME 04/12/15 Aspirin [Aspirin Adult Low Dose] 81 mg PO DAILY 05/03/15 Spironolactone [Aldactone] 50 mg PO DAILY 05/03/15 Lisinopril 10 mg PO DAILY 08/07/15 Insulin Aspart [Novolog] 0 unit SC ACHS PRN 02/24/17 Insulin Detemir [Levemir Pen] 14 unit SUBCU BEDTIME 02/24/17 Magnesium Hydroxide [Milk Of Magnesia] 1 arelis PO PRN PRN 02/24/17 Metoclopramide Tab [Reglan Tab] 10 mg PO TID PRN 02/24/17 Acetamin W/Cod #3 Tab [Tylenol w/CODEINE #3] 1 ea PO Q4H PRN 08/19/18 Promethazine Tab [Phenergan Tablet] 25 mg PO TID 08/19/18 Cyclobenzaprine HCl [Flexeril] 5 mg PO Q8HR PRN 05/08/19
--- NOTE | 2019-05-08 07:57 | RAD ---
EXAM DESCRIPTION: Lumbar Spine 3 Views CLINICAL HISTORY: 83 years Female fall, LBP COMPARISON: None TECHNIQUE: AP and lateral views of the lumbar spine as well as a coned down lateral view of the lumbosacral junction are obtained. FINDINGS: OSSEOUS: There is severe diffuse bone demineralization. There are no discernible acute fractures or osteolytic/blastic lesions. There is no evidence of dislocation or subluxation. Vertebral body heights are maintained. There is narrowing of all disc spaces in the lumbar spine with vertebral body marginal osteophytosis indicating lumbar spondylosis/degenerative disc disease. The alignment is normal with the exception of a very slight levoconvex lumbar curve. The visualized SI joints are preserved and sacral foraminal lines are intact. Enthesopathy noted about the left iliac crest. SOFT TISSUES The paraspinous and presacral soft tissues are unremarkable with the exception of atherosclerosis throughout the aorta, iliac vessels and splenic artery. Incidental note is made of gaseous distention of the cecum up to 6.3 cm. IMPRESSION: No acute osseous abnormalities. Multilevel lumbar spondylosis. Electronically signed by: Kristy Thomas MD 05/08/2019 7:55 AM CDT
[2019-05-08 09:33] VITALS: BP 148/45; O2SAT 98
== END 2019-05-08 09:15 | disposition home or self-care (01) ==
LOC: ER 06:14
DX: S16.1XXA Strain of muscle, fascia and tendon at neck level, initial encounter (principal); S46.911A Strain of unspecified muscle, fascia and tendon at shoulder and upper arm level, right arm, initial encounter; F03.90 Unspecified dementia, unspecified severity, without behavioral disturbance, psychotic disturbance, mood disturbance, and anxiety; J44.9 Chronic obstructive pulmonary disease, unspecified; I50.9 Heart failure, unspecified; I13.0 Hypertensive heart and chronic kidney disease with heart failure and stage 1 through stage 4 chronic kidney disease, or unspecified chronic kidney disease; E11.22 Type 2 diabetes mellitus with diabetic chronic kidney disease; N18.9 Chronic kidney disease, unspecified; K21.9 Gastro-esophageal reflux disease without esophagitis; Z87.891 Personal history of nicotine dependence; Z90.49 Acquired absence of other specified parts of digestive tract; Z95.1 Presence of aortocoronary bypass graft; Z79.899 Other long term (current) drug therapy; Z79.4 Long term (current) use of insulin; Z79.82 Long term (current) use of aspirin; Z88.5 Allergy status to narcotic agent; W18.30XA Fall on same level, unspecified, initial encounter; Y92.89 Other specified places as the place of occurrence of the external cause

== ENCOUNTER 2019-07-02 12:21 | Emergency (ER) | payer MEDICARE, MEDICAID ==
--- NOTE | 2019-07-02 12:39 | ED.PDOC ---
History of Present Illness - General Chief Complaint: Abdominal Pain Stated Complaint: Epigastric/abdomen/flank discomfort Time Seen by Provider: 07/02/19 12:36 - History of Present Illness Initial Comments: c/o upper abdominal pain since 3 days , associated with some nausea , no vomiting , or fever or chills Abdominal Pain Onset Location: LLQ, epigastric Quality: moderate, sharpness Improving Factors: nothing Worsening Factors: nothing Associated Symptoms: nausea/vomiting Review of Systems - Review of Systems Constitutional: States: no symptoms reported EENTM: States: no symptoms reported Respiratory: States: no symptoms reported Cardiology: States: no symptoms reported Gastrointestinal/Abdominal: States: see HPI Genitourinary: States: no symptoms reported Musculoskeletal: States: no symptoms reported Skin: States: no symptoms reported Neurological: States: no symptoms reported Endocrine: States: no symptoms reported Hematologic/Lymphatic: States: no symptoms reported All other Systems: Reviewed and Negative Past Medical History (General) - Patient Medical History Hx Seizures: No Hx Stroke: No Hx Dementia: Yes Hx Asthma: No Hx of COPD: Yes Hx Cardiac Disorders: Yes Hx Congestive Heart Failure: Yes Hx Pacemaker: No Hx Hypertension: Yes Hx Thyroid Disease: No Hx Diabetes: Yes Hx Gastroesophageal Reflux: Yes Hx Renal Disease: Yes Hx Cancer: No Hx of HIV: No Hx Hepatitis C: No Hx MRSA: No - Vaccination History Hx Tetanus, Diphtheria Vaccination: No Hx Influenza Vaccination: Yes Hx Pneumococcal Vaccination: Yes - Social History Hx Tobacco Use: Yes Hx Chewing Tobacco Use: No Hx Alcohol Use: No Hx Substance Use: No Hx Substance Use Treatment: No Hx Depression: No Hx Physical Abuse: No Hx Emotional Abuse: No Hx Suspected Abuse: No - Female History Patient : No Family Medical History - Family History Father Living Status: Hx Cardiac Disease: Yes - multiple family members Hx Family Diabetes: Yes - multiple family members Mother Family History: Unknown Living Status: Age at (years of age): 99 Cause of : old age Hx Family Diabetes: Yes Physical Exam - Physical Exam General Appearance: Alert, Comfortable Eyes, Ears, Nose, Throat Exam: PERRL/EOMI, normal ENT inspection Neck: non-tender, full range of motion, supple, normal inspection Respiratory: chest non-tender, lungs clear, normal breath sounds, no respiratory distress Cardiovascular/Chest: regular rate, rhythm, no edema, no gallop, no JVD, no murmur Gastrointestinal/Abdominal: soft, tenderness - epigastric and LLQ Back Exam: normal inspection Extremity: normal range of motion, non-tender, normal inspection Neurologic: no motor/sensory deficits, alert, normal mood/affect, oriented x 3 Skin Exam: normal color, warm/dry Departure - Departure Clinical Impression: Abdominal pain, Gastritis Time of Disposition: 14:45 Disposition: Discharge to Home or Self Care Condition: Good Departure Forms: ED Discharge - Pt. Copy, Patient Portal Self Enrollment Instructions: DI for Abdominal Pain-Adult Diet: resume usual diet Activity: increase activity as tolerated, walking as tolerated Referrals: Mehrdad Alex III, MD [Primary Care Provider] - 1-2 Weeks Home Medications: Ambulatory Orders Esomeprazole Magnesium [Nexium] 40 mg PO DAILY 04/12/15 Furosemide 60 mg PO DAILY 04/12/15 Linagliptin [Tradjenta] 5 mg PO DAILY 04/12/15 Nitroglycerin [Nitrostat] 0.4 mg SL PRN PRN 04/12/15 Simvastatin 80 mg PO BEDTIME 04/12/15 Aspirin [Aspirin Adult Low Dose] 81 mg PO DAILY 05/03/15 Spironolactone [Aldactone] 50 mg PO DAILY 05/03/15 Lisinopril 5 mg PO DAILY 08/07/15 Insulin Aspart [Novolog] 0 unit SC ACHS PRN 02/24/17 Insulin Detemir [Levemir Pen] 14 unit SUBCU BEDTIME 02/24/17 Magnesium Hydroxide [Milk Of Magnesia] 1 arelis PO PRN PRN 02/24/17 Metoclopramide Tab [Reglan Tab] 10 mg PO TID PRN 02/24/17 Acetamin W/Cod #3 Tab [Tylenol w/CODEINE #3] 1 ea PO Q4H PRN 08/19/18 Promethazine Tab [Phenergan Tablet] 25 mg PO TID 08/19/18 Additional Instructions: Refer to PCP for sonogram of R ovary as explained
[2019-07-02] MEDS ORDERED: ONDANSETRON INJ 4 MG/2 ML VIAL IV ONE (12:40)
[2019-07-02] MEDS ORDERED: SODIUM CHLORIDE 0.9% (FLUSH) 10 ML SYG IV PRN (12:40)
[2019-07-02] MEDS ORDERED: ALUM & MAG HYDROX-SIMETHICONE 30 ML, LIDOCAINE VISCOUS 2% 15 ML PO ONE ×2 (12:41)
[2019-07-02] MEDS ORDERED: DICYCLOMINE HCL INJ 20 MG/2 ML AMP IM ONE (12:44)
[2019-07-02] MEDS ORDERED: PANTOPRAZOLE SODIUM IV 40 MG VIAL IV ONE (12:44)
[2019-07-02 12:46] VITALS: TEMP 98.7
[2019-07-02] MEDS ORDERED: LIDOCAINE HCL 2% (MOUTH-THROAT) 15 ML UD ONE (13:17)
[2019-07-02] MEDS ORDERED: ALUM & MAG HYDROX-SIMETHICONE 30 ML UD ONE (13:17)
--- NOTE | 2019-07-02 14:37 | CT ---
EXAM: CT Abdomen and Pelvis Without Intravenous Contrast CLINICAL HISTORY: abdominal pain TECHNIQUE: Axial computed tomography images of the abdomen and pelvis without intravenous contrast. Sagittal and coronal reformatted images were created and reviewed. This CT exam was performed using one or more of the following dose reduction techniques: automated exposure control, adjustment of the mA and/or kV according to patient size, and/or use of iterative reconstruction technique. COMPARISON: 07/11/2017. FINDINGS: Limitations: Portions of the left flank are not included. Lung bases: Unremarkable. No mass. No consolidation. ABDOMEN: Liver: Unremarkable. Gallbladder and bile ducts: Cholecystectomy. No ductal dilation. Pancreas: Unremarkable. No ductal dilation. Spleen: Unremarkable. No splenomegaly. Adrenals: Unremarkable. No mass. Kidneys and ureters: There is bilateral renal cortical scarring and thinning. No obstructing stones. No hydronephrosis. Stomach and bowel: There is diverticulosis of the colon. No inflammatory process. No obstruction. No mucosal thickening. PELVIS: Appendix: No findings to suggest acute appendicitis. Bladder: Unremarkable. No stones. Reproductive: A 4.8 x 5.1 x 5.0 cm right ovarian cyst has enlarged. ABDOMEN and PELVIS: Intraperitoneal space: Unremarkable. No free air. No significant fluid collection. Bones/joints: Changes present throughout the spine. No acute fracture. No dislocation. Soft tissues: Unremarkable. Vasculature: There is atherosclerosis of the aorta and branches. Minimal localized dilatation of the thoracoabdominal aorta is unchanged. There are no aneurysm. Lymph nodes: Unremarkable. No enlarged lymph nodes. IMPRESSION: 1. A 4.8 x 5.1 x 5.0 cm right ovarian cyst has enlarged since 2017. Consider sonography. 2. No acute changes. Electronically signed by: Nona Malik MD 07/02/2019 2:35 PM CDT
[2019-07-02 14:47] VITALS: BP 124/57; O2SAT 97
== END 2019-07-02 14:56 | disposition home or self-care (01) ==
LOC: ER 12:21
DX: K29.70 Gastritis, unspecified, without bleeding (principal); I11.0 Hypertensive heart disease with heart failure; I50.9 Heart failure, unspecified; E11.9 Type 2 diabetes mellitus without complications; J44.9 Chronic obstructive pulmonary disease, unspecified; K21.9 Gastro-esophageal reflux disease without esophagitis; Z87.891 Personal history of nicotine dependence; Z79.82 Long term (current) use of aspirin; Z79.899 Other long term (current) drug therapy
CPT/HCPCS: 36415; 74176; 80048; 80076; 81001; 83690; 85025; 87077; 87086; 87186; 93005; J0500; J2405

== ENCOUNTER 2019-07-03 18:47 | Emergency (ER) | payer MEDICARE, MEDICAID ==
[2019-07-03] MEDS ORDERED: ALUM & MAG HYDROX-SIMETHICONE 30 ML, LIDOCAINE VISCOUS 2% 15 ML PO ONE ×2 (18:57)
[2019-07-03] MEDS ORDERED: SODIUM CHLORIDE 0.9% (FLUSH) 10 ML SYG IV PRN (18:57)
[2019-07-03] MEDS ORDERED: ONDANSETRON INJ 4 MG/2 ML VIAL IV ONE (18:57)
[2019-07-03] MEDS ORDERED: LIDOCAINE HCL 2% (MOUTH-THROAT) 15 ML UD ONE (19:02)
[2019-07-03] MEDS ORDERED: ALUM & MAG HYDROX-SIMETHICONE 30 ML UD ONE (19:02)
[2019-07-03 19:04] VITALS: TEMP 97.8
--- NOTE | 2019-07-03 19:13 | ED.PDOC ---
History of Present Illness - General Chief Complaint: Abdominal Pain Stated Complaint: abd pain Time Seen by Provider: 07/03/19 18:53 Information Source: patient - History of Present Illness Initial Comments: 83-year-old female presents to the emergency department complaining of epigastric and left upper quadrant pain. She reports that the pain started last night and she was seen in the emergency department and discharged home with prescriptions for pepcid and Bentyl which she took for the first time at 5 PM this evening. However the pain did not significantly subside and she decided to call EMS. She denies any associated vomiting or diarrhea, but has had a bloated feeling. She has a history of reflux and takes Protonix and Reglan. She reports it has been quite a while since she saw a GI doctor or had a scope done. She denies any chest pain or shortness of breath. Pain is currently rated as 5/10 in severity and is slightly improved after taking her medications at home. The last thing she ate was potato soup which she says was not spicy but symptoms do seem worse after eating. Denies any dysuria but states that she needs to urinate frequently and feels like she has to push her urine out. She denies any fever or chills. Review of Systems - Review of Systems Constitutional: Denies: chills, fever EENTM: Denies: nose congestion, throat pain Respiratory: Denies: cough, short of breath Cardiology: Denies: chest pain, palpitations Gastrointestinal/Abdominal: States: abdominal pain - epigastric and LUQ, nausea, other - bloated. Denies: diarrhea, vomiting Genitourinary: States: frequency. Denies: dysuria Musculoskeletal: Denies: back pain, muscle pain Skin: Denies: lesions, rash Neurological: Denies: headache, numbness, weakness Past Medical History (General) - Patient Medical History Hx Seizures: No Hx Stroke: No Hx Dementia: Yes Hx Asthma: No Hx of COPD: Yes Hx Cardiac Disorders: Yes Hx Congestive Heart Failure: Yes Hx Pacemaker: No Hx Hypertension: Yes Hx Thyroid Disease: No Hx Diabetes: Yes Hx Gastroesophageal Reflux: Yes Hx Renal Disease: Yes Hx Cancer: No Hx of HIV: No Hx Hepatitis C: No Hx MRSA: No Surgical History: appendectomy, cholecystectomy, coronary bypass surgery - Vaccination History Hx Tetanus, Diphtheria Vaccination: No Hx Influenza Vaccination: No Hx Pneumococcal Vaccination: Yes Immunizations Up to Date: No - Social History Hx Tobacco Use: Yes Hx Chewing Tobacco Use: No Hx Alcohol Use: No Hx Substance Use: No Hx Substance Use Treatment: No Hx Depression: No Hx Physical Abuse: No Hx Emotional Abuse: No Hx Suspected Abuse: No - Female History Patient is a Female of Child Bearing Age (10 -59 yrs old): No Patient : No Family Medical History - Family History Father Living Status: Hx Cardiac Disease: Yes - multiple family members Hx Family Diabetes: Yes - multiple family members Mother Family History: Unknown Living Status: Age at (years of age): 99 Cause of : old age Hx Family Diabetes: Yes Physical Exam - Physical Exam General Appearance: Alert, Other - obese Eyes, Ears, Nose, Throat Exam: PERRL/EOMI, normal ENT inspection, pharynx normal Neck: full range of motion, normal inspection Respiratory: lungs clear, normal breath sounds, no respiratory distress Cardiovascular/Chest: normal peripheral pulses, regular rate, rhythm, no edema Gastrointestinal/Abdominal: normal bowel sounds, soft, tenderness - LUQ and epigastric area Extremity: normal range of motion, normal inspection Neurologic: alert, other - moves all extremities without focal deficits Skin Exam: normal color, warm/dry Comments: Vital Signs - 8 hr 07/03/19 07/03/19 07/03/19 18:59 19:40 19:48 Temperature 97.8 F Pulse Rate [ 69 66 62 monitor] Respiratory 18 18 20 Rate Blood Pressure 178/55 130/90 150/80 [LA] O2 Sat by Pulse 96 97 95 Oximetry 07/03/19 07/03/19 20:00 20:17 Temperature Pulse Rate [ 62 65 monitor] Respiratory 20 20 Rate Blood Pressure 150/80 166/64 [LA] O2 Sat by Pulse 96 95 Oximetry Progress - Progress Progress: 07/03/19 19:00 Old record review: Patient was seen on [id number] for epigastric abdominal pain. Lab work was obtained which showed a normal white blood cell count, sodium was 128, creatinine was 1.9 lipase is normal at 32. Urinalysis showed 10-[address] eval and pelvis showed a right ovarian cyst and outpatient ultrasound was recommended but no other acute changes were noted. She was diagnosed with gastritis and discharged home with outpatient follow-up and prescriptions for bentyl and pepcid. 07/03/19 19:57 Patient recheck: Symptoms have resolved after GI cocktail. A data patient and has been on lab results so far. We discussed with her laboratory results looking not significantly changed and her pain improved after a GI cocktail I will not repeat CT imaging at this time. I discussed with her that she is likely going to need an EGD scheduled as an outpatient at some point in the future and the patient states that she wants to follow-up with her primary care physician and have them arrange it. 07/03/19 20:13 Patient recheck: All lab and imaging results were discussed with the patient along with the plan for discharge home and outpatient follow-up. She will be given a prescription for Keflex for treatment of her UTI and instructed to continue the Pepcid and Nexium with the addition of Carafate for her gastritis and she was advised to call her primary care physician tomorrow to schedule follow-up appointment as soon as possible. We discussed that she will need to monitor her diet and not eat spicy or fatty foods of this is likely to irritate her symptoms. I discussed with her and her that she will likely end up needing an EGD if symptoms persist and the patient again states that she will f ollow-up with her doctor for referral to GI. I gave the patient a copy of her lab and imaging results to take with her when she sees her primary care physician. She was instructed to return to the emergency department immediately for significant worsening of pain, persistent vomiting, fevers, chest pain, shortness of breath or any other concerning issues and has been at the bedside who voiced understanding and agreed with the treatment plan. - Results/Orders Results/Orders: Laboratory Tests 07/03/19 07/03/19 07/03/19 19:10 19:10 19:10 WBC 12.2 H RBC 3.68 L Hgb 11.8 L Hct 35.8 L MCV 97.3 MCH 32.2 H MCHC 33.1 RDW 12.7 Plt Count 290 MPV 7.2 L Absolute Neuts (auto) 8.10 H Absolute Lymphs (auto) 2.40 Absolute Monos (auto) 1.10 H Absolute Eos (auto) 0.40 Absolute Basos (auto) 0.10 Neutrophils % 66.7 Lymphocytes % 19.9 L Monocytes % 9.1 H Eosinophils % 3.2 Basophils % 1.1 Sodium 128 L Potassium 4.7 Chloride 92 L Carbon Dioxide 22 Anion Gap 18.7 H BUN 41 H Creatinine 1.90 H BUN/Creatinine Ratio 21.6 H Random Glucose 99 Serum Osmolality 267.2 L Calcium 8.9 Total Bilirubin 0.6 Direct Bilirubin 0.2 D Indirect Bilirubin 0.4 AST 20 ALT 13 Alkaline Phosphatase 69 Troponin I 0.02 Serum Total Protein 6.9 Albumin 3.5 Lipase 30 Urine Color Urine Appearance Urine pH Ur Specific [place] Urine Protein Urine Glucose (UA) Urine Ketones Urine Blood Urine Nitrite Urine Bilirubin Urine Urobilinogen Ur Leukocyte Esterase Urine RBC Urine WBC Ur Epithelial Cells Urine Bacteria Urine Yeast 07/03/19 19:49 WBC RBC Hgb Hct MCV MCH MCHC RDW Plt Count MPV Absolute Neuts (auto) Absolute Lymphs (auto) Absolute Monos (auto) Absolute Eos (auto) Absolute Basos (auto) Neutrophils % Lymphocytes % Monocytes % Eosinophils % Basophils % Sodium Potassium Chloride Carbon Dioxide Anion Gap BUN Creatinine BUN/Creatinine Ratio Random Glucose Serum Osmolality Calcium Total Bilirubin Direct Bilirubin Indirect Bilirubin AST ALT Alkaline Phosphatase Troponin I Serum Total Protein Albumin Lipase Urine Color Yellow Urine Appearance Cloudy Urine pH 7.0 Ur Specific [place] 1.015 Urine Protein Negative Urine Glucose (UA) Negative Urine Ketones Negative Urine Blood Negative Urine Nitrite Negative Urine Bilirubin Negative Urine Urobilinogen 0.2 Ur Leukocyte Esterase Trace H Urine RBC 0 Urine WBC 10-20 H Ur Epithelial Cells 30-40 Urine Bacteria 2+ H Urine Yeast 1+ budding H EKG: Read by myself at 1909. Sinus rhythm rate 62 with sinus arrhythmia. First-degree AV block. Normal QRS and QTc durations. Left axis deviation. No ST elevation and non-specific ST-T changes. CXR: IMPRESSION: - No acute cardiopulmonary pathology seen and no significant interval change from a similar examination performed 08/24/2018. - Chronic findings. - Study provided limited by patient body habitus. Thank you for allowing us to participate in the care of this patient. Electronically signed by: Maxi Odonnell MD 07/03/2019 8:07 PM CDT Departure - Departure Clinical Impression: Hyponatremia Gastritis Qualifiers: Gastritis type: unspecified gastritis Chronicity: acute Gastritis bleeding: without bleeding Qualified Code(s): K29.00 - Acute gastritis without bleeding UTI (urinary tract infection) Qualifiers: Urinary tract infection type: site unspecified Hematuria presence: without hematuria Qualified Code(s): N39.0 - Urinary tract infection, site not specified Time of Disposition: 20:16 Disposition: Discharge to Home or Self Care Condition: Good Departure Forms: ED Discharge - Pt. Copy, Patient Portal Self Enrollment Instructions: [place] Diet, Gastritis, Urinary Tract Infections in Adults Diet: other - Gastritis/GERD diet Referrals: Mehrdad Alex III, MD [Primary Care Provider] - 1-2 Days Prescriptions: Cephalexin Monohydrate [Keflex] 500 mg PO BID #14 cap Sucralfate Tab [Carafate Tab] 1 gm PO ACHS #30 tablet Home Medications: Ambulatory Orders Esomeprazole Magnesium [Nexium] 40 mg PO DAILY 04/12/15 Furosemide 60 mg PO DAILY 04/12/15 Linagliptin [Tradjenta] 5 mg PO DAILY 04/12/15 Nitroglycerin [Nitrostat] 0.4 mg SL PRN PRN 04/12/15 Simvastatin 80 mg PO BEDTIME 04/12/15 Aspirin [Aspirin Adult Low Dose] 81 mg PO DAILY 05/03/15 Spironolactone [Aldactone] 50 mg PO DAILY 05/03/15 Lisinopril 5 mg PO DAILY 08/07/15 Insulin Aspart [Novolog] 0 unit SC ACHS PRN 02/24/17 Insulin Detemir [Levemir Pen] 14 unit SUBCU BEDTIME 02/24/17 Magnesium Hydroxide [Milk Of Magnesia] 1 arelis PO PRN PRN 02/24/17 Metoclopramide Tab [Reglan Tab] 10 mg PO TID PRN 02/24/17 Acetamin W/Cod #3 Tab [Tylenol w/CODEINE #3] 1 ea PO Q4H PRN 08/19/18 Promethazine Tab [Phenergan Tablet] 25 mg PO TID 08/19/18 Dicyclomine HCl [Bentyl] 20 mg PO Q6HR #20 tab 07/02/19 Famotidine [Pepcid] 20 mg PO BID #10 tab 07/02/19 Famotidine [Pepcid] 20 mg PO DAILY #5 tab 07/02/19 Cephalexin Monohydrate [Keflex] 500 mg PO BID #14 cap 07/03/19 Sucralfate Tab [Carafate Tab] 1 gm PO ACHS #30 tablet 07/03/19 Additional Instructions: Take medications as directed. Follow dietary instructions as discussed. Call your primary care physician tomorrow to arrange a follow-up appointment as soon as possible to discuss lab findings and possible GI referral for EGD. Return to the emergency department for significant worsening of pain, persistent vomiting, fevers or any other concerning signs or symptoms. Comments: DO Sherman Horne#[id number]
--- NOTE | 2019-07-03 20:08 | RAD ---
EXAM: XR Chest, 1 View CLINICAL HISTORY: 83 years old Female; epigastric pain. TECHNIQUE: Frontal view of the chest. COMPARISON: Similar examination performed 08/24/2018 which demonstrated some possible retrocardiac infiltrate or atelectasis by report. FINDINGS: LIMITATIONS: Study provided limited by patient body habitus. LUNGS: Lungs clear of new focal infiltrate or mass. Mildly diffusely increased interstitial markings throughout the lungs which is likely accentuated by a poor inspiratory effort. PLEURAL SPACE: No significantly increasing pleural fluid. No pneumothorax. HEART: Heart size stable status post median sternotomy and presumably CABG. MEDIASTINUM: Unremarkable. BONES/JOINTS: No acute bony abnormality seen. IMPRESSION: - No acute cardiopulmonary pathology seen and no significant interval change from a similar examination performed 08/24/2018. - Chronic findings. - Study provided limited by patient body habitus. Thank you for allowing us to participate in the care of this patient. Electronically signed by: Maxi Odonnell MD 07/03/2019 8:07 PM CDT
[2019-07-03] MEDS ORDERED: FLUCONAZOLE 150 MG TAB PO ONE (20:11)
[2019-07-03] MEDS ORDERED: FLUCONAZOLE 100 MG TAB ONE (20:12)
[2019-07-03 20:18] VITALS: BP 166/64; O2SAT 95
== END 2019-07-03 20:32 | disposition home or self-care (01) ==
LOC: ER 18:47
DX: K29.00 Acute gastritis without bleeding (principal); E87.1 Hypo-osmolality and hyponatremia; N39.0 Urinary tract infection, site not specified; I11.0 Hypertensive heart disease with heart failure; I50.9 Heart failure, unspecified; E11.9 Type 2 diabetes mellitus without complications; K21.9 Gastro-esophageal reflux disease without esophagitis; F03.90 Unspecified dementia, unspecified severity, without behavioral disturbance, psychotic disturbance, mood disturbance, and anxiety; J44.9 Chronic obstructive pulmonary disease, unspecified; Z87.891 Personal history of nicotine dependence; N83.201 Unspecified ovarian cyst, right side; Z95.1 Presence of aortocoronary bypass graft
CPT/HCPCS: 36415; 71045; 80048; 80076; 81001; 83690; 84484; 85025; 87086; 93005; J2405

== ENCOUNTER 2019-07-22 13:25 | Emergency (ER) | payer MEDICARE, MEDICAID ==
[2019-07-22 13:35] VITALS: BP 157/83; TEMP 97.1; O2SAT 94
--- NOTE | 2019-07-22 13:48 | ED.PDOC ---
History of Present Illness - General Chief Complaint: Problem Stated Complaint: burning with urination Time Seen by Provider: 07/22/19 13:44 Source: patient, RN notes reviewed, Vital Signs reviewed, EMS notes reviewed, family - , old records Exam Limitations: no limitations - History of Present Illness Initial Comments: patient presents with complaints of dysuria and urinary frequency with urgency starting this morning. Patient complains of mild chills, no fever. Additionally the patient has some suprapubic pain. Patient also states that she had some mild diarrhea this morning. He has no nausea or vomiting. She denies any chest pain, shortness of breath, headache, dizziness, blurry vision. The new weakness or myalgias. Nothing seems to make the pain better or worse. Dysuria is burning in nature. The pain is mild in nature. Timing/Duration: this morning Quality: mild, burning, intermittent Onset Location: suprapubic Radiation: none Activites at Onset: none Prior abdominal problems: similar symptoms - patient was treated here 2 weeks ago for UTI with Keflex. Sexual intercourse history: not active Improving Factors: nothing Worsening Factors: nothing Associated Symptoms: abdominal pain, fever/chills - chills only, urinary frequency Allergies/Adverse Reactions: Allergies Morphine Adverse Reaction (Severe, Verified 07/22/19 13:28) Other Makes her "crazy" Home Medications: Ambulatory Orders Esomeprazole Magnesium [Nexium] 40 mg PO DAILY 04/12/15 Furosemide 60 mg PO DAILY 04/12/15 Linagliptin [Tradjenta] 5 mg PO DAILY 04/12/15 Nitroglycerin [Nitrostat] 0.4 mg SL PRN PRN 04/12/15 Simvastatin 80 mg PO BEDTIME 04/12/15 Aspirin [Aspirin Adult Low Dose] 81 mg PO DAILY 05/03/15 Spironolactone [Aldactone] 50 mg PO DAILY 05/03/15 Lisinopril 5 mg PO DAILY 08/07/15 Insulin Aspart [Novolog] 0 unit SC ACHS PRN 02/24/17 Insulin Detemir [Levemir Pen] 14 unit SUBCU BEDTIME 02/24/17 Magnesium Hydroxide [Milk Of Magnesia] 1 arelis PO PRN PRN 02/24/17 Metoclopramide Tab [Reglan Tab] 10 mg PO TID PRN 02/24/17 Acetamin W/Cod #3 Tab [Tylenol w/CODEINE #3] 1 ea PO Q4H PRN 08/19/18 Promethazine Tab [Phenergan Tablet] 25 mg PO TID 08/19/18 Dicyclomine HCl [Bentyl] 20 mg PO Q6HR #20 tab 07/02/19 Famotidine [Pepcid] 20 mg PO BID #10 tab 07/02/19 Famotidine [Pepcid] 20 mg PO DAILY #5 tab 07/02/19 Cephalexin Monohydrate [Keflex] 500 mg PO BID #14 cap 07/03/19 Sucralfate Tab [Carafate Tab] 1 gm PO ACHS #30 tablet 07/03/19 Cefdinir 250 mg PO BID 7 Days #70 ml 07/22/19 Review of Systems - Review of Systems Constitutional: States: see HPI, chills EENTM: States: no symptoms reported Respiratory: States: no symptoms reported Cardiology: States: no symptoms reported Gastrointestinal/Abdominal: States: see HPI, abdominal pain - suprapubic, diarrhea. Denies: nausea, vomiting Genitourinary: States: see HPI, dysuria, frequency, pain. Denies: discharge Musculoskeletal: States: no symptoms reported Skin: States: no symptoms reported Neurological: States: no symptoms reported Endocrine: States: no symptoms reported Hematologic/Lymphatic: States: no symptoms reported All other Systems: Reviewed and Negative Past Medical History (General) - Patient Medical History Hx Seizures: No Hx Stroke: No Hx Dementia: Yes Hx Asthma: No Hx of COPD: Yes Hx Cardiac Disorders: Yes Hx Congestive Heart Failure: Yes Hx Pacemaker: No Hx Hypertension: Yes Hx Thyroid Disease: No Hx Diabetes: Yes Hx Gastroesophageal Reflux: Yes Hx Renal Disease: Yes Hx Cancer: No Hx of HIV: No Hx Hepatitis C: No Hx MRSA: No Surgical History: appendectomy, cholecystectomy, coronary bypass surgery - Vaccination History Hx Tetanus, Diphtheria Vaccination: No Hx Influenza Vaccination: No Hx Pneumococcal Vaccination: Yes - Social History Hx Tobacco Use: Yes Hx Chewing Tobacco Use: No Hx Alcohol Use: No Hx Substance Use: No Hx Substance Use Treatment: No Hx Depression: No Hx Physical Abuse: No Hx Emotional Abuse: No Hx Suspected Abuse: No - Female History Patient : No Family Medical History - Family History Father Living Status: Hx Cardiac Disease: Yes - multiple family members Hx Family Diabetes: Yes - multiple family members Mother Family History: Unknown Living Status: Age at (years of age): 99 Cause of : old age Hx Family Diabetes: Yes Physical Exam - Physical Exam General Appearance: Alert, Comfortable, Obese, Well Developed, Well Hydrated, Well Nourished Eyes, Ears, Nose, Throat Exam: PERRL/EOMI, normal ENT inspection, pharynx normal Neck: non-tender, full range of motion, supple Cardiovascular/Respiratory: regular rate, rhythm, no M/R/G, normal peripheral pulses, no JVD, normal breath sounds, no respiratory distress Gastrointestinal/Abdominal: normal bowel sounds, soft, tenderness - suprapubic, other - patient was morbidly obese Back Exam: normal inspection, no CVA tenderness Extremity: normal range of motion, non-tender, normal inspection 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 Previous records were reviewed which shows that she has mild renal insufficiency and previous urine culture showed that it was pansensitive. Therefore, I will start patient on cefdinir 300 mg twice a day for the next 7 days. I've discussed the plan of care with the patient and her they voice understanding and agreement. - Results/Orders Results/Orders: 07/22/19 13:29 Urine Culture Stat Laboratory Results - last 24 hr 07/22/19 13:29 Urine Color Yellow Urine Appearance Sl cloudy Urine pH 6.5 Ur Specific [place] 1.015 Urine Protein Negative Urine Glucose (UA) Negative Urine Ketones Negative Urine Blood Trace-intact H Urine Nitrite Negative Urine Bilirubin Negative Urine Urobilinogen 1.0 Ur Leukocyte Esterase Trace H Urine RBC 3-5 H Urine WBC 40-50 H Ur Epithelial Cells 10-20 Amorphous Sediment Trace Urine Bacteria 2+ H Urine Mucus Trace previous records from 07/03/19 show an elevated BUNsat over 40 and a creatinine of 1.9. Labs show mild renal insufficiency. Departure - Departure Clinical Impression: UTI (urinary tract infection), bacterial, Renal insufficiency UTI (urinary tract infection) Qualifiers: Urinary tract infection type: acute cystitis Hematuria presence: without hematuria Qualified Code(s): N30.00 - Acute cystitis without hematuria Time of Disposition: 13:55 Disposition: Discharge to Home or Self Care Departure Forms: ED Discharge - Pt. Copy, Patient Portal Self Enrollment Instructions: DI for Urinary Tract Infection (UTI), Chronic Kidney Disease (DC) Referrals: Mehrdad Alex III, MD [Primary Care Provider] - 1-5 Days Prescriptions: Cefdinir 250 mg PO BID 7 Days #70 ml Home Medications: Ambulatory Orders Esomeprazole Magnesium [Nexium] 40 mg PO DAILY 04/12/15 Furosemide 60 mg PO DAILY 04/12/15 Linagliptin [Tradjenta] 5 mg PO DAILY 04/12/15 Nitroglycerin [Nitrostat] 0.4 mg SL PRN PRN 04/12/15 Simvastatin 80 mg PO BEDTIME 04/12/15 Aspirin [Aspirin Adult Low Dose] 81 mg PO DAILY 05/03/15 Spironolactone [Aldactone] 50 mg PO DAILY 05/03/15 Lisinopril 5 mg PO DAILY 08/07/15 Insulin Aspart [Novolog] 0 unit SC ACHS PRN 02/24/17 Insulin Detemir [Levemir Pen] 14 unit SUBCU BEDTIME 02/24/17 Magnesium Hydroxide [Milk Of Magnesia] 1 arelis PO PRN PRN 02/24/17 Metoclopramide Tab [Reglan Tab] 10 mg PO TID PRN 02/24/17 Acetamin W/Cod #3 Tab [Tylenol w/CODEINE #3] 1 ea PO Q4H PRN 08/19/18 Promethazine Tab [Phenergan Tablet] 25 mg PO TID 08/19/18 Dicyclomine HCl [Bentyl] 20 mg PO Q6HR #20 tab 07/02/19 Famotidine [Pepcid] 20 mg PO BID #10 tab 07/02/19 Famotidine [Pepcid] 20 mg PO DAILY #5 tab 07/02/19 Cephalexin Monohydrate [Keflex] 500 mg PO BID #14 cap 07/03/19 Sucralfate Tab [Carafate Tab] 1 gm PO ACHS #30 tablet 07/03/19 Cefdinir 250 mg PO BID 7 Days #70 ml 07/22/19
== END 2019-07-22 14:13 | disposition home or self-care (01) ==
LOC: ER 13:25
DX: N30.00 Acute cystitis without hematuria (principal); N28.9 Disorder of kidney and ureter, unspecified; B96.89 Other specified bacterial agents as the cause of diseases classified elsewhere; J44.9 Chronic obstructive pulmonary disease, unspecified; I11.0 Hypertensive heart disease with heart failure; I50.9 Heart failure, unspecified; E11.9 Type 2 diabetes mellitus without complications; K21.9 Gastro-esophageal reflux disease without esophagitis; F03.90 Unspecified dementia, unspecified severity, without behavioral disturbance, psychotic disturbance, mood disturbance, and anxiety; Z87.891 Personal history of nicotine dependence; Z79.82 Long term (current) use of aspirin; Z79.4 Long term (current) use of insulin; Z79.899 Other long term (current) drug therapy; Z88.5 Allergy status to narcotic agent

== ENCOUNTER 2019-09-29 10:43 | Emergency (ER) | payer MEDICARE, MEDICAID ==
[2019-09-29] MEDS ORDERED: LIDOCAINE 4% TOPICAL 50 ML BTTL TOP ONE (11:13)
--- NOTE | 2019-09-29 11:17 | ED.PDOC ---
History of Present Illness - General Chief Complaint: Skin/Abrasion/Tear Time Seen by Provider: 09/29/19 11:05 Source: patient Exam Limitations: no limitations - History of Present Illness Initial Comments: 83 yo F who presents for hemorrhoids with associated sharp pain onset this am, did not some blood from the hemorrhoids this am. Pt reports straining for BM but having regular bowel movements. Tried OTC medication without relief. Takes miralax for constipation. Denies f/c, abd pain, n/v/d, rectal pain, hematochezia, melena. Allergies/Adverse Reactions: Allergies Morphine Adverse Reaction (Severe, Verified 07/22/19 13:28) Other Makes her "crazy" Home Medications: Ambulatory Orders Esomeprazole Magnesium [Nexium] 40 mg PO DAILY 04/12/15 Furosemide 60 mg PO DAILY 04/12/15 Linagliptin [Tradjenta] 5 mg PO DAILY 04/12/15 Nitroglycerin [Nitrostat] 0.4 mg SL PRN PRN 04/12/15 Simvastatin 80 mg PO BEDTIME 04/12/15 Aspirin [Aspirin Adult Low Dose] 81 mg PO DAILY 05/03/15 Spironolactone [Aldactone] 50 mg PO DAILY 05/03/15 Lisinopril 5 mg PO DAILY 08/07/15 Insulin Aspart [Novolog] 0 unit SC ACHS PRN 02/24/17 Insulin Detemir [Levemir Pen] 14 unit SUBCU BEDTIME 02/24/17 Magnesium Hydroxide [Milk Of Magnesia] 1 arelis PO PRN PRN 02/24/17 Metoclopramide Tab [Reglan Tab] 10 mg PO TID PRN 02/24/17 Acetamin W/Cod #3 Tab [Tylenol w/CODEINE #3] 1 ea PO Q4H PRN 08/19/18 Promethazine Tab [Phenergan Tablet] 25 mg PO TID 08/19/18 Dicyclomine HCl [Bentyl] 20 mg PO Q6HR #20 tab 07/02/19 Famotidine [Pepcid] 20 mg PO BID #10 tab 07/02/19 Famotidine [Pepcid] 20 mg PO DAILY #5 tab 07/02/19 Cephalexin Monohydrate [Keflex] 500 mg PO BID #14 cap 07/03/19 Sucralfate Tab [Carafate Tab] 1 gm PO ACHS #30 tablet 07/03/19 Cefdinir 250 mg PO BID 7 Days #70 ml 07/22/19 Pramoxine HCl (Rectal) [Proctofoam] 1 % CA QID #1 aer 09/29/19 Review of Systems - Review of Systems Constitutional: Denies: chills, fever EENTM: States: no symptoms reported Respiratory: States: no symptoms reported. Denies: short of breath Cardiology: States: no symptoms reported. Denies: chest pain Gastrointestinal/Abdominal: States: constipation, other - +hemorrhoid. Denies: abdominal pain, diarrhea, nausea, vomiting Genitourinary: Denies: dysuria, frequency, hematuria Musculoskeletal: Denies: back pain Neurological: Denies: numbness, weakness Past Medical History (General) - Patient Medical History Hx Seizures: No Hx Stroke: No Hx Dementia: Yes Hx Asthma: No Hx of COPD: Yes Hx Cardiac Disorders: Yes Hx Congestive Heart Failure: Yes Hx Pacemaker: No Hx Hypertension: Yes Hx Thyroid Disease: No Hx Diabetes: Yes Hx Gastroesophageal Reflux: Yes Hx Renal Disease: Yes Hx Cancer: No Hx of HIV: No Hx Hepatitis C: No Hx MRSA: No - Vaccination History Hx Tetanus, Diphtheria Vaccination: No Hx Influenza Vaccination: No Hx Pneumococcal Vaccination: Yes - Social History Hx Tobacco Use: Yes Hx Chewing Tobacco Use: No Hx Alcohol Use: No Hx Substance Use: No Hx Substance Use Treatment: No Hx Depression: No Hx Physical Abuse: No Hx Emotional Abuse: No Hx Suspected Abuse: No - Female History Patient : No Family Medical History - Family History Father Living Status: Hx Cardiac Disease: Yes - multiple family members Hx Family Diabetes: Yes - multiple family members Mother Family History: Unknown Living Status: Age at (years of age): 99 Cause of : old age Hx Family Diabetes: Yes Physical Exam - Physical Exam General Appearance: Alert, Comfortable, No apparent distress, Well Developed, Well Nourished, Other - Obese Respiratory: lungs clear, no respiratory distress, no accessory muscle use Cardiovascular/Chest: normal peripheral pulses, regular rate, rhythm, no gallop, no murmur Peripheral Pulses: radial,right: 2+, radial,left: 2+ Gastrointestinal/Abdominal: non tender, soft, other - No distention, guarding, rebound Rectal Exam: hemorrhoids - None that are thrombosed. Some BRB noted to hemorrhoids, no active bleeding. Brown stool. Back Exam: normal inspection, no CVA tenderness Extremity: normal range of motion, normal inspection Neurologic: no motor/sensory deficits, alert, normal mood/affect Progress - Progress Progress: 09/29/19 12:24 I have explained and reviewed all results with the pt. Pain resolved. Pt comfortable with d/c home. I explained that emergent conditions may arise and to return to the ER for new, worsening, or any persistent conditions. I've explained the importance of f/u for recheck. All questions and concerns addressed at this time. Pt understands and agrees with plan. Pt well appearing, NAD, is stable for discharge. Kourtney Alberts MD Emergency Medicine Physician Billing Number [id number] Departure - Departure Clinical Impression: Hemorrhoids Qualifiers: Hemorrhoid type: unspecified Qualified Code(s): K64.9 - Unspecified hemorrhoids Time of Disposition: 12:18 Disposition: Discharge to Home or Self Care Condition: Fair Departure Forms: ED Discharge - Pt. Copy, Patient Portal Self Enrollment Instructions: Hemorrhoids (DC) Referrals: Mehrdad Alex III, MD [Primary Care Provider] - 1 Week Prescriptions: Pramoxine HCl (Rectal) [Proctofoam] 1 % CA QID #1 aer Home Medications: Ambulatory Orders Esomeprazole Magnesium [Nexium] 40 mg PO DAILY 04/12/15 Furosemide 60 mg PO DAILY 04/12/15 Linagliptin [Tradjenta] 5 mg PO DAILY 04/12/15 Nitroglycerin [Nitrostat] 0.4 mg SL PRN PRN 04/12/15 Simvastatin 80 mg PO BEDTIME 04/12/15 Aspirin [Aspirin Adult Low Dose] 81 mg PO DAILY 05/03/15 Spironolactone [Aldactone] 50 mg PO DAILY 05/03/15 Lisinopril 5 mg PO DAILY 08/07/15 Insulin Aspart [Novolog] 0 unit SC ACHS PRN 02/24/17 Insulin Detemir [Levemir Pen] 14 unit SUBCU BEDTIME 02/24/17 Magnesium Hydroxide [Milk Of Magnesia] 1 arelis PO PRN PRN 02/24/17 Metoclopramide Tab [Reglan Tab] 10 mg PO TID PRN 02/24/17 Acetamin W/Cod #3 Tab [Tylenol w/CODEINE #3] 1 ea PO Q4H PRN 08/19/18 Promethazine Tab [Phenergan Tablet] 25 mg PO TID 08/19/18 Dicyclomine HCl [Bentyl] 20 mg PO Q6HR #20 tab 07/02/19 Famotidine [Pepcid] 20 mg PO BID #10 tab 07/02/19 Famotidine [Pepcid] 20 mg PO DAILY #5 tab 07/02/19 Cephalexin Monohydrate [Keflex] 500 mg PO BID #14 cap 07/03/19 Sucralfate Tab [Carafate Tab] 1 gm PO ACHS #30 tablet 07/03/19 Cefdinir 250 mg PO BID 7 Days #70 ml 07/22/19 Pramoxine HCl (Rectal) [Proctofoam] 1 % CA QID #1 aer 09/29/19 Additional Instructions: [facility] As needed, if symptoms worsen Your Primary Care Physician Make appointment, one week, for follow up Dr. Sandoval, general surgery Make appointment for follow up
[2019-09-29 12:41] VITALS: BP 141/71; TEMP 98.4; O2SAT 94
== END 2019-09-29 12:30 | disposition home or self-care (01) ==
LOC: ER 10:43
DX: K64.9 Unspecified hemorrhoids (principal); F03.90 Unspecified dementia, unspecified severity, without behavioral disturbance, psychotic disturbance, mood disturbance, and anxiety; J44.9 Chronic obstructive pulmonary disease, unspecified; I51.9 Heart disease, unspecified; I50.9 Heart failure, unspecified; I13.0 Hypertensive heart and chronic kidney disease with heart failure and stage 1 through stage 4 chronic kidney disease, or unspecified chronic kidney disease; E11.22 Type 2 diabetes mellitus with diabetic chronic kidney disease; K21.9 Gastro-esophageal reflux disease without esophagitis; N18.9 Chronic kidney disease, unspecified; Z79.899 Other long term (current) drug therapy; Z79.4 Long term (current) use of insulin; Z79.82 Long term (current) use of aspirin; Z88.5 Allergy status to narcotic agent

== ENCOUNTER → 2020-02-17 | Outpatient (CLI) | payer MEDICARE, MEDICAID | LOC: BFHH 10:11 | PROVIDERS: ATTEND Family Medicine | DX: I13.0 Hypertensive heart and chronic kidney disease with heart failure and stage 1 through stage 4 chronic kidney disease, or unspecified chronic kidney disease (principal); N18.2 Chronic kidney disease, stage 2 (mild); I50.30 Unspecified diastolic (congestive) heart failure; E11.22 Type 2 diabetes mellitus with diabetic chronic kidney disease ==

== ENCOUNTER → 2020-02-24 | Outpatient (CLI) | payer MEDICARE, MEDICAID | LOC: BFHH 10:25 | PROVIDERS: ATTEND Family Medicine | DX: I13.0 Hypertensive heart and chronic kidney disease with heart failure and stage 1 through stage 4 chronic kidney disease, or unspecified chronic kidney disease (principal); N18.3 Chronic kidney disease, stage 3 (moderate); I50.30 Unspecified diastolic (congestive) heart failure; E11.22 Type 2 diabetes mellitus with diabetic chronic kidney disease ==

== ENCOUNTER → 2020-04-11 | Outpatient (CLI) | payer MEDICARE, MEDICAID | LOC: BFHH 09:08 | PROVIDERS: ATTEND Family Medicine | DX: I13.0 Hypertensive heart and chronic kidney disease with heart failure and stage 1 through stage 4 chronic kidney disease, or unspecified chronic kidney disease (principal); N18.3 Chronic kidney disease, stage 3 (moderate); I50.22 Chronic systolic (congestive) heart failure; E11.22 Type 2 diabetes mellitus with diabetic chronic kidney disease; J44.1 Chronic obstructive pulmonary disease with (acute) exacerbation; I25.10 Atherosclerotic heart disease of native coronary artery without angina pectoris ==

== ENCOUNTER 2020-06-12 18:59 | Inpatient (IN) | payer MEDICARE, MEDICAID ==
[2020-06-12] MEDS ORDERED: ACETAMINOPHEN 500 MG TAB PO ONE (19:15)
[2020-06-12] MEDS ORDERED: ONDANSETRON INJ 4 MG/2 ML VIAL IV ONE (19:15)
[2020-06-12] MEDS ORDERED: SODIUM CHLORIDE 0.9% 1000ML 1,000 ML IVS ONE (19:15)
--- NOTE | 2020-06-12 19:29 | ED.PDOC ---
History of Present Illness - General Chief Complaint: Abdominal Pain Stated Complaint: abd pain nausea Time Seen by Provider: 06/12/20 19:11 - History of Present Illness Initial Comments: 84 yo F PMH HTN DM HL 'bad heart' poor historian has PMD presents to the ED at bedside c/o abdominal pain nausea vomiting x 2 weeks. Denies fever cough sob recent travel or contact with covid19 denies fever chills admits nausea vomiting denies diarrhea chest pain sob diaphoresis admits decreased appetite and disturbed rest no change in bowel or bladder no other c/o today. PPE worn-N95 surgical mask with attached face shield over N95 gloves and face shield over that Review of Systems - Review of Systems Constitutional: States: see HPI EENTM: States: see HPI Respiratory: States: see HPI Cardiology: States: see HPI Gastrointestinal/Abdominal: States: see HPI Genitourinary: States: see HPI Musculoskeletal: States: see HPI Skin: States: see HPI Neurological: States: see HPI Endocrine: States: see HPI Hematologic/Lymphatic: States: see HPI All other Systems: Reviewed and Negative Past Medical History (General) - Patient Medical History Hx Seizures: No Hx Stroke: No Hx Dementia: Yes Hx Asthma: No Hx of COPD: Yes Hx Cardiac Disorders: Yes Hx Congestive Heart Failure: Yes Hx Pacemaker: No Hx Hypertension: Yes Hx Thyroid Disease: No Hx Diabetes: Yes Hx Gastroesophageal Reflux: Yes Hx Renal Disease: Yes Hx Cancer: No Hx of HIV: No Hx Hepatitis C: No Hx MRSA: No Surgical History: cholecystectomy, other - Vaccination History Hx Tetanus, Diphtheria Vaccination: No Hx Influenza Vaccination: No Hx Pneumococcal Vaccination: Yes - Social History Hx Tobacco Use: Yes Hx Chewing Tobacco Use: No Hx Alcohol Use: No Hx Substance Use: No Hx Substance Use Treatment: No Hx Depression: No Hx Physical Abuse: No Hx Emotional Abuse: No Hx Suspected Abuse: No - Female History Patient : No Family Medical History - Family History Father Living Status: Hx Cardiac Disease: Yes - multiple family members Hx Family Diabetes: Yes - multiple family members Mother Family History: Unknown Living Status: Age at (years of age): 99 Cause of : old age Hx Family Diabetes: Yes Physical Exam - Physical Exam General Appearance: No apparent distress Eyes, Ears, Nose, Throat Exam: normal ENT inspection Neck: non-tender, full range of motion Respiratory: no respiratory distress, rales Cardiovascular/Chest: regular rate, rhythm Gastrointestinal/Abdominal: soft, tenderness - tender throughout Pelvic Exam: other - n/a Male Genitalia: other - n/a Rectal Exam: deferred Back Exam: normal inspection Extremity: normal range of motion, non-tender Neurologic: no motor/sensory deficits Skin Exam: normal color Progress - Progress Progress: 06/12/20 19:30 A/P-Abdominal Pain Nausea Vomiting-iv bolus tylenol zofran cbc cmp lipase lactate troponin bnp ua cxr ct abdomen pelvis ekg monitor tech pulse ox reassess 06/12/20 22:18 Laboratory Tests 06/12/20 06/12/20 06/12/20 19:50 19:50 19:50 WBC 11.2 H RBC 3.52 L Hgb 11.1 L Hct 33.0 L MCV 93.8 MCH 31.5 H MCHC 33.6 RDW 13.5 Plt Count 188 MPV 7.3 L Absolute Neuts (auto) 8.20 H Absolute Lymphs (auto) 1.50 Absolute Monos (auto) 1.00 H Absolute Eos (auto) 0.40 Absolute Basos (auto) 0.10 Neutrophils % 73.3 Lymphocytes % 13.8 L Monocytes % 8.8 Eosinophils % 3.2 Basophils % 0.9 PT 11.4 H INR 1.15 PTT (SP) 20.9 L Sodium 132 L Potassium 4.7 Chloride 92 L Carbon Dioxide 27 Anion Gap 17.7 BUN 51 H Creatinine 2.20 H BUN/Creatinine Ratio 23.2 H Random Glucose 89 Serum Osmolality 277.7 Lactic Acid Calcium 9.0 Total Bilirubin 0.6 AST 24 ALT 9 L Alkaline Phosphatase 71 Troponin I B-Natriuretic Peptide Serum Total Protein 6.8 Albumin 3.2 Globulin 3.6 H Albumin/Globulin Ratio 0.9 L Lipase 25 Urine Color Urine Appearance Urine pH Ur Specific [place] Urine Protein Urine Glucose (UA) Urine Ketones Urine Blood Urine Nitrite Urine Bilirubin Urine Urobilinogen Ur Leukocyte Esterase Urine RBC Urine WBC Ur Epithelial Cells Urine Bacteria 06/12/20 06/12/20 06/12/20 19:50 19:50 19:55 WBC RBC Hgb Hct MCV MCH MCHC RDW Plt Count MPV Absolute Neuts (auto) Absolute Lymphs (auto) Absolute Monos (auto) Absolute Eos (auto) Absolute Basos (auto) Neutrophils % Lymphocytes % Monocytes % Eosinophils % Basophils % PT INR PTT (SP) Sodium Potassium Chloride Carbon Dioxide Anion Gap BUN Creatinine BUN/Creatinine Ratio Random Glucose Serum Osmolality Lactic Acid 1.3 Calcium Total Bilirubin AST ALT Alkaline Phosphatase Troponin I 0.04 B-Natriuretic Peptide < 15.0 Serum Total Protein Albumin Globulin Albumin/Globulin Ratio Lipase Urine Color Urine Appearance Urine pH Ur Specific [place] Urine Protein Urine Glucose (UA) Urine Ketones Urine Blood Urine Nitrite Urine Bilirubin Urine Urobilinogen Ur Leukocyte Esterase Urine RBC Urine WBC Ur Epithelial Cells Urine Bacteria 06/12/20 06/12/20 20:42 21:52 WBC RBC Hgb Hct MCV MCH MCHC RDW Plt Count MPV Absolute Neuts (auto) Absolute Lymphs (auto) Absolute Monos (auto) Absolute Eos (auto) Absolute Basos (auto) Neutrophils % Lymphocytes % Monocytes % Eosinophils % Basophils % PT INR PTT (SP) Sodium Potassium Chloride Carbon Dioxide Anion Gap BUN Creatinine BUN/Creatinine Ratio Random Glucose Serum Osmolality Lactic Acid Calcium Total Bilirubin AST ALT Alkaline Phosphatase Troponin I 0.03 B-Natriuretic Peptide Serum Total Protein Albumin Globulin Albumin/Globulin Ratio Lipase Urine Color Yellow Urine Appearance Cloudy Urine pH 5.5 Ur Specific [place] 1.015 Urine Protein Negative Urine Glucose (UA) Negative Urine Ketones Negative Urine Blood Trace-intact H Urine Nitrite Negative Urine Bilirubin Negative Urine Urobilinogen 0.2 Ur Leukocyte Esterase Small H Urine RBC 1-3 Urine WBC 10-20 H Ur Epithelial Cells 3-5 Urine Bacteria 3+ H - Results/Orders Results/Orders: EKG-non specific TW changes No STEMI rate controlled AFlutter with underlying rhythm of about 60bpm with approximate 3:1 block Laboratory Tests 06/12/20 06/12/20 06/12/20 19:50 19:50 19:50 WBC 11.2 H RBC 3.52 L Hgb 11.1 L Hct 33.0 L MCV 93.8 MCH 31.5 H MCHC 33.6 RDW 13.5 Plt Count 188 MPV 7.3 L Absolute Neuts (auto) 8.20 H Absolute Lymphs (auto) 1.50 Absolute Monos (auto) 1.00 H Absolute Eos (auto) 0.40 Absolute Basos (auto) 0.10 Neutrophils % 73.3 Lymphocytes % 13.8 L Monocytes % 8.8 Eosinophils % 3.2 Basophils % 0.9 PT 11.4 H INR 1.15 PTT (SP) 20.9 L Sodium 132 L Potassium 4.7 Chloride 92 L Carbon Dioxide 27 Anion Gap 17.7 BUN 51 H Creatinine 2.20 H BUN/Creatinine Ratio 23.2 H Random Glucose 89 Serum Osmolality 277.7 Lactic Acid Calcium 9.0 Total Bilirubin 0.6 AST 24 ALT 9 L Alkaline Phosphatase 71 Troponin I B-Natriuretic Peptide Serum Total Protein 6.8 Albumin 3.2 Globulin 3.6 H Albumin/Globulin Ratio 0.9 L Lipase 25 06/12/20 06/12/20 06/12/20 19:50 19:50 19:55 WBC RBC Hgb Hct MCV MCH MCHC RDW Plt Count MPV Absolute Neuts (auto) Absolute Lymphs (auto) Absolute Monos (auto) Absolute Eos (auto) Absolute Basos (auto) Neutrophils % Lymphocytes % Monocytes % Eosinophils % Basophils % PT INR PTT (SP) Sodium Potassium Chloride Carbon Dioxide Anion Gap BUN Creatinine BUN/Creatinine Ratio Random Glucose Serum Osmolality Lactic Acid 1.3 Calcium Total Bilirubin AST ALT Alkaline Phosphatase Troponin I 0.04 B-Natriuretic Peptide < 15.0 Serum Total Protein Albumin Globulin Albumin/Globulin Ratio Lipase Dx-Hyponatremia, Chronic Renal Failure, Dehydration, Atrial Flutter, Pneumonia EXAM DESCRIPTION: XR Chest,1 View CLINICAL HISTORY: cough TECHNIQUE: Single frontal view of the chest is submitted. COMPARISON: 07/03/2019 FINDINGS: Heart: The cardiothoracic silhouette is enlarged, stable. Prior CABG. Lungs: Patchy bibasilar opacities. Mediastinum: Thoracic aortic atherosclerosis. Pleura: No appreciable effusion. No pneumothorax. Bones: Intact Upper abdomen: Unremarkable IMPRESSION: Patchy bibasilar opacities (atelectasis and/or infiltrate). Electronically signed by: Windy Neal MD 06/12/2020 7:50 PM CDT EXAM DESCRIPTION: Abdoment/Pelvis w/o Contrast CLINICAL HISTORY: 84 years Female abdominal pain nausea vomiting COMPARISON: July 02, 2019. TECHNIQUE: Images were obtained in axial, sagittal, and coronal planes. No intravenous contrast was administered. This exam was performed according to our departmental dose-optimization program which includes use of Automated Exposure Control, adjustment of the mA and/or kV according to patient size and/or use of iterative reconstruction technique. FINDINGS: New airspace attenuation with consolidation lateral right lower lobe. Enlarged heart. Increased pulmonary vascularity. Thickening interlobular septa likely interstitial edema. No abnormality involving the liver, spleen, or adrenal glands bilaterally. Prior cholecystectomy. Atrophic change involving pancreas. Splenic calcifications possibly related to hemangioma. Extensive vascular calcification. No dilatation of abdominal aorta. No adenopathy or abnormal fluid collections seen. Renal parenchymal thinning and scarring bilaterally. Mild dilatation left renal pelvis unchanged. No obstructing renal or ureteral calculi bilaterally. Unremarkable bladder. Appendix not well identified however no secondary signs for appendicitis. No bowel obstruction or perforation. Mucosal thickening right colon possibly colitis. Diverticulosis left colon unchanged. No associated inflammatory process. 4.3 x 4.9 cm cystic finding right ovary unchanged when correlated with the prior study. No acute osseous abnormality. IMPRESSION: New infiltrate and consolidation lateral right lower lobe. Correlation with radiograph of the chest suggested for further characterization. 4.9 cm right ovarian cyst stable when correlated with the prior study. Correlation with pelvic ultrasound suggested for further characterization. Mucosal thickening right colon possibly colitis. Mild left hydronephrosis unchanged. No obstructing calculi bilaterally. Electronically signed by: Jazmin Hill MD 06/12/2020 9:53 PM CDT Dx-RLL, Ovarian Cyst, Colitis Spoke to Hospitalist accepts admission Departure - Departure Clinical Impression: Nausea, Colitis RLL pneumonia Qualifiers: Pneumonia type: due to unspecified organism Qualified Code(s): J18.9 - Pneumonia, unspecified organism Abdominal pain Qualifiers: Abdominal location: generalized Qualified Code(s): R10.84 - Generalized abdominal pain Vomiting Qualifiers: Vomiting type: unspecified Vomiting Intractability: non-intractable Nausea presence: with nausea Qualified Code(s): R11.2 - Nausea with vomiting, unspecified Ovarian cyst Qualifiers: Laterality: left Qualified Code(s): N83.202 - Unspecified ovarian cyst, left side Disposition: Admit Patient Condition: Fair Departure Forms: ED Discharge - Pt. Copy, Patient Portal Self Enrollment Instructions: DI for Abdominal Pain-Adult Referrals: Mehrdad Alex III, MD [Primary Care Provider] - 1-2 Weeks Home Medications: Ambulatory Orders Esomeprazole Magnesium [Nexium] 40 mg PO DAILY 04/12/15 Furosemide 60 mg PO DAILY 04/12/15 Linagliptin [Tradjenta] 5 mg PO DAILY 04/12/15 Nitroglycerin [Nitrostat] 0.4 mg SL PRN PRN 04/12/15 Simvastatin 80 mg PO BEDTIME 04/12/15 Aspirin [Aspirin Adult Low Dose] 81 mg PO DAILY 05/03/15 Spironolactone [Aldactone] 50 mg PO DAILY 05/03/15 Lisinopril 5 mg PO DAILY 08/07/15 Insulin Aspart [Novolog] 0 unit SC ACHS PRN 02/24/17 Insulin Detemir [Levemir Pen] 14 unit SUBCU BEDTIME 02/24/17 Magnesium Hydroxide [Milk Of Magnesia] 1 arelis PO PRN PRN 02/24/17 Metoclopramide Tab [Reglan Tab] 10 mg PO TID PRN 02/24/17 Acetamin W/Cod #3 Tab [Tylenol w/CODEINE #3] 1 ea PO Q4H PRN 08/19/18 Promethazine Tab [Phenergan Tablet] 25 mg PO TID 08/19/18 Dicyclomine HCl [Bentyl] 20 mg PO Q6HR #20 tab 07/02/19 Famotidine [Pepcid] 20 mg PO BID #10 tab 07/02/19 Famotidine [Pepcid] 20 mg PO DAILY #5 tab 07/02/19 Cephalexin Monohydrate [Keflex] 500 mg PO BID #14 cap 07/03/19 Sucralfate Tab [Carafate Tab] 1 gm PO ACHS #30 tablet 07/03/19 Cefdinir 250 mg PO BID 7 Days #70 ml 07/22/19 Pramoxine HCl (Rectal) [Proctofoam] 1 % CO QID #1 aer 09/29/19 Decision To Admit - Decistion To Admit Decision to Admit Date: 06/12/20 Decision to Admit Time: 22:28
[2020-06-12] MEDS ORDERED: PIPERACILLIN/TAZOBACTAM 3.375 GM in SODIUM CHLORIDE 0.9% 100ML 100 ML IVPB ONE (19:32)
[2020-06-12] MEDS ORDERED: VANCOMYCIN HCL INJ 1,000 MG in SODIUM CHLORIDE 0.9% 250ML 250 ML IVPB ONE (19:32)
--- NOTE | 2020-06-12 19:52 | RAD ---
EXAM DESCRIPTION: XR Chest,1 View CLINICAL HISTORY: cough TECHNIQUE: Single frontal view of the chest is submitted. COMPARISON: 07/03/2019 FINDINGS: Heart: The cardiothoracic silhouette is enlarged, stable. Prior CABG. Lungs: Patchy bibasilar opacities. Mediastinum: Thoracic aortic atherosclerosis. Pleura: No appreciable effusion. No pneumothorax. Bones: Intact Upper abdomen: Unremarkable IMPRESSION: Patchy bibasilar opacities (atelectasis and/or infiltrate). Electronically signed by: Windy Neal MD 06/12/2020 7:50 PM CDT
--- NOTE | 2020-06-12 21:54 | CT ---
EXAM DESCRIPTION: Abdoment/Pelvis w/o Contrast CLINICAL HISTORY: 84 years Female abdominal pain nausea vomiting COMPARISON: July 02, 2019. TECHNIQUE: Images were obtained in axial, sagittal, and coronal planes. No intravenous contrast was administered. This exam was performed according to our departmental dose-optimization program which includes use of Automated Exposure Control, adjustment of the mA and/or kV according to patient size and/or use of iterative reconstruction technique. FINDINGS: New airspace attenuation with consolidation lateral right lower lobe. Enlarged heart. Increased pulmonary vascularity. Thickening interlobular septa likely interstitial edema. No abnormality involving the liver, spleen, or adrenal glands bilaterally. Prior cholecystectomy. Atrophic change involving pancreas. Splenic calcifications possibly related to hemangioma. Extensive vascular calcification. No dilatation of abdominal aorta. No adenopathy or abnormal fluid collections seen. Renal parenchymal thinning and scarring bilaterally. Mild dilatation left renal pelvis unchanged. No obstructing renal or ureteral calculi bilaterally. Unremarkable bladder. Appendix not well identified however no secondary signs for appendicitis. No bowel obstruction or perforation. Mucosal thickening right colon possibly colitis. Diverticulosis left colon unchanged. No associated inflammatory process. 4.3 x 4.9 cm cystic finding right ovary unchanged when correlated with the prior study. No acute osseous abnormality. IMPRESSION: New infiltrate and consolidation lateral right lower lobe. Correlation with radiograph of the chest suggested for further characterization. 4.9 cm right ovarian cyst stable when correlated with the prior study. Correlation with pelvic ultrasound suggested for further characterization. Mucosal thickening right colon possibly colitis. Mild left hydronephrosis unchanged. No obstructing calculi bilaterally. Electronically signed by: Jazmin Hill MD 06/12/2020 9:53 PM CDT
[2020-06-12] MEDS ORDERED: SODIUM CHLORIDE 0.9% (FLUSH) 10 ML SYG IV PRN (22:51)
[2020-06-12] MEDS ORDERED: ENOXAPARIN SODIUM 30 MG/0.3 ML SYG SUBCU SCH (23:00)
--- NOTE | 2020-06-12 23:02 | HP ---
SUPERVISING PHYSICIAN: Abhilash Siddiqi M.D. CHIEF COMPLAINT: Abdominal pain and nausea. HISTORY OF PRESENT ILLNESS: Ms. Lares is an 84 year-old female that presented to the Emergency Room last night with a past medical history of hypertension and diabetes. She was complaining of abdominal pain that had been present for over 2 weeks. She also has a history of diabetes that is poorly controlled with associated gastroparesis. She denied any chest pain or shortness of breath. Her initial labs in the Emergency Room showed she had a mild leukocytosis of 11,200 with an early left shift. Initial chemistries showed she had a creatinine of 2.2 with sodium 132. Abdomen and pelvis CT along with chest x-ray were completed as well. CT of the pelvis without contrast as well as chest x-ray found a consolidation in the right lower lobe with some mild mucosal thickening of the right colon, possibly colitis. Her urinalysis also showed she had a significant urinary tract infection. She was given antibiotics in the Emergency Room, including Flagyl and Zosyn, and then was admitted to the floor for further evaluation and treatment of nausea and vomiting with associated right lower lobe pneumonia, community acquired and possible colitis. She was in stable condition at time of admission. PAST MEDICAL HISTORY: 1. Chronic obstructive pulmonary disease with multiple hospitalizations. 2. Carotid artery stenosis. 3. Coronary artery disease. 4. Hyperlipidemia. 5. Hypertension. 6. Gastroesophageal reflux disease. 7. Gastroparesis associated with diabetes. 8. History of duodenal ulcer. 9. Chronic renal insufficiency with baseline creatinine between 1.9 and 2. 10. Morbid obesity. 11. History of atrial fibrillation. PAST SURGICAL HISTORY: 1. Biopsy of the breast. 2. Cholecystectomy. 3. Coronary artery bypass graft in 1998. 4. Carotid artery stent in February 2012. HOME MEDICATIONS: 1. Spironolactone 25 mg daily. 2. Simvastatin 80 mg at bedtime. 3. Phenergan 25 mg t.i.d. 4. Proctofoam 1% per rectum q.i.d. p.r.n. 5. MiraLAX 17 grams daily p.r.n. 6. Pantoprazole 40 mg daily. 7. Nitrostat 0.4 mg sublingual p.r.n. 8. Reglan 10 mg t.i.d. 9. Milk of Magnesia as needed. 10. Lisinopril 5 mg daily. 11. Tradjenta 5 mg daily. 12. Levemir 16 units b.i.d. 13. NovoLog sliding scale. 14. Lasix 60 mg daily. 15. Perforomist 20 mcg inhaled daily p.r.n. 16. Dulcolax stool softener as needed. 17. Aspirin 81 mg daily. 18. Tylenol #3 one every 4 hours as needed for pain. 19. Xanax 0.5 mg t.i.d. p.r.n. ALLERGIES: LYRICA AND MORPHINE. SOCIAL HISTORY: The patient lives at home with her . She has a remote history of smoking but quit 20 years previously. She denies any alcohol or illicit drug use. REVIEW OF SYSTEMS: CONSTITUTIONAL: Negative for any fevers or chills. Positive for general malaise. No reported weight change. HEENT: Denies any sore throats, earaches, nasal congestion, headaches or vision changes. RESPIRATORY: Positive for cough, wheezing and increasing shortness of breath. CARDIOVASCULAR: Negative for chest pain, palpitations or tachycardia. GASTROINTESTINAL: As noted in History of Present Illness. GENITOURINARY: Negative for dysuria, hematuria, polyuria. NEUROLOGIC: Positive for headaches but negative for any dizziness, seizures, ataxia or focal deficits. SKIN: Negative for any lesions, rashes, moles or unexplained changes. HEMATOLOGIC: Denies any unexplained bleeding, bruising or transfusion reactions. PHYSICAL EXAMINATION: VITAL SIGNS: On admission to the Medical/Surgical floor, temperature 97.6, pulse 81, blood pressure 161/79, respirations 19, satting 97% on nasal cannula at 2 liters. GENERAL: She appears to be resting comfortably. Does not look to be in any distress. She is morbidly obese. HEENT: Tympanic membranes clear bilaterally. Oropharynx is pink, moist without any lesions. NECK: Supple, nontender with full range of motion. No jugular venous distention noted. CHEST: Diminished towards the bases but no obvious rhonchi, wheezing or rales. CARDIOVASCULAR: Slightly irregular rate and rhythm with no appreciable murmurs, gallops, or rubs. ABDOMEN: Noted some diffuse tenderness throughout more so in the epigastric region. No rebound tenderness. No point tenderness. No peritoneal signs. Bowel sounds are active. BACK: Exam without any CVA or vertebral tenderness. EXTREMITIES: Without any clubbing, cyanosis or edema. NEUROLOGIC: She is alert and oriented times three. Cranial nerves II-XII are grossly intact. Facial features are symmetrical. Extraocular movements are within normal limits. There is no nystagmus noted. SKIN: Warm, pink and dry. LABORATORY: White count 11,200, hemoglobin 11.1, hematocrit 36.0, platelet count 188,000. Differential did show a left shift. Coagulation studies showed a PT of 11.4, PTT of 20.9. Chemistries on admission showed sodium 132, potassium 4.7, BUN 51, creatinine 2.2. Liver functions were within normal limits. Lipase normal at 25, troponin at 0.04. Urinalysis did show on a cath specimen positive nitrites with trace of blood, small amount of leukocyte esterase, 0 to 1 RBCs, 10 to 20 WBCs, 1 to 3 epithelials and 1+ bacteria. MICROBIOLOGY: Urine culture is pending. Blood culture is pending. COVID testing was negative by nasal swab. EKG 12-lead showed nonspecific T wave changes, but no ST or T wave changes to indicate acute ischemia with ACLS A-flutter, approximate rate of 60 [id number] with 3 to 1 conduction. RADIOLOGY: Initial chest x-ray in the Emergency Room per radiology interpretation showed patchy bilateral opacities, atelectasis versus infiltrate. CT of the abdomen and pelvis without contrast per radiology interpretation shows again a new infiltrate and consolidation lateral right lower lobe. There is also note of mucosal thickening in the right colon, possibly colitis with some mild left hydronephrosis which is unchanged. No obstructing calculi bilaterally. ASSESSMENT: 1. Acute exacerbation of chronic obstructive pulmonary disease with right lower lobe pneumonia, community acquired. 2. Urinary tract infection. Cultures pending. 3. Diabetes mellitus type 2 on insulin therapy. 4. Chronic gastroparesis. 5. Questionable mild colitis with surgical consultation pending. 6. Nausea and vomiting likely associated with gastroparesis exacerbated by underlying urinary tract infection. 7. History of hypertension. 8. History of gastroesophageal reflux disease. 9. Chronic renal insufficiency with creatinine baseline around 2.0 with current creatinine showing to be a little bit above baseline, likely some mild dehydration form nausea and vomiting with associated prerenal azotemia. 10. History of coronary artery disease with previous stents. 11. Morbid obesity. 12. History of chronic atrial fibrillation not currently on any rate control. Medications are chronic anticoagulation. PLAN: Ms. Lares is going to be admitted to the hospital for treatment of underlying acute COPD exacerbation with right lower lobe pneumonia, although she tested positive for COVID. She will be on antibiotics to include Rocephin and azithromycin. I have requested Dr. Gallagher consultation to further rule out any underlying colitis as suggested on CT findings. Will wait for Dr. Gallagher's recommendations as far as her diet, but she will be at least on a clear liquid diet with insulin sliding scale. She will be on DVT prophylaxis per protocol with Lovenox. I will go ahead and put her on Align. I anticipate her length of stay to be at least 2 to 3 days. Will await culture results on the urine. She will continue with antibiotics for that with Rocephin and azithromycin. Until we can transition her back to outpatient management will continue to treat as needed. #[id number] [facility]
[2020-06-12] MEDS ORDERED: PIPERACILLIN/TAZOBACTAM 3.375 GM VIAL IVPB ONE (23:13)
[2020-06-12] MEDS ORDERED: metroNIDAZOLE IV PREMIX 500MG 0 ML IVPB ONE (23:14)
[2020-06-12] MEDS ORDERED: metroNIDAZOLE IV PREMIX 500MG 100 ML IVPB ONE (23:14)
[2020-06-12] MEDS ORDERED: SODIUM CHL 0.9% 100ML MINI-BAG 100 ML IVPB ONE (23:14)
[2020-06-12] MEDS ORDERED: ALPRAZolam 0.25 MG TAB PO ONE (23:15)
[2020-06-12] MEDS: metroNIDAZOLE IV PREMIX 500MG 500 MG in PREMIX BAG 1 BAG IVPB SCH (23:15)
[2020-06-12] MEDS: SODIUM CHLORIDE 0.9% 1000ML 1,000 ML IVS PRN (23:44)
[2020-06-12] MEDS: IV SET AND CAP CHANGE INJ INJ SCH (23:51)
[2020-06-12] MEDS: PIPERACILLIN/TAZOBACTAM 3.375 GM in SODIUM CHLORIDE 0.9% 100ML 100 ML IVPB SCH (23:57)
[2020-06-13] MEDS: ACETAMINOPHEN 325 MG TAB PO PRN ×3 (03:20→23:25)
[2020-06-13] MEDS ORDERED: metroNIDAZOLE IV PREMIX 500MG 100 ML IVPB ONE (05:10)
[2020-06-13] MEDS: PANTOPRAZOLE SODIUM IV 40 MG VIAL IV SCH (05:52)
[2020-06-13] MEDS: metroNIDAZOLE IV PREMIX 500MG 500 MG in PREMIX BAG 1 BAG IVPB SCH ×3 (06:12→22:18)
[2020-06-13] MEDS ORDERED: GLUCAGON INJ 1 MG VIAL SUBCU PRN (08:28)
[2020-06-13] MEDS ORDERED: DEXTROSE 50% 25 GM/50 ML SYG IV PRN (08:28)
[2020-06-13] MEDS ORDERED: PROMETHAZINE HCL INJ 12.5 MG in SODIUM CHLORIDE 0.9% 50ML 50 ML IVPB ONE (08:29)
[2020-06-13] MEDS: INSULIN LISPRO 100 UNITS/ML PEN SUBCU SCH ×3 (11:56→21:48)
[2020-06-13] MEDS: PIPERACILLIN/TAZOBACTAM 3.375 GM in SODIUM CHLORIDE 0.9% 100ML 100 ML IVPB SCH ×2 (11:57→23:05)
--- NOTE | 2020-06-13 13:20 | CONS ---
DATE OF CONSULTATION: 06/13/20 HISTORY OF PRESENT ILLNESS: The patient is an 84-year-old female with diabetes, hypertension, history of heart disease who presented to the Emergency Room with abdominal pain and nausea for two weeks. She does have a history of gastroesophageal reflux and gastroparesis secondary to diabetes. She denied chest pain, shortness of breath. She did state that she had had trouble resting and had a poor appetite. There was no change in her bowel movements. She denied hematemesis, hematochezia or melena. PAST MEDICAL HISTORY: 1. Diabetes. 2. Dementia. 3. Chronic obstructive pulmonary disease. 4. Congestive heart failure. 5. Hypertension. 6. Gastroesophageal reflux disease. 7. Renal insufficiency. PAST SURGICAL HISTORY: 1. Cholecystectomy. FAMILY HISTORY: Noncontributory. SOCIAL HISTORY: The patient has a longtime history of smoking. No use of alcohol or illicit drugs. REVIEW OF SYSTEMS: Unremarkable except as in the history of present illness. PHYSICAL EXAMINATION: GENERAL: The patient is awake, alert, cooperative. She is generally oriented and in no acute distress. HEENT: Sclerae nonicteric. Mucous membranes moist. BACK: Without CVA tenderness. CHEST: Equal breath sounds bilaterally anteriorly. HEART: Regular rate and rhythm. ABDOMEN: Soft with minimal diffuse tenderness. PELVIC/RECTAL: Deferred. LABORATORY: White count 11,000 with 73% neutrophils. Hemoglobin 11.1, platelet count 188,000. Potassium 4.7, creatinine 2.20, glucose 89 on admission. Liver functions within normal limits. BNP within normal limits. Urinalysis pending. RADIOLOGY: CT scan of the abdomen revealed no acute changes, no inflammatory changes, no obstruction, free fluid or free air. The area that was called mucosal thickening in the colon, I find very unlikely to be associated with colitis, either ischemic or bacterial. PLAN: I would continue to gently rehydrate the patient and consider antibiotic treatment for possible right lower lobe pneumonia. I will follow the patient with you and would slowly increase diet. [facility][id number] [facility]
[2020-06-13] MEDS: SODIUM CHLORIDE 0.9% 1000ML 1,000 ML IVS PRN (13:58)
[2020-06-13] MEDS: cefTRIAXone SODIUM 1 GM in SODIUM CHL 0.9% 50ML MIN-BAG+ 50 ML IVPB SCH (17:02)
[2020-06-13] MEDS: AZITHROMYCIN IV 500 MG in SODIUM CHLORIDE 0.9% 250ML 250 ML IVPB SCH (17:54)
[2020-06-13] MEDS: ENOXAPARIN SODIUM 30 MG/0.3 ML SYG SUBCU SCH (20:16)
[2020-06-13] MEDS: SIMVASTATIN 20 MG TAB PO SCH (20:17)
[2020-06-13] MEDS: METOCLOPRAMIDE HCL 5 MG TAB PO SCH (20:17)
[2020-06-13] MEDS: ALPRAZolam 0.5 MG TAB PO PRN (20:22)
[2020-06-14] MEDS: PANTOPRAZOLE SODIUM IV 40 MG VIAL IV SCH (05:54)
[2020-06-14] MEDS: metroNIDAZOLE IV PREMIX 500MG 500 MG in PREMIX BAG 1 BAG IVPB SCH (05:54)
--- NOTE | 2020-06-14 06:16 | RAD ---
EXAM: XR Chest, 1 View CLINICAL HISTORY: The patient is 84 years old and is Female; RLL PNA TECHNIQUE: Single upright portable view of the chest. COMPARISON: June 12, 2020 7:31 PM. FINDINGS: Lungs: See below. Pleural space: Right pleural effusion appears increased. Bibasilar infiltrates again noted more pronounced and increased in conspicuity on the right. No pneumothorax. Heart: Status post CABG surgery. Cardiomegaly. Mediastinum: Unremarkable. Bones/joints: The bones and joints are unchanged as visualized. Upper abdomen: No free air in the visualized upper abdomen. IMPRESSION: 1. Right pleural effusion appears increased. Bibasilar infiltrates again noted more pronounced and increased in conspicuity on the right. 2. Status post CABG surgery. Cardiomegaly. Electronically signed by: Ofe Velez MD 06/14/2020 6:15 AM CDT
[2020-06-14] MEDS: INSULIN LISPRO 100 UNITS/ML PEN SUBCU SCH ×4 (07:05→21:33)
[2020-06-14] MEDS ORDERED: SPIRONOLACTONE 25 MG TAB ONE (08:14)
[2020-06-14] MEDS ORDERED: BIFIDOBACTERIUM INFANTIS 4 MG CAP ONE (08:14)
[2020-06-14] MEDS ORDERED: METOCLOPRAMIDE HCL 5 MG TAB ONE (08:14)
[2020-06-14] MEDS ORDERED: LISINOPRIL 5 MG TAB ONE (08:14)
[2020-06-14] MEDS ORDERED: ASPIRIN (ENTERIC COATED) 81 MG TAB PO ONE (08:14)
[2020-06-14] MEDS ORDERED: FUROSEMIDE 40 MG TAB ONE (08:14)
[2020-06-14] MEDS: FUROSEMIDE 40 MG TAB PO SCH (08:31)
[2020-06-14] MEDS: METOCLOPRAMIDE HCL 5 MG TAB PO SCH ×3 (08:31→20:29)
[2020-06-14] MEDS: ASPIRIN (ENTERIC COATED) 81 MG TAB PO SCH (08:31)
[2020-06-14] MEDS: SPIRONOLACTONE 25 MG TAB PO SCH (08:31)
[2020-06-14] MEDS: LISINOPRIL 5 MG TAB PO SCH (08:31)
[2020-06-14] MEDS: BIFIDOBACTERIUM INFANTIS 4 MG CAP PO SCH (08:31)
[2020-06-14] MEDS: ONDANSETRON INJ 4 MG/2 ML VIAL IV PRN (08:32)
[2020-06-14] MEDS: PIPERACILLIN/TAZOBACTAM 3.375 GM in SODIUM CHLORIDE 0.9% 100ML 100 ML IVPB SCH (10:16)
[2020-06-14] MEDS: ALPRAZolam 0.5 MG TAB PO PRN ×2 (10:25→20:29)
[2020-06-14] MEDS ORDERED: PROMETHAZINE W/CODEINE SYR 5 ML UD PO PRN (12:21)
[2020-06-14] MEDS ORDERED: IPRATROPIUM/ALBUTEROL 3 ML VIAL NEB ONE (12:48)
[2020-06-14] MEDS: IPRATROPIUM/ALBUTEROL 3 ML VIAL NEB SCH ×3 (12:50→19:20)
--- NOTE | 2020-06-14 15:43 | PN ---
SUPERVISING PHYSICIAN: Abhilash Siddiqi MD DATE: 06/14/20 SUBJECTIVE: The patient is much more alert today. She developed quite a congestive cough overnight. She is still doing well with oxygen requirements. She has been physically able to get up out of bed to the bedside chair which is pretty much her baseline level. She has not had anymore abdominal pains and no associated nausea or vomiting. OBJECTIVE: VITAL SIGNS: Temperature 97.8, pulse 98, blood pressure 128/78, respirations 18, saturation 95% on 2 liters nasal cannula. GENERAL: The patient is resting comfortably. She does have an obvious cough, but is not in any acute distress. She is alert. CHEST: Lung sounds are diminished towards the bases, more on the right than the left. There is no obvious wheezing, but she does have a little rhonchi heard throughout, but this does seem to clear with coughing. HEART: Slightly irregular rate and rhythm. ABDOMEN: Obese, but soft and nontender. Positive bowel sounds. EXTREMITIES: No notable edema. NEUROLOGIC: Alert and oriented times three. LABORATORY: White count normalized yesterday to 10,300, hemoglobin 10.9, hematocrit 13.1, without a left shift. Today, her chemistries show normal electrolytes. Creatinine is at 2.05, which is her baseline levels. Blood sugars range between 119 and 138. Calcium 8.6. MICROBIOLOGY: Final urine culture showed sensitive to cephalosporins as well as fluoroquinolones and Bactrim. It was resistant to Augmentin. Blood cultures remain negative after 24 hours. RADIOLOGY: Chest x-ray this morning per radiologic interpretation shows right pleural effusion that appears to be increased, bibasilar infiltrates again noted, more pronounced and increased specifically on the right. ASSESSMENT: 1. Acute exacerbation of chronic obstructive pulmonary disease with right lower lobe pneumonia, community acquired. 2. Urinary tract infection secondary to Escherichia coli which was sensitive to all but penicillins including Augmentin. 3. Diabetes mellitus, type 2, on insulin therapy. 4. Chronic gastroparesis. 5. Nausea and vomiting likely associated with gastroparesis exacerbated by underlying urinary tract infection. 6. History of hypertension. 7. History of gastroesophageal reflux disease. 8. Chronic renal insufficiency, now at baseline levels. 9. History of coronary artery disease with previous stents. 10. Morbid obesity. 11. History of chronic atrial fibrillation not currently on any rate control. Medications are chronic anticoagulation. PLAN: We will continue with aggressive treatment of urinary tract infection and pneumonia with Rocephin and azithromycin. I did start her on DuoNeb treatments and I will give her some cough medicine in the form of Phenergan and guaifenesin. Dr. Gallagher has recommended to advance her diet as there is no obvious signs of colitis on CT and the patient looks better today. She does remain on DVT prophylaxis with Lovenox. She is on Align. Hopefully, we be able to discharge the patient tomorrow. Until then, we will continue to monitor and treat as needed. [facility][id number] [facility]
[2020-06-14] MEDS: cefTRIAXone SODIUM 1 GM in SODIUM CHL 0.9% 50ML MIN-BAG+ 50 ML IVPB SCH (16:49)
[2020-06-14] MEDS: AZITHROMYCIN IV 500 MG in SODIUM CHLORIDE 0.9% 250ML 250 ML IVPB SCH (17:33)
[2020-06-14] MEDS: SODIUM CHLORIDE 0.9% 1000ML 1,000 ML IVS PRN (17:33)
[2020-06-14] MEDS: ACETAMINOPHEN 325 MG TAB PO PRN (18:27)
[2020-06-14] MEDS: (Formoterol Fumarate [Perforomist] 20 MCG) INH PRN (19:40)
[2020-06-14] MEDS: ENOXAPARIN SODIUM 30 MG/0.3 ML SYG SUBCU SCH (20:29)
[2020-06-14] MEDS: SIMVASTATIN 20 MG TAB PO SCH (20:29)
[2020-06-14] MEDS: ACETAMINOPHEN W/COD #3 TAB 1 EA TAB PO PRN (22:03)
[2020-06-15] MEDS: ACETAMINOPHEN 325 MG TAB PO PRN ×2 (02:39→11:18)
[2020-06-15] MEDS: PANTOPRAZOLE SODIUM IV 40 MG VIAL IV SCH (05:39)
[2020-06-15] MEDS: SODIUM CHLORIDE 0.9% 1000ML 1,000 ML IVS PRN (06:14)
[2020-06-15] MEDS: BIFIDOBACTERIUM INFANTIS 4 MG CAP PO SCH (07:32)
[2020-06-15] MEDS: METOCLOPRAMIDE HCL 5 MG TAB PO SCH ×3 (07:32→20:34)
[2020-06-15] MEDS: ASPIRIN (ENTERIC COATED) 81 MG TAB PO SCH (07:32)
[2020-06-15] MEDS: SPIRONOLACTONE 25 MG TAB PO SCH (07:32)
[2020-06-15] MEDS: LISINOPRIL 5 MG TAB PO SCH (07:32)
[2020-06-15] MEDS: FUROSEMIDE 40 MG TAB PO SCH (07:33)
[2020-06-15] MEDS: INSULIN LISPRO 100 UNITS/ML PEN SUBCU SCH ×4 (07:48→20:59)
[2020-06-15] MEDS ORDERED: AZITHROMYCIN 250 MG TAB PO ONE ×2 (08:06→11:13)
[2020-06-15] MEDS: (Formoterol Fumarate [Perforomist] 20 MCG) INH PRN (08:19)
[2020-06-15] MEDS: IPRATROPIUM/ALBUTEROL 3 ML VIAL NEB SCH ×4 (08:19→20:45)
--- NOTE | 2020-06-15 08:45 | RAD ---
EXAM: X-RAY, Chest (1 View) HISTORY: Right lower lobe PNA. COMPARISON: Chest x-ray from 06/14/2020. TECHNIQUE: AP view of the chest. FINDINGS: Lungs: Shallow inspiration. Stable compressive atelectasis or pneumonia in the right lung base. Central pulmonary vascular congestion and pulmonary edema are similar to the previous exam. Pleural space: Stable small right pleural effusion. No pneumothorax. Heart: Mildly enlarged. Bones: No acute bone abnormality. IMPRESSION: 1. Stable exam. 2. Small right pleural effusion and right basilar atelectasis or pneumonia. 2. Pulmonary vascular congestion and mild pulmonary edema. Electronically signed by: Omer Alberts MD 06/15/2020 8:43 AM CDT
[2020-06-15] MEDS ORDERED: predniSONE 20 MG TAB PO ONE (09:19)
[2020-06-15] MEDS ORDERED: SODIUM CHLORIDE 0.9% (FLUSH) 10 ML SYG IV ONE (09:20)
[2020-06-15] MEDS ORDERED: BUDESONIDE NEBS 0.5 MG/2 ML INH NEB ONE (09:35)
[2020-06-15] MEDS: BUDESONIDE NEBS 0.5 MG/2 ML INH NEB SCH ×2 (09:43→20:35)
[2020-06-15] MEDS ORDERED: predniSONE 20 MG TAB ONE (11:13)
--- NOTE | 2020-06-15 11:48 | PN ---
SUPERVISING PHYSICIAN: Abhilash Siddiqi MD DATE: 06/15/20 SUBJECTIVE: The patient says she feels well but says she is still having a little bit of shortness of breath. The Richey was removed this morning. Review of I&O shows that she is actually almost at a positive balance on her fluids. She has been saline locked. I was going to send her home today but after exam and discussion, I am going to go ahead and try to put her on some prednisone and keep her overnight as well as add some Pulmicort inhaler nebulizer to see if she will improve. In regards to her respiratory effort, she is not in any respiratory distress but she does sound a little wheezy on exam compared to yesterday and notes that she is short of breath. Otherwise, she is doing pretty good, she has been afebrile. No other complaints. OBJECTIVE: VITAL SIGNS: Temperature 98.5, pulse 96, blood pressure 126/78, respirations 20, saturation 92% on 3 liters nasal cannula. GENERAL: The patient looks to be resting comfortably. She does not appear to be in any distress. CHEST: Lung sounds are diminished bilaterally, not much more than yesterday. She always a poor inspiratory effort but she does have some obvious inspiratory/expiratory wheezing bilaterally this morning. No rales or rhonchi. HEART: Slightly irregular rate and rhythm. ABDOMEN: Obese, but soft and nontender. Positive bowel sounds. EXTREMITIES: No edema. NEUROLOGIC: Alert and oriented times three. LABORATORY: I went ahead and repeated BMP and CBC since we are going to keep her another 24 hours but those are pending. RADIOLOGY: Repeat chest x-ray this morning per radiologic interpretation of a single view chest shows stable exam, small right pleural effusion right bibasilar atelectasis and her pneumonia with pulmonary vascular congestion and mild pulmonary edema. ASSESSMENT: 1. Acute exacerbation of chronic obstructive pulmonary disease with right lower lobe pneumonia, community acquired. 2. Urinary tract infection secondary to Escherichia coli which was sensitive to all but penicillins including Augmentin. 3. Diabetes mellitus, type 2, on insulin therapy. 4. Chronic gastroparesis. 5. Nausea and vomiting likely associated with gastroparesis exacerbated by underlying urinary tract infection. 6. History of hypertension. 7. History of gastroesophageal reflux disease. 8. Chronic renal insufficiency, now at baseline levels. 9. History of coronary artery disease with previous stents. 10. Morbid obesity. 11. History of chronic atrial fibrillation not currently on any rate control. Medications are chronic anticoagulation. PLAN: I was going to try to discharge her home today, she did not have any abdominal pain but her respiratory effort is a little bit increased today. She has some wheezing. I was trying to avoid putting her on some steroids but will try some oral steroids in the form of prednisone as well as some inhaled steroids in the form of Pulmicort today. I have rechecked her labs to insure those are staying stable. Her Richey catheter has been removed which will help further assess her ability to get up out of the bed and her respiratory effort. She remains on DVT prophylaxis. She is on sliding scale insulin. We may have to increase her sliding scale coverage with some long-acting depending on how she does with the prednisone. If she does well overnight, I anticipate we will discharge her tomorrow. Until then, we will continue to monitor and treat as needed. [facility][id number] [facility]
[2020-06-15] MEDS: ACETAMINOPHEN W/COD #3 TAB 1 EA TAB PO PRN ×2 (15:30→20:10)
[2020-06-15] MEDS: cefTRIAXone SODIUM 1 GM in SODIUM CHL 0.9% 50ML MIN-BAG+ 50 ML IVPB SCH (16:13)
[2020-06-15] MEDS: ALPRAZolam 0.5 MG TAB PO PRN (20:10)
[2020-06-15] MEDS: SIMVASTATIN 20 MG TAB PO SCH (20:34)
[2020-06-15] MEDS: SODIUM CHLORIDE 0.9% (FLUSH) 10 ML SYG IV SCH (20:34)
[2020-06-15] MEDS: ENOXAPARIN SODIUM 30 MG/0.3 ML SYG SUBCU SCH (20:34)
[2020-06-16] MEDS: IV SET AND CAP CHANGE INJ INJ SCH (00:27)
[2020-06-16] MEDS: ACETAMINOPHEN W/COD #3 TAB 1 EA TAB PO PRN ×2 (00:58→09:53)
[2020-06-16] MEDS: ACETAMINOPHEN 325 MG TAB PO PRN (04:26)
[2020-06-16] MEDS: PANTOPRAZOLE SODIUM IV 40 MG VIAL IV SCH (06:06)
[2020-06-16] MEDS ORDERED: BUDESONIDE NEBS 0.5 MG/2 ML INH NEB ONE (07:50)
[2020-06-16] MEDS: IPRATROPIUM/ALBUTEROL 3 ML VIAL NEB SCH ×2 (07:53→14:19)
[2020-06-16] MEDS: (Formoterol Fumarate [Perforomist] 20 MCG) INH PRN (07:53)
[2020-06-16] MEDS: BUDESONIDE NEBS 0.5 MG/2 ML INH NEB SCH (07:53)
[2020-06-16] MEDS: INSULIN LISPRO 100 UNITS/ML PEN SUBCU SCH ×2 (07:56→11:57)
[2020-06-16 08:48] VITALS: O2SAT 95
[2020-06-16] MEDS ORDERED: METOCLOPRAMIDE HCL 5 MG TAB ONE (09:49)
[2020-06-16] MEDS: BIFIDOBACTERIUM INFANTIS 4 MG CAP PO SCH (09:53)
[2020-06-16] MEDS: METOCLOPRAMIDE HCL 5 MG TAB PO SCH (09:53)
[2020-06-16] MEDS: SPIRONOLACTONE 25 MG TAB PO SCH (09:53)
[2020-06-16] MEDS: LISINOPRIL 5 MG TAB PO SCH (09:53)
[2020-06-16] MEDS: ASPIRIN (ENTERIC COATED) 81 MG TAB PO SCH (09:53)
[2020-06-16] MEDS: SODIUM CHLORIDE 0.9% (FLUSH) 10 ML SYG IV SCH (09:54)
[2020-06-16] MEDS: FUROSEMIDE 40 MG TAB PO SCH (09:54)
[2020-06-16] MEDS: ONDANSETRON INJ 4 MG/2 ML VIAL IV PRN (11:04)
[2020-06-16 11:10] VITALS: TEMP 97.8
[2020-06-16] MEDS ORDERED: predniSONE 20 MG TAB PO ONE (13:42)
[2020-06-16] MEDS ORDERED: CEFDINIR 300 MG CAP PO ONE (13:42)
[2020-06-16] MEDS ORDERED: predniSONE 20 MG TAB ONE (14:09)
[2020-06-16] MEDS ORDERED: CEFDINIR 300 MG CAP ONE (14:09)
[2020-06-16 14:54] VITALS: BP 139/82
--- NOTE | 2020-06-17 10:03 | DS ---
SUPERVISING PHYSICIAN: Abhilash Siddiqi MD ADMISSION DIAGNOSIS: 1. Acute exacerbation of chronic obstructive pulmonary disease with right lower lobe pneumonia, community acquired. 2. Urinary tract infection. Cultures pending. 3. Diabetes mellitus, type 2, on insulin therapy. 4. Chronic gastroparesis. 5. Questionable mild colitis with surgical consultation pending. 6. Nausea and vomiting likely associated with gastroparesis exacerbated by underlying urinary tract infection. 7. History of hypertension. 8. History of gastroesophageal reflux disease. 9. Chronic renal insufficiency with creatinine baseline around 2.0 with current creatinine showing to be a little bit above baseline, likely some mild dehydration form nausea and vomiting with associated prerenal azotemia. 10. History of coronary artery disease with previous stents. 11. Morbid obesity. 12. History of chronic atrial fibrillation not currently on any rate control. Medications are chronic anticoagulation. DISCHARGE DIAGNOSIS: 1. Acute exacerbation of chronic obstructive pulmonary disease with right lower lobe pneumonia, community acquired. 2. Urinary tract infection secondary to Escherichia coli which was sensitive to all but penicillins including Augmentin. 3. Diabetes mellitus, type 2, on insulin therapy. 4. Chronic gastroparesis. 5. Nausea and vomiting likely associated with gastroparesis exacerbated by underlying urinary tract infection. 6. History of hypertension. 7. History of gastroesophageal reflux disease. 8. Chronic renal insufficiency, now at baseline levels. 9. History of coronary artery disease with previous stents. 10. Morbid obesity. 11. History of chronic atrial fibrillation not currently on any rate control. Medications are chronic anticoagulation. REASON FOR HOSPITALIZATION: Ms. Lares is an 84 year-old female that presented to the Emergency Room last night with a past medical history of hypertension and diabetes. She was complaining of abdominal pain that had been present for over 2 weeks. She also has a history of diabetes that is poorly controlled with associated gastroparesis. She denied any chest pain or shortness of breath. Her initial labs in the Emergency Room showed she had a mild leukocytosis of 11,200 with an early left shift. Initial chemistries showed she had a creatinine of 2.2 with sodium 132. Abdomen and pelvis CT along with chest x-ray were completed as well. CT of the pelvis without contrast as well as chest x-ray found a consolidation in the right lower lobe with some mild mucosal thickening of the right colon, possibly colitis. Her urinalysis also showed she had a significant urinary tract infection. She was given antibiotics in the Emergency Room, including Flagyl and Zosyn, and then was admitted to the floor for further evaluation and treatment of nausea and vomiting with associated right lower lobe pneumonia, community acquired and possible colitis. She was in stable condition at time of admission. MEDICAL CONSULTATION: Duglas Gallagher MD, please his medical consultation for full details. LABORATORY: Discharge white count was 11,900, which did show slight left shift, but she was on steroids at that time. Hemoglobin 10.8, hematocrit 33.2, platelet count 161,000. Coagulation studies showed PT 11.4, PTT 20.9. Chemistries prior to discharge showed creatinine 2.13, normal sodium and potassium. Blood sugars fairly stable between 147 and 208. Calcium 9.0. Initially on admission, her lactic acid was normal at 1.3. BNP less than 15. MICROBIOLOGY: Final urine culture results showed E. coli that was sensitive to all but ampicillin and Augmentin. Her COVID nasal swab was negative. Blood cultures remained negative after 4 days. RADIOLOGY: Final chest x-ray on 06/15/20 per radiologic interpretation showed stable exam with a compressive atelectasis and pneumonia in the right lung base, central pulmonary vascular congestion, pulmonary edema with small right pleural effusion. Please see that report for details. She also had abdominopelvic CT without contrast and per radiologic interpretation showed new infiltrate and consolidation lateral right lower lobe. There is note of a 4.9 cm right ovarian cyst and mucosal thickening of right colon, possibly colitis, which was followed up by Dr. Gallagher. She has mild left hydronephrosis, unchanged. No obstructing calculi bilaterally. HOSPITAL COURSE: Ms. Lares was admitted for nausea, vomiting and abdominal pain. She was worked up and found to have a urinary tract infection secondary to E. coli as well as right lower lobe pneumonia. She was treated with antibiotics with Rocephin and azithromycin. Dr. Gallagher did see in regards to the abdominal pain with question of colitis, however, on the final exam and review of CT, the patient was not found to have any significant colitis, but rather just complications from gastroparesis showing underlying infectious process. She was treated with antibiotics. She did show good improvement, however, the day before discharge, she had a little wheezing. Therefore, I started her on some steroids and she stayed an additional 24 hours. She did well with prednisone and on the day of discharge, she was anxious to go home. She was feeling much better, still a little bit short of breath, but no more than normal. She wears oxygen at home. It was felt she clinically stable enough to continue with outpatient management. PLAN: Ms. Lares was discharged on 06/16/20 with instructions to followup with Dr. Alex in 7 days, to call his office on Wednesday after discharge to set up an appointment. She was to followup a diabetic diet and watch her blood sugars closely as she will be on prednisone. She was told to return to the Emergency Department if she had any concerning symptoms. Activity as tolerate with walker. She was discharged with new prescriptions to include: 1. Align 4 mg daily. 2. Cefdinir 300 mg daily for 7 days. 3. Prednisone taper 10 mg tablets, #20, no refills. All other medications as prior to hospitalization were continued. CONDITION ON DISCHARGE: Stable and improved. DISPOSITION: The patient is discharged home. #[id number] MTDD
== END 2020-06-16 14:00 | disposition home or self-care (01) | DRG 73 ==
LOC: ER 18:59 → MS 23:01 → OBSVTOIN 23:01
PROVIDERS: ADMIT Nurse Practitioner Family; ATTEND Nurse Practitioner Family
DX: E11.43 Type 2 diabetes mellitus with diabetic autonomic (poly)neuropathy (principal); J18.9 Pneumonia, unspecified organism; J44.1 Chronic obstructive pulmonary disease with (acute) exacerbation; N39.0 Urinary tract infection, site not specified; I48.20 Chronic atrial fibrillation, unspecified; E87.1 Hypo-osmolality and hyponatremia; J44.0 Chronic obstructive pulmonary disease with (acute) lower respiratory infection; Z68.42 Body mass index [BMI] 45.0-49.9, adult; B96.20 Unspecified Escherichia coli [E. coli] as the cause of diseases classified elsewhere; E86.0 Dehydration; K31.84 Gastroparesis; I12.9 Hypertensive chronic kidney disease with stage 1 through stage 4 chronic kidney disease, or unspecified chronic kidney disease; K21.9 Gastro-esophageal reflux disease without esophagitis; N18.9 Chronic kidney disease, unspecified; E11.22 Type 2 diabetes mellitus with diabetic chronic kidney disease; I25.10 Atherosclerotic heart disease of native coronary artery without angina pectoris; E66.01 Morbid (severe) obesity due to excess calories; Z95.5 Presence of coronary angioplasty implant and graft; Z79.01 Long term (current) use of anticoagulants; Z79.4 Long term (current) use of insulin; Z79.82 Long term (current) use of aspirin; Z79.899 Other long term (current) drug therapy; Z88.5 Allergy status to narcotic agent; Z88.8 Allergy status to other drugs, medicaments and biological substances; Z87.891 Personal history of nicotine dependence

== ENCOUNTER 2020-06-17 09:05 | Inpatient (IN) | payer MEDICAID, MEDICARE, OTHER ==
[2020-06-17] MEDS ORDERED: SODIUM CHLORIDE 0.9% (FLUSH) 10 ML SYG IV PRN ×2 (09:16→16:39)
[2020-06-17] MEDS ORDERED: SODIUM CHLORIDE 0.9% 1000ML 1,000 ML IVS PRN (09:16)
[2020-06-17] MEDS ORDERED: IPRATROPIUM/ALBUTEROL 3 ML VIAL INH ONE (09:16)
[2020-06-17] MEDS ORDERED: SODIUM CHLORIDE 0.9% 1000ML 1,000 ML IVS ONE (09:17)
--- NOTE | 2020-06-17 09:24 | ED.PDOC ---
History of Present Illness - General Time Seen by Provider: 06/17/20 09:10 Source: patient, RN notes reviewed, Vital Signs reviewed, family, old records Exam Limitations: no limitations - History of Present Illness Initial Comments: Is an 84-year-old female with a past medical history of congestive heart failure, COPD, diabetes and chronic kidney disease who presents the ED with altered mental status and shortness of breath. She was admitted to the hospital from June 12 and discharged yesterday at family's request after being treated for COPD exacerbation and right lower lobe pneumonia. Per family she was short of breath and sent this morning and they called EMS. Per EMS, O2 sats were in the 70s on oxygen upon arrival and improved after placing nonrebreather. Patient cannot tell me her name but can give no further history. Granddaughter is at bedside and states patient is DNR and would not want to be intubated or have any aggressive measures performed. Allergies/Adverse Reactions: Allergies Morphine Adverse Reaction (Severe, Verified 06/17/20 09:34) Other Makes her "crazy" Home Medications: Ambulatory Orders Furosemide 60 mg PO DAILY 04/12/15 Linagliptin [Tradjenta] 5 mg PO DAILY 04/12/15 Nitroglycerin [Nitrostat] 0.4 mg SL PRN PRN 04/12/15 Simvastatin 80 mg PO BEDTIME 04/12/15 Aspirin [Aspirin Adult Low Dose] 81 mg PO DAILY 05/03/15 Spironolactone [Aldactone] 25 mg PO DAILY 05/03/15 Lisinopril 5 mg PO DAILY 08/07/15 Insulin Aspart [Novolog] 0 unit SC ACHS PRN 02/24/17 Insulin Detemir [Levemir Pen] 16 unit SUBCU BID 02/24/17 Magnesium Hydroxide [Milk Of Magnesia] 1 arelis PO PRN PRN 02/24/17 Metoclopramide Tab [Reglan Tab] 10 mg PO TID 02/24/17 Acetamin W/Cod #3 Tab [Tylenol w/CODEINE #3] 1 ea PO Q4HR PRN 08/19/18 Promethazine Tab [Phenergan Tablet] 25 mg PO TID PRN 08/19/18 ALPRAZolam [Xanax] 0.5 mg PO TID PRN 06/13/20 Docusate Sodium [Dulcolax Stool Softener] 1 capsule PO DAILY PRN 06/13/20 Formoterol Fumarate [Perforomist] 20 mcg INH DAILY PRN 06/13/20 Pantoprazole Sodium 40 mg PO DAILY 06/13/20 Polyethylene Glycol 3350 [Miralax] 17 gm PO DAILY PRN 06/13/20 Pramoxine HCl (Rectal) [Proctofoam] 1 % WV QID PRN 06/13/20 Bifidobacterium Infantis [Align] 4 mg PO DAILY cap 06/15/20 Cefdinir [Omnicef] 300 mg PO DAILY #7 cap 06/15/20 predniSONE See Taper PO DAILY 8 Days #20 tab 06/16/20 Review of Systems - Review of Systems Unable to Obtain Due To: condition Past Medical History (General) - Patient Medical History Hx Seizures: No Hx Stroke: No Hx Dementia: Yes Hx Asthma: No Hx of COPD: Yes Hx Cardiac Disorders: Yes Hx Congestive Heart Failure: Yes Hx Pacemaker: No Hx Hypertension: Yes Hx Thyroid Disease: No Hx Diabetes: Yes Hx Gastroesophageal Reflux: Yes Hx Renal Disease: Yes Hx Cancer: No Hx of HIV: No Hx Hepatitis C: No Hx MRSA: No - Vaccination History Hx Tetanus, Diphtheria Vaccination: No Hx Influenza Vaccination: No Hx Pneumococcal Vaccination: Yes - Social History Hx Tobacco Use: Yes Hx Chewing Tobacco Use: No Hx Alcohol Use: No Hx Substance Use: No Hx Substance Use Treatment: No Hx Depression: No Hx Physical Abuse: No Hx Emotional Abuse: No Hx Suspected Abuse: No - Female History Patient : No Family Medical History - Family History Father Living Status: Hx Cardiac Disease: Yes - multiple family members Hx Family Diabetes: Yes - multiple family members Mother Family History: Unknown Living Status: Age at (years of age): 99 Cause of : old age Hx Family Diabetes: Yes Physical Exam - Physical Exam General Appearance: Other - Respiratory distress. Nontraumatic appearing Neck: supple Respiratory: other - Respiratory distress. Fair air movement with mild wheezes Cardiovascular/Chest: no edema, tachycardia, irregularly irregular Gastrointestinal/Abdominal: non tender, soft, no pulsatile mass Extremity: other - No pitting edema Neurologic: other - Able to tell me her name only. Noncooperative with rest of neuro exam Skin Exam: normal color, warm/dry Progress - Progress Progress: 06/17/20 09:17 Detailed discussion was had with granddaughter at bedside. Patient has hypotension and respiratory distress. She states patient is a DNR, DNI. She does not want mechanical ventilation or extreme measures and would prefer the patient was kept comfortable. She has discussed this with other family members by phone and are all in agreement. 06/17/20 10:13 and granddaughter are at bedside talking with hospice nurse. I have informed them of chest x-ray findings and answered all questions. 06/17/20 11:48 I have d/w hospitalist, Rosa Arriola. Pt will be admitted for inpatient hospice with [facility]. Family at bedside and agrees with plan of care for hospice and comfort care. - Results/Orders Results/Orders: EKG- afib with RVR, rate 104, nml QRS interval, nonspecific T wave abnormality CHEST XRAY Study: Single Frontal Radiograph of the Chest. Indication:Short of breath Comparison: June 15, 2020 Impression: Median sternotomy wires. Cardiomega ly. Patchy opacities at the bilateral lung bases and midlungs, slightly progressed compared to the prior. Moderate layering right pleural effusion and tiny left pleural effusion. No pneumothorax. 06/17/20 09:16 IV Care:Saline Lock per Protoc QSHIFT Telemetry .ONCE Sodium Chloride 0.9% (Flush) [Saline Flush Syringe] 10 ml IV PRN PRN Sodium Chloride 0.9% 1000ML [Ns 1000 ml] 1,000 ml IVS .QD 06/17/20 09:30 EKG STAT 06/17/20 10:11 BLOOD CULTURE Stat 06/17/20 11:00 RESPIRATORY PANEL 2 Stat 06/18/20 09:00 Pulse Ox Daily Laboratory Results - last 24 hr 06/17/20 06/17/20 06/17/20 10:11 10:11 10:11 WBC 15.4 H RBC 3.51 L Hgb 11.2 L Hct 34.7 L MCV 98.8 MCH 31.8 H MCHC 32.2 L RDW 15.0 H Plt Count 173 MPV 7.3 L Absolute Neuts (auto) Not Reportable Absolute Lymphs (auto) Not Reportable Absolute Monos (auto) Not Reportable Absolute Eos (auto) Not Reportable Neutrophils % Not Reportable Neutrophils % (Manual) 83.0 H Lymphocytes % Not Reportable Lymphocytes % (Manual) 9.0 Monocytes % Not Reportable Monocytes % (Manual) 5.0 Eosinophils % Not Reportable Basophils % Not Reportable Band Neutrophils 3.0 H Platelet Estimate Normal Polychromasia 1+ Anisocytosis 1+ Macrocytosis 1+ Sodium 135 Potassium 5.8 H D Chloride 100 L Carbon Dioxide 24 Anion Gap 16.8 BUN 48 H Creatinine 2.65 H BUN/Creatinine Ratio 18.1 Random Glucose 140 H Serum Osmolality 285.0 Lactic Acid 1.6 Calcium 9.5 Total Bilirubin 0.8 AST 30 ALT 13 Alkaline Phosphatase 73 B-Natriuretic Peptide 170.0 H Serum Total Protein 7.5 Albumin 3.5 Globulin 4.0 H Albumin/Globulin Ratio 0.9 L Departure - Departure Clinical Impression: Acute respiratory failure Qualifiers: Respiratory failure complication: hypoxia Qualified Code(s): J96.01 - Acute respiratory failure with hypoxia CKD (chronic kidney disease) Qualifiers: Chronic kidney disease stage: unspecified stage Qualified Code(s): N18.9 - Chronic kidney disease, unspecified Pneumonia Qualifiers: Pneumonia type: due to unspecified organism Laterality: right Lung location: lower lobe of lung Qualified Code(s): J18.9 - Pneumonia, unspecified organism Time of Disposition: 11:51 Disposition: Admit Patient Home Medications: Ambulatory Orders Furosemide 60 mg PO DAILY 04/12/15 Linagliptin [Tradjenta] 5 mg PO DAILY 04/12/15 Nitroglycerin [Nitrostat] 0.4 mg SL PRN PRN 04/12/15 Simvastatin 80 mg PO BEDTIME 04/12/15 Aspirin [Aspirin Adult Low Dose] 81 mg PO DAILY 05/03/15 Spironolactone [Aldactone] 25 mg PO DAILY 05/03/15 Lisinopril 5 mg PO DAILY 08/07/15 Insulin Aspart [Novolog] 0 unit SC ACHS PRN 02/24/17 Insulin Detemir [Levemir Pen] 16 unit SUBCU BID 02/24/17 Magnesium Hydroxide [Milk Of Magnesia] 1 arelis PO PRN PRN 02/24/17 Metoclopramide Tab [Reglan Tab] 10 mg PO TID 02/24/17 Acetamin W/Cod #3 Tab [Tylenol w/CODEINE #3] 1 ea PO Q4HR PRN 08/19/18 Promethazine Tab [Phenergan Tablet] 25 mg PO TID PRN 08/19/18 ALPRAZolam [Xanax] 0.5 mg PO TID PRN 06/13/20 Docusate Sodium [Dulcolax Stool Softener] 1 capsule PO DAILY PRN 06/13/20 Formoterol Fumarate [Perforomist] 20 mcg INH DAILY PRN 06/13/20 Pantoprazole Sodium 40 mg PO DAILY 06/13/20 Polyethylene Glycol 3350 [Miralax] 17 gm PO DAILY PRN 06/13/20 Pramoxine HCl (Rectal) [Proctofoam] 1 % WV QID PRN 06/13/20 Bifidobacterium Infantis [Align] 4 mg PO DAILY cap 06/15/20 Cefdinir [Omnicef] 300 mg PO DAILY #7 cap 06/15/20 predniSONE See Taper PO DAILY 8 Days #20 tab 06/16/20 Comments: Admit to Inpatient Hospice at family request Decision To Admit - Decistion To Admit Decision to Admit Date: 06/17/20 Decision to Admit Time: 11:50
--- NOTE | 2020-06-17 09:56 | RAD ---
Study: Single Frontal Radiograph of the Chest. Indication:Short of breath Comparison: June 15, 2020 Impression: Median sternotomy wires. Cardiomegaly. Patchy opacities at the bilateral lung bases and midlungs, slightly progressed compared to the prior. Moderate layering right pleural effusion and tiny left pleural effusion. No pneumothorax. Electronically signed by: Jayce Granado MD 06/17/2020 9:54 AM CDT
[2020-06-17] MEDS ORDERED: MORPHINE SULFATE INJ 10 MG/ML VIAL IV ONE ×2 (10:28→12:25)
[2020-06-17] MEDS ORDERED: ALBUTEROL INH (ER DISPENSE) 1 EA INH INH ONE (11:11)
[2020-06-17] MEDS ORDERED: IPRATROPIUM/ALBUTEROL 3 ML VIAL NEB ONE ×2 (11:14)
[2020-06-17] MEDS ORDERED: MORPHINE SULFATE INJ 10 MG/ML VIAL ONE (12:28)
[2020-06-17] MEDS ORDERED: SCOPOLAMINE PATCH 1.5MG 1 EA TD ONE (12:53)
[2020-06-17] MEDS ORDERED: ONDANSETRON INJ 4 MG/2 ML VIAL IV PRN (16:43)
[2020-06-17] MEDS ORDERED: IV SET AND CAP CHANGE INJ INJ SCH (17:00)
[2020-06-17] MEDS ORDERED: MORPHINE PCA 1 MG/ML 100 ML BAG IVPB SCH (17:00)
[2020-06-17] MEDS ORDERED: SCOPOLAMINE PATCH 1.5MG 1 EA TD SCH (17:00)
[2020-06-17] MEDS ORDERED: CADD ADMIN SET 1 EA PKG INJ ONE (17:21)
--- NOTE | 2020-06-17 19:01 | HP ---
SUPERVISING PHYSICIAN: EFFIE FISH MD CHIEF COMPLAINT: Shortness of breath and altered mental status. . HISTORY OF PRESENT ILLNESS: This is an 84 year-old female who has an extensive past medical history of congestive heart failure, chronic obstructive pulmonary disease, diabetes and chronic kidney disease. She was just discharged yesterday. She came into the Emergency Room with altered mental status and shortness of breath. Her oxygen saturation when EMS arrived at her house were in the low 70s and they placed her on a non-rebreather. The family decided in the Emergency Room to admit the patient for hospice as she was a DNR and would not want to be intubated or have further treatment. PAST MEDICAL HISTORY: 1. Chronic obstructive pulmonary disease with multiple hospitalizations. 2. Carotid artery stenosis. 3. Coronary artery disease. 4. Hyperlipidemia. 5. Hypertension. 6. Gastroesophageal reflux disease. 7. Gastroparesis due to her diabetes. . 8. History of duodenal ulcer. 9. Chronic renal insufficiency. 10. Morbid obesity. 11. History of atrial fibrillation. PAST SURGICAL HISTORY: 1. Biopsy of the breast. 2. Cholecystectomy. 3. Coronary artery bypass graft. 4. Carotid artery stent, HOME MEDICATIONS: Per the EMR. ALLERGIES: LYRICA AND MORPHINE. SOCIAL HISTORY: The patient lives at home. She quit smoking about 20 years ago. There is no ETOH or illicit drug use.. REVIEW OF SYSTEMS: Unable to obtain due to patient's condition. PHYSICAL EXAMINATION: VITAL SIGNS: Temperature 95.6, heart rate 123, blood pressure 1\93/70, respirations 24, oxygen saturation 95% on non-rebreather. . GENERAL: This is an 84 year-old female patient lying in her bed. She is in respiratory distress. NECK: Supple, RESPIRATORY: Inspiratory and expiratory wheezes throughout. She is very tachypneic. Diminished breath sounds throughout. CARDIOVASCULAR: Tachycardiac with an irregular rhythm. ABDOMEN: Soft, nondistended. Bowel sounds are positive.. EXTREMITIES: She has pitting edema to her lower leg. NEUROLOGIC: She opens her eyes. She mumbles somewhat incoherently. LABORATORY: WBC 15.4, hemoglobin 11.2, hematocrit 34.7. Sodium 135, potassium 5.8, chloride 100, BUN 48, creatinine 2.65. BNP 170. ASSESSMENT: 1. Endstage chronic obstructive pulmonary disease. PLAN: The patient has been admitted to [facility]. Her orders will be [facility] protocol. We will follow patient as needed. #[id number] MTDD
--- NOTE | 2020-06-17 19:40 | SSS ---
SUPERVISING PHYSICIAN: Andrea Mccullough M.D. ADMITTING DIAGNOSIS: 1. Endstage chronic obstructive pulmonary disease. DISCHARGE DIAGNOSIS: 1. . CHIEF COMPLAINT: Shortness of breath and altered mental status. . HISTORY OF PRESENT ILLNESS: This is an 84 year-old female who has an extensive past medical history of congestive heart failure, chronic obstructive pulmonary disease, diabetes and chronic kidney disease. She was just discharged yesterday. She came into the Emergency Room with altered mental status and shortness of breath. Her oxygen saturation when EMS arrived at her house were in the low 70s and they placed her on a non-rebreather. The family decided in the Emergency Room to admit the patient for hospice as she was a DNR and would not want to be intubated or have further treatment. PAST MEDICAL HISTORY: 1. Chronic obstructive pulmonary disease with multiple hospitalizations. 2. Carotid artery stenosis. 3. Coronary artery disease. 4. Hyperlipidemia. 5. Hypertension. 6. Gastroesophageal reflux disease. 7. Gastroparesis due to her diabetes. . 8. History of duodenal ulcer. 9. Chronic renal insufficiency. 10. Morbid obesity. 11. History of atrial fibrillation. PAST SURGICAL HISTORY: 1. Biopsy of the breast. 2. Cholecystectomy. 3. Coronary artery bypass graft. 4. Carotid artery stent, HOME MEDICATIONS: Per the EMR. ALLERGIES: LYRICA AND MORPHINE. SOCIAL HISTORY: The patient lives at home. She quit smoking about 20 years ago. There is no ETOH or illicit drug use.. REVIEW OF SYSTEMS: Unable to obtain due to patient's condition. PHYSICAL EXAMINATION: VITAL SIGNS: Temperature 95.6, heart rate 123, blood pressure 1\93/70, respirations 24, oxygen saturation 95% on non-rebreather. . GENERAL: This is an 84 year-old female patient lying in her bed. She is in respiratory distress. NECK: Supple, RESPIRATORY: Inspiratory and expiratory wheezes throughout. She is very tachypneic. Diminished breath sounds throughout. CARDIOVASCULAR: Tachycardiac with an irregular rhythm. ABDOMEN: Soft, nondistended. Bowel sounds are positive.. EXTREMITIES: She has pitting edema to her lower leg. NEUROLOGIC: She opens her eyes. She mumbles somewhat incoherently. LABORATORY: WBC 15.4, hemoglobin 11.2, hematocrit 34.7. Sodium 135, potassium 5.8, chloride 100, BUN 48, creatinine 2.65. BNP 170. HOSPITAL COURSE: The patient was kept comfortable and all hospice orders were initiated. The patient at 1845 and she was pronounced by hospice. The patient will be discharged to the appropriate home. #[id number] [facility]
[2020-06-17 20:03] VITALS: BP 90/56; TEMP 95; O2SAT 91
== END 2020-06-17 18:45 | disposition expired | DRG 189 ==
LOC: ER 09:05 → MS 13:16
PROVIDERS: ADMIT Nurse Practitioner Acute Care; ATTEND Nurse Practitioner Acute Care
DX: J96.01 Acute respiratory failure with hypoxia (principal); J18.9 Pneumonia, unspecified organism; J44.0 Chronic obstructive pulmonary disease with (acute) lower respiratory infection; I13.0 Hypertensive heart and chronic kidney disease with heart failure and stage 1 through stage 4 chronic kidney disease, or unspecified chronic kidney disease; Z68.44 Body mass index [BMI] 60.0-69.9, adult; R09.02 Hypoxemia; F03.90 Unspecified dementia, unspecified severity, without behavioral disturbance, psychotic disturbance, mood disturbance, and anxiety; I50.9 Heart failure, unspecified; I25.10 Atherosclerotic heart disease of native coronary artery without angina pectoris; E78.5 Hyperlipidemia, unspecified; K21.9 Gastro-esophageal reflux disease without esophagitis; N18.9 Chronic kidney disease, unspecified; I48.91 Unspecified atrial fibrillation; E11.22 Type 2 diabetes mellitus with diabetic chronic kidney disease; E11.43 Type 2 diabetes mellitus with diabetic autonomic (poly)neuropathy; K31.84 Gastroparesis; E66.01 Morbid (severe) obesity due to excess calories; Z66 Do not resuscitate; Z95.1 Presence of aortocoronary bypass graft; Z95.828 Presence of other vascular implants and grafts; Z88.5 Allergy status to narcotic agent; Z88.8 Allergy status to other drugs, medicaments and biological substances; Z87.891 Personal history of nicotine dependence; Z79.4 Long term (current) use of insulin; Z79.82 Long term (current) use of aspirin; Z79.899 Other long term (current) drug therapy; Z51.5 Encounter for palliative care